=== PATIENT | female | born 1970 | race Two or more races ===

== ENCOUNTER 2020-08-25 09:19 | Outpatient (REF) | payer MEDICAID, SELFPAY ==
--- NOTE | 2020-08-25 | US_ITS ---
EXAMINATION: US RETROPERITONEAL LIMITED (RENAL ONLY) CLINICAL INFORMATION: Complex renal cyst. COMPARISON: Renal ultrasound dated 08/11/2019 TECHNIQUE: Real-time imaging of the kidneys. FINDINGS: RIGHT KIDNEY: 9.8 x 4.0 x 3.6 cm (SAG x AP x TRV). The kidney is normal in size, contour, and echogenicity. Renal cortical thickness is normal. No renal calculi or hydronephrosis. Simple cyst in the right kidney measure 1.4 x 2 x 2 cm LEFT KIDNEY: 11.5 x 5.2 x 5.4 cm (SAG x AP x TRV). The kidney is normal in size, contour, and echogenicity. Renal cortical thickness is normal. No renal calculi or hydronephrosis. Lobular cyst in the left kidney measures 2.8 x 3.6 x 3.4 cm. IMPRESSION: Redemonstration of bilateral renal cysts, the one on the left is slightly complex unchanged from prior exam. Attention to follow-up imaging surveillance recommended. Consider follow-up ultrasound in 12 months. No ultrasound evidence of kidney stone or hydronephrosis..
== END 2020-08-25 09:20 | disposition home or self-care (01) ==
LOC: HO.US 09:19
PROVIDERS: PCP Internal Medicine; Visit Provider Urology
DX: N28.1 Cyst of kidney, acquired (principal)
CPT/HCPCS: 76775

== ENCOUNTER 2021-01-11 16:09 | Outpatient (REF) | payer MEDICAID, SELFPAY ==
--- NOTE | ~2021-01-11 | US_ITS ---
EXAMINATION: US THYROID CLINICAL INFORMATION: Nontoxic single thyroid nodule. COMPARISON: None TECHNIQUE: Linear transducer grayscale and color Doppler examination with attention to the region of the thyroid. FINDINGS: SIZE: Measurements of the thyroid lobes and nodules are given in sagittal, anteroposterior and transverse dimensions respectively. Right Thyroid Lobe: 5.0 x 2.1 x 1.7 cm, volume 9.3 mL. Parenchyma: The gland echotexture is homogeneous. Thyroid vascularity is normal. Left Thyroid Lobe: 5.5 x 2.1 x 2.1 cm, volume 12.7 mL. Parenchyma: The gland echotexture is homogeneous. Thyroid vascularity is normal. Isthmus: 0.4 cm in maximum AP dimension. Estimated total number of nodules greater than or equal to 1 cm: 1. Medical Laboratory Technologist nodules are described as follows: 1. Location: Right lateral mid/inferior. Size: 0.7 x 0.4 x 0.4 cm, volume 0.06 mL. Nodule characteristics: Composition: Solid (2). Echogenicity: Hypoechoic (2). Shape: Not taller than wide (0). Margins: Smooth (0). Echogenic Foci: None (0). ACR TI-RADS total points: 4 ACR TI-RADS category: 4 2. Location: Right inferior. Size: 0.9 x 0.8 x 0.8 cm, volume 0.3 mL. Nodule characteristics: Composition: Solid (2). Echogenicity: Isoechoic (1). Shape: Not taller than wide (0). Margins: Ill-defined (0). Echogenic Foci: None (0). ACR TI-RADS total points: 3 ACR TI-RADS category: 3 3. Location: Left mid. Size: 1.4 x 0.8 x 1.0 cm, volume 0.6 mL. Nodule characteristics: Composition: Solid/almost completely solid (2). Echogenicity: Isoechoic (1). Shape: Not taller than wide (0). Margins: Smooth (0). Echogenic Foci: None (0). ACR TI-RADS total points: 3 ACR TI-RADS category: 3 4. There is a small simple cyst less than 1 cm left lower lobe. In addition there are multiple tiny colloid cysts as well. NODES: No lymphadenopathy is seen in the tissue surrounding the thyroid gland. US/US thyroid IMPRESSION: Benign bilateral thyroid nodules. ACR TI-RADS RECOMMENDATION REFERENCE: Ultrasound-guided fine-needle aspiration, followup ultrasound, no further follow up. * TR1 (0 point) and TR 2 (2 points): No FNA or follow up * TR3 (3 points): FNA if more than or equal to 2.5 cm in maximum dimension, followup ultrasound in 1, 3 and 5 years if 1.5 to 2.4 cm in maximum dimension. * TR4 (4-6 points): FNA if more than or equal to 1.5 cm in maximum dimension, followup ultrasound in 1, 2, 3 and 5 years if 1 to 1.4 cm in maximum dimension. * TR5 (more than or equal to 7 points): FNA if more than or equal to 1 cm in maximum dimension, followup ultrasound every year for 5 years if 0.5 to 0.9 cm in maximum dimension. * TR3, TR4 or TR5 nodules that are below the size threshold for follow up receive no follow up.
== END 2021-01-11 16:10 | disposition home or self-care (01) ==
LOC: HO.US 16:09
PROVIDERS: Visit Provider Internal Medicine
DX: E04.1 Nontoxic single thyroid nodule (principal)
CPT/HCPCS: 76536

== ENCOUNTER 2021-02-15 14:49 | Outpatient (REF) | payer MEDICAID, SELFPAY ==
--- NOTE | ~2021-02-15 | US_ITS ---
EXAMINATION: PELVIC ULTRASOUND CLINICAL INFORMATION: Leiomyomatous uterus COMPARISON: None TECHNIQUE: Transabdominal and transvaginal pelvic ultrasound was performed. Transvaginal exam was performed for better visualization of the uterus and ovaries. FINDINGS: The uterus is anteverted and measures 12.1 x 7.3 x 10.3 cm. There are multiple hypoechoic uterine lesions suggestive of fibroids. There is a 6 x 6.2 x 6.1 cm lesion in the right upper uterine body and fundus, 2.3 x 1.7 x 1.9 cm lesion in the right upper uterine body, 3.7 x 2.7 x 3.1 cm subserosal lesion in the posterior uterine body and 4.3 x 3.8 x 3.7 cm lesion in the left anterior upper uterine body and fundus. There is a 6.5 x 5.2 x 7 cm solid hypoechoic lesion in the left adnexa questionable for an exophytic fibroid versus adnexal mass. The endometrium is not well visualized. The cervix is normal appearing. The right ovary is normal-appearing and measures 2.8 x 1.1 x 1.7 cm. The left ovary is difficult to visualize and may be superior and midline and measures 2.1 x 1.5 x 1.5 cm. There is no fluid in the pelvis. US/US pelvic and transvaginal IMPRESSION: Enlarged fibroid uterus. There is a 6.5 x 5 x 7 cm hypoechoic solid left adnexal lesion questionable for a pedunculated fibroid versus adnexal mass. The left ovary and endometrium are not well visualized.
== END 2021-02-15 14:50 | disposition home or self-care (01) ==
LOC: HO.US 14:49
PROVIDERS: Visit Provider Advanced Practice Midwife
DX: D25.9 Leiomyoma of uterus, unspecified (principal)
CPT/HCPCS: 76830; 76856

== ENCOUNTER → 2021-03-03 15:36 | Outpatient (BNVA) | payer MEDICAID, SELFPAY | PROVIDERS: PCP Internal Medicine; Visit Provider Urology ==

== ENCOUNTER 2021-03-11 14:39 | Outpatient (REF) | payer MEDICAID, SELFPAY ==
--- NOTE | ~2021-03-11 | MM_ITS ---
EXAMINATION: MM SCREENING DIGITAL BREAST TOMOSYNTHESIS, BILATERAL CLINICAL INFORMATION: Screening. Asymptomatic. Remote benign right posterior medial stereotactic biopsy 12/05/2010. The lifetime risk of breast cancer based on the Tyrer-Cuzick Model is 13%. COMPARISON: Mammography: 12/08/2019, 12/02/2018, 10/08/2017 TECHNIQUE: Digital breast tomosynthesis is performed in both the craniocaudal and mediolateral oblique views along with computer-aided detection (CAD). Synthesized 2D images are generated from the tomosynthesis. FINDINGS: There are scattered areas of fibroglandular density (ACR BI-RADS breast composition Category b). Left breast has dermal lesion overlying the lower outer breast. There is no interval breast parenchymal lesion, architectural abnormality, developing density. Neither breast shows abnormal calcifications. There is a biopsy clip marker again seen overlying the posterior medial right breast. The right breast focal asymmetric density upper outer quadrant 1.5 cm in size representing change from prior studies. Margins are ill-defined. MM/MM tomosynthesis screening BI IMPRESSION: 1. Right: Focal asymmetric density upper outer quadrant approximately 1.5 cm size with ill-defined margins. 2. Left: No mammographic evidence of malignancy. ASSESSMENT: BI-RADS 0: Incomplete - Need Additional Imaging Evaluation RECOMMENDATION: 1. Additional views of the right breast (3-D spot CC, 3-D spot ML). 2. Targeted ultrasound right breast. 3. Radiology department staff will contact the patient for additional imaging. This patient's information was entered into a reminder system with a target due date for their next mammogram.
== END 2021-03-11 14:40 | disposition home or self-care (01) ==
LOC: HO.MAMMO 14:39
PROVIDERS: PCP Internal Medicine; Visit Provider Internal Medicine
DX: Z12.31 Encounter for screening mammogram for malignant neoplasm of breast (principal)
CPT/HCPCS: 77063; 77067

== ENCOUNTER 2021-03-12 08:10 | Emergency (ER) | payer MEDICAID, SELFPAY ==
--- NOTE | ~2021-03-12 | XR_ITS ---
EXAMINATION: XR ANKLE, RIGHT CLINICAL INFORMATION: Pain status post fall COMPARISON: None TECHNIQUE: AP, lateral, and mortise views of the right ankle. FINDINGS: The bones and soft tissues are normal. No fracture. Alignment is anatomic. Joint spaces are maintained. No joint effusion. XR/XR ankle RT min 3V IMPRESSION: Normal right ankle.
--- NOTE | ~2021-03-12 | XR_ITS ---
EXAMINATION: XR KNEE, RIGHT CLINICAL INFORMATION: Pain status post fall COMPARISON: None TECHNIQUE: Four views of the right knee. FINDINGS: Bones and soft tissues are normal. No fracture or joint effusion. Alignment is anatomic. Joint spaces are well maintained. No abnormal soft tissue calcification. XR/XR knee RT 3V IMPRESSION: Normal right knee.
[2021-03-12 08:40] VITALS: BP 118/66; PULSE 69; RESP 16; TEMP 36.6; O2SAT 99; BMI 32.5
--- NOTE | 2021-03-12 10:08 | ED.LOWEXIN ---
HPI - Extremity Injury (Lower) General Chief Complaint: Extremity Injury, Lower Stated Complaint: FALL KNEE PAIN Time Seen by Provider: 03/12/21 10:07 History of Present Illness HPI Narrative: Patient complains of pain in right knee and right ankle after a trip and fall outside a store yesterday, no other injury no headache no neck pain no back pain no numbness weakness or tingling, she had no preceding dizziness, did not feel faint, no syncope Related Data Previous Rx's Medication Instructions Recorded acetaminophen 500 mg PO Q6H PRN #20 tab 03/12/21 Allergies Allergy/AdvReac Type Severity Reaction Status Date / Time aspirin [ASPIRIN] Allergy Unknown RASH, Verified 03/03/21 15:39 ITCHING, rash/ itch ciprofloxacin [From CIPRO] Allergy Unknown UNKNOWN Verified 03/03/21 15:39 shellfish derived Allergy Unknown swelling Verified 03/03/21 15:39 [SHELLFISH DERIVED] of tongue Seafood Allergy Unknown hives Uncoded 09/30/19 00:00 Review of Systems Review of Systems: Positive for right ankle and right knee pain after trip and fall No dizziness no weakness no fainting no feeling faint no numbness weakness or tingling no headache no head injury no neck pain no back pain no chest pain PMFSH Past Medical History Source: nursing notes reviewed Medical History History of medical problems Social History Social History Advance Directives: Yes Advance Directives Information Provided: Yes Advance Directives on File: No Physical Exam Vital Signs: Vital Signs: Last Vital Signs Temp 97.8 F 03/12/21 08:40 Pulse 69 03/12/21 08:40 Resp 16 03/12/21 08:40 BP 118/66 03/12/21 08:40 Pulse Ox 99 03/12/21 08:40 Body Mass Index 32.5 General appearance is no acute distress, common cooperative, a and O x3 Head is normocephalic atraumatic Neck is supple and nontender Respiratory no distress The back full range of motion The extremities there is tenderness over the lateral aspect of the right malleolus in the right ankle, there is no swelling no ecchymosis there is full range of motion The right knee had some tenderness just below the patella, there is no swelling no effusion, there is full range of motion there is no ligamentous laxity, patient can straight leg raise no evidence of quadriceps or patellar disruption, neurovascular intact distal Patient has a limping gait Skin no lacerations, skin is intact no wounds Neuro no focal motor or sensory deficit Course Course Course Narrative: X-rays of right ankle and right knee were normal Patient is given an Vinicius bandage and will follow with orthopedics as needed Discharge Plan Discharge Clinical Impression: Contusion of knee, right Qualifiers: Encounter type: initial encounter Qualified Code(s): S80.01XA - Contusion of right knee, initial encounter Right ankle sprain Qualifiers: Encounter type: initial encounter Involved ligament of ankle: unspecified ligament Qualified Code(s): S93.401A - Sprain of unspecified ligament of right ankle, initial encounter Patient Disposition: Home, Self-Care Prescriptions: New acetaminophen 500 mg tablet 500 mg PO Q6H PRN (Reason: pain) Qty: 20 RF: 0 Referrals: Brain Stein MD [Physician] - 2 days (Right ankle and right knee sprains) Interventions: ED Discharge Assessment Last Done: 03/12/21 10:17 Discharge Date/Time: 03/12/21 10:18
== END 2021-03-12 10:18 | disposition home or self-care (01) ==
PROVIDERS: Emergency Provider Emergency Medicine; PCP Internal Medicine
DX: S93.401A Sprain of unspecified ligament of right ankle, initial encounter (principal); S80.01XA Contusion of right knee, initial encounter; M25.571 Pain in right ankle and joints of right foot; M25.561 Pain in right knee; W01.0XXA Fall on same level from slipping, tripping and stumbling without subsequent striking against object, initial encounter; Y93.9 Activity, unspecified; Y92.9 Unspecified place or not applicable; Y99.9 Unspecified external cause status
CPT/HCPCS: 73562; 73610; 99283

== ENCOUNTER 2021-03-24 14:43 | Outpatient (REF) | payer MEDICAID, SELFPAY ==
--- NOTE | ~2021-03-24 | MM_ITS ---
EXAMINATION: MM DIAGNOSTIC DIGITAL BREAST TOMOSYNTHESIS, RIGHT US DIAGNOSTIC ULTRASOUND BREAST, RIGHT CLINICAL INFORMATION: Recall from screening for asymmetric density upper outer right breast. COMPARISON: Mammography: 03/11/2021, 12/08/2019, 12/02/2018, 10/05/2017, 10/03/2016 TECHNIQUE: Digital breast tomosynthesis is performed. 2D images are generated from the tomosynthesis. The following views are obtained: Spot CC, spot ML Ultrasound right breast is targeted to the upper outer quadrant. Grayscale imaging and color Doppler are performed without and with harmonics. FINDINGS: There are scattered areas of fibroglandular density (ACR BI-RADS breast composition Category b). The additional views confirm subtle equal attenuation asymmetric density upper outer breast. There is mixture of fatty tissue attenuation. No surrounding capsule and no associated calcification. Finding represents change from prior exams. Ultrasound demonstrates no cystic or solid mass or architectural abnormality. There is no ultrasound correlate. No focal duct ectasia. No skin thickening or edema tracking in soft tissue planes. No hyperemia. Results are discussed with the patient at time of visit using an pecan sheller. Recommend tissue sampling with stereotactic guidance for further evaluation. MM/MM tomosynthesis added views R IMPRESSION: New asymmetric density upper outer right breast with admixture of glandular and fatty tissue composition. No surrounding capsule. No spiculation. No ultrasound correlate. ASSESSMENT: BI-RADS 4: Suspicious RECOMMENDATION: Stereotactic biopsy upper outer right breast. This patient's information was entered into a reminder system with a target due date for their next mammogram.
== END 2021-03-24 14:44 | disposition home or self-care (01) ==
LOC: HO.MAMMO 14:43
PROVIDERS: Visit Provider Internal Medicine
DX: R92.2 Inconclusive mammogram (principal)
CPT/HCPCS: 76642; 77061; 77065

== ENCOUNTER 2021-03-31 08:08 | Outpatient (REF) | payer MEDICAID, SELFPAY | END 2021-03-31 08:09 | disposition home or self-care (01) | LOC: HO.HOSX 08:08 | PROVIDERS: PCP Internal Medicine; Referring Provider Internal Medicine; Visit Provider Surgery | DX: R92.8 Other abnormal and inconclusive findings on diagnostic imaging of breast (principal) | CPT/HCPCS: 99202 ==

== ENCOUNTER 2021-04-05 09:47 | Outpatient (REF) | payer MEDICAID, SELFPAY ==
--- NOTE | ~2021-04-05 | MM_ITS ---
EXAMINATION: STEREOTACTIC TOMOSYNTHESIS-GUIDED VACUUM-ASSISTED BREAST BIOPSY, RIGHT SPECIMEN RADIOGRAPH, RIGHT POST PROCEDURE DIGITAL MAMMOGRAM, RIGHT CLINICAL INFORMATION: Developing density deep upper outer aspect of the right breast without ultrasound correlate.. COMPARISON: March 24, 2021 and studies dating back to September 07, 2014. TECHNIQUE/PROCEDURE: Informed consent was obtained from the patient after discussion of the benefits, risks, and alternatives to biopsy today. Patient appeared to understand. Gave opportunity for questions. Patient signed consent form. BIOPSY TABLE: [place] [employer] Prone Biopsy System. LESION: Dense parenchymal lesion upper outer aspect right breast. LOCAL ANESTHESIA: 10 mL 1% lidocaine; 20 mL 1% lidocaine with epinephrine. DERMATOTOMY: Single skin luke dermatotomy performed. NEEDLE: Fitzealiva 9-gauge vacuum assisted core biopsy device. APPROACH: Superior. TARGETING: Digital breast tomosynthesis used for targeting. CORES: 13. CLIP: Cork shaped clip. SPECIMEN RADIOGRAPH: Specimen radiograph is taken in separate room using digital mammography. The sample appears to contain some of the lobular targeted tissue. POST PROCEDURE UNILATERAL DIGITAL MAMMOGRAM: The post biopsy mammogram is performed in separate room using separate digital mammography equipment from the biopsy procedure. 2 views are obtained. There are scattered areas of fibroglandular density (breast composition category: b). The clip marker is in position. No gross hematoma. The patient tolerated the procedure well. No immediate complications. Home instructions reviewed with the patient. Final pathology results are pending. MM/MM stereotactic biopsy RT IMPRESSION: 1. Digital tomosynthesis-guided core biopsy right breast with clip placement. 2. Specimen radiograph taken and post procedure mammogram. There is satisfactory positioning of the biopsy clip. 3. Final pathology results pending. An addendum report will be issued.
== END 2021-04-05 09:48 | disposition home or self-care (01) ==
LOC: HO.MAMMO 09:47
PROVIDERS: Visit Provider Surgery
DX: R92.8 Other abnormal and inconclusive findings on diagnostic imaging of breast (principal)
CPT/HCPCS: 19081; 88305; A4648

== ENCOUNTER → 2021-04-08 08:23 | Outpatient (BNVA) | payer MEDICAID, SELFPAY | PROVIDERS: PCP Internal Medicine; Visit Provider Surgery | DX: R92.8 Other abnormal and inconclusive findings on diagnostic imaging of breast (principal) | CPT/HCPCS: 99212 ==

== ENCOUNTER 2021-09-02 13:09 | Outpatient (REF) | payer MEDICAID, SELFPAY ==
--- NOTE | ~2021-09-02 | XR_ITS ---
EXAMINATION: XR CERVICAL SPINE CLINICAL INFORMATION: Pain COMPARISON: None TECHNIQUE: 5 views of the cervical spine, inclusive of flexion and extension views, were obtained. FINDINGS: The vertebral alignment is normal. No intrinsic bony abnormality. The disc heights and neural foramina are well maintained. The endplates and posterior elements are normal. No fracture or subluxation. The surrounding prevertebral soft tissues are unremarkable. The lung apices are clear. XR/XR cervical spine min 6V IMPRESSION: Unremarkable examination.
--- NOTE | ~2021-09-02 | XR_ITS ---
EXAMINATION: XR THORACIC SPINE CLINICAL INFORMATION: Pain COMPARISON: None TECHNIQUE: 3 views of the thoracic spine were obtained. FINDINGS: No fracture or subluxation. Vertebral body height and alignment maintained. Disc spaces are maintained. The paravertebral soft tissues are unremarkable. The visualized lungs are clear. XR/XR thoracic spine 3V IMPRESSION: Unremarkable examination.
--- NOTE | ~2021-09-02 | XR_ITS ---
EXAMINATION: XR SHOULDER, RIGHT CLINICAL INFORMATION: Right shoulder pain. COMPARISON: None TECHNIQUE: Four views of the right shoulder. FINDINGS: The lateral end of the right clavicle is slightly superiorly displaced and shows malalignment between the inferior edge of the clavicle and the inferior edge of the acromion.. The acromioclavicular joint space appear to be well-maintained. The finding may represent subtle acromioclavicular joint injury. Comparison with contralateral normal side as well as stress radiograph with and without weightbearing may be considered for further clarification. The glenohumeral joint is well aligned. Soft tissues are unremarkable. XR/XR shoulder RT min 2V IMPRESSION: Possible subtle injury involving the right acromioclavicular joint. Comparison with contralateral normal side as well as stress radiograph with and without weightbearing may be considered for further clarification.
== END 2021-09-02 13:10 | disposition home or self-care (01) ==
LOC: HO.XRAY 13:09
PROVIDERS: Absent Provider Internal Medicine; PCP Internal Medicine; Visit Provider Nurse Practitioner Family
DX: M54.6 Pain in thoracic spine (principal)
CPT/HCPCS: 72052; 72072; 73030

== ENCOUNTER 2021-10-08 11:13 | Emergency (ER) | payer MEDICAID, SELFPAY ==
[2021-10-08 11:15] VITALS: BP 135/65; PULSE 74; RESP 16; TEMP 36.6; O2SAT 98; BMI 29.0
--- NOTE | 2021-10-08 11:26 | ED_ITS ---
HPI - Back Pain/Injury General Chief Complaint: Back Pain/Injury Stated Complaint: back pain Time Seen by Provider: 10/08/21 11:26 Source: patient Mode of arrival: ambulatory Limitations: language barrier History of Present Illness HPI Narrative: 51-year-old female presents for bilateral low back pain, that started 2 days ago and worsened yesterday. 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 She had low back pain, but she continued to stand on her feet and do a lot of cooking. Patient has no saddle paresthesias, no history of IV drug use, no history of cancer, no fevers, no leg weakness, no incontinence of bowel or bladder. No back surgeries. Patient states she had a fall this summer, and had an x-ray of her thoracic spine which was negative. X-ray of thoracic spine August 2021 was reviewed and is normal. Patient endorses bilateral low back pain, that is constant and aching with some discomfort running down her right lower extremity. MD elicited complaint: back pain Pertinent past history: prior back pain Onset (ago): day(s) (2) Timing: constant Severity: moderate Similar Symptoms Previously: No Quality: dull Location: right lower back and left lower back Radiation: right upper leg Exacerbating factors: movement Relieving factors: immobilization Context: other ( standing for long period of time and doing a lot of cooking) Associated symptoms: denies other symptoms Treatments prior to arrival: acetaminophen Work related injury: No Related Data Home Medications Medication Instructions Recorded Confirmed albuterol sulfate 90 mcg/actuation 2 puff INHALATION QID 03/31/21 04/08/21 aerosol inhaler (ProAir HFA) clonazepam 0.5 mg tablet 0.5 mg PO DAILY 03/31/21 04/08/21 fluticasone propionate 100 1 inh INHALATION BID 03/31/21 04/08/21 mcg/actuation blister powder for inhalation (Flovent Diskus) propranolol 160 mg capsule,24 160 mg PO DAILY 03/31/21 04/08/21 hr,extended release sertraline 100 mg tablet 100 mg PO DAILY 03/31/21 04/08/21 topiramate 25 mg tablet (Topamax) 25 mg PO DAILY 03/31/21 04/08/21 Previous Rx's Medication Instructions Recorded acetaminophen 500 mg tablet 500 mg PO Q6H PRN #20 tab 03/12/21 cyclobenzaprine 10 mg tablet 10 mg PO BEDTIME #7 tab 10/08/21 ketorolac 10 mg tablet 10 mg PO QID 5 Days #20 tab 10/08/21 Allergies Allergy/AdvReac Type Severity Reaction Status Date / Time aspirin [ASPIRIN] Allergy Unknown RASH, Verified 03/03/21 15:39 ITCHING, rash/ itch ciprofloxacin [From CIPRO] Allergy Unknown UNKNOWN Verified 03/03/21 15:39 shellfish derived Allergy Unknown swelling Verified 03/03/21 15:39 [SHELLFISH DERIVED] of tongue Seafood Allergy Unknown hives Uncoded 09/30/19 00:00 Review of Systems Constitutional: Constitutional: Denies chills, Denies fatigue, Denies fever(s), Denies headache(s), Denies malaise and Denies weakness Eyes: Eyes: Denies diplopia ENT: Denies vertigo, Denies dizziness, Denies headache(s) and Denies neck pain Cardiovascular: Cardiovascular: Denies chest pain, Denies syncope, Denies leg edema, Denies lightheadedness, Denies palpitations and Denies dyspnea Respiratory: Respiratory: Denies chest congestion, Denies cough and Denies dyspnea Gastrointestinal: Gastrointestinal: Denies abdominal pain, Denies hematochezia, Denies constipation, Denies fecal incontinence, Denies diarrhea and Denies vomiting Genitourinary: Genitourinary: Denies dysuria, Denies pelvic pain, Denies urinary incontinence, Denies urinary hesitancy and Denies urinary urgency Musculoskeletal: Musculoskeletal: Reports back pain, Denies muscle weakness, Denies neck pain, Reports radiating pain into limb and Denies tingling Integumentary/Breasts: Skin/Breast: Denies rash Neurologic: Denies confusion, Denies vertigo, Denies dizziness, Denies syncope, Denies headache(s), Denies Sensory deficit (Neuro), Denies tingling and Denies weakness Psychiatric: Psychiatric: Denies confusion Endocrine: Endocrine: Denies fatigue and Denies palpitations PMFSH Past Medical History Medical History History of medical problems Surgical History H/O right breast biopsy History of appendectomy Family History Family History (Reviewed 10/08/21 @ 11: by CRICKET Garcia) Paternal Aunt Breast cancer Mother Pancreatic cancer Social History Social History (Reviewed 10/08/21 @ 11: by CRICKET Garcia) Alcohol intake: never Advance Directives: No Advance Directives Information Provided: Yes Physical Exam Vital Signs: Vital Signs: Last Vital Signs Temp 97.8 F 10/08/21 11:15 Pulse 74 10/08/21 11:15 Resp 18 10/08/21 12:48 BP 135/65 10/08/21 11:15 Pulse Ox 98 10/08/21 11:15 Body Mass Index 29.0 Const: General: well developed, alert, awake and in distress (d/t pain) mild; No confusion Nutritional Appearance: well nourished Orientation/conscio usness: patient oriented x3 and No confusion Limitations: language barrier (Lithuanian speaker) HENMT: Head: Yes normal to inspection, Yes normocephalic and Yes atraumatic Eyes: Conjunctivae: conjunctivae normal Pupils: Equal, round and reactive pupils present EOM: EOMs intact bilaterally Neck: Neck: Yes full ROM, Yes no lymphadenopathy, Yes no meningeal signs, Yes trachea midline and Yes supple Resp: Effort & Inspection: normal respiratory effort and able to speak in complete sentences Auscultation: clear to auscultation bilaterally, no crackles, no rales, no rhonchi and no wheezes Cardio: Rate: regular rate Rhythm: regular rhythm Heart sounds: S1 normal heart sound present and S2 normal heart sound present : General: Yes no CVA tenderness Back/Spine/Pelvis: Back: no CVA tenderness and back tenderness (bilateral low back) Cervical Spine: normal cervical lordosis, cervical ROM normal, No cervical spasm, No Cervical spine tenderness and No step off deformity Thoracic/Lumbar Spine: straight leg raise negative bilaterally, No kyphosis, No mass, thoraco-lumbar ROM limited with forward flexion, No thoracic spinal tenderness and No lumbar spinal tenderness Pelvis: no pain with anterior- posterior compression and no pain with lateral compression Sacroiliac joints: bilaterally nontender Sacrum: no swelling Coccyx: no swelling Skin: General skin exam: no rashes or lesions noted Neuro: General: patient oriented x3, gait normal, tone normal, moves all extremities, no meningeal signs and No confusion Cranial nerves: Yes Equal, round and reactive pupils present Gait exam (Neuro): Normal gait present, not antalgic, not ataxic and not shuffling Motor exam (neuro): 5/5 motor strength present throughout Sensory Exam: No Sensory deficit (Neuro) Deep tendon reflexes (DTR's): Right patellar reflex intensity grade: 1+ and Left patellar reflex intensity grade: 1+ Extrem: General: Yes normal to inspection and Yes full ROM Right lower extremity: normal to inspection, full ROM and normal capillary refill Left lower extremity: normal to inspection, full ROM and normal capillary refill Psych: Appearance: grossly normal Affect: normal affect Attitude: cooperative Thought process: Normal thought process present Course Course Course Narrative: 51-year-old female with 2 days of atrtaumatic bilateral low back pain. Patient has no red flag symptoms. Patient has intact lower extremity sensation, motor strength, pulses, and DTRs. Patient is able to stand and walk and is able to get up on her toes and up on her heels. No vertebral point tenderness. Patient states pain, is worse with movement. I cannot reproduce tenderness by palpation over her lower back. Gave Toradol and Flexeril, will re-evaluate. Reevaluation(s) Reevaluation #1: On re-examine, patient is feeling much better. Prescribed Toradol and cyclobenzaprine for home. Patient has physical therapy appointment on Sunday, counseled her to keep that appointment and call her primary care provider for follow-up. Discharge Plan Discharge Clinical Impression: Back pain Qualifiers: Back pain location: low back pain Chronicity: acute Back pain laterality: bilateral Sciatica presence: without sciatica Qualified Code(s): M54.50 - Low back pain, unspecified Patient Disposition: Home, Self-Care Instructions: Acute Low Back Pain (ED) Additional Instructions: While taking the medicines that I prescribed, do not take any ibuprofen, Motrin, Excedrin, Aleve, or anything containing ibuprofen. You may take Tylenol in addition to what I prescribed. The cyclobenzaprine may make you sleepy, this is the case, take it only at night. Call your primary care provider for a follow-up appointment in the next couple of weeks. Please keep your physical therapy appointment on Sunday. If you have leg weakness, numbness in your groin, if you are incontinent of bowel or bladder, or have sudden severe low back pain, please return to the emergency room Mientras est? tomando los medicamentos que le recet?, no tome ibuprofeno, Motrin, Excedrin, Aleve ni nada que contenga ibuprofeno. Puede tony Tylenol adem?s de lo que le recet?. La ciclobenzaprina puede causarle jessica?o, yaron es el keren, t?[place] solo por la noche. Llame a arrieta proveedor de atenci?n primaria para peg ivan de seguimiento en las pr?ximas semanas. Acuda a arrieta ivan de fisioterapia el lunes. Si tiene debilidad en las piernas, entumecimiento en la ronda, si tiene incontinencia intestinal o de vejiga, o tiene dolor lumbar odilia y repentino, regrese a la richard de emergencias Prescriptions: New ketorolac 10 mg tablet 10 mg PO QID 5 Days Qty: 20 RF: 0 cyclobenzaprine 10 mg tablet 10 mg PO BEDTIME Qty: 7 RF: 0 No Action acetaminophen 500 mg tablet 500 mg PO Q6H PRN (Reason: pain) Qty: 20 RF: 0 Flovent Diskus 100 mcg/actuation blister with device 1 inh inhalation BID RF: 0 albuterol sulfate [ProAir HFA] 90 mcg/actuation HFA aerosol inhaler 2 puff inhalation QID RF: 0 clonazepam 0.5 mg tablet 0.5 mg PO DAILY RF: 0 sertraline 100 mg tablet 100 mg PO DAILY RF: 0 propranolol 160 mg capsule,extended release 24 hr 160 mg PO DAILY RF: 0 topiramate [Topamax] 25 mg tablet 25 mg PO DAILY RF: 0 Print Language: Lithuanian
[2021-10-08] MEDS: Cyclobenzaprine HCl 10 MG TABLET PO (11:47)
[2021-10-08] MEDS: Ketorolac Tromethamine 15 MG/ML VIAL 30 MG IM (11:48)
[2021-10-08 12:48] VITALS: RESP 18
== END 2021-10-08 13:37 | disposition home or self-care (01) ==
PROVIDERS: Emergency Provider Emergency Medicine; PCP Internal Medicine
DX: M54.50 Low back pain, unspecified (principal)
CPT/HCPCS: 96372; 99283; 99284; J1885

== ENCOUNTER 2021-10-10 14:21 | Outpatient (REF) | payer MEDICAID, SELFPAY ==
--- NOTE | ~2021-10-10 | XR_ITS ---
EXAMINATION: XR KNEE, RIGHT CLINICAL INFORMATION: Knee pain. COMPARISON: 03/12/2021 TECHNIQUE: Two views of the right knee. FINDINGS: Bones and soft tissues are normal. No fracture or joint effusion. Alignment is anatomic. Joint spaces are well maintained. No abnormal soft tissue calcification. XR/XR knee RT 2V IMPRESSION: Normal right knee.
== END 2021-10-10 14:22 | disposition home or self-care (01) ==
LOC: HO.XRAY 14:21
PROVIDERS: PCP Internal Medicine; Visit Provider Physician Assistant
DX: M25.561 Pain in right knee (principal)
CPT/HCPCS: 73560

== ENCOUNTER 2021-10-18 12:33 | Outpatient (REF) | payer MEDICARE, MEDICAID, SELFPAY ==
--- NOTE | ~2021-10-18 | XR_ITS ---
EXAMINATION: XR THORACIC SPINE CLINICAL INFORMATION: 1 week of pain COMPARISON: 09/02/2021 TECHNIQUE: 3 views of the thoracic spine were obtained. FINDINGS: There is no fracture or bone destruction seen and the vertebral alignment is normal. There is no disc space narrowing. There is no abnormality of the paraspinal soft tissues. The visualized lungs are clear. XR/XR thoracic spine 3V IMPRESSION: Unremarkable examination.
--- NOTE | ~2021-10-18 | XR_ITS ---
EXAMINATION: XR SHOULDER, RIGHT CLINICAL INFORMATION: 1 week of pain. COMPARISON: 09/02/2021 TECHNIQUE: AP external rotation, Grashey, scapular Y, and axillary views of the right shoulder. FINDINGS: No acute fracture or dislocation. The glenohumeral joint is well aligned. The joint space is maintained. Similar alignment at the acromioclavicular joint when compared to prior. There is elevation of the clavicle in relation to the acromion. The joint space is maintained. The visualized lung is clear. The visualized ribs are intact. XR/XR shoulder RT min 2V IMPRESSION: No change from prior. Persistent elevated positioning of the clavicle in relation to the acromion.
--- NOTE | ~2021-10-18 | XR_ITS ---
EXAMINATION: XR CERVICAL SPINE CLINICAL INFORMATION: 1 week of pain COMPARISON: 09/02/2021 TECHNIQUE: 5 views of the cervical spine were obtained. FINDINGS: There are no prevertebral soft tissue or bony abnormalities demonstrated. No compression fractures or subluxations are identified. Alignment is maintained at the atlanto-axial articulation. The disc spaces are preserved. No endplate changes are seen. The prevertebral soft tissues are normal. The foramina are patent. XR/XR cervical spine 4V IMPRESSION: Unremarkable examination.
== END 2021-10-18 12:34 | disposition home or self-care (01) ==
LOC: HO.XRAY 12:33
PROVIDERS: Absent Provider Internal Medicine; PCP Internal Medicine; Visit Provider Nurse Practitioner Family
DX: M54.6 Pain in thoracic spine (principal); M54.2 Cervicalgia; M25.511 Pain in right shoulder
CPT/HCPCS: 72050; 72072; 73030

== ENCOUNTER 2021-11-07 15:00 | Outpatient (RCR) | payer MEDICAID, SELFPAY ==
--- NOTE | 2021-10-10 13:37 | MHC.PT.EP ---
[facility] [place] Office [place] Office [place] Office [address] Zendejas [address] [phone] F: [phone] F: [phone] F: [phone] F: [phone] Physical Therapy Plan of Care Date of Evaluation: Date of Surgery: N/A Diagnosis: thoracic back sprain Assessment: Pt is a 51yo F who presents to PT with gradual onset of thoracic and lumbar pain. She presents today with current impairments in pain, increased lumbar lordosis, decreased lumbar ROM, decreased strength, soft tissue restrictions and impaired posture. She is TTP throughout thoracic and lumbar paraspinals and vertebrae. She is limited functionally by sitting to standing, prolonged standing, and walking. She is a good candidate for skilled PT services to address current impairments in order to facilitate return to PLOF. Frequency and Duration: The patient will be seen 2x/week for 4 weeks Short Term Goals: Pt will be I with HEP to promote self management of symptoms Pt will improve lumbar flexion by at least 25% Residential Goals: Pt will demonstrate full ROM throughout lumbar spine Pt will tolerate standing > 30 min to assist with functional tasks Pt will demonstrate improvements in functional mobility as evidenced by statistically significant improvement in Modified Oswestry Low Back Pain Disability Questionnaire Treatment Plan: Modalities to reduce pain, spasms and effusion. Manual therapy to restore motion and function. Therapeutic exercise to improve strength and flexibility. Neuromuscular re-education for posture and balance. Therapeutic activities to return to functional activities of daily living. Electronically signed by: Carolin Soni, PT, DPT Please sign and return to therapist. Thank you for your referral.
--- NOTE | 2021-12-07 11:41 | MHC.PT.DC ---
[facility] [place] Office [place] Office [place] Office [address] Clary Zendejas [address] [phone] F: [phone] F: [phone] F: [phone] F: [phone] Physical Therapy Discharge Report Diagnosis: thoracic back sprain Date of Surgery: N/A Date of Evaluation: 10/10/21 Date of Discharge: 12/07/21 Treatments to Date: 7 Cancellations to Date: 2 No Shows to Date: 1 Discharge Status: Improved Function Independent with HEP Discharge Summary: Pt was seen for skilled PT services from 10/10/21-11/07/21. Her last attended appointment was 11/07/21. She was anticipated to be D/C to HEP her next scheduled visit however she was a no-show for that scheduled appointment on 11/09/21. Pt was making good progress throughout PT POC and made good progress toward her goals. Pt is being D/C from skilled PT services at this time. Pt current level of function unknown at this time. Electronically signed by: Carolin Soni, PT, DPT Please sign and return to therapist. Thank you for your referral.
== END 2021-12-07 11:42 | disposition home or self-care (01) ==
LOC: HO.PT 15:00
PROVIDERS: PCP Internal Medicine; Visit Provider Internal Medicine
DX: S23.9XXD Sprain of unspecified parts of thorax, subsequent encounter (principal)
CPT/HCPCS: 97110; 97162; 97530

== ENCOUNTER → 2021-11-17 09:11 | Outpatient (BNVA) | payer MEDICAID, SELFPAY | PROVIDERS: Visit Provider Physician Assistant | DX: M75.101 Unspecified rotator cuff tear or rupture of right shoulder, not specified as traumatic (principal) | CPT/HCPCS: 20610; 99212; J1040 ==

== ENCOUNTER → 2021-12-02 09:01 | Outpatient (BNVA) | payer MEDICAID, SELFPAY | PROVIDERS: PCP Internal Medicine; Visit Provider Internal Medicine | DX: M54.50 Low back pain, unspecified (principal) | CPT/HCPCS: 99202 ==

== ENCOUNTER 2021-12-30 09:28 | Outpatient (REF) | payer MEDICARE, MEDICAID, SELFPAY ==
--- NOTE | ~2021-12-30 | XR_ITS ---
EXAMINATION: KNEE X-RAY CLINICAL INFORMATION: Pain COMPARISON: Previous x-ray MarchSeptember 2021 TECHNIQUE: Standing AP view of both knees and lateral and sunrise view of the left knee FINDINGS: Left: Bone alignment is normal. No fracture or dislocation is seen. The joint spaces are normal. There is no joint effusion. Standing AP view of the right knee is unremarkable. XR/XR knee standing BI IMPRESSION: Unremarkable exam.
--- NOTE | ~2021-12-30 | XR_ITS ---
EXAMINATION: KNEE X-RAY CLINICAL INFORMATION: Pain COMPARISON: Previous x-ray MarchSeptember 2021 TECHNIQUE: Standing AP view of both knees and lateral and sunrise view of the left knee FINDINGS: Left: Bone alignment is normal. No fracture or dislocation is seen. The joint spaces are normal. There is no joint effusion. Standing AP view of the right knee is unremarkable. XR/XR knee LT 2V IMPRESSION: Unremarkable exam.
== END 2021-12-30 09:29 | disposition home or self-care (01) ==
LOC: HO.HOSX 09:28
PROVIDERS: PCP Internal Medicine; Visit Provider Physician Assistant
DX: M22.2X2 Patellofemoral disorders, left knee (principal)
CPT/HCPCS: 20610; 73560; 73565; 99212; J1040

== ENCOUNTER → 2022-01-09 14:49 | Outpatient (BNVA) | payer MEDICARE, MEDICAID, SELFPAY | PROVIDERS: PCP Internal Medicine; Visit Provider Internal Medicine | DX: M54.50 Low back pain, unspecified (principal) | CPT/HCPCS: 99212 ==

== ENCOUNTER 2022-01-12 13:05 | Outpatient (REF) | payer MEDICARE, MEDICAID, SELFPAY ==
[2022-01-12 16:55] LABS: Alanine Aminotransferase 11 U/L (0-31); Albumin Level 4.1 g/dL (3.5-5.0); Alkaline Phosphatase 107 U/L (39-117); Anion Gap 13 (12-20); Aspartate Amino Transferase 15 U/L (5-31); Bilirubin Total 0.4 mg/dL (0.0-1.0); Blood Urea Nitrogen 12 mg/dL (9-16); Calcium 10.1 mg/dL (8.4-10.2); Carbon Dioxide 29 mmol/L (22-29); Chloride 107 mmol/L (96-108); Estimated Glomerular Filt Rate > 60; Glucose Random 99 mg/dL (60-115); Potassium 4.5 mmol/L (3.3-5.1); Sodium 144 mmol/L (135-145); Total Protein 7.5 g/dL (6.5-8.0)
== END 2022-01-12 13:06 | disposition home or self-care (01) ==
LOC: HO.LAB 13:05
PROVIDERS: PCP Internal Medicine; Referring Provider Nurse Practitioner; Visit Provider Nurse Practitioner
DX: D12.6 Benign neoplasm of colon, unspecified (principal)
CPT/HCPCS: 36415; 80053; 99202

== ENCOUNTER 2022-04-06 11:45 | Outpatient (REF) | payer MEDICARE, MEDICAID, SELFPAY ==
--- NOTE | ~2022-04-06 | MM_ITS ---
EXAMINATION: MM SCREENING DIGITAL BREAST TOMOSYNTHESIS, BILATERAL CLINICAL INFORMATION: Screening. Asymptomatic. The lifetime risk of breast cancer based on the Tyrer-Cuzick Model is 9.2%. COMPARISON: Mammography: April 05, 2021 and studies dating back to August 01, 2012 TECHNIQUE: Digital breast tomosynthesis is performed in both the craniocaudal and mediolateral oblique views along with computer-aided detection (CAD). Synthesized 2D images are generated from the tomosynthesis. FINDINGS: The breasts are heterogeneously dense, which may obscure small masses (ACR BI-RADS breast composition Category c). There are no significant masses, abnormal calcifications, or other abnormalities. Right breast anterior intramammary lymph node present. MM/MM tomosynthesis screening BI IMPRESSION: There are no significant changes from prior study. ASSESSMENT: BI-RADS 1: Negative RECOMMENDATION: Routine annual mammography screening. This patient's information was entered into a reminder system with a target due date for their next mammogram.
== END 2022-04-06 11:46 | disposition home or self-care (01) ==
LOC: HO.MAMMO 11:45
PROVIDERS: Visit Provider Internal Medicine
DX: Z12.31 Encounter for screening mammogram for malignant neoplasm of breast (principal)
CPT/HCPCS: 77063; 77067

== ENCOUNTER 2022-08-07 10:13 | Day surgery (SDC) | payer MEDICARE, SELFPAY ==
[2022-08-02 14:01] VITALS: BMI 29.0
[2022-08-07 10:55] VITALS: BP 126/67; PULSE 73; RESP 16; TEMP 36.4; O2SAT 99; BMI 29.2
--- NOTE | 2022-08-07 10:59 | HO.ANESPROP2 ---
[facility] Active Problems Active Problems: All Active Problems (Updated 08/02/22 @ 13:58 by Kiera Bryant RN) Bilateral renal cysts (Acute) Abnormal mammogram of right breast (Acute) Knee pain (Acute) Painful arc syndrome of right shoulder (Acute) Patellofemoral syndrome of left knee (Acute) Migraines (Acute) Depression with anxiety (Acute) Tubular adenoma of colon (Acute) HTN (hypertension), benign (Acute) Right bundle branch block (Acute) Hemorrhoids (Acute) Inappropriate sinus tachycardia (Acute) Urinary incontinence (Acute) Tubular adenoma of colon (Acute) Low back pain (Acute) Past Medical History Medical History (Updated 08/02/22 @ 13:58 by Kiera Bryant RN) Anxiety Depression HTN (hypertension) Low back pain Migraines RBBB (right bundle branch block) Family History Family History Paternal Aunt Breast cancer Mother Pancreatic cancer Family history of problems with anesthesia: No Surgical History Surgical History (Updated 08/02/22 @ 13:59 by Kiera Bryant RN) H/O colonoscopy H/O right breast biopsy History of appendectomy History of Problems with Anesthesia: No Social History Social History Alcohol intake: never Advance Directives: No Advance Directives Information Provided: Yes Current occupational status: disabled Meds Allergies Allergy/AdvReac Type Severity Reaction Status Date / Time shellfish derived Allergy Severe swelling Verified 08/02/22 12:50 [SHELLFISH DERIVED] of tongue aspirin [ASPIRIN] Allergy Intermediate rash/ itch Verified 08/02/22 12:50 ciprofloxacin [From CIPRO] Allergy Unknown UNKNOWN Verified 01/12/22 13:14 Seafood Allergy Intermediate hives Uncoded 08/02/22 12:50 Home Medications Medication Instructions Recorded Confirmed Last Taken Type albuterol sulfate 90 mcg/actuation 2 puff inhalation QID 03/31/21 01/09/22 Unknown History aerosol inhaler (ProAir HFA) clonazepam 0.5 mg tablet 0.5 mg PO DAILY 03/31/21 01/09/22 Unknown History fluticasone propionate 100 1 inh inhalation BID 03/31/21 01/09/22 Unknown History mcg/actuation blister powder for inhalation (Flovent Diskus) propranolol 160 mg capsule,24 160 mg PO DAILY 03/31/21 01/09/22 Unknown History hr,extended release sertraline 100 mg tablet 100 mg PO DAILY 03/31/21 01/09/22 Unknown History topiramate 25 mg tablet (Topamax) 25 mg PO DAILY 03/31/21 01/09/22 Unknown History lidocaine 5 % topical patch 1 patch topical DAILY 01/12/22 Unknown History Exam Exam Date and Time: August 07, 2022 1059 Height,Weight and Vital Signs: Height 5 ft 8 in Weight 86.636 kg Airway Mallampati Class: III (Limited mouth opening) TM Dist: >3cm Neck ROM: Full Denture: Upper and Lower Heart: rrr Lungs: cta Assessment and Plan Assessment Anesthesia Assessment: Anesthesia Plan Discussed Final Anesthetic Review Family History of Problems with Anesthesia: No History of Problems with Anesthesia: No NPO: Yes ASA Class: II Final Preanesthetic Review: No Changes in Pt Med Stat, Meds/Allgs Chart Reviewed and Consent Obtained/Reviewed Patient Risk: Intermediate Procedure Risk: Intermediate Anesthetic Plan Anesthetic Plan: MAC: Disposition: Standard PACU
[2022-08-07 11:14] VITALS: BP 126/67; PULSE 73; RESP 16; TEMP 36.4; O2SAT 99
--- NOTE | 2022-08-07 12:11 | MHC.SHP ---
Pre-Procedural Eval Section A Date of Service: 08/07/22 The patient is an INPATIENT: No The History & Physical has been completed within 30 days and I have reviewed it.: No Section B Chief Complaint: Screening, history of colon polyps Relevant Family History (Specify if Yes): No Relevant Social History: None Present Medications: see Short Stay Collaborative assessment Medical History: Significant History (RBBB with sinus tachycardia Renal cysts Microscopic hematuria Migraines Depression/anxiety Urinary stress incontinence Tubular adenoma Hypertension Thoracic back pain Hemorrhoids) History of Previous Operations: Relevant previous surgery/procedure and date(s) (H/O right breast biopsy History of appendectomy) Allergies: Allergies Allergy/AdvReac Type Severity Reaction Status Date / Time shellfish derived Allergy Severe swelling Verified 08/02/22 12:50 [SHELLFISH DERIVED] of tongue aspirin [ASPIRIN] Allergy Intermediate rash/ itch Verified 08/02/22 12:50 ciprofloxacin [From CIPRO] Allergy Unknown UNKNOWN Verified 01/12/22 13:14 Seafood Allergy Intermediate hives Uncoded 08/02/22 12:50 Review of Systems Sugical H&P ROS: Negative: Constitution, Cardiovascular, Respiratory and Gastrointestinal Exam Surgical H&P Exam: Normal: Heart, Normal: Lungs, Normal: Extremities and Normal: Abdomen Plan Diagnosis/Plan: Unchanged I have reviewed the history and physical and performed a pertinent physical examination on my patient. No changes have occurred unless specified.
--- NOTE | 2022-08-07 12:13 | P.OP_ITS ---
Operative Note Operative Note Date of Service: 08/07/22 Narrative: Pre-op diagnosis: Colon cancer screening, history of colon polyps Post-op diagnosis:?other (Colon polyps, diverticulosis, hemorrhoids) Procedure: COLONOSCOPY TILL CECUM WITH BIOPSIES, SNARE POLYPECTOMY, SUBMUCOSAL INJECTION AND HEMOCLIP PLACEMENT Consent: Indications for the procedure and potential complications of bleeding, perforation, reaction to medications and missed diagnosis were discussed with the patient and informed consent was obtained. Instrument: Olympus PCF H 190 L variable stiffness pediatric colonoscope Monitoring: Vital signs and clinical assessment, intermittent blood pressure monitoring, continuous EKG monitoring, Pulse oximetry and Carbon Dioxide monitoring were done throughout the procedure. Colon withdrawl time was 28 minutes. Procedure: The patient was placed in the left lateral decubitis position and pre-procedure medications were administered. After a digital rectal examination of the ano-rectum, the video colonoscope was inserted into the rectum and advanced through the colon to the cecum. The colonoscope was slowly withdrawn in a retrograde panoramic fashion and the colon mucosa was carefully examined including a retroflexed view of the rectum. Findings and interventions are described below. Procedure Difficulty: Without difficulty Findings: Terminal Ileum: Not evaluated Cecum:? A 12-15 mm sessile polyp raised with 3 cc of Orise solution)(submucosal injection and removed with a hot snare. Ascending Colon:? Two 5-8 mm sessile polyps removed with a cold bx. A 2.5 to 2.8 mm flat polyp at 70 cms in the mid AC.? Polyp was raised with 10 cc of Orise solution (submucosal injection) and removed with a hot snare.? Polypectomy site was treated with caustery using the snare tip, marked with armando ink and closed with a hemoclip. Transverse Colon:? Normal Descending Colon:? Moderate diverticulosis Sigmoid Colon:? A 10 mm sessile polyp removed with a hot snare. Moderate diverticulosis Rectum:? Normal Ano-rectum:? Small internal hemorrhoids Colon preparation:? Good after some irrigation Impression and Post Procedure Diagnosis: Colonoscopy Findings: Five small to medium sized polyps removed Moderate diverticulosis seen in the left colon Small hemorrhoids on retroflexed exam. Plan: Await pathology results Patient has an appointment on 08/22/22 in the GI Clinic with? Ligia Denise NP. Repeat Colonoscopy interval based on path results - in 1 year if polyps are adenomatous to check polypectomy site in the AC at 70 cms. Colon polyps and diverticulosis handouts were given in the discharge area Surgeon: Funmi Bond MD Anesthesia:?MAC Was an Strike Off Machine Operator used for this Procedure?:?Yes Strike Off Machine Operator:?Nicole Bradford Estimated blood loss (mL):?0 Pathology:?other (A- POLYP CECUM? O-RISE USED? B- ASCE NDING COLON POLYPS? C- ASCENDING COLON POLYP AT 70CM? O- RISE USED? D- SIGMOID POLYP) Condition:?stable Disposition:?PACU
[2022-08-07 13:02] VITALS: BP 104/53; PULSE 75; RESP 18; TEMP 36.4; O2SAT 99
[2022-08-07 13:21] VITALS: BP 120/73; PULSE 69; RESP 18; TEMP 36.4; O2SAT 100
== END 2022-08-07 14:35 | disposition home or self-care (01) ==
PROVIDERS: PCP Internal Medicine; Visit Provider Internal Medicine Gastroenterology
PROC: 0DJD8ZZ Inspection of Lower Intestinal Tract, Via Natural or Artificial Opening Endoscopic (ICD-10-PCS; CPT 45378; principal; 2022-08-07 11:20)
DX: Z12.11 Encounter for screening for malignant neoplasm of colon (principal); Z86.010 Personal history of colon polyps; D12.2 Benign neoplasm of ascending colon; K63.5 Polyp of colon; K57.30 Diverticulosis of large intestine without perforation or abscess without bleeding; K64.8 Other hemorrhoids; I10 Essential (primary) hypertension; I45.10 Unspecified right bundle-branch block; R00.0 Tachycardia, unspecified; G43.909 Migraine, unspecified, not intractable, without status migrainosus; F41.8 Other specified anxiety disorders; Z88.1 Allergy status to other antibiotic agents; Z88.8 Allergy status to other drugs, medicaments and biological substances; Z91.040 Latex allergy status
CPT/HCPCS: 45385; 45380; 45381; 88305; J3010

== ENCOUNTER 2022-08-18 15:40 | Outpatient (REF) | payer MEDICARE, SELFPAY ==
--- NOTE | ~2022-08-18 | US_ITS ---
EXAMINATION: US RETROPERITONEAL LIMITED (RENAL ONLY) CLINICAL INFORMATION: Calculus of kidney. COMPARISON: Renal ultrasound 08/25/2020 and 08/11/2019. MRI abdomen 02/10/2019. TECHNIQUE: Real-time imaging of the kidneys. FINDINGS: RIGHT KIDNEY: 10.4 x 5.1 x 5.4 cm (SAG x AP x TRV). The kidney is normal in size, contour, and echogenicity. Renal cortical thickness is normal. No renal calculi or hydronephrosis. There are 2 anechoic cysts seen in upper pole measuring 2.9 x 1.9 x 2.6 cm and 0.5 x 0.5 x 0.5 cm. LEFT KIDNEY: 10.2 x 5.5 x 4.6 cm (SAG x AP x TRV). The kidney is normal in size, contour, and echogenicity. Renal cortical thickness is normal. No renal calculi or hydronephrosis. There is a solitary upper pole anechoic cyst with septation measuring 4.3 x 2.8 x 3.5 cm. No additional cyst seen. US/US renal BI IMPRESSION: Complex cyst upper pole left kidney. 2 simple cyst upper pole right kidney. No echogenic stones or hydronephrosis.
== END 2022-08-18 15:41 | disposition home or self-care (01) ==
LOC: HO.US 15:40
PROVIDERS: Visit Provider Internal Medicine
DX: N20.0 Calculus of kidney (principal); N28.1 Cyst of kidney, acquired; E04.1 Nontoxic single thyroid nodule
CPT/HCPCS: 76775

== ENCOUNTER 2022-08-31 10:52 | Outpatient (REF) | payer MEDICARE, SELFPAY ==
--- NOTE | ~2022-08-31 | US_ITS ---
EXAMINATION: US THYROID CLINICAL INFORMATION: Thyroid nodule. COMPARISON: Ultrasound thyroid 01/11/2021. TECHNIQUE: Linear transducer grayscale and color Doppler examination with attention to the region of the thyroid. FINDINGS: SIZE: Measurements of the thyroid lobes and nodules are given in sagittal, anteroposterior and transverse dimensions respectively. Right Thyroid Lobe: 5.0 x 1.6 x 1.9 cm, volume 7.9 mL. Previously 5.0 x 2.1 x 1.7 cm, volume 9.3 mL. Parenchyma: The gland echotexture is homogeneous. Thyroid vascularity is increased. Left Thyroid Lobe: 5.3 x 2.7 x 2.1 cm, volume 15.7 mL. Previously 5.5 x 2.1 x 2.1 cm, volume 12.7 mL. Parenchyma: The gland echotexture is homogeneous. Thyroid vascularity is normal. Isthmus: 0.4 cm in maximum AP dimension. Previously 0.4 cm. Estimated total number of nodules greater than or equal to 1 cm: 1. Splicing Technician nodules are described as follows: 1. Location: Right lateral mid/inferior. Size: 0.5 x 0.4 x 0.3 cm, volume 0.04 mL. Previously: 0.7 x 0.4 x 0.4 cm, volume 0.06 mL. Nodule characteristics: Composition: Solid/almost completely solid (2). Echogenicity: Hyperechoic (1). Shape: Taller than wide (3). Margins: Smooth (0). Echogenic Foci: None (0). ACR TI-RADS total points: 6 Previous: 4 ACR TI-RADS category: 4 Previous: 4 Significant change in size (>/= 20% in 2 dimensions and minimal increase of 2 mm or 50% or greater increase in volume): No Change in features: No Change in ACR TI-RADS risk category: No 2. Location: Right inferior. Size: 0.7 x 0.5 x 0.7 cm, volume 0.1 mL. Previously: 0.9 x 0.8 x 0.8 cm, volume 0.3 mL. Nodule characteristics: Composition: Solid (2). Echogenicity: Isoechoic (1). Shape: Not taller than wide (0). Margins: Smooth (0). Echogenic Foci: None (0). ACR TI-RADS total points: 3 Previous: 3 ACR TI-RADS category: 3 Previous: 3 Significant change in size (>/= 20% in 2 dimensions and minimal increase of 2 mm or 50% or greater increase in volume): No Change in features: No Change in ACR TI-RADS risk category: No 3. Location: Left mid/superior. Size: 1.6 x 1.0 x 1.2 cm, volume 0.9 mL. Previously: 1.4 x 0.8 x 1.0 cm, volume 0.6 mL. Nodule characteristics: Composition: Solid/almost completely solid (2). Echogenicity: Isoechoic (1). Shape: Not taller than wide (0). Margins: Smooth (0). Echogenic Foci: None (0). ACR TI-RADS total points: 3 Previous: 3 ACR TI-RADS category: 3 Previous: 3 Significant change in size (>/= 20% in 2 dimensions and minimal increase of 2 mm or 50% or greater increase in volume): Yes Change in features: No Change in ACR TI-RADS risk category: No 4. Location: Left inferior. Size: 0.5 x 0.4 x 0.5 cm, volume 0.05 mL. Previously: Not measured on the previous study. Nodule characteristics: Composition: Solid (2). Echogenicity: Hypoechoic (2). Shape: Not taller than wide (0). Margins: Smooth (0). Echogenic Foci: None (0). ACR TI-RADS total points: 4 ACR TI-RADS category: 4 This nodule previously had a cystic appearance, now appearing solid. NODES: No lymphadenopathy is seen in the tissue surrounding the thyroid gland. US/US thyroid IMPRESSION: Multiple bilateral thyroid nodules are seen. Both of the most concerning nodules, in the right lateral mid-lower thyroid and left lower thyroid would be considered TI-RADS Category 4, but they are less than 1 cm in size so no imaging follow-up is recommended. BI-RADS criteria. A 1.6 cm solid nodule in the left mid-upper thyroid would be considered high RADS category 3. It has increased in size 50 percent from the prior study, 0.6 mL volume previously now 0.9 mL volume. Follow-up ultrasound in 1, 3, and 5 years is recommended. ACR TI-RADS RECOMMENDATION REFERENCE: * TR3 (3 points): FNA if more than or equal to 2.5 cm in maximum dimension, followup ultrasound in 1, 3 and 5 years if 1.5 to 2.4 cm in maximum dimension. * TR4 (4-6 points): FNA if more than or equal to 1.5 cm in maximum dimension, followup ultrasound in 1, 2, 3 and 5 years if 1 to 1.4 cm in maximum dimension.
== END 2022-08-31 10:53 | disposition home or self-care (01) ==
LOC: HO.US 10:52
PROVIDERS: Visit Provider Internal Medicine
DX: E04.1 Nontoxic single thyroid nodule (principal)
CPT/HCPCS: 76536

== ENCOUNTER → 2022-09-01 09:32 | Outpatient (BNVA) | payer MEDICARE, SELFPAY | PROVIDERS: PCP Internal Medicine; Referring Provider Internal Medicine; Visit Provider Nurse Practitioner | DX: D12.6 Benign neoplasm of colon, unspecified (principal) | CPT/HCPCS: 99212 ==

== ENCOUNTER 2023-01-24 15:30 | Outpatient (REF) | payer MEDICARE, MEDICAID, SELFPAY ==
--- NOTE | ~2023-01-24 | XR_ITS ---
EXAMINATION: Right wrist and right hand.. CLINICAL INDICATION: chronic pain of wrist and hand. TECHNIQUE: The 4 views right wrist and 3 views right hand. COMPARISON: None. FINDINGS: Right wrist: There is no visible acute fracture, dislocation subluxation seen. There are subchondral cystic changes along the lunate bone at the radial ulnar joint with mild narrowing of the radial lunate joint space. Rest of the right wrist is unremarkable. There is no soft tissue swelling seen. Right hand: There is no visible acute fracture, dislocation or subluxation seen. No bony erosive changes. No bony erosive changes. The soft tissues are normal. XR/XR wrist RT min 3V IMPRESSION: 1. Subchondral cystic changes along the lunate bone at the radial ulnar joint with mild narrowing of the radial lunate joint space. 2. No visible acute fracture or dislocation seen. 3. Unremarkable right hand exam.
--- NOTE | ~2023-01-24 | XR_ITS ---
EXAMINATION: Right wrist and right hand.. CLINICAL INDICATION: chronic pain of wrist and hand. TECHNIQUE: The 4 views right wrist and 3 views right hand. COMPARISON: None. FINDINGS: Right wrist: There is no visible acute fracture, dislocation subluxation seen. There are subchondral cystic changes along the lunate bone at the radial ulnar joint with mild narrowing of the radial lunate joint space. Rest of the right wrist is unremarkable. There is no soft tissue swelling seen. Right hand: There is no visible acute fracture, dislocation or subluxation seen. No bony erosive changes. No bony erosive changes. The soft tissues are normal. XR/XR hand RT min 3V IMPRESSION: 1. Subchondral cystic changes along the lunate bone at the radial ulnar joint with mild narrowing of the radial lunate joint space. 2. No visible acute fracture or dislocation seen. 3. Unremarkable right hand exam.
== END 2023-01-24 15:31 | disposition home or self-care (01) ==
LOC: HO.XRAY 15:30
PROVIDERS: Visit Provider Registered Nurse
DX: M25.531 Pain in right wrist (principal); M79.641 Pain in right hand; G89.29 Other chronic pain
CPT/HCPCS: 73110; 73130

== ENCOUNTER → 2023-03-02 12:45 | Outpatient (BNVA) | payer MEDICARE, MEDICAID, SELFPAY | PROVIDERS: PCP Internal Medicine; Visit Provider Physician Assistant | DX: M65.4 Radial styloid tenosynovitis [de Quervain] (principal); M77.01 Medial epicondylitis, right elbow | CPT/HCPCS: 99212 ==

== ENCOUNTER 2023-04-02 14:46 | Outpatient (REF) | payer MEDICARE, MEDICAID, SELFPAY ==
--- NOTE | ~2023-04-02 | US_ITS ---
EXAMINATION: US PELVIS CLINICAL INFORMATION: Fibroids COMPARISON: 02/15/2021 TECHNIQUE: Ultrasound of the pelvis is performed using both transabdominal and transvaginal transducers along with Doppler. Transvaginal imaging is performed due to inadequate visualization transabdominally. FINDINGS: Uterus: The uterus is anteverted and measures 9.1 x 5.8 x 8.4 cm. The double wall endometrial thickness is 0.4, although evaluation is limited secondary to multiple uterine fibroids. mm. The uterus is smooth in contour and has normal myometrial echogenicity. Right fundal subserosal 5.4 cm fibroid, previously measured 6.2 cm. Left fundal subserosal 4.2 cm fibroid, previously measured 4.3 cm. Pedunculated fundal fibroid measures 6.8 cm, previously measured 7.1 cm. Posterior uterine body subserosal fibroid measures 2.8 cm, producing measures 3.7 cm. Adnexa: Bilateral ovaries are not visualized. No large adnexal mass. US/US pelvic and transvaginal IMPRESSION: Multiple uterine fibroids, as described above. Bilateral ovaries are not visualized.
== END 2023-04-02 14:47 | disposition home or self-care (01) ==
LOC: HO.US 14:46
PROVIDERS: PCP Internal Medicine; Visit Provider Advanced Practice Midwife
DX: D21.9 Benign neoplasm of connective and other soft tissue, unspecified (principal)
CPT/HCPCS: 76830; 76856

== ENCOUNTER 2023-04-28 04:38 | Emergency (ER) | payer MEDICARE, MEDICAID, SELFPAY ==
--- NOTE | ~2023-04-28 | XR_ITS ---
EXAMINATION: XR CHEST CLINICAL INFORMATION: Shoulder pain COMPARISON: 07/10/2020 TECHNIQUE: 2 views of the chest were obtained. FINDINGS: Normal symmetric lung volumes. No parenchymal consolidation. No pleural effusion. No pneumothorax. Cardiomediastinal silhouette and pulmonary vascularity are within normal limits. No acute osseous abnormalities. XR/XR chest 2V IMPRESSION: Clear lungs
[2023-04-28 04:42] VITALS: BP 129/72; PULSE 78; RESP 16; TEMP 36.2; O2SAT 98; BMI 31.4
--- NOTE | 2023-04-28 04:46 | ECG_ITS ---
Test Reason : CHEST PAIN Blood Pressure : / mmHG Vent. Rate : 079 BPM Atrial Rate : 079 BPM P-R Int : 140 ms QRS Dur : 120 ms QT Int : 386 ms P-R-T Axes : 053 004 004 degrees QTc Int : 442 ms Normal sinus rhythm Possible Left atrial enlargement Right bundle branch block Abnormal ECG When compared with ECG of 10-JUL-2020 08:35, No significant change was found Referred By: Generic ED Physician Electronically Signed By:VANESSA DILLON MD
[2023-04-28 04:57] VITALS: BP 140/75; PULSE 77; RESP 16; TEMP 36.9; O2SAT 99
[2023-04-28 05:09] LABS: Basophils Percent Auto 0.6 % (0-2); Eosinophils Absolute Auto 0.2 X10*3/uL (0.0-0.4); Eosinophils Percent Auto 3.3 % (0-4); Hematocrit 41.4 % (37.0-47.0); Hemoglobin 13.3 g/dl (12.0-16.0); Imm Gran Abs Auto 0.01 X10*3/uL (0.00-0.03); Imm Gran Pct Auto 0.1 % (0.0-0.4); Lymphocytes Absolute Auto 2.7 X10*3/uL (1.2-4.9); Lymphocytes Percent Auto 39.9 % (20-40); MANUAL DIFF FLAG NO; Mean Corpuscular HGB Conc 32.1 g/dl (31.0-35.0); Mean Corpuscular Hemoglobin 27.6 pg (27.0-33.0); Mean Corpuscular Volume 85.9 fL (80.0-98.0); Mean Platelet Volume 10.1 fL (9.4-12.3); Monocytes Absolute Auto 0.5 X10*3/uL (0.1-1.2); Neutrophils Absolute Auto 3.3 x10*3/uL (2.0-8.3); Neutrophils Percent Auto 49.1 % (45-73); Platelet Count 302 X10*3/uL (160-400); Red Blood Count 4.82 X10*6/uL (4.20-5.50); Red Cell Distribution Width 13.2 % (11.0-16.0); White Blood Count 6.7 X10*3/uL (4.8-10.8)
--- NOTE | 2023-04-28 05:10 | PC.NURSE ---
patient was brought in complaining of chest pain patient vitals are being monitored patient had all labs to be drawn and sent to the lab patient had ekg to be performed patient is waiting to be seen by the doctor patient will continue to be monitored for safety
[2023-04-28 05:16] VITALS: BP 115/65; PULSE 76; RESP 16; TEMP 36.6; O2SAT 97
[2023-04-28 05:23] LABS: Anion Gap 12 (12-20); Blood Urea Nitrogen 18 mg/dL (9-16); Calcium 9.8 mg/dL (8.4-10.2); Carbon Dioxide 26 mmol/L (22-29); Chloride 109 mmol/L (96-108); Creatinine Clr Calc Pharmacy 79.9; Estimated Glomerular Filt Rate > 60; Glucose Random 116 mg/dL (60-115); Potassium 4.3 mmol/L (3.3-5.1); Sodium 143 mmol/L (135-145)
[2023-04-28 05:30] LABS: Troponin-I High Sensitivity < 2.7 ng/L (<3.5-17.0)
[2023-04-28] MEDS: LORazepam 1 MG TABLET PO (06:18)
--- NOTE | 2023-04-28 06:32 | ED.CHESTPAIN ---
HPI - Chest Pain General Chief Complaint: Chest Pain Stated Complaint: CP, R Arm pain for a couple days, nausea Time Seen by Provider: 04/28/23 06:28 Source: patient Mode of arrival: ambulatory Limitations: no limitations History of Present Illness HPI narrative: 52 yo female with history of depression, anxiety, migraines, HTN, RBBB who presents to the ER for evaluation of right sided shoulder and chest pains that started 5-6 days ago after lifting her 2.5 year old grandson. She states the pain has been constant and is worse with palpation of the upper right chest wall and movement of the right shoulder. It does not radiate. She has no associated SOB, nausea, vomiting, diaphoresis or back pain. She has been trying ice with no improvement. MD complaint: chest pain Onset (ago): day(s) (5) Timing of current episode: constant Prior episodes: No Onset: during exertion Pain location: right chest Pain radiation: right shoulder Severity: moderate Pain scale (0-10): 7 Quality: aching Relieving factors: rest Exacerbating factors: palpation and movement Treatment prior to arrival: none Risk Factors Coronary artery disease risk factors: hypertension Thoracic aortic dissection risk factors: none Related Data Home Medications Medication Instructions Recorded Confirmed albuterol sulfate 90 mcg/actuation 2 puff inhalation QID 03/31/21 01/09/22 aerosol inhaler (ProAir HFA) clonazepam 0.5 mg tablet 0.5 mg PO DAILY 03/31/21 01/09/22 propranolol 160 mg capsule,24 160 mg PO DAILY 03/31/21 01/09/22 hr,extended release topiramate 25 mg tablet (Topamax) 25 mg PO DAILY 03/31/21 01/09/22 lidocaine 5 % topical patch 1 patch topical DAILY 01/12/22 diclofenac sodium 1 % topical gel 2 g topical TID 09/01/22 loratadine 10 mg tablet 10 mg PO DAILY PRN allergies 09/01/22 naratriptan 2.5 mg tablet mg PO 09/01/22 omeprazole 20 mg capsule,delayed 20 mg PO BID 09/01/22 release polyethylene glycol 3350 17 17 g PO DAILY 09/01/22 gram/dose oral powder (Gavilax) sertraline 50 mg tablet 50 mg PO DAILY 09/01/22 Previous Rx's Medication Instructions Recorded acetaminophen 500 mg tablet 500 mg PO Q6H PRN pain #20 tabs 03/12/21 cyclobenzaprine 10 mg tablet 10 mg PO BEDTIME #7 tabs 10/08/21 naproxen 375 mg tablet 375 mg PO BID PRN pain #20 tabs 01/09/22 cyclobenzaprine 10 mg tablet 10 mg PO TID PRN muscle spasm #14 04/28/23 tabs lidocaine 5 % topical patch 1 patch topical DAILY #15 ea 04/28/23 naproxen 500 mg tablet 500 mg PO BID PRN pain #20 tabs 04/28/23 Allergies Allergy/AdvReac Type Severity Reaction Status Date / Time shellfish derived Allergy Severe swelling Verified 03/02/23 12:53 [SHELLFISH DERIVED] of tongue aspirin [ASPIRIN] Allergy Intermediate rash/ itch Verified 03/02/23 12:53 ciprofloxacin [From CIPRO] Allergy Unknown UNKNOWN Verified 03/02/23 12:53 Seafood Allergy Intermediate hives Uncoded 03/02/23 12:53 Review of Systems Review of Systems: Yes all other systems are reviewed and are negative PMFSH Past Medical History Medical History Anxiety Depression HTN (hypertension) Low back pain Migraines RBBB (right bundle branch block) Tubular adenoma of colon Surgical History H/O colonoscopy H/O right breast biopsy History of appendectomy Family History Family History Paternal Aunt Breast cancer Mother Pancreatic cancer Social History Social History Alcohol intake: never Patient Tobacco Use Status: Never used Tobacco Smoked in Last 30 Days: No Use of substances other than those prescribed or required for medical reasons: No Any prior treatment program specific to substance use: No Advance Directives: No Advance Directives Information Provided: Yes Patient : No Current occupational status: disabled Physical Exam Vital Signs: Vital Signs: Last Vital Signs Temp 97.9 F 04/28/23 05:16 Pulse 76 04/28/23 05:16 Resp 16 04/28/23 05:16 BP 115/65 04/28/23 05:16 Pulse Ox 97 04/28/23 05:16 O2 Del Method Room Air 04/28/23 05:16 BMI result Body Mass Index 31.4 Appearance: Alert. Oriented X3. No acute distress. Head: normocephalic, atraumatic. Eyes: Pupils equal, round and reactive to light. ENT: Pharynx normal. No tonsillar swelling or exudate. Neck: Normal inspection. Neck supple. CVS: Normal heart rate and rhythm. Pulses normal. right upper anterior chest wall tenderness. Respiratory: No respiratory distress. Breath sounds normal. Abdomen: Soft and nontender. +BS x4 Skin: Skin warm and dry. Normal skin color. Normal skin turgor. No rashes. Extremities: No lower extremity edema. No joint swelling. normal inspection of bilateral upper extremities. normal active and passive ROM of the right shoulder with pain upon full abduction of the arm. positive empty can test. tenderness of the anterior right shoulder. strength is equal and symmetrical throughout. NV intact distally. Neuro/psych: Oriented X 3. No motor deficit. No sensory deficit. CN II-XII intact. Normal speech and cognition. Medications Administered Discontinued Medications Generic Name Dose Route Start Last Admin Trade Name Freq PRN Reason Stop Dose Admin Lorazepam 1 mg 04/28/23 05:50 04/28/23 06:18 Lorazepam 1 Mg Tablet PO 04/28/23 05:51 1 mg ONCE ONE Administration Medical Decision Making Medical Decision Making [facility] Narrative: 52 yo female with history of HTN, RBBB, depression, anxiety who presents to the ER for evaluation of right upper chest pain and right shoulder pain after lifting her grandson 6 days ago. Exam and clinical presentation are c/w muscular pain w/ tenderness on exam and pain with movement of the right shoulder. Her EKG is unchanged from prior. Her troponin is negative. Comfortable w/ discharge home with pain control, muscle relaxer, RICE and outpatient follow up. Patient agrees w/ plan. Stable for d/c. Differential Diagnosis Differential Diagnoses: The differential diagnosis associated with the presentation includes ACS, shoulder strain, rotator cuff injury Lab Data [facility] Lab Attestation statement: I reviewed the patient's lab results. 04/28/23 05:04 04/28/23 05:04 Labs: Lab Results 04/28/23 04/28/23 04/28/23 Range/Units 05:04 05:04 05:04 WBC 6.7 (4.8-10.8) X10*3/uL RBC 4.82 (4.20-5.50) X10*6/uL Hgb 13.3 (12.0-16.0) g/dl Hct 41.4 (37.0-47.0) % MCV 85.9 (80.0-98.0) fL MCH 27.6 (27.0-33.0) pg MCHC 32.1 (31.0-35.0) g/dl RDW 13.2 (11.0-16.0) % Plt Count 302 (160-400) X10*3/uL MPV 10.1 (9.4-12.3) fL Immature Gran % (Auto) 0.1 (0.0-0.4) % Neut % (Auto) 49.1 (45-73) % Lymph % (Auto) 39.9 (20-40) % Yancey % (Auto) 7.0 (2-11) % Eos % (Auto) 3.3 (0-4) % Baso % (Auto) 0.6 (0-2) % Lymph # (Auto) 2.7 (1.2-4.9) X10*3/uL Yancey # (Auto) 0.5 (0.1-1.2) X10*3/uL Eos # (Auto) 0.2 (0.0-0.4) X10*3/uL Baso # (Auto) 0.0 (0.0-0.2) X10*3/uL Abs Immat Gran (auto) 0.01 (0.00-0.03) X10*3/uL Absolute Neuts (auto) 3.3 (2.0-8.3) x10*3/uL Absolute Nucleated RBC 0.000 (0.0-0.012) X10*3/uL Nucleated RBC % (auto) 0.0 (0.0-0.2) /100WBC Sodium 143 (135-145) mmol/L Potassium 4.3 (3.3-5.1) mmol/L Chloride 109 H (96-108) mmol/L Carbon Dioxide 26 (22-29) mmol/L Anion Gap 12 (12-20) BUN 18 H (9-16) mg/dL Creatinine 0.88 (0.5-1.4) mg/dL Estim Creat Clear Calc 79.9 Estimated GFR > 60 Random Glucose 116 H (60-115) mg/dL Calcium 9.8 (8.4-10.2) mg/dL Troponin I High Sens < 2.7 (<3.5-17.0) ng/L Independent Interpretation I performed an independent interpretation of an: EKG and Plain X-Ray Interpretation: CXR clear lungs, agree w/ radiology read EKG w/ HR 79, normal sinus rhythm, RBBB (old), old t-wave inversions in V1, V3 Radiology Impression Discussion of test interpretation with radiology: I have reviewed the radiologist's reading. Radiologist Impression: XR/XR chest 2V IMPRESSION: Clear lungs Independent Historian Clinical information obtained from an independent historian. History obtained from or confirmed by: Spouse External Record Review External record reviewed: Office record, Outpatient record, Prior outpatient labs and Prior outpatient radiology Prescription Management I considered prescription management with: Pain Medication Chronic Conditions Patient?s care impacted by: Hypertension Critical Care Time Critical Care Time Critical Care Time: No Discharge Plan Discharge Clinical Impression: Right shoulder strain Patient Disposition: Home, Self-Care Instructions: Shoulder Sprain (ED) Additional Instructions: Your lab work, x-ray and EKG are all unremarkable. Your pain is most likely due to muscle strain and spasm. Limiting lifting and use of the right arm until pain is better. Use ice several times per day for 20 minutes at a time for the next 48 hours and then change to heat. Take medications as prescribed to help with pain and discomfort. Follow up with your Primary Care Doctor next week. If you develop new or worsening symptoms call 911 or come back to the ER for further evaluation. Prescriptions: New cyclobenzaprine 10 mg tablet 10 mg PO TID PRN (Reason: muscle spasm) Qty: 14 0RF naproxen 500 mg tablet 500 mg PO BID PRN (Reason: pain) Qty: 20 0RF lidocaine 5 % adhesive patch,medicated 1 patch topical DAILY Qty: 15 0RF Rx Instructions: leave on most painful area for up to 12 hrs No Action acetaminophen 500 mg tablet 500 mg PO Q6H PRN (Reason: pain) Qty: 20 0RF cyclobenzaprine 10 mg tablet 10 mg PO BEDTIME Qty: 7 0RF albuterol sulfate [ProAir HFA] 90 mcg/actuation HFA aerosol inhaler 2 puff inhalation QID clonazepam 0.5 mg tablet 0.5 mg PO DAILY propranolol 160 mg capsule,extended release 24 hr 160 mg PO DAILY topiramate [Topamax] 25 mg tablet 25 mg PO DAILY sertraline 50 mg tablet 50 mg PO DAILY naratriptan 2.5 mg tablet PO omeprazole 20 mg capsule,delayed release(DR/EC) 20 mg PO BID loratadine 10 mg tablet 10 mg PO DAILY PRN (Reason: allergies) polyethylene glycol 3350 [Gavilax] 17 gram/dose powder 17 g PO DAILY diclofenac sodium 1 % gel 2 g topical TID lidocaine 5 % adhesive patch,medicated 1 patch topical DAILY naproxen 375 mg tablet 375 mg PO BID PRN (Reason: pain) Qty: 20 0RF Referrals: Charli Rojas MD [Primary Care Provider] -
== END 2023-04-28 07:07 | disposition home or self-care (01) ==
PROVIDERS: Emergency Provider Emergency Medicine Emergency Medical Services; PCP Internal Medicine
DX: S46.911A Strain of unspecified muscle, fascia and tendon at shoulder and upper arm level, right arm, initial encounter (principal); X50.0XXA Overexertion from strenuous movement or load, initial encounter; Z79.899 Other long term (current) drug therapy; I10 Essential (primary) hypertension; Y93.89 Activity, other specified; Y92.019 Unspecified place in single-family (private) house as the place of occurrence of the external cause; Y99.9 Unspecified external cause status
CPT/HCPCS: 36415; 71046; 80048; 84484; 85025; 93005; 99283; 99285

== ENCOUNTER 2023-06-13 10:14 | Outpatient (REF) | payer MEDICARE, MEDICAID, SELFPAY ==
--- NOTE | 2023-06-13 10:19 | EMG_ITS ---
Please see scanned EMG / Nerve Conduction Report. MTDD
== END 2023-06-13 10:15 | disposition home or self-care (01) ==
LOC: HO.NEURO 10:14
PROVIDERS: PCP Internal Medicine; Visit Provider Physician Assistant
DX: G56.01 Carpal tunnel syndrome, right upper limb (principal); M77.01 Medial epicondylitis, right elbow; M65.4 Radial styloid tenosynovitis [de Quervain]
CPT/HCPCS: 95860; 95885; 95907; 95910

== ENCOUNTER 2023-07-02 14:12 | Outpatient (AMB) | payer MEDICARE, MEDICAID, SELFPAY ==
--- NOTE | 2023-07-02 14:19 | A.OFFVIS_ITS ---
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 Bee Breeder Required: Yes Bee Breeder Language: Pharmacy Benefit Manager Name: Raegan [id number] [employer] [facility] Accompanied by: Self / Same As Patient Allergies shellfish derived [SHELLFISH DERIVED] Allergy (Severe, Verified 07/02/23 14:24) swelling of tongue aspirin [ASPIRIN] Allergy (Intermediate, Verified 07/02/23 14:24) rash/ itch ciprofloxacin [From CIPRO] Allergy (Unknown, Verified 07/02/23 14:24) UNKNOWN Seafood Allergy (Intermediate, Uncoded 07/02/23 14:24) hives Medication List - Last Reconciled 07/02/23 by Jovani Gray MD acetaminophen 500 mg PO Q6H PRN albuterol sulfate 90 mcg/actuation (ProAir HFA) 2 puffs inhalation QID clonazepam 0.5 mg PO DAILY cyclobenzaprine 10 mg PO TID PRN diclofenac sodium 1% 2 grams topical TID fluticasone propionate 110 mcg/actuation (Flovent HFA) 0 mcg inhalation polyethylene glycol 3350 (Gavilax) 17 grams PO DAILY propranolol ER 160 mg PO DAILY sertraline 50 mg PO DAILY topiramate (Topamax) 25 mg PO DAILY HPI HPI Comments History of Present Illness Details 53-year-old female who is here for 1st office visit. She has been experiencing chest discomfort for 1 month. She has been to the emergency department twice. She is saying that she gets intermittent right-sided pressure-like feeling and right arm discomfort. On some days the chest hurts and other days the right arm hurts at times both happen at the same time. She also gets shortness of breath. She has been to emergency department where she was told that she probably has anxiety but she feels that this is not related to anxiety. Blood pressure control is good. She has history of hypertension, right bundle-branch block and reportedly elevated cholesterol. [facility] Medical History Anxiety Depression HTN (hypertension) Low back pain Migraines RBBB (right bundle branch block) Tubular adenoma of colon Surgical History H/O colonoscopy H/O right breast biopsy History of appendectomy Family History Paternal Aunt Breast cancer Mother Pancreatic cancer Social History Alcohol intake: never Patient Tobacco Use Status: Never used Tobacco Current occupational status: disabled Female Reproductive History Menstrual Age of Menarche: 14 Review of Systems Const Denies chills, Denies daytime sleepiness, Denies fatigue, Denies fever(s), Denies frequent falls, Denies night sweats, Denies snoring, Denies weakness, Denies weight gain and Denies weight loss Eyes Denies loss of vision ENT Denies dizziness and Denies hearing loss Card Denies chest pain, Denies chest pain with activity, Denies syncope, Denies rapid heart rate, Denies edema, Denies claudication, Denies leg edema, Denies lightheadedness, Denies palpitations, Denies dyspnea, Denies dyspnea on exertion and Denies orthopnea Resp Denies cough, Denies excessive phlegm production, Denies dyspnea, Denies dyspnea on exertion, Denies snoring and Denies wheezing GI Denies abdominal pain, Denies hematochezia, Denies change in bowel habits, Denies change in stool character, Denies heartburn, Denies nausea and Denies vomiting Denies hematuria, Denies urinary frequency and Denies dysuria Musc Denies arthralgias, Denies muscle weakness, Denies numbness and Denies tingling Skin/Breast Denies nail changes and Denies rash Neuro Denies Abnormal speech present, Denies dizziness, Denies syncope, Denies frequent falls, Denies loss of vision, Denies memory loss, Denies numbness, Denies tingling and Denies weakness Psych Denies depression and Denies memory loss Endo Denies fatigue and Denies palpitations Aller/Immun Denies wheezing Physical Exam Vital Signs: Last Vital Signs Pulse 83 07/02/23 14:24 BP 104/70 07/02/23 14:24 BMI result Body Mass Index 31.7 GENERAL APPEARANCE: in no acute distress, pleasant. NECK: no carotid bruit, no jugular venous distention. SKIN: no suspicious lesions, warm and dry. HEART: no murmurs, regular rate and rhythm. LUNGS: clear to auscultation bilaterally. ABDOMEN: soft, nontender. EXTREMITIES: no edema. PERIPHERAL PULSES: equal. NEUROLOGIC: No gross deficits, AAO X 3 Neuro Speech: No Abnormal speech present Assessment & Plan Assessment & Plan (1) Right bundle branch block: Code(s): I45.10 - Unspecified right bundle-branch block (2) Chest pain: Code(s): R07.9 - Chest pain, unspecified Plan 53-year-old female with right bundle-branch block and history of hypertension presenting for chest discomfort ongoing off and on for 1 month. After discussion we have decided to arrange an exercise stress test. Continue same medications for now. Blood pressure control is good. Last lipid panel was in 2019 when triglycerides were 114, total cholesterol 174, LDL 108 and HDL 44. Please repeat fasting lipid panel. Thank you for allowing me to participate in the care of your patient. Please feel free to contact me if you have any questions. Orders: Orders CA stress test Today R07.9 - Chest pain, unspecified Coding Level of Care Code New Pt Level 4 (85326) Diagnoses Right bundle branch block I45.10 Chest pain R07.9
[2023-07-02 14:24] VITALS: BP 104/70; PULSE 83; BMI 31.7
== END 2023-07-02 15:00 | disposition home or self-care (01) ==
PROVIDERS: PCP Internal Medicine; Referring Provider Internal Medicine; Visit Provider Internal Medicine Cardiovascular Disease
DX: I45.10 Unspecified right bundle-branch block (principal); R07.9 Chest pain, unspecified
CPT/HCPCS: 99204

== ENCOUNTER → 2023-07-02 14:12 | Outpatient (BNVA) | payer MEDICARE, MEDICAID, SELFPAY | PROVIDERS: PCP Internal Medicine; Referring Provider Internal Medicine; Visit Provider Internal Medicine Cardiovascular Disease | DX: R07.9 Chest pain, unspecified (principal); R06.02 Shortness of breath; I10 Essential (primary) hypertension; I45.10 Unspecified right bundle-branch block | CPT/HCPCS: 99202 ==

== ENCOUNTER 2023-07-04 08:02 | Outpatient (REF) | payer MEDICARE, MEDICAID, SELFPAY ==
--- NOTE | ~2023-07-04 | MM_ITS ---
EXAMINATION: MM SCREENING DIGITAL BREAST TOMOSYNTHESIS, BILATERAL CLINICAL INFORMATION: Screening. Asymptomatic. History of 2 benign biopsies right breast. COMPARISON: Mammography: 04/06/2022, 04/05/2021, 03/24/2021, and dating back to 2013. TECHNIQUE: Digital breast tomosynthesis is performed in both the craniocaudal and mediolateral oblique views along with computer-aided detection (CAD). Synthesized 2D images are generated from the tomosynthesis. FINDINGS: There are scattered areas of fibroglandular density (ACR BI-RADS breast composition Category b). 2 biopsy clips are noted in the right breast superolaterally, and inferomedially. There are 2 oval circumscribed nodules in the slightly medial retroareolar right breast, unchanged from 2019, and benign. Vague opacity with mild skin thickening in the inferomedial right breast is related to known keloid scarring. There are no suspicious masses, suspicious grouped calcifications, or areas of architectural distortion. The parenchymal pattern is stable from prior exams. MM/MM tomosynthesis screening BI IMPRESSION: No mammographic evidence of malignancy. Stable benign findings. ASSESSMENT: BI-RADS BI-RADS 2 - Benign Findings RECOMMENDATION: Routine annual mammography screening. 1 year F/U This examination should not preclude the clinical evaluation of a suspicious palpable abnormality. This patient's information was entered into a reminder system with a target due date for their next mammogram.
[2023-07-04 09:43] LABS: Cholesterol 213 mg/dL (<200); HDL Cholesterol 58 mg/dL (>40); LDL Cholesterol Calculated 129 mg/dL (<100); Triglycerides 134 mg/dL (<150)
== END 2023-07-04 08:03 | disposition home or self-care (01) ==
LOC: HO.MAMMO 08:02
PROVIDERS: Internal Medicine Cardiovascular Disease; PCP Internal Medicine; Visit Provider Internal Medicine
DX: Z12.31 Encounter for screening mammogram for malignant neoplasm of breast (principal); R07.9 Chest pain, unspecified
CPT/HCPCS: 36415; 77063; 77067; 80061

== ENCOUNTER → 2023-07-04 13:30 | Outpatient (BNV) | payer MEDICARE, MEDICAID, SELFPAY | PROVIDERS: PCP Internal Medicine; Visit Provider Radiology Diagnostic Radiology | DX: Z12.31 Encounter for screening mammogram for malignant neoplasm of breast (principal) | CPT/HCPCS: 77063; 77067 ==

== ENCOUNTER → 2023-07-12 10:21 | Outpatient (REF) | payer MEDICARE, MEDICAID, SELFPAY ==
--- NOTE | 2023-07-12 10:23 | CA_ITS ---
Acquisition Time: 2023-07-12 10:28:43 Total Exercise Time: 00:04:42 Test Indications: CHEST ALBA N Medications: PROPRANOLOL ALBUTEROL Protocol: EVENS Max HR: 157 BPM 94% of Pred: 166 BPM Max BP: 132/082 mmHG Max Work Load: 6.6 METS Exercise stress test 4 min 42 sec of Evens protocol achieving 92% MPHR, with pretest 2/10 right chest sharpness, 0/10 with exercise & recovery, moderate SOB, without arrhythmias, with normotensive resposne to exercise, without EKG chnages,Breathing returned to normal in recovery, Test reviewed with Dr. Gray. Referred By: Jovani Gray Overread By: KYREE FRANKS
== END ==
LOC: HO.CARD 10:21
PROVIDERS: PCP Internal Medicine; Visit Provider Internal Medicine Cardiovascular Disease
DX: R07.9 Chest pain, unspecified (principal)
CPT/HCPCS: 93017

== ENCOUNTER → 2023-07-12 10:23 | Outpatient (BNV) | payer MEDICARE, MEDICAID, SELFPAY | PROVIDERS: PCP Internal Medicine; Visit Provider Internal Medicine | DX: R07.9 Chest pain, unspecified (principal) | CPT/HCPCS: 93016; 93018 ==

== ENCOUNTER 2023-07-20 09:28 | Outpatient (REF) | payer MEDICARE, MEDICAID, SELFPAY ==
[2023-07-20 11:26] LABS: Anion Gap 12 (12-20); Blood Urea Nitrogen 13 mg/dL (9-16); Calcium 9.6 mg/dL (8.4-10.2); Carbon Dioxide 25 mmol/L (22-29); Chloride 110 mmol/L (96-108); Estimated Glomerular Filt Rate > 60; Glucose Random 105 mg/dL (60-115); Potassium 4.1 mmol/L (3.3-5.1); Sodium 143 mmol/L (135-145)
== END 2023-07-20 09:29 | disposition home or self-care (01) ==
LOC: HO.LAB 09:28
PROVIDERS: PCP Internal Medicine; Visit Provider Internal Medicine
DX: I10 Essential (primary) hypertension (principal)
CPT/HCPCS: 36415; 80048

== ENCOUNTER 2023-07-27 09:52 | Outpatient (REF) | payer MEDICARE, MEDICAID, SELFPAY ==
[2023-07-27 12:57] LABS: Alanine Aminotransferase 11 U/L (0-31); Albumin Level 4.4 g/dL (3.5-5.0); Alkaline Phosphatase 115 U/L (39-117); Anion Gap 11 (12-20); Aspartate Amino Transferase 15 U/L (5-31); Bilirubin Total 0.4 mg/dL (0.0-1.0); Blood Urea Nitrogen 13 mg/dL (9-16); Calcium 9.8 mg/dL (8.4-10.2); Carbon Dioxide 27 mmol/L (22-29); Chloride 109 mmol/L (96-108); Estimated Glomerular Filt Rate > 60; Glucose Random 96 mg/dL (60-115); Sodium 143 mmol/L (135-145); Total Protein 7.8 g/dL (6.5-8.0)
[2023-07-27 13:26] LABS: Folate 10.1 ng/mL (> or = 4.0); Vitamin B12 624 pg/mL (200-900)
[2023-08-01 14:14] LABS: Vitamin D 25-OH, D2 20 ng/mL; Vitamin D 25-OH, D3 13 ng/mL; Vitamin D 25-OH, Total 33 ng/mL (30-100)
== END 2023-07-27 09:53 | disposition home or self-care (01) ==
LOC: HO.LAB 09:52
PROVIDERS: PCP Internal Medicine; Visit Provider Nurse Practitioner
DX: Z01.818 Encounter for other preprocedural examination (principal); D12.6 Benign neoplasm of colon, unspecified; R53.83 Other fatigue; K59.00 Constipation, unspecified
CPT/HCPCS: 36415; 80053; 82306; 82607; 82746

== ENCOUNTER 2023-07-31 | Outpatient (REF) | payer MEDICARE, MEDICAID, SELFPAY | END 2023-07-31 00:01 | LOC: CF | PROVIDERS: PCP Internal Medicine; Visit Provider Orthopaedic Surgery | DX: M25.511 Pain in right shoulder (principal); M65.4 Radial styloid tenosynovitis [de Quervain]; E04.2 Nontoxic multinodular goiter | CPT/HCPCS: 99212 ==

== ENCOUNTER 2023-07-31 08:43 | Outpatient (AMB) | payer MEDICARE, MEDICAID, SELFPAY ==
[2023-07-31 08:59] VITALS: BMI 31.6
--- NOTE | 2023-07-31 08:59 | MHC.OFFVIS ---
Intake Vital Signs 07/31/23 08:59 Height 5 ft 5 in Weight 190 lb BMI 31.6 Intake Visit Reasons: ov- EMG review Intake Note: Lauren 53 yr old female presents today for her EMG review. States she doesn't have numbness or tingling but is having chest pains that radiates to her right arm. States she went to ED for this and was told it could be anxiety or an inflamed muscle. Allergies shellfish derived [SHELLFISH DERIVED] Allergy (Severe, Verified 07/31/23 09:04) swelling of tongue aspirin [ASPIRIN] Allergy (Intermediate, Verified 07/31/23 09:04) rash/ itch ciprofloxacin [From CIPRO] Allergy (Unknown, Verified 07/31/23 09:04) UNKNOWN latex Allergy (Unknown, Verified 07/31/23 09:04) Itching Seafood Allergy (Intermediate, Uncoded 07/31/23 09:04) hives HPI ov- EMG review HPI Details The patient is a 53-year-old Slovak-speaking woman whose chief complaint is of right shoulder pain with motion with pain radiating into the anterior aspect of her chest. It sounds like she has been worked up by Cardiology. With regards to her hands, she denies having problems with numbness and tingling, though she does have results of a nerve conduction study today. Her chief complaint with regard to her right hand is of right radial sided wrist pain. She says that this bothers her when she is picking up heavy objects. However, she says her shoulder bothers her more than her wrist, and some of her pain that she has not picking up objects has more to do with the muscles proximally in the dorsal radial forearm. [facility] Medical History Migraines Depression RBBB (right bundle branch block) Anxiety HTN (hypertension) Tubular adenoma of colon Low back pain Surgical History H/O colonoscopy H/O right breast biopsy History of appendectomy Family History Paternal Aunt Breast cancer Mother Pancreatic cancer Social History Alcohol intake: never Patient Tobacco Use Status: Never used Tobacco Current occupational status: disabled Female Reproductive History Menstrual Age of Menarche: 14 Physical Exam Vital Signs: BMI result Body Mass Index 31.6 Extrem Other: Patient was alert oriented and in no acute distress. Median ulnar radial nerve motor and sensory were grossly intact to all digits. No thenar or intrinsic wasting. She can make a tight fist with good strength and no pain. Good active extension with no locking and catching. She demonstrates most of her pain to be along the radial aspect and dorsal radial aspect of her right wrist. Mild tenderness over the 1st dorsal compartment No tenderness over the basal joint of the thumb or MCP joint of the thumb. Negative Yamilet test bilaterally No tenderness along the radiocarpal joint including the radial lunate joint and DRUJ. Smooth and painless wrist flexion extension and prono-supination. No wrist swelling or warmth. Radiographs three views of the right wrist were reviewed by me today in clinic. There were no fractures or dislocations. She does however have significant narrowing of the radiolunate joint. There are also cystic changes in the proximal aspect of the lunate as well as subchondral cystic changes in the distal radius opposing the lunate. No collapse of the lunate. EMG nerve conduction study: Impression: Normal motor and sensory nerve conduction study of right upper extremity with no evidence of carpal tunnel syndrome or ulnar nerve entrapment. Normal EMG of right C5-T1 innervated muscles. Performed by Dr. Thomas 06/13/2023 Assessment & Plan Assessment & Plan (1) Right shoulder pain: Code(s): M25.511 - Pain in right shoulder (2) De Quervain's tenosynovitis, right: Code(s): M65.4 - Radial styloid tenosynovitis [de Quervain] Plan Assessment and plan: 1. Right shoulder pain This is her most symptomatic complaint She has pain with motion and elevation I am referring her to PT Follow-up with Leeanne in 2 months to see how she is doing. 2. Right de Quervain tenosynovitis With regards to her hand and wrist, her chief complaint is of radial sided wrist pain Mildly tender over 1st dorsal compartment, but negative Yamilet test today. Were going to manage this conservatively. I talked about activity modification and we fitted her with a neoprene thumb spica splint to wear with daytime activities. If this gets worse, she knows to be seen again, and then we can consider an injection. 3. Right radiolunate joint space narrowing With corresponding subchondral cystic changes No complaint of pain in this area, smooth and painless wrist range of motion at this time. This will be managed conservatively Follow-up p.r.n. Coding Level of Care Code Est Pt Level 3 (91867) Diagnoses Right shoulder pain M25.511 De Quervain's tenosynovitis, right M65.4
== END 2023-07-31 09:48 | disposition home or self-care (01) ==
PROVIDERS: PCP Internal Medicine; Visit Provider Orthopaedic Surgery
DX: M25.511 Pain in right shoulder (principal); M65.4 Radial styloid tenosynovitis [de Quervain]
CPT/HCPCS: 99213

== ENCOUNTER 2023-08-14 12:42 | Outpatient (REF) | payer MEDICARE, MEDICAID, SELFPAY ==
--- NOTE | ~2023-08-14 | US_ITS ---
EXAMINATION: US THYROID CLINICAL INFORMATION: Thyroid nodules. COMPARISON: Ultrasound thyroid 08/31/2022 and 01/11/2021. TECHNIQUE: Linear transducer jones-scale and color Doppler examination with attention to the region of the thyroid. FINDINGS: SIZE: Measurements of the thyroid lobes and nodules are given in sagittal, anteroposterior and transverse dimensions respectively. Right Thyroid Lobe: 5.9 x 2.0 x 2.1 cm, volume 12.6 mL. Previously 5.0 x 1.6 x 1.9 cm, volume 7.9 mL. Parenchyma: The gland echotexture is heterogeneous. Thyroid vascularity is normal. Left Thyroid Lobe: 5.8 x 2.0 x 2.2 cm, volume 13.3 mL. Previously 5.3 x 2.7 x 2.1 cm, volume 15.7 mL. Parenchyma: The gland echotexture is heterogeneous. Thyroid vascularity is normal. Isthmus: 0.4 cm in maximum AP dimension. Previously 0.4 cm. Estimated total number of nodules greater than or equal to 1 cm: 2. Piecer nodules are described as follows: 1. Location: Right mid/inferior. Size: 0.4 x 0.4 x 0.4 cm, volume 0.03 mL. Previously: 0.5 x 0.4 x 0.3 cm, volume 0.04 mL. Nodule characteristics: Composition: Cystic(0). ACR TI-RADS total points: 0 Previous: 6 ACR TI-RADS category: 1 Previous: 4 Significant change in size (>/= 20% in 2 dimensions and minimal increase of 2 mm or 50% or greater increase in volume): Yes Change in features: Yes Change in ACR TI-RADS risk category: Yes 2. Location: Right inferior. Size: 0.9 x 0.8 x 0.9 cm, volume 0.3 mL. Previously: 0.7 x 0.5 x 0.7 cm, volume 0.1 mL. Nodule characteristics: Composition: Solid (2). Echogenicity: Hypoechoic (2). Shape: Not taller than wide (0). Margins: Smooth (0). Echogenic Foci: None (0). ACR TI-RADS total points: 4 Previous: 3 ACR TI-RADS category: 4 Previous: 3 Significant change in size (>/= 20% in 2 dimensions and minimal increase of 2 mm or 50% or greater increase in volume): Yes Change in features: Yes Change in ACR TI-RADS risk category: Yes 3. Location: Left mid/superior. Size: 1.8 x 0.8 x 1.4 cm, volume 1.1 mL. Previously: 1.6 x 1.0 x 1.2 cm, volume 0.9 mL. Nodule characteristics: Composition: Solid/almost completely solid (2). Echogenicity: Hypoechoic (2). Shape: Not taller than wide (0). Margins: Smooth (0). Echogenic Foci: None (0). ACR TI-RADS total points: 4 Previous: 3 ACR TI-RADS category: 4 Previous: 3 Significant change in size (>/= 20% in 2 dimensions and minimal increase of 2 mm or 50% or greater increase in volume): No Change in features: No Change in ACR TI-RADS risk category: No 4. Location: Left inferior. Size: 1.0 x 0.6 x 1.0 cm, volume 0.3 mL. Previously: 0.5 x 0.4 x 0.5 cm, volume 0.05 mL. Nodule characteristics: Composition: Spongiform (0). Echogenicity: Anechoic (0). Shape: Not taller than wide (0). Margins: Smooth (0). Echogenic Foci: None (0). ACR TI-RADS total points: 0 Previous: 4 ACR TI-RADS category: 1 Previous: 4 Significant change in size (>/= 20% in 2 dimensions and minimal increase of 2 mm or 50% or greater increase in volume): Yes Change in features: Yes Change in ACR TI-RADS risk category: Yes NODES: No lymphadenopathy is seen in the tissue surrounding the thyroid gland. US/US thyroid IMPRESSION: 1. Bilateral thyroid nodules are redemonstrated, as detailed. Recommend continued thyroid ultrasound surveillance. 2. There is a mild goiter. 3. There is heterogeneous thyroid echotexture, which can be associated with thyroiditis. ACR TI-RADS RECOMMENDATION REFERENCE: Ultrasound-guided fine-needle aspiration, follow up ultrasound, no further followup. * TR1 (0 point) and TR2 (2 points): No FNA or followup * TR3 (3 points): FNA if more than or equal to 2.5 cm in maximum dimension, follow up ultrasound in 1, 3 and 5 years if 1.5 to 2.4 cm in maximum dimension. * TR4 (4-6 points): FNA if more than or equal to 1.5 cm in maximum dimension, follow up ultrasound in 1, 2, 3 and 5 years if 1 to 1.4 cm in maximum dimension. * TR5 (more than or equal to 7 points): FNA if more than or equal to 1 cm in maximum dimension, follow up ultrasound every year for 5 years if 0.5 to 0.9 cm in maximum dimension. * TR3, TR4 or TR5 nodules that are below the size threshold for follow up receive no followup.
== END 2023-08-14 12:43 | disposition home or self-care (01) ==
LOC: HO.US 12:42
PROVIDERS: PCP Internal Medicine; Visit Provider Internal Medicine
DX: E04.2 Nontoxic multinodular goiter (principal)
CPT/HCPCS: 76536

== ENCOUNTER 2023-09-06 12:09 | Emergency (ER) | payer MEDICARE, MEDICAID, SELFPAY ==
--- NOTE | ~2023-09-06 | CT_ITS ---
EXAMINATION: CT ANGIOGRAM OF THE CHEST WITH AND WITHOUT CONTRAST (CT PULMONARY ANGIOGRAM FOR PE) CLINICAL INFORMATION: Reason for Exam pleuritic chest pain positive ddimer COMPARISON: 02/02/2020 TECHNIQUE: Prior to contrast administration, noncontrast localization images were obtained. Subsequently, multidetector volumetric imaging was performed from the thoracic inlet to below the diaphragms following the administration of 65 mL Omnipaque 350 intravenous contrast. No contrast reaction reported Sagittal, coronal, and MIP oblique sagittal reformatted images were obtained on the CT workstation, uploaded to PACS, and reviewed. This CT examination was performed using dose optimization techniques as appropriate, variously including the following: *Automated exposure control *Adjustment of mA and/or kV according to patient size (this includes techniques or standardized protocols for targeted exams where dose is matched to indication/reason for exam; i.e. extremities or head) *Use of iterative reconstruction technique Total exam dose-length product 270 mGy-cm FINDINGS: QUALITY OF STUDY/CONTRAST BOLUS: Satisfactory. PULMONARY ARTERIES: No pulmonary emboli. THORACIC AORTA: No aneurysm. LUNG: No focal consolidation. No suspicious nodule. PLEURA: No pleural effusion or pneumothorax. MEDIASTINUM: Heart size is stable. No pericardial effusion. No hilar or mediastinal lymphadenopathy. No evidence of septal bowing or right heart strain. Enlarged heterogeneous thyroid gland. CORONARY ARTERY CALCIFICATION: None visualized on this study. CHEST WALL/AXILLA: No axillary or internal mammary lymphadenopathy. OSSEOUS STRUCTURES: No destructive bone lesions. UPPER ABDOMEN: Bilateral renal hypodensities incompletely characterized. No adrenal mass. Reflux of contrast into the hepatic veins suggests elevated right heart pressures. CT/CT angio chest PE protocol IMPRESSION: No pulmonary embolus. No acute intrathoracic abnormality. Possible elevated right heart pressure. VTE: negative
--- NOTE | ~2023-09-06 | XR_ITS ---
EXAMINATION: XR CHEST CLINICAL INFORMATION: Right-sided chest pain COMPARISON: Chest 04/28/2023 TECHNIQUE: 2 views of the chest were obtained. FINDINGS: The lungs are well expanded. Trace linear density at the left lung base is unchanged and likely represents scar and/or atelectasis. No focal consolidation, interstitial pulmonary edema or pneumothorax. No pleural effusion. Mild biapical pleural thickening is again noted. No significant abnormality is noted involving the heart, mediastinum, bony thorax or soft tissues. XR/XR chest 2V IMPRESSION: No acute cardiopulmonary disease.
--- NOTE | 2023-09-06 12:12 | ECG_ITS ---
Test Reason : CP Blood Pressure : / mmHG Vent. Rate : 069 BPM Atrial Rate : 069 BPM P-R Int : 140 ms QRS Dur : 124 ms QT Int : 408 ms P-R-T Axes : 049 011 011 degrees QTc Int : 437 ms Normal sinus rhythm Right bundle branch block Abnormal ECG When compared with ECG of 28-APR-2023 04:48, No significant change was found Referred By: Generic ED Physician Electronically Signed By:MERRITT DURBIN MD
[2023-09-06 12:27] VITALS: BP 138/72; PULSE 78; O2SAT 99
[2023-09-06 12:34] VITALS: BP 118/67; PULSE 66; RESP 16; TEMP 36.9; O2SAT 99; BMI 32.5
[2023-09-06 12:41] VITALS: PULSE 63
--- NOTE | 2023-09-06 12:51 | ED_ITS ---
HPI - Chest Pain General Chief Complaint: Chest Pain Stated Complaint: CP INTO R ARM PER EMS Time Seen by Provider: 09/06/23 12:38 Source: patient and EMS Mode of arrival: EMS Limitations: language barrier History of Present Illness HPI narrative: history obtained through interpreter deaf. Right chest and right arm burning with shortness of breath. The pain is worse over the past week but has been there for more than a month. Stress test one month ago. Patient also feels that she is short of breath currently. Patient has a known RBBB. Patient with known depression MD complaint: chest pain Onset (ago): week(s) Related Data Home Medications Medication Instructions Recorded Confirmed albuterol sulfate 90 mcg/actuation 2 puff inhalation QID 03/31/21 07/02/23 aerosol inhaler (ProAir HFA) clonazepam 0.5 mg tablet 0.5 mg PO DAILY 03/31/21 07/02/23 propranolol 160 mg capsule,24 160 mg PO DAILY 03/31/21 07/02/23 hr,extended release topiramate 25 mg tablet (Topamax) 25 mg PO DAILY 03/31/21 07/02/23 polyethylene glycol 3350 17 17 g PO DAILY 09/01/22 07/02/23 gram/dose oral powder (Gavilax) fluticasone propionate 110 110 mcg inhalation 07/27/23 mcg/actuation HFA aerosol inhaler (Flovent HFA) omeprazole 40 mg capsule,delayed 40 mg PO DAILY 07/27/23 release sertraline 100 mg tablet 100 mg PO DAILY 07/27/23 Previous Rx's Medication Instructions Recorded acetaminophen 500 mg tablet 500 mg PO Q6H PRN pain #20 tabs 03/12/21 cyclobenzaprine 10 mg tablet 10 mg PO TID PRN muscle spasm #14 04/28/23 tabs atorvastatin 40 mg tablet 40 mg PO BEDTIME #60 tabs 07/04/23 peg 3350-electrolytes 236 240 ml PO Q10M 1 day #4,000 mL 07/27/23 gram-22.74 gram-6.74 gram-5.86 gram solution (Golytely) Allergies Allergy/AdvReac Type Severity Reaction Status Date / Time shellfish derived Allergy Severe swelling Verified 07/31/23 09:04 [SHELLFISH DERIVED] of tongue aspirin [ASPIRIN] Allergy Intermediate rash/ itch Verified 07/31/23 09:04 ciprofloxacin [From CIPRO] Allergy Unknown UNKNOWN Verified 07/31/23 09:04 latex Allergy Unknown Itching Verified 07/31/23 09:04 Seafood Allergy Intermediate hives Uncoded 07/31/23 09:04 Review of Systems 2 Review of Systems: Yes all other systems are reviewed and are negative Neurologic: Denies Sensory deficit (Neuro) [facility] Past Medical History Medical History Migraines Depression RBBB (right bundle branch block) Anxiety HTN (hypertension) Tubular adenoma of colon Low back pain Surgical History H/O colonoscopy H/O right breast biopsy History of appendectomy Family History Family History Paternal Aunt Breast cancer Mother Pancreatic cancer Social History Social History Alcohol intake: never Patient Tobacco Use Status: Never used Tobacco Smoked in Last 30 Days: No Use of substances other than those prescribed or required for medical reasons: No Advance Directives: No Advance Directives Information Provided: No Patient : No Current occupational status: disabled Physical Exam 2 Vital Signs: Vital Signs: Last Vital Signs Temp 98.5 F 09/06/23 12:34 Pulse 61 09/06/23 13:55 Resp 14 09/06/23 13:55 BP 109/60 09/06/23 13:55 Pulse Ox 100 09/06/23 13:55 O2 Del Method Room Air 09/06/23 13:55 BMI result Body Mass Index 32.5 Const: Other: flat affect, anxious Nutritional Appearance: average body habitus Orientation/consciousness: oriented to person and patient oriented x3 Limitations: no limitations HEENT: Head: Yes normal to inspection Ears: external ears normal General nose exam: Normal external nose present Mouth: Normal oral and palatal mucosa present and oropharynx normal Throat: Yes posterior oropharynx normal Eyes: General: appearance normal, both eyes and all related structures Neck: Other: supple Neck: Yes normal visual inspection Chest: Chest palpation & inspection: normal inspection of the chest Resp: Auscultation: clear to auscultation bilaterally Cardio: Jugular venous distension: no JVD Rate: regular rate Rhythm: r egular rhythm Heart sounds: S1 normal heart sound present and S2 normal heart sound present GI: Inspection: Yes normal to inspection Palpation (GI): Soft to palpation, nontender and No hepatosplenomegaly present Auscultation: normal bowel sounds : General: Yes no CVA tenderness Back/Spine/Pelvis: Back: no CVA tenderness Skin: General skin exam: no rashes or lesions noted Neuro: General: oriented to person and patient oriented x3 Cranial nerves: Yes CN's II-XII intact bilaterally Motor exam (neuro): 5/5 motor strength present throughout Sensory Exam: No Sensory deficit (Neuro) Extrem: General: Yes normal to inspection Psych: Appearance: grossly normal Course Reevaluation(s) Reevaluation #1: patient with months of right sided pleuritic chest pain, positive ddimer will obtain ct chest angio to rule out PE Time: 14:01 Reevaluation #2: Patient very tearful about her daughter and grandchild moving away, became very tearful Time: 14:02 Medications Administered Discontinued Medications Generic Name Dose Route Start Last Admin Trade Name Freq PRN Reason Stop Dose Admin Iohexol 65 ml 09/06/23 14:28 09/06/23 14:29 Iohexol 350 Mg/Ml 100 Ml Infus..Btl IV 09/06/23 14:29 65 ml ONCE ONE Administration Medical Decision Making Differential Diagnosis Differential Diagnoses: The differential diagnosis associated with the presentation includes (cardiac ischemia, STEMI, PE, anxiety, depression) Admission/Observation Consideration of admission/observation: Escalation of care including admission/observation considered (Upon arrival patient considered for admission) Lab Data MDM Lab Attestation statement: I reviewed the patient's lab results. (negative troponin and positive ddimer) 09/06/23 13:24 09/06/23 13:24 Labs: Lab Results 09/06/23 Range/Units 13:24 WBC 7.0 (4.8-10.8) X10*3/uL RBC 4.72 (4.20-5.50) X10*6/uL Hgb 13.3 (12.0-16.0) g/dl Hct 40.9 (37.0-47.0) % MCV 86.7 (80.0-98.0) fL MCH 28.2 (27.0-33.0) pg MCHC 32.5 (31.0-35.0) g/dl RDW 13.4 (11.0-16.0) % Plt Count 262 (160-400) X10*3/uL MPV 10.1 (9.4-12.3) fL Immature Gran % (Auto) 0.1 (0.0-0.4) % Neut % (Auto) 52.6 (45-73) % Lymph % (Auto) 39.5 (20-40) % [place] % (Auto) 5.3 (2-11) % Eos % (Auto) 1.9 (0-4) % Baso % (Auto) 0.6 (0-2) % Lymph # (Auto) 2.8 (1.2-4.9) X10*3/uL [place] # (Auto) 0.4 (0.1-1.2) X10*3/uL Eos # (Auto) 0.1 (0.0-0.4) X10*3/uL Baso # (Auto) 0.0 (0.0-0.2) X10*3/uL Abs Immat Gran (auto) 0.01 (0.00-0.03) X10*3/uL Absolute Neuts (auto) 3.7 (2.0-8.3) x10*3/uL Absolute Nucleated RBC 0.000 (0.0-0.012) X10*3/uL Nucleated RBC % (auto) 0.0 (0.0-0.2) /100WBC D-Dimer High Sensitivty 395 NG/ML Sodium 142 (135-145) mmol/L Potassium 4.1 (3.3-5.1) mmol/L Chloride 111 H (96-108) mmol/L Carbon Dioxide 21 L (22-29) mmol/L Anion Gap 14 (12-20) BUN 15 (9-16) mg/dL Creatinine 0.80 (0.5-1.4) mg/dL Estim Creat Clear Calc 88.4 Estimated GFR > 60 Random Glucose 97 (60-115) mg/dL Calcium 9.7 (8.4-10.2) mg/dL Troponin I High Sens < 2.7 (<3.5-17.0) ng/L Independent Interpretation I performed an independent interpretation of an: EKG (sinus 70, RBBB, no acute st or twave changes) and Plain X-Ray (CXR: atelectasis left base) Independent Historian Clinical information obtained from an independent historian. History obtained from or confirmed by: Other (sister) External Record Review External record reviewed: Outpatient record and Prior outpatient labs Chronic Conditions Patient?s care impacted by: Hypertension and Other (RBBB, depression) Discharge Plan Discharge Clinical Impression: Chest pain, Anxiety Patient Disposition: Still a Patient Prescriptions: No Action atorvastatin 40 mg tablet 40 mg PO BEDTIME Qty: 60 3RF acetaminophen 500 mg tablet 500 mg PO Q6H PRN (Reason: pain) Qty: 20 0RF cyclobenzaprine 10 mg tablet 10 mg PO TID PRN (Reason: muscle spasm) Qty: 14 0RF albuterol sulfate [ProAir HFA] 90 mcg/actuation HFA aerosol inhaler 2 puff inhalation QID clonazepam 0.5 mg tablet 0.5 mg PO DAILY propranolol 160 mg capsule,extended release 24 hr 160 mg PO DAILY topiramate [Topamax] 25 mg tablet 25 mg PO DAILY polyethylene glycol 3350 [Gavilax] 17 gram/dose powder 17 g PO DAILY sertraline 100 mg tablet 100 mg PO DAILY omeprazole 40 mg capsule,delayed release(DR/EC) 40 mg PO DAILY peg 3350-electrolytes [Golytely] 236-22.74-6.74 -5.86 gram recon soln 240 ml PO Q10M 1 Days Qty: 4000 0RF Rx Instructions: until fecal effluent is clear; do not exceed a total volume of 2,000 mL fluticasone propionate [Flovent HFA] 110 mcg/actuation HFA aerosol inhaler 110 mcg inhalation
[2023-09-06 13:28] LABS: MANUAL DIFF FLAG NO
[2023-09-06 13:29] LABS: Basophils Percent Auto 0.6 % (0-2); Eosinophils Absolute Auto 0.1 X10*3/uL (0.0-0.4); Eosinophils Percent Auto 1.9 % (0-4); Hematocrit 40.9 % (37.0-47.0); Hemoglobin 13.3 g/dl (12.0-16.0); Imm Gran Abs Auto 0.01 X10*3/uL (0.00-0.03); Imm Gran Pct Auto 0.1 % (0.0-0.4); Lymphocytes Absolute Auto 2.8 X10*3/uL (1.2-4.9); Lymphocytes Percent Auto 39.5 % (20-40); Mean Corpuscular HGB Conc 32.5 g/dl (31.0-35.0); Mean Corpuscular Hemoglobin 28.2 pg (27.0-33.0); Mean Corpuscular Volume 86.7 fL (80.0-98.0); Mean Platelet Volume 10.1 fL (9.4-12.3); Monocytes Absolute Auto 0.4 X10*3/uL (0.1-1.2); Monocytes Percent Auto 5.3 % (2-11); Neutrophils Absolute Auto 3.7 x10*3/uL (2.0-8.3); Neutrophils Percent Auto 52.6 % (45-73); Platelet Count 262 X10*3/uL (160-400); Red Blood Count 4.72 X10*6/uL (4.20-5.50); Red Cell Distribution Width 13.4 % (11.0-16.0)
[2023-09-06 13:42] LABS: Anion Gap 14 (12-20); Blood Urea Nitrogen 15 mg/dL (9-16); Calcium 9.7 mg/dL (8.4-10.2); Carbon Dioxide 21 mmol/L (22-29); Chloride 111 mmol/L (96-108); Creatinine Clr Calc Pharmacy 88.4; D Dimer High Sensitivity 395 NG/ML; Estimated Glomerular Filt Rate > 60; Glucose Random 97 mg/dL (60-115); Potassium 4.1 mmol/L (3.3-5.1); Sodium 142 mmol/L (135-145)
[2023-09-06 13:51] LABS: Troponin-I High Sensitivity < 2.7 ng/L (<3.5-17.0)
--- NOTE | 2023-09-06 13:52 | PC.NURSE ---
pt a&ox4, vss, reporting intermittent cp radiating to R arm x 1 week, hx of similar episodes, vehicle monitor technician applied - NSR/RBBB, labs obtained, pt pending XR results.
[2023-09-06 13:55] VITALS: BP 109/60; PULSE 61; RESP 14; O2SAT 100
[2023-09-06] MEDS: iohexoL 350 MG/ML 100 ML INFUS..BTL 65 ML IV (14:29)
[2023-09-06 16:06] VITALS: BP 115/61; PULSE 65; RESP 16; TEMP 36.8; O2SAT 98
== END 2023-09-06 16:43 | disposition home or self-care (01) ==
PROVIDERS: Emergency Provider Emergency Medicine; PCP Internal Medicine
DX: R07.89 Other chest pain (principal); R06.02 Shortness of breath; F33.1 Major depressive disorder, recurrent, moderate; F41.1 Generalized anxiety disorder; F43.0 Acute stress reaction; Z79.899 Other long term (current) drug therapy
CPT/HCPCS: 36415; 71046; 71275; 80048; 84484; 85025; 85379; 93005; 99284; 99285; Q9967

== ENCOUNTER 2023-09-18 14:37 | Outpatient (AMB) | payer MEDICARE, MEDICAID, SELFPAY ==
[2023-09-18 14:58] VITALS: BP 126/70; PULSE 68; O2SAT 98; BMI 31.4
--- NOTE | 2023-09-18 14:58 | A.OFFVIS_ITS ---
Intake Vital Signs 09/18/23 14:58 Height 5 ft 5 in Weight 189 lb BMI 31.4 BP 126/70 Blood Pressure Location Rt brachial Position Sitting Pulse 68 Pulse Source Pulse Oximeter Pulse Oximetry (%) 98 Oxygen Delivery Method Room Air Intake Visit Reasons: Pulmonary Nodule Band Attacher Required: No Chairman & Chief Executive Officer: Chairman & Chief Executive Officer offered & declined Accompanied by: daughter Marialuisa Allergies shellfish derived [SHELLFISH DERIVED] Allergy (Severe, Verified 09/18/23 15:03) swelling of tongue aspirin [ASPIRIN] Allergy (Intermediate, Verified 09/18/23 15:03) rash/ itch ciprofloxacin [From CIPRO] Allergy (Unknown, Verified 09/18/23 15:03) UNKNOWN latex Allergy (Unknown, Verified 09/18/23 15:03) Itching Seafood Allergy (Intermediate, Uncoded 09/18/23 15:03) hives Medication List - Last Reconciled 09/18/23 by Arin Keane LPN acetaminophen 500 mg PO Q6H PRN albuterol sulfate 90 mcg/actuation (ProAir HFA) 2 puffs inhalation QID albuterol sulfate 90 mcg/actuation (Ventolin HFA) 2 puffs inhalation Q6H PRN atorvastatin 40 mg PO BEDTIME clonazepam 0.5 mg PO DAILY cyclobenzaprine 10 mg PO TID PRN fluticasone propionate 110 mcg/actuation (Flovent HFA) 110 mcg inhalation lorazepam 1 mg PO DAILY PRN omeprazole 40 mg PO DAILY peg 3350-electrolytes 236-22.74-6.74 -5.86 gram (Golytely) 240 mL PO Q10M 1 day polyethylene glycol 3350 (Gavilax) 17 grams PO DAILY propranolol ER 160 mg PO DAILY sertraline 100 mg PO DAILY topiramate (Topamax) 25 mg PO DAILY tramadol 50 mg PO Q6H PRN HPI Pulmonary Nodule HPI Details Lauren is a pleasant 53 year old female, never smoker, with underlying history of childhood asthma. She was referred by cardiology for pulmonary evaluation after abnormal CT. She was evaluated for chest pain on 09/06 with CTA with no notable nodules, then had a heart CT revealing a 1 cm nodular density of right apex on 09/15. She denies prior abnormal scan. She is suboptimally controlled on Flovent. She reports worsening control of asthma with more frequent chest tightness, dyspnea, wheezing and intermittent dry cough. She reports symptoms can come on with rest or activity and is typically triggered with irritants. She denies any recent PFT. She has multiple family members with asthma and denies any family history of lung cancer. She also reports symptoms of daytime fatigue, loud snoring, paroxysmal nocturnal dyspnea and morning headaches. She denies any prior sleep study. [facility] Medical History (Updated 09/18/23 @ 21:55 by Manjula Luna NP) Thyroid nodule RBBB (right bundle branch block) HTN (hypertension), benign Hyperlipidemia Migraines Depression with anxiety Tubular adenoma of colon (~2019) Low back pain Surgical History (Updated 09/18/23 @ 10:19 by Karlene Benson PA-C) History of appendectomy History of colonoscopy History of right breast biopsy Family History Paternal Aunt Breast cancer Mother Pancreatic cancer Social History (Updated 09/18/23 @ 15:08 by Arin Keane LPN) Alcohol intake: never Patient Tobacco Use Status: Never used Tobacco Current occupational status: disabled Female Reproductive History Menstrual Age of Menarche: 14 Review of Systems Const Denies chills, Denies excessive sweating, Denies fever(s), Denies headache(s) and Denies night sweats Eyes Denies dry eyes, Denies irritation and Denies itchy eyes ENT Reports Normal hearing present and Denies headache(s) Card Denies chest pain, Denies chest pain at rest, Denies chest pain with activity, Denies claudication, Denies leg edema and Denies orthopnea Resp Denies chest congestion, Denies pain on inspiration, Denies pain with cough and Denies stridor Musc Denies myalgias Neuro Reports Normal hearing present and Denies headache(s) Endo Denies excessive sweating Vicente/Lymph Denies lymphadenopathy Aller/Immun Denies itchy eyes and Denies seasonal rhinorrhea Physical Exam Vital Signs: Last Vital Signs Pulse 68 09/18/23 14:58 BP 126/70 09/18/23 14:58 Pulse Ox 98 09/18/23 14:58 Oxygen Delivery Method Room Air 09/18/23 14:58 BMI result Body Mass Index 31.4 Const General: cooperative, healthy appearing, comfortable, no acute distress, well developed and alert Nutritional Appearance: obese Orientation/consciousness: patient oriented x3 Limitations: no limitations HEENT Head: Yes normal to inspection, Yes normocephalic and Yes atraumatic Ears: hearing grossly normal bilaterally and external ears normal Eyes General: appearance normal, both eyes and all related structures Eyelids: Yes eyelids normal Sclerae: sclerae normal EOM: EOMs intact bilaterally Neck Neck: Yes normal visual inspection and Yes no lymphadenopathy Lymphatic: no lymphadenopathy noted Chest Chest palpation & inspection: normal inspection of the chest Resp Effort & Inspection: normal respiratory effort, able to speak in complete sentences, no audible wheezes, no cough, no stridor, not tachypneic, no tripod positioning and no use of accessory muscles Auscultation: clear to auscultation bilaterally Cardio Jugular venous distension: no JVD Rate: regular rate Rhythm: regular rhythm Skin Other: warm, dry General skin exam: no rashes or lesions noted Neuro General: patient oriented x3 Cranial nerves: Yes Normal hearing present Cognition (Neuro): normal cognition Gait exam (Neuro): Normal gait present Extrem General: Yes normal to inspection, Yes capillary refill normal, Yes no clubbing, cyanosis or edema and Yes no pedal edema Psych Appearance: grossly normal and well kempt Speech and movement: Normal speech and movement present and Clear speech present Affect: normal affect Attitude: cooperative Thought process: Normal thought process present Thought content: Normal thought content present Insight: Good insight present (Psych) Judgement: Good judgement present (Psych) Assessment & Plan Assessment & Plan (1) Asthma: Code(s): J45.909 - Unspecified asthma, uncomplicated (2) Lung nodule: Code(s): R91.1 - Solitary pulmonary nodule (3) Paroxysmal nocturnal dyspnea: Code(s): R06.00 - Dyspnea, unspecified Plan Lauren's symptoms are likely related to underlying asthma. Will send for PFT to evaluate and switch Flovent to Advair. Reviewed importance of oral hygiene. Patient reported adverse reaction to albuterol and history of tachycardia, will trial Xopenex and reviewed when to use. Given question of 1 cm nodule of right apex found on cardiac CT, will repeat chest CT in 3 months. Patient also reported symptoms consistent with obstructive sleep apnea, including PND, daytime fatigue, loud snoring and morning headaches, will send for home sleep study. All questions were answered and patient is in agreement of plan. Will follow up in 6-8 weeks to review response to inhaler and results, or sooner if needed. Orders: Orders RT home sleep study Today R06.00 - Dyspnea, unspecified CT chest wo IV con 11/15/23 R91.1 - Solitary pulmonary nodule PFT pulmonary function test Today J45.909 - Unspecified asthma, uncomplicated Medications: New Advair HFA 115-21 mcg/actuation (fluticasone propion-salmeterol) 2 puffs inhalation Q12H 12 grams 3RF NS levalbuterol tartrate 45 mcg/actuation (Xopenex HFA) 1 puff inhalation Q4-6H PRN 1 ea 3RF shortness of breath Coding Level of Care Code New Pt Level 4 (79968) Diagnoses Asthma J45.909 Lung nodule R91.1 Paroxysmal nocturnal dyspnea R06.00
== END 2023-09-18 15:36 | disposition home or self-care (01) ==
PROVIDERS: PCP Internal Medicine; Visit Provider Nurse Practitioner Family
DX: J45.909 Unspecified asthma, uncomplicated (principal); R91.1 Solitary pulmonary nodule; R06.00 Dyspnea, unspecified
CPT/HCPCS: 99204; 99214

== ENCOUNTER → 2023-09-18 14:37 | Outpatient (BNVA) | payer MEDICARE, MEDICAID, SELFPAY | PROVIDERS: PCP Internal Medicine; Visit Provider Nurse Practitioner Family | DX: J45.909 Unspecified asthma, uncomplicated (principal); R06.00 Dyspnea, unspecified; R91.1 Solitary pulmonary nodule | CPT/HCPCS: 99202 ==

== ENCOUNTER 2023-09-24 15:37 | Outpatient (AMB) | payer MEDICARE, MEDICAID, SELFPAY ==
--- NOTE | 2023-09-24 16:09 | MHC.OFFVIS ---
Intake Intake Visit Reasons: ov-De Quervain's tenosynovitis, right Intake Note: Lauren 53 yr old female presents today for her follow up visit for her right hand dequervain. States she wears her brace and helps a little however states she has pain increase with prolong activites. Allergies shellfish derived [SHELLFISH DERIVED] Allergy (Severe, Verified 09/24/23 16:18) swelling of tongue aspirin [ASPIRIN] Allergy (Intermediate, Verified 09/24/23 16:18) rash/ itch ciprofloxacin [From CIPRO] Allergy (Unknown, Verified 09/24/23 16:18) UNKNOWN latex Allergy (Unknown, Verified 09/24/23 16:18) Itching Seafood Allergy (Intermediate, Uncoded 09/24/23 16:18) hives HPI ov-De Quervain's tenosynovitis, right HPI Details The patient is a 53-year-old woman who complains of pain in the radial and dorsal radial aspect of her right wrist. When she was seen in clinic on 07/31/2023 she had some tenderness over the right 1st dorsal compartment but a negative Yamilet test. Her chief complaint at that time was right shoulder pain and she has been following up with Leeanne for that problem. She denies having trouble with numbness and tingling. [facility] Medical History (Updated 09/18/23 @ 21:55 by Manjula Luna NP) Thyroid nodule RBBB (right bundle branch block) HTN (hypertension), benign Hyperlipidemia Migraines Depression with anxiety Tubular adenoma of colon (~2019) Low back pain Surgical History (Updated 09/18/23 @ 10:19 by Karlene Benson PA-C) History of appendectomy History of colonoscopy History of right breast biopsy Family History Paternal Aunt Breast cancer Mother Pancreatic cancer Social History Alcohol intake: never Patient Tobacco Use Status: Never used Tobacco Current occupational status: disabled Female Reproductive History Menstrual Age of Menarche: 14 Physical Exam Extrem Other: The patient was alert oriented and in no acute distress. She can make a fist and actively extend all of her digits without significant discomfort. With regards to her right hand and wrist she has no swelling or erythema. She has some tenderness to palpation over the right 1st dorsal compartment with a questionable Yamilet test. She is also tender to palpation over the 2nd dorsal compartment, with perhaps some mildly increased symptoms with resisted wrist extension. Between the 2, she notes that it is the 1st dorsal compartment area that is more symptomatic for her. Office Procedures Fracture Care Details: No fracture, injection Fracture Billing Code: Fracture Billing Code Assessment & Plan Assessment & Plan (1) De Quervain's tenosynovitis, right: Code(s): M65.4 - Radial styloid tenosynovitis [de Quervain] Plan Assessment and plan: 1. Right de Quervain tenosynovitis Only a mildly positive Yamilet test, but she is most tender over the 1st dorsal compartment. 2. Right 2nd dorsal compartment tendinitis This is more mild than her symptoms over the 1st dorsal compartment per patient. I educated her about these conditions. We discussed the importance of activity modification. We discussed the risks and benefits of a steroid injection she wished to proceed with a steroid injection today. Injection #1: The risks and benefits of a steroid injection including but not limited to risk of damage to blood vessels, nerves, tendons, infection, skin bleaching, failure to improve symptoms, increased pain, and possible need for further injections or other intervention were discussed with the patient and the patient wishes to proceed with the steroid injection. Once consent was obtained, I sterilely prepped the area over the right 1st dorsal compartment tendon sheath. I then injected the right 1st dorsal compartment tendon sheath with a combination of 1 mL of dexamethasone (4mg/ml), and 1% lidocaine. The patient tolerated the procedure well with no complications. She had good early relief of her symptoms before leaving clinic today. She would like to make another appointment in about 6 weeks to be evaluated to see how she is doing. Again we injected the 1st dorsal compartment. If that is doing better, but she is still having symptoms related to the 2nd dorsal compartment, then she could have an injection about the tendons of the 2nd dorsal compartment, ECRL/ECRB. However, if she is just doing better, or if she is continuing to have pain over the 1st dorsal compartment, then it is more likely that it was the de Quervain tenosynovitis that was causing the majority of the symptoms. Coding Level of Care Code Est Pt Level 3 (64398) Diagnoses De Quervain's tenosynovitis, right M65.4 CPT Codes Fracture Care - Fracture Billing Code: Fracture Billing Code ([id number])
== END 2023-09-24 16:57 | disposition home or self-care (01) ==
PROVIDERS: PCP Internal Medicine; Visit Provider Orthopaedic Surgery
DX: M65.4 Radial styloid tenosynovitis [de Quervain] (principal)
CPT/HCPCS: 20550; 99213

== ENCOUNTER → 2023-09-24 15:37 | Outpatient (BNVA) | payer MEDICARE, MEDICAID, SELFPAY | PROVIDERS: PCP Internal Medicine; Visit Provider Orthopaedic Surgery | DX: M65.4 Radial styloid tenosynovitis [de Quervain] (principal) | CPT/HCPCS: 20550; 99212; J1100 ==

== ENCOUNTER 2023-10-15 18:02 | Outpatient (REF) | payer MEDICARE, MEDICAID, SELFPAY ==
[2023-10-15 19:12] LABS: Influenza A PCR NEGATIVE (Negative); Influenza B PCR NEGATIVE (Negative); Resp Syncy Virus RNA Qual PCR NEGATIVE (Negative); SARS COV2 PCR INHOUSE NEGATIVE (Negative)
== END 2023-10-15 18:03 | disposition home or self-care (01) ==
LOC: HO.HHCLNP 18:02
PROVIDERS: Visit Provider Internal Medicine
DX: R05.9 Cough, unspecified (principal); Z20.822 Contact with and (suspected) exposure to COVID-19
CPT/HCPCS: 0241U

== ENCOUNTER 2023-10-29 12:12 | Outpatient (REF) | payer MEDICARE, MEDICAID, SELFPAY ==
--- NOTE | 2023-10-29 13:14 | PFT_ITS ---
Spirometry [] FVC 78% FEV1 75%, FEV1/FVC RATIO 76 FEF 25-75 84% AND MVV 90% POST BRONCHODILATOR THERAPY NO SIGNIFICANT RESPONSE NOTED. Lung Volumes [] TOTAL LUNG CAPACITY 88% AND RESIDUAL VOLUME 120% Diffusion Capacity [] DLCO 77% DL/VA 114% Methacholine Challenge [] Flow Volume Loops []NORMAL PATTERN MVV [] MIP/MEP(Max inspiratory pressure/Max expiratory pressure) [] 6 Minute Walk Test [] ABG [] Interpretation [] NORMAL PULMONARY FUNCTION TEST . THERE IS NO EVIDENCE OF OBSTRUCTIVE OR RESTRICTIVE PULMONARY DISORDER. ALSO NO SIGNIFICANT RESPONSE TO BRONCHODILATOR THERAPY. SLIGHT DECREASE IN FORCED VITAL CAPACITY IS NONSPECIFIC. MTDD
== END 2023-10-29 12:13 | disposition home or self-care (01) ==
LOC: HO.RESP 12:12
PROVIDERS: PCP Internal Medicine; Visit Provider Nurse Practitioner Family
DX: J45.909 Unspecified asthma, uncomplicated (principal); R06.00 Dyspnea, unspecified; R06.83 Snoring
CPT/HCPCS: 94010; 94727; 94729; 95806

== ENCOUNTER → 2023-10-29 13:38 | Outpatient (BNV) | payer MEDICARE, MEDICAID, SELFPAY | PROVIDERS: PCP Internal Medicine; Visit Provider Internal Medicine | DX: J45.909 Unspecified asthma, uncomplicated (principal) | CPT/HCPCS: 94060; 94727; 94729; 95806 ==

== ENCOUNTER 2023-10-30 09:54 | Outpatient (AMB) | payer MEDICARE, MEDICAID, SELFPAY ==
--- NOTE | 2023-10-30 10:02 | A.OFFVIS_ITS ---
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 Accompanied by: Self / Same As Patient Allergies shellfish derived [SHELLFISH DERIVED] Allergy (Severe, Verified 10/30/23 10:09) swelling of tongue aspirin [ASPIRIN] Allergy (Intermediate, Verified 10/30/23 10:09) rash/ itch ciprofloxacin [From CIPRO] Allergy (Unknown, Verified 10/30/23 10:09) UNKNOWN latex Allergy (Unknown, Verified 10/30/23 10:09) Itching Seafood Allergy (Intermediate, Uncoded 10/30/23 10:09) hives Medication List - Last Reconciled 10/30/23 by Arin Keane, SISI acetaminophen 500 mg PO Q6H PRN Advair HFA 115-21 mcg/actuation (fluticasone propion-salmeterol) 2 puffs inhalation Q12H NS albuterol sulfate 90 mcg/actuation (Ventolin HFA) 2 puffs inhalation Q6H PRN atorvastatin 40 mg PO BEDTIME cyclobenzaprine 10 mg PO TID PRN levalbuterol tartrate 45 mcg/actuation (Xopenex HFA) 1 puff inhalation Q4-6H PRN lorazepam 1 mg PO DAILY PRN omeprazole 40 mg PO DAILY peg 3350-electrolytes 236-22.74-6.74 -5.86 gram (Golytely) 240 mL PO Q10M 1 day polyethylene glycol 3350 (Gavilax) 17 grams PO DAILY propranolol ER 160 mg PO DAILY sertraline 100 mg PO DAILY topiramate (Topamax) 25 mg PO DAILY HPI pulmonary nodule : 6 week f/u 2 HPI0 Details Lauren is a pleasant 53 year old female, never smoker, with underlying history of childhood asthma. She was referred by cardiology for pulmonary evaluation after abnormal CT. She was evaluated for chest pain on 09/06 with CTA with no notable nodules, then had a heart CT revealing a 1 cm nodular density of right apex on 09/15. She denies prior abnormal scan. She has an upcoming chest CT scheduled in two weeks. She was switched from Flovent to Advair and reports significant improvements in symptoms. Rarely uses albuterol MDI. She also reports symptoms of daytime fatigue, loud snoring, paroxysmal nocturnal dyspnea and morning headaches. She had a sleep study last night, results not available. Today she presents to review PFT results. [facility] Medical History (Updated 09/18/23 @ 21:55 by Manjula Luna NP) Thyroid nodule RBBB (right bundle branch block) HTN (hypertension), benign Hyperlipidemia Migraines Depression with anxiety Tubular adenoma of colon (~2019) Low back pain Surgical History (Updated 09/18/23 @ 10:19 by Karlene Benson PA-C) History of appendectomy History of colonoscopy History of right breast biopsy Family History Paternal Aunt Breast cancer Mother Pancreatic cancer Social History (Updated 10/30/23 @ 10:12 by Arin Keane LPN) Alcohol intake: never Patient Tobacco Use Status: Never used Tobacco Current occupational status: disabled Female Reproductive History Menstrual Age of Menarche: 14 Review of Systems Const Denies chills, Denies excessive sweating, Denies fever(s), Denies headache(s) and Denies night sweats Eyes Denies dry eyes, Denies irritation and Denies itchy eyes ENT Reports Normal hearing present and Denies headache(s) Card Denies chest pain, Denies chest pain at rest, Denies chest pain with activity, Denies claudication, Denies leg edema and Denies orthopnea Resp Denies chest congestion, Denies pain on inspiration, Denies pain with cough and Denies stridor Musc Denies myalgias Neuro Reports Normal hearing present and Denies headache(s) Endo Denies excessive sweating Vicente/Lymph Denies lymphadenopathy Aller/Immun Denies itchy eyes and Denies seasonal rhinorrhea Physical Exam Vital Signs: Last Vital Signs Pulse 69 10/30/23 10:03 BP 130/70 10/30/23 10:03 Pulse Ox 100 10/30/23 10:03 Oxygen Delivery Method Room Air 10/30/23 10:03 BMI result Body Mass Index 32.1 Const General: cooperative, healthy appearing, comfortable, no acute distress, well developed and alert Nutritional Appearance: obese Orientation/consciousness: patient oriented x3 Limitations: no limitations HEENT Head: Yes normal to inspection, Yes normocephalic and Yes atraumatic Ears: hearing grossly normal bilaterally and external ears normal Eyes General: appearance normal, both eyes and all related structures Eyelids: Yes eyelids normal Sclerae: sclerae normal EOM: EOMs intact bilaterally Neck Neck: Yes normal visual inspection and Yes no lymphadenopathy Lymphatic: no lymphadenopathy noted Chest Chest palpation & inspection: normal inspection of the chest Resp Effort & Inspection: normal respiratory effort, able to speak in complete sentences, no audible wheezes, no cough, no stridor, not tachypneic, no tripod positioning and no use of accessory muscles Auscultation: clear to auscultation bilaterally Cardio Jugular venous distension: no JVD Rate: regular rate Rhythm: regular rhythm Skin Other: warm, dry General skin exam: no rashes or lesions noted Neuro General: patient oriented x3 Cranial nerves: Yes Normal hearing present Cognition (Neuro): normal cognition Gait exam (Neuro): Normal gait present Extrem General: Yes normal to inspection, Yes capillary refill normal, Yes no clubbing, cyanosis or edema and Yes no pedal edema Psych Appearance: grossly normal and well kempt Speech and movement: Normal speech and movement present and Clear speech present Affect: normal affect Attitude: cooperative Thought process: Normal thought process present Thought content: Normal thought content present Insight: Good insight present (Psych) Judgement: Good judgement present (Psych) Results Reviewed Results Reviewed: Assessment & Plan Assessment & Plan (1) Asthma: Code(s): J45.909 - Unspecified asthma, uncomplicated (2) Lung nodule: Code(s): R91.1 - Solitary pulmonary nodule (3) Paroxysmal nocturnal dyspnea: Code(s): R06.00 - Dyspnea, unspecified Plan Reviewed PFT results which revealed mild obstructive defect and increase RV suggestive of asthma and air trapping. DLCO lower level of normal. Advised Lauren to continue current regimen of Advair and albuterol MDI PRN. Will follow up to review sleep study and chest CT results in 4-6 weeks or sooner if needed. All questions were answered and patient is in agreement of plan. Will follow up in 6-8 weeks to review response to inhaler and results, or sooner if needed. Coding Level of Care Code Est Pt Level 4 (25505) Diagnoses Asthma J45.909 Lung nodule R91.1 Paroxysmal nocturnal dyspnea R06.00
[2023-10-30 10:03] VITALS: BP 130/70; PULSE 69; O2SAT 100; BMI 32.1
== END 2023-10-30 10:29 | disposition home or self-care (01) ==
PROVIDERS: PCP Internal Medicine; Visit Provider Nurse Practitioner Family
DX: J45.909 Unspecified asthma, uncomplicated (principal); R91.1 Solitary pulmonary nodule; R06.00 Dyspnea, unspecified
CPT/HCPCS: 99214

== ENCOUNTER → 2023-10-30 09:54 | Outpatient (BNVA) | payer MEDICARE, MEDICAID, SELFPAY | PROVIDERS: PCP Internal Medicine; Visit Provider Nurse Practitioner Family | DX: J45.909 Unspecified asthma, uncomplicated (principal); R91.1 Solitary pulmonary nodule; R06.00 Dyspnea, unspecified | CPT/HCPCS: 99212 ==

== ENCOUNTER 2023-11-23 14:59 | Outpatient (REF) | payer MEDICARE, MEDICAID, SELFPAY ==
--- NOTE | ~2023-11-23 | CT_ITS ---
EXAMINATION: CT CHEST WITHOUT CONTRAST CLINICAL INFORMATION: Pulmonary nodule. COMPARISON: Chest CT from 02/02/2020 and 09/06/2023. TECHNIQUE: Multidetector volumetric CT imaging of the chest was done. Axial MIP volume rendering provided. Sagittal and coronal reformatted images were obtained. This CT examination was performed using dose optimization techniques as appropriate, variously including the following: *Automated exposure control *Adjustment of mA and/or kV according to patient size (this includes techniques or standardized protocols for targeted exams where dose is matched to indication/reason for exam; i.e. extremities or head) *Use of iterative reconstruction technique DLP: 153 mGy-cm FINDINGS: LUNGS AND PLEURA: Lungs are well expanded. The airways are normal. Chronic mild pleural-based scarring at lung apices. Chronic linear opacities of scarring within the right middle lobe, inferior lingula and lateral left lower lobe. 0.3 cm lymph node or nodule of the superior segment of the right lower lobe along the proximal major fissure is unchanged compared to 02/02/2020. No interval development of a suspicious lung nodule. Based on Fleischner Society guidelines, no chest CT imaging follow-up is recommended. CARDIOVASCULAR: Cardiac chambers, pulmonary arteries and thoracic aorta are normal in size. No pericardial effusion. CORONARY ARTERY CALCIFICATION: None. MEDIASTINUM AND LOWER NECK: No mediastinal mass. The esophagus is unremarkable. A hypodense nodule in the left thyroid lobe measures approximately 1.5 cm AP. Please refer to prior thyroid ultrasound exams from 01/11/2021, 08/31/2022 and 08/14/2023. LYMPHATICS: No pathologic sized lymph nodes. UPPER ABDOMEN: 2.5 cm cyst at the upper pole of the right kidney has a simple appearance. No renal imaging follow-up recommended. SKELETAL AND CHEST WALL: No chest wall mass. No acute or suspicious osseous abnormality within the visualized thorax. CT/CT chest wo IV con IMPRESSION: * No interval development of a suspicious lung nodule, mass or lymphadenopathy. There are no pulmonary findings in need of imaging follow-up. * There is an old hypodense nodule in the left thyroid lobe. Please refer to prior thyroid ultrasound exams from 01/11/2021, 08/31/2022 and 08/14/2023.
== END 2023-11-23 15:00 | disposition home or self-care (01) ==
LOC: HO.CT 14:59
PROVIDERS: PCP Internal Medicine; Visit Provider Nurse Practitioner Family
DX: R91.1 Solitary pulmonary nodule (principal)
CPT/HCPCS: 71250

== ENCOUNTER 2023-11-29 09:47 | Outpatient (AMB) | payer MEDICARE, MEDICAID, SELFPAY ==
--- NOTE | 2023-11-29 09:47 | A.OFFVIS_ITS ---
Intake Vital Signs 11/29/23 09:52 Height 5 ft 5 in Weight 196 lb 3.382 oz BMI 32.6 BP 123/64 Blood Pressure Location Lt brachial Position Sitting Intake Visit Reasons: 5 month follow up Intake Note: Patient returns to in office 5 months follow up of labs and to discuss clearance pre colonoscopy. CC: Patient states she has been doing well and is eating more fiber. Denies having any GI concern today. Bond Underwriter Name: [id number] Allergies shellfish derived [SHELLFISH DERIVED] Allergy (Severe, Verified 11/29/23 10:12) swelling of tongue aspirin [ASPIRIN] Allergy (Intermediate, Verified 11/29/23 10:12) rash/ itch ciprofloxacin [From CIPRO] Allergy (Unknown, Verified 11/29/23 10:12) UNKNOWN latex Allergy (Unknown, Verified 11/29/23 10:12) Itching Seafood Allergy (Intermediate, Uncoded 10/30/23 10:09) hives HPI 5 month follow up HPI Details Assessment & Plan (1) Pre-op examination: Code(s): Z01.818 - Encounter for other preprocedural examination Plan: [place] # [facility] Live She did not like the taste of the liquid on prior scope, but she only used water to mix it. We discuss mixing it with clear liquids. She has a new problem of CP for which she has presented to the ER twice and she is not seeing our cardiology dept. She seems to have had a negative treadmill stress, but has additional testing upcoming and has a new RBBB on EKG. She will also be seeing pulmonology as she has occasional SOB. The pulm is at [facility] Dr. Lutz [address] [place] [address]. She also has an appt with the renal specialist for renal cysts. The renal specialist is at [facility]. There are no prior problems with anesthesia or sedation. She is eating brown rice for more fiber and has not struggles with CIC and no RB. NO ID problems. She had a large TA on last scope. ROV in November to be sure she is cleared. (2) Tubular adenoma of colon: Comment: 2021 large sessile polyp repeat 1 year, 2019 scope greater than 1 cm stalked Code(s): D12.6 - Benign neoplasm of colon, unspecified (3) Fatigue: Code(s): R53.83 - Other fatigue Orders: Orders Colonoscopy - GI U se Only 07/27/23 Z01.818 - Encounte r for other prepro cedural examinatio n, D12.6 - Benign neoplasm of colon, unspecified Comprehensive Met. Panel 07/27/23 Z01.818 - Encounte r for other prepro cedural examinatio n, D12.6 - Benign neoplasm of colon, unspecified Vitamin D 25-OH (D 2 and D3) 07/27/23 R53.83 - Other fat igue Vitamin B12 and Fo late 07/27/23 R53.83 - Other fat igue Medications: New peg 3350-electroly ann 236-22.74-6.74 -5.86 gram (Golyt alma rosa) until feca l effluent is chun r; do not exceed a total volume of 2 ,000 mL 240 mL PO Q10M 4,0 00 mL 0RF 1 day Z12.11 - Encounter for screening for malignant neoplas m of colon LABS: Laboratory Tests 07/27/23 09/06/23 09/06/23 10:53 13:24 13:24 WBC 7.0 Hgb 13.3 Hct 40.9 Plt Count 262 Estimated GFR > 60 Total Bilirubin 0.4 AST 15 ALT [address] Alkaline [address] se 115 CT OF THE CHEST 11/28/23 (ordering provider Dr. Heller and Addie Luna, AMERICAN HISTORY PROFESSOR pulm) MPRESSION: * No interval development of a suspicious lung nodule, mass or lymphadenopathy. There are no pulmonary findings in need of imaging follow-up. * There is an old hypodense nodule in the left thyroid lobe. Please refer to prior thyroid ultrasound exams from 01/11/2021, 08/31/2022 and 08/14/2023. Colonoscopy SCHEDULED FOR 01/18/2024 Biopsy TODAY'S VISIT DUTCH #[id number] She has been cleared and has a follow up scheduled for 01/31. She had a good holiday with her daughter, and has been feeling well. She continues to eat brown rice for fiber and watches her diet. She also uses Miralax prn and requests a refill. Has GERD but it is well controlled omeprazole prescribed by her primary care provider. She had a CT of her lungs to monitor a nodule, and she asks me to check the results, I advise her that there has been no interval changes in this nodule. ROV after colonoscopy. [facility] Medical History Thyroid nodule RBBB (right bundle branch block) HTN (hypertension), benign Hyperlipidemia Migraines Depression with anxiety Tubular adenoma of colon (~2019) Low back pain Surgical History History of appendectomy History of colonoscopy History of right breast biopsy Family History Paternal Aunt Breast cancer Mother Pancreatic cancer Social History Alcohol intake: never Patient Tobacco Use Status: Never used Tobacco Current occupational status: disabled Female Reproductive History Menstrual Age of Menarche: 14 Review of Systems Const Denies fatigue, Denies fever(s), Denies night sweats, Denies poor appetite and Denies weight loss Eyes Details: glasses Reports requires corrective lenses ENT Reports Normal hearing present, Denies dental pain, Denies dysphagia, Denies hearing loss, Denies mouth pain, Denies odynophagia, Denies throat swelling, Denies tongue swelling and Reports other (Dentition adequate) Card Reports no additional complaints Resp Reports no additional complaints GI Denies abdominal pain, Denies melena, Reports bloating, Denies hematochezia, Reports constipation, Denies GI cramping, Denies dysphagia, Denies excessive flatus, Denies early satiety, Reports heartburn, Denies diarrhea, Denies nausea, Denies odynophagia, Denies vomiting and Denies hematemesis Skin/Breast Denies pruritus, Denies lesions, Denies rash and Denies jaundice Neuro Reports Normal hearing present and Denies Abnormal speech present Endo Denies fatigue Aller/Immun Denies throat swelling and Denies tongue swelling Physical Exam Vital Signs: Last Vital Signs BP 123/64 11/29/23 09:52 BMI result Body Mass Index 32.6 Const General: cooperative, no acute distress, well developed and well groomed Nutritional Appearance: well nourished and obese Orientation/consciousness: oriented to person, oriented to place and oriented to time Limitations: language barrier HEENT Head: Yes normocephalic and Yes atraumatic Eyes General: appearance normal, both eyes and all related structures Pupils: Equal, round and reactive pupils present Neck Neck: Yes normal visual inspection and Yes no lymphadenopathy Thyroid: Thyroid normal Resp Effort & Inspection: normal respiratory effort and able to speak in complete sentences Auscultation: clear to auscultation bilaterally Cardio Rate: regular rate Rhythm: regular rhythm Heart sounds: Normal, physiologic split S2 sound present Peripheral pulses: radial pulses present and posterior tibial pulses present GI Inspection: No distended, No Abdominal panniculus present and Yes obesity Palpation (GI): Soft to palpation, nontender, no guarding, not rigid and No hepatosplenomegaly present Percussion: Yes normal to percussion Auscultation: normal bowel sounds Rectal Exam - Female: deferred Skin General skin exam: no rashes or lesions noted, turgor normal, skin not dry, no jaundice, No spider nevi and no striae Rashes: no rashes Nails: normal Neuro General: oriented to person, oriented to place and oriented to time Cranial nerves: Yes Equal, round and reactive pupils present and Yes Normal hearing present Speech: No Abnormal speech present Extrem General: Yes normal to inspection, No clubbing, No cyanosis and No edema Psych Appearance: grossly normal and well kempt Mental Status: mental status grossly normal Speech and movement: Normal speech and movement present Affect: normal affect Attitude: cooperative Thought process: Normal thought process present and not confabulating Thought content: Normal thought content present Insight: Fair insight present (Psych) Judgement: Fair judgement present (Psych) Results Reviewed Results Reviewed: Laboratory Tests 07/27/23 09/06/23 09/06/23 10:53 13:24 13:24 WBC 7.0 Hgb 13.3 Hct 40.9 Plt Count 262 Estimated GFR > 60 Total Bilirubin 0.4 AST 15 ALT [address] OF THE CHEST 11/28/23 (ordering provider Dr. Heller and Addie Luna, AMERICAN HISTORY PROFESSOR pulm) MPRESSION: * No interval development of a suspicious lung nodule, mass or lymphadenopathy. There are no pulmonary findings in need of imaging follow-up. * There is an old hypodense nodule in the left thyroid lobe. Please refer to prior thyroid ultrasound exams from 01/11/2021, 08/31/2022 and 08/14/2023. Assessment & Plan Assessment & Plan (1) Tubular adenoma of colon: Onset Date: ~2018 Comment: (2018 scope greater than 1 cm stalked; 2021 large sessile polyp repeat 1 year) Code(s): D12.6 - Benign neoplasm of colon, unspecified Plan Colonoscopy SCHEDULED FOR 01/18/2024 Biopsy TODAY'S VISIT DUTCH #[id number] She has been cleared and has a follow up scheduled for 01/31. She had a good holiday with her daughter, and has been feeling well. She continues to eat brown rice for fiber and watches her diet. She also uses Miralax prn and requests a refill. Has GERD but it is well controlled omeprazole prescribed by her primary care provider. She had a CT of her lungs to monitor a nodule, and she asks me to check the results, I advise her that there has been no interval changes in this nodule. ROV after colonoscopy. Medications: Refilled peg 3350-electrolytes 236-22.74-6.74 -5.86 gram (Golytely) until fecal effluent is clear; do not exceed a total volume of 2,000 mL 240 mL PO Q10M 1 day 4,000 mL 6RF Z12.11 - Encounter for screening for malignant neoplasm of colon Coding Level of Care Code Est Pt Level 3 (72290) Diagnoses Tubular adenoma of colon D12.6
[2023-11-29 09:52] VITALS: BP 123/64; BMI 32.6
== END 2023-11-29 10:26 | disposition home or self-care (01) ==
PROVIDERS: PCP Internal Medicine; Visit Provider Nurse Practitioner
DX: D12.6 Benign neoplasm of colon, unspecified (principal)
CPT/HCPCS: 99213

== ENCOUNTER → 2023-11-29 09:47 | Outpatient (BNVA) | payer MEDICARE, MEDICAID, SELFPAY | PROVIDERS: PCP Internal Medicine; Visit Provider Nurse Practitioner | DX: D12.6 Benign neoplasm of colon, unspecified (principal) | CPT/HCPCS: 99212 ==

== ENCOUNTER 2023-11-30 15:18 | Outpatient (AMB) | payer MEDICARE, MEDICAID, SELFPAY ==
--- NOTE | 2023-11-30 15:44 | A.OFFVIS_ITS ---
Intake Vital Signs 3 11/30/23 15:45 Height 5 ft 5 in Weight 197 lb BMI 32.8 BP 118/68 Blood Pressure Location Lt brachial Position Sitting Pulse 77 Pulse Source Pulse Oximeter Pulse Oximetry (%) 100 Oxygen Delivery Method Room Air Intake Visit Reasons: CT Chest/Sleep Study Follow Up Gill Net Stringer Required: No Gill Net Stringer Name: marjorie [id number] Information Interpreted: non-clinical & clinical Title I Director: Title I Director offered & declined Accompanied by: Self / Same As Patient Allergies shellfish derived [SHELLFISH DERIVED] Allergy (Severe, Verified 11/30/23 15:50) swelling of tongue aspirin [ASPIRIN] Allergy (Intermediate, Verified 11/30/23 15:50) rash/ itch ciprofloxacin [From CIPRO] Allergy (Unknown, Verified 11/30/23 15:50) UNKNOWN latex Allergy (Unknown, Verified 11/30/23 15:50) Itching Seafood Allergy (Intermediate, Uncoded 11/30/23 15:50) hives Medication List - Last Reconciled 11/30/23 by Arin Keane LPN acetaminophen ER 650 mg PO Q8H PRN Advair HFA 115-21 mcg/actuation (fluticasone propion-salmeterol) 2 puffs inhalation Q12H NS albuterol sulfate 90 mcg/actuation (Ventolin HFA) 2 puffs inhalation Q6H PRN atorvastatin 40 mg PO BEDTIME cyclobenzaprine 10 mg PO TID PRN levalbuterol tartrate 45 mcg/actuation (Xopenex HFA) 1 puff inhalation Q4-6H PRN lorazepam 1 mg PO DAILY PRN omeprazole 40 mg PO DAILY peg 3350-electrolytes 236-22.74-6.74 -5.86 gram (Golytely) 240 mL PO Q10M 1 day polyethylene glycol 3350 (Gavilax) 17 grams PO DAILY propranolol ER 160 mg PO DAILY sertraline 100 mg PO DAILY topiramate (Topamax) 25 mg PO DAILY HPI CT Chest/Sleep Study Follow Up 2 HPI0 Details Lauren is a pleasant 53 year old female, never smoker, with underlying history of childhood asthma and pulmonary nodules. She was initially referred by cardiology for pulmonary evaluation after abnormal CT. She was evaluated for chest pain on 09/06 with CTA with no notable nodules, then had a heart CT revealing a 1 cm nodular density of right apex on 09/15. She was sent for [address] and is here to review results as well as results of sleep study. She also reports suboptimal response to Advair and continues to report dyspnea with exertion. She denies wheezing, cough and chest tightness. Today she presents to review chest CT and sleep study results. [facility] Medical History Thyroid nodule RBBB (right bundle branch block) HTN (hypertension), benign Hyperlipidemia Migraines Depression with anxiety Tubular adenoma of colon (~2019) Low back pain Surgical History History of appendectomy History of colonoscopy History of right breast biopsy Family History Paternal Aunt Breast cancer Mother Pancreatic cancer Social History (Updated 11/30/23 @ 15:53 by Arin Keane LPN) Alcohol intake: never Patient Tobacco Use Status: Never used Tobacco Current occupational status: disabled Female Reproductive History Menstrual Age of Menarche: 14 Review of Systems Const Denies chills, Denies excessive sweating, Denies fever(s), Denies headache(s) and Denies night sweats Eyes Denies dry eyes, Denies irritation and Denies itchy eyes ENT Reports Normal hearing present and Denies headache(s) Card Denies chest pain, Denies chest pain at rest, Denies chest pain with activity, Denies claudication, Denies leg edema and Denies orthopnea Resp Denies chest congestion, Denies pain on inspiration, Denies pain with cough and Denies stridor Musc Denies myalgias Neuro Reports Normal hearing present and Denies headache(s) Endo Denies excessive sweating Vicente/Lymph Denies lymphadenopathy Aller/Immun Denies itchy eyes and Denies seasonal rhinorrhea Physical Exam Vital Signs: Last Vital Signs Pulse 77 11/30/23 15:45 BP 118/68 11/30/23 15:45 Pulse Ox 100 11/30/23 15:45 Oxygen Delivery Method Room Air 11/30/23 15:45 BMI result Body Mass Index 32.8 Const General: cooperative, healthy appearing, comfortable, no acute distress, well developed and alert Nutritional Appearance: obese Orientation/consciousness: patient oriented x3 Limitations: no limitations HEENT Head: Yes normal to inspection, Yes normocephalic and Yes atraumatic Ears: hearing grossly normal bilaterally and external ears normal Eyes General: appearance normal, both eyes and all related structures Eyelids: Yes eyelids normal Sclerae: sclerae normal EOM: EOMs intact bilaterally Neck Neck: Yes normal visual inspection and Yes no lymphadenopathy Lymphatic: no lymphadenopathy noted Chest Chest palpation & inspection: normal inspection of the chest Resp Effort & Inspection: normal respiratory effort, able to speak in complete sentences, no audible wheezes, no cough, no stridor, not tachypneic, no tripod positioning and no use of accessory muscles Auscultation: clear to auscultation bilaterally Cardio Jugular venous distension: no JVD Rate: regular rate Rhythm: regular rhythm Skin Other: warm, dry General skin exam: no rashes or lesions noted Neuro General: patient oriented x3 Cranial nerves: Yes Normal hearing present Cognition (Neuro): normal cognition Gait exam (Neuro): Normal gait present Extrem General: Yes normal to inspection, Yes capillary refill normal, Yes no clubbing, cyanosis or edema and Yes no pedal edema Psych Appearance: grossly normal and well kempt Speech and movement: Normal speech and movement present and Clear speech present Affect: normal affect Attitude: cooperative Thought process: Normal thought process present Thought content: Normal thought content present Insight: Good insight present (Psych) Judgement: Good judgement present (Psych) Results Reviewed Results Reviewed: [address] [address] [address] Scan Report Signed Patient: Lauren Mcneal MR#: [id number] : 1970 Acct:[id number] Age/Sex: 53 / F ADM Date: 11/23/23 Loc: HO.CT Attending Dr: Manjula Luna NP Ordering Physician: Manjula Luna NP Date of Service: 11/23/23 Procedure(s): CT chest wo IV con Accession Number(s): [id number] cc: Charli Rojas MD; Manjula Luna NP~ EXAMINATION: CT CHEST WITHOUT CONTRAST CLINICAL INFORMATION: Pulmonary nodule. COMPARISON: Chest CT from 02/02/2020 and 09/06/2023. TECHNIQUE: Multidetector volumetric CT imaging of the chest was done. Axial MIP volume rendering provided. Sagittal and coronal reformatted images were obtained. This CT examination was performed using dose optimization techniques as appropriate, variously including the following: *Automated exposure control *Adjustment of mA and/or kV according to patient size (this includes techniques or standardized protocols for targeted exams where dose is matched to indication/reason for exam; i.e. extremities or head) *Use of iterative reconstruction technique DLP: 153 mGy-cm FINDINGS: LUNGS AND PLEURA: Lungs are well expanded. The airways are normal. Chronic mild pleural-based scarring at lung apices. Chronic linear opacities of scarring within the right middle lobe, inferior lingula and lateral left lower lobe. 0.3 cm lymph node or nodule of the superior segment of the right lower lobe along the proximal major fissure is unchanged compared to 02/02/2020. No interval development of a suspicious lung nodule. Based on Fleischner Society guidelines, no chest CT imaging follow-up is recommended. CARDIOVASCULAR: Cardiac chambers, pulmonary arteries and thoracic aorta are normal in size. No pericardial effusion. CORONARY ARTERY CALCIFICATION: None. MEDIASTINUM AND LOWER NECK: No mediastinal mass. The esophagus is unremarkable. A hypodense nodule in the left thyroid lobe measures approximately 1.5 cm AP. Please refer to prior thyroid ultrasound exams from 01/11/2021, 08/31/2022 and 08/14/2023. LYMPHATICS: No pathologic sized lymph nodes. UPPER ABDOMEN: 2.5 cm cyst at the upper pole of the right kidney has a simple appearance. No renal imaging follow-up recommended. SKELETAL AND CHEST WALL: No chest wall mass. No acute or suspicious osseous abnormality within the visualized thorax. CT/CT chest wo IV con IMPRESSION: * No interval development of a suspicious lung nodule, mass or lymphadenopathy. There are no pulmonary findings in need of imaging follow-up. * There is an old hypodense nodule in the left thyroid lobe. Please refer to prior thyroid ultrasound exams from 01/11/2021, 08/31/2022 and 08/14/2023. Dictated By: Riccardo Bhatia MD Signed By: <Electronically signed by Riccardo Bhatia MD in OV> 11/28/23 0909 Assessment & Plan Assessment & Plan (1) Asthma: Code(s): J45.909 - Unspecified asthma, uncomplicated (2) Lung nodule: Code(s): R91.1 - Solitary pulmonary nodule Plan Reviewed sleep study results which is negative for MITCHELL. Reviewed chest CT which revealed 3 mm pulmonary nodule of RLL. Will send for chest CT in one year to assess stability. If no change, then no need for further imaging unless symptoms warrant. Will increase dose of ICS/LABA. All questions were answered and patient is in agreement of plan. Will follow up in 3 months to review response to inhaler, or sooner if needed. Orders: Orders 2 CT chest wo IV con 11 Months R91.1 - Solitary pulmonary nodule Coding Level of Care Code Est Pt Level 4 (35721) Diagnoses Asthma J45.909 Lung nodule R91.1
[2023-11-30 15:45] VITALS: BP 118/68; PULSE 77; O2SAT 100; BMI 32.8
== END 2023-11-30 16:23 | disposition home or self-care (01) ==
PROVIDERS: PCP Internal Medicine; Visit Provider Nurse Practitioner Family
DX: J45.909 Unspecified asthma, uncomplicated (principal); R91.1 Solitary pulmonary nodule
CPT/HCPCS: 99214

== ENCOUNTER → 2023-11-30 15:18 | Outpatient (BNVA) | payer MEDICARE, MEDICAID, SELFPAY | PROVIDERS: PCP Internal Medicine; Visit Provider Nurse Practitioner Family | DX: J45.909 Unspecified asthma, uncomplicated (principal); R91.1 Solitary pulmonary nodule | CPT/HCPCS: 99212 ==

== ENCOUNTER 2023-12-27 15:33 | Outpatient (REF) | payer MEDICARE, MEDICAID, SELFPAY ==
[2023-12-27 16:03] LABS: MANUAL DIFF FLAG NO
[2023-12-27 16:07] LABS: Basophils Percent Auto 0.4 % (0-2); Eosinophils Absolute Auto 0.2 X10*3/uL (0.0-0.4); Eosinophils Percent Auto 2.8 % (0-4); Hematocrit 41.7 % (37.0-47.0); Hemoglobin 13.4 g/dl (12.0-16.0); Imm Gran Abs Auto 0.01 X10*3/uL (0.00-0.03); Imm Gran Pct Auto 0.1 % (0.0-0.4); Lymphocytes Absolute Auto 2.8 X10*3/uL (1.2-4.9); Lymphocytes Percent Auto 39.5 % (20-40); Mean Corpuscular HGB Conc 32.1 g/dl (31.0-35.0); Mean Corpuscular Hemoglobin 27.9 pg (27.0-33.0); Mean Corpuscular Volume 86.9 fL (80.0-98.0); Monocytes Absolute Auto 0.6 X10*3/uL (0.1-1.2); Neutrophils Absolute Auto 3.5 x10*3/uL (2.0-8.3); Neutrophils Percent Auto 49.2 % (45-73); Platelet Count 333 X10*3/uL (160-400); Red Cell Distribution Width 13.6 % (11.0-16.0); White Blood Count 7.1 X10*3/uL (4.8-10.8)
[2023-12-31 12:08] LABS: C. trachomatis RNA TMA NOT DETECTED (NOT DETECTED); N. gonorrhoeae RNA TMA NOT DETECTED (NOT DETECTED)
== END 2023-12-27 15:34 | disposition home or self-care (01) ==
LOC: HO.HHCL 15:33
PROVIDERS: Visit Provider Emergency Medicine
DX: N95.0 Postmenopausal bleeding (principal); Z20.2 Contact with and (suspected) exposure to infections with a predominantly sexual mode of transmission
CPT/HCPCS: 36415; 81513; 85025; 87491; 87591

== ENCOUNTER 2024-01-04 07:35 | Outpatient (REF) | payer MEDICARE, MEDICAID, SELFPAY ==
[2024-01-04 09:11] LABS: Alanine Aminotransferase 11 U/L (0-31); Albumin Level 3.8 g/dL (3.5-5.0); Alkaline Phosphatase 109 U/L (39-117); Aspartate Amino Transferase 14 U/L (5-31); Bilirubin Direct 0.2 mg/dL (0.0-0.5); Bilirubin Total 0.4 mg/dL (0.0-1.0); Cholesterol 162 mg/dL (<200); HDL Cholesterol 51 mg/dL (>40); LDL Cholesterol Calculated 92 mg/dL (<100); Triglycerides 97 mg/dL (<150)
[2024-01-04 09:16] LABS: Vitamin D 25-OH Total 20.2 ng/mL (>30)
[2024-01-04 09:37] LABS: Reflex LDLD? No
== END 2024-01-04 07:36 | disposition home or self-care (01) ==
LOC: HO.LAB 07:35
PROVIDERS: PCP Internal Medicine; Visit Provider Internal Medicine
DX: I10 Essential (primary) hypertension (principal)
CPT/HCPCS: 36415; 80061; 80076; 82306

== ENCOUNTER 2024-01-07 12:52 | Outpatient (AMB) | payer MEDICARE, MEDICAID, SELFPAY ==
[2024-01-07 13:21] VITALS: BP 114/82; PULSE 71; BMI 33.2
--- NOTE | 2024-01-07 13:21 | A.OFFVIS_ITS ---
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 Fuse Required: Yes Allergies shellfish derived [SHELLFISH DERIVED] Allergy (Severe, Verified 01/07/24 13:23) swelling of tongue aspirin [ASPIRIN] Allergy (Intermediate, Verified 01/07/24 13:23) rash/ itch ciprofloxacin [From CIPRO] Allergy (Unknown, Verified 01/07/24 13:23) UNKNOWN latex Allergy (Unknown, Verified 01/07/24 13:23) Itching Seafood Allergy (Intermediate, Uncoded 01/07/24 13:23) hives Medication List - Last Reconciled 01/07/24 by CHAITANYA Gore acetaminophen ER 650 mg PO Q8H PRN Advair HFA 115-21 mcg/actuation (fluticasone propion-salmeterol) 2 puffs inhalation Q12H NS albuterol sulfate 90 mcg/actuation (Ventolin HFA) 2 puffs inhalation Q6H PRN atorvastatin 40 mg PO BEDTIME clonazepam mg PO levalbuterol tartrate 45 mcg/actuation (Xopenex HFA) 1 puff inhalation Q4-6H PRN mometasone-formoterol 200-5 mcg/actuation (Dulera) 2 puffs inhalation BID naratriptan 2.5 mg PO DIRECTED omeprazole 40 mg PO DAILY peg 3350-electrolytes 236-22.74-6.74 -5.86 gram (Golytely) 240 mL PO Q10M 1 day polyethylene glycol 3350 (Gavilax) 17 grams PO DAILY propranolol ER 160 mg PO DAILY sertraline 100 mg PO DAILY topiramate (Topamax) 25 mg PO DAILY HPI 3 month f/u ETT HPI Details Lauren is a 53-year-old female with past medical history of hypertension, hyperlipidemia, right bundle branch block and atypical chest discomfort who presents for follow-up. Today she reports that she still gets discomfort in her right chest region and left upper inner arm especially when carrying her laundry. Overall this symptom is less than it was on last visit. She denies any other types of chest discomfort. She does not get her right-sided chest discomfort with walking or just stair climbing. No palpitations, lightheadedness, presyncope, syncope, falls, PND, orthopnea or edema. She does have shortness of breath which she relates to her asthma. She takes all her meds as directed. [facility] Medical History Thyroid nodule RBBB (right bundle branch block) HTN (hypertension), benign Hyperlipidemia Migraines Depression with anxiety Tubular adenoma of colon (~2019) Low back pain Surgical History History of appendectomy History of colonoscopy History of right breast biopsy Family History Paternal Aunt Breast cancer Mother Pancreatic cancer Social History Alcohol intake: never Patient Tobacco Use Status: Never used Tobacco Current occupational status: disabled Female Reproductive History Menstrual Age of Menarche: 14 Review of Systems Const All systems reviewed & are unremarkable except as noted in HPI and below ENT Denies dizziness Card Reports chest pain (right sided and right upper arm when carrying laundry), Denies chest pain at rest, Denies chest pain with activity, Denies rapid heart rate, Denies pedal edema, Denies edema, Denies leg edema, Denies lightheadedness, Denies palpitations, Denies dyspnea, Denies dyspnea on exertion and Denies orthopnea Resp Denies cough, Denies dyspnea and Denies dyspnea on exertion GI Denies hematochezia and Denies change in stool character Musc Denies abnormal gait, Denies limited range of motion, Denies muscle cramps, Denies muscle weakness, Denies numbness, Denies radiating pain into limb, Denies stiffness and Denies tingling Neuro Denies abnormal gait, Denies dizziness, Denies numbness and Denies tingling Endo Denies palpitations Physical Exam Vital Signs: Last Vital Signs Pulse 71 01/07/24 13:21 BP 114/82 01/07/24 13:21 BMI result Body Mass Index 33.2 Const General: cooperative, healthy appearing, comfortable and no acute distress Orientation/consciousness: patient oriented x3 Neck Neck: Yes normal visual inspection and Yes no JVD Carotids: normal carotid upstroke Resp Effort & Inspection: normal respiratory effort Auscultation: clear to auscultation bilaterally, no crackles, no rales, no rhonchi and no wheezes Cardio Jugular venous distension: no JVD Rate: regular rate Rhythm: regular rhythm Heart sounds: S1 normal heart sound present, S2 normal heart sound present, no murmurs and no rubs Neuro General: patient oriented x3 Extrem General: Yes normal to inspection and No no pedal edema Psych Appearance: grossly normal Mental Status: mental status grossly normal Speech and movement: Normal speech and movement present Assessment & Plan Assessment & Plan (1) Atypical chest pain: Code(s): R07.89 - Other chest pain Plan: Right-sided chest discomfort as described above. Atypical for angina. Cardiac risk factors of hypertension and hyperlipidemia. Exercise stress test done 07/12/2023 with exercise close to 5 minutes with moderate shortness of breath and no EKG changes of ischemia. She has a history of asthma which can account for her shortness of breath with activity. Since last summer her symptom is still present but described as less bothersome. An EKG was done on 09/06/2023 showing sinus rhythm with left bundle branch block, no acute ST or T-wave abnormalities, rate 69. Overall this symptom seems very atypical for angina. Signs and symptoms of true angina reviewed with her. Cardiology follow-up as needed. She will continue to follow with her PCP. (2) Right bundle branch block: Code(s): I45.10 - Unspecified right bundle-branch block Plan: EKGs show right bundle branch block. This is not a new finding for her. EKGs in our system reviewed and right bundle branch block is seen on her EKGs as far back as 2009. An echocardiogram was done 12/24/2016 showing EF 60-65%, normal diastolic function and normal valves. No progression of electrical disturbances noted over the last several years. She can continue on her current propranolol. (3) HTN (hypertension), benign: Code(s): I10 - Essential (primary) hypertension Plan: Well controlled at present time. No medication changes made. Plan Time spent on chart review, documentation, interview and assessment Coding Level of Care Code Est Pt Level 3 (95439) Diagnoses Atypical chest pain R07.89 Right bundle branch block I45.10 HTN (hypertension), benign I10 Time Spent (min) 24
== END 2024-01-07 14:20 | disposition home or self-care (01) ==
PROVIDERS: PCP Internal Medicine; Visit Provider Nurse Practitioner Family
DX: R07.89 Other chest pain (principal); I45.10 Unspecified right bundle-branch block; I10 Essential (primary) hypertension
CPT/HCPCS: 99213

== ENCOUNTER → 2024-01-07 12:52 | Outpatient (BNVA) | payer MEDICARE, MEDICAID, SELFPAY | PROVIDERS: PCP Internal Medicine; Visit Provider Nurse Practitioner Family | DX: I45.10 Unspecified right bundle-branch block (principal); I10 Essential (primary) hypertension; R07.89 Other chest pain | CPT/HCPCS: 99212 ==

== ENCOUNTER 2024-01-08 09:27 | Outpatient (AMB) | payer MEDICARE, MEDICAID, SELFPAY ==
[2024-01-08 10:05] VITALS: BP 122/64; PULSE 61; O2SAT 99; BMI 33.1
--- NOTE | 2024-01-08 10:05 | A.OFFVIS_ITS ---
Intake Vital Signs 01/08/24 10:05 Height 5 ft 5 in Weight 199 lb BMI 33.1 BP 122/64 Pulse 61 Pulse Source Pulse Oximeter Pulse Oximetry (%) 99 Oxygen Delivery Method Room Air Intake Visit Reasons: pulmonary clearance Woodwork Teacher Required: No Survey Questionnaire Designer: Survey Questionnaire Designer offered & declined Accompanied by: Sister Allergies shellfish derived [SHELLFISH DERIVED] Allergy (Severe, Verified 01/08/24 10:17) swelling of tongue aspirin [ASPIRIN] Allergy (Intermediate, Verified 01/08/24 10:17) rash/ itch ciprofloxacin [From CIPRO] Allergy (Unknown, Verified 01/08/24 10:17) UNKNOWN latex Allergy (Unknown, Verified 01/08/24 10:17) Itching Seafood Allergy (Intermediate, Uncoded 01/08/24 10:17) hives Medication List - Last Reconciled 01/08/24 by Arin Keane LPN acetaminophen ER 650 mg PO Q8H PRN albuterol sulfate 90 mcg/actuation (Ventolin HFA) 2 puffs inhalation Q6H PRN atorvastatin 40 mg PO BEDTIME clonazepam mg PO levalbuterol tartrate 45 mcg/actuation (Xopenex HFA) 1 puff inhalation Q4-6H PRN mometasone-formoterol 200-5 mcg/actuation (Dulera) 2 puffs inhalation BID naratriptan 2.5 mg PO DIRECTED omeprazole 40 mg PO DAILY peg 3350-electrolytes 236-22.74-6.74 -5.86 gram (Golytely) 240 mL PO Q10M 1 day polyethylene glycol 3350 (Gavilax) 17 grams PO DAILY propranolol ER 160 mg PO DAILY sertraline 100 mg PO DAILY topiramate (Topamax) 25 mg PO DAILY HPI pulmonary clearance HPI Details Lauren is a pleasant 53 year old female, never smoker, with underlying history of childhood asthma and pulmonary nodules. At baseline, she has been well controlled on Dulera. Today she presents for preoperative pulmonary evaluation for upcoming colonoscopy. She reports recent symptoms of nasal congestion and postnasal drip for the past week but denies cough, dyspnea, wheezing, and chest tightness. She was evaluated at urgent care yesterday and was negative for flu COVID and RSV, advised to continue supportive care. [facility] Medical History Thyroid nodule RBBB (right bundle branch block) HTN (hypertension), benign Hyperlipidemia Migraines Depression with anxiety Tubular adenoma of colon (~2019) Low back pain Surgical History History of appendectomy History of colonoscopy History of right breast biopsy Family History Paternal Aunt Breast cancer Mother Pancreatic cancer Social History Alcohol intake: never Patient Tobacco Use Status: Never used Tobacco Current occupational status: disabled Female Reproductive History Menstrual Age of Menarche: 14 Review of Systems Const Denies chills, Denies excessive sweating, Denies fever(s), Denies headache(s) and Denies night sweats Eyes Denies dry eyes, Denies irritation and Denies itchy eyes ENT Reports Normal hearing present and Denies headache(s) Card Denies chest pain, Denies chest pain at rest, Denies chest pain with activity, Denies claudication, Denies leg edema, Denies dyspnea, Denies dyspnea on exertion and Denies orthopnea Resp Denies change in phlegm color, Denies chest congestion, Denies cough, Denies excessive phlegm production, Denies pain on inspiration, Denies pain with cough, Denies dyspnea, Denies dyspnea on exertion, Denies stridor and Denies wheezing Musc Denies myalgias Neuro Reports Normal hearing present and Denies headache(s) Endo Denies excessive sweating Vicente/Lymph Denies lymphadenopathy Aller/Immun Denies itchy eyes, Denies seasonal rhinorrhea and Denies wheezing Physical Exam Vital Signs: Last Vital Signs Pulse 61 01/08/24 10:05 BP 122/64 01/08/24 10:05 Pulse Ox 99 01/08/24 10:05 Oxygen Delivery Method Room Air 01/08/24 10:05 BMI result Body Mass Index 33.1 Const General: cooperative, healthy appearing, comfortable, no acute distress, well developed and alert Nutritional Appearance: obese Orientation/consciousness: patient oriented x3 Limitations: no limitations HEENT Head: Yes normal to inspection, Yes normocephalic and Yes atraumatic Ears: hearing grossly normal bilaterally and external ears normal Eyes General: appearance normal, both eyes and all related structures Eyelids: Yes eyelids normal Sclerae: sclerae normal EOM: EOMs intact bilaterally Neck Neck: Yes normal visual inspection and Yes no lymphadenopathy Lymphatic: no lymphadenopathy noted Chest Chest palpation & inspection: normal inspection of the chest Resp Effort & Inspection: normal respiratory effort, able to speak in complete sentences, no audible wheezes, no cough, no stridor, not tachypneic, no tripod positioning and no use of accessory muscles Auscultation: clear to auscultation bilaterally Cardio Jugular venous distension: no JVD Rate: regular rate Rhythm: regular rhythm Skin Other: warm, dry General skin exam: no rashes or lesions noted Neuro General: patient oriented x3 Cranial nerves: Yes Normal hearing present Cognition (Neuro): normal cognition Gait exam (Neuro): Normal gait present Extrem General: Yes normal to inspection, Yes capillary refill normal, Yes no clubbing, cyanosis or edema and Yes no pedal edema Psych Appearance: grossly normal and well kempt Speech and movement: Normal speech and movement present and Clear speech present Affect: normal affect Attitude: cooperative Thought process: Normal thought process present Thought content: Normal thought content present Insight: Good insight present (Psych) Judgement: Good judgement present (Psych) Assessment & Plan Assessment & Plan (1) Encounter for preoperative pulmonary examination: Code(s): Z01.811 - Encounter for preprocedural respiratory examination (2) Asthma: Code(s): J45.909 - Unspecified asthma, uncomplicated (3) Lung nodule: Code(s): R91.1 - Solitary pulmonary nodule Plan Lauren presents for preoperative pulmonary evaluation for proposed colonoscopy. She denies respiratory symptoms at this time and has been doing quite well on Dulera. She currently reports symptoms of postnasal drip and nasal congestion however lungs sound clear. She has not required steroids or antibiotics in the last three months. At this time, she is considered low risk for perioperative pu lmonary complications. Consider bronchodilators during the perioperative period. All questions were answered and patient is in agreement of plan. Will follow up for regularly scheduled appointment or sooner if needed. Coding Level of Care Code Est Pt Level 4 (09018) Diagnoses Encounter for preoperative pulmonary examination Z01.811 Asthma J45.909 Lung nodule R91.1
== END 2024-01-08 10:36 | disposition home or self-care (01) ==
PROVIDERS: PCP Internal Medicine; Visit Provider Nurse Practitioner Family
DX: Z01.811 Encounter for preprocedural respiratory examination (principal); J45.909 Unspecified asthma, uncomplicated; R91.1 Solitary pulmonary nodule
CPT/HCPCS: 99214

== ENCOUNTER → 2024-01-08 09:27 | Outpatient (BNVA) | payer MEDICARE, MEDICAID, SELFPAY | PROVIDERS: PCP Internal Medicine; Visit Provider Nurse Practitioner Family | DX: Z01.811 Encounter for preprocedural respiratory examination (principal); J45.909 Unspecified asthma, uncomplicated; R91.1 Solitary pulmonary nodule | CPT/HCPCS: 99212 ==

== ENCOUNTER 2024-01-10 14:09 | Outpatient (REF) | payer MEDICARE, MEDICAID, SELFPAY ==
--- NOTE | ~2024-01-10 | US_ITS ---
EXAMINATION: US PELVIS CLINICAL INFORMATION: Postmenopausal bleeding, pelvic cramping COMPARISON: Pelvic ultrasound 04/02/2023 TECHNIQUE: Ultrasound of the pelvis is performed using both transabdominal postmenopausal bleeding, pelvic cramping and transvaginal transducers along with Doppler. Transvaginal imaging is performed due to inadequate visualization transabdominally. FINDINGS: Uterus: The uterus is anteverted and measures 10.3 x 9.7 x 9.2 cm. There are multiple fibroids, the 4 largest include: 5.5 x 6.3 x 5.9 cm left pedunculated fibroid, previously measured 6.8 x 5.4 x 3.8 cm. 4.2 x 4.0 x 3.7 cm left fundal subserosal fibroid previously measured 4.2 x 3.5 x 3.3 cm. 5.7 x 5.2 x 5.7 cm right subserosal fibroid fundal fibroid previously measured 5.3 x 5.4 x 5.3 cm. 3.2 x 2.7 x 2.9 cm posterior subserosal fibroid previously measured 2.8 x 2.6 x 2.7 cm. The endometrium is thickened for postmenopausal woman, measuring 0.7 cm. Adnexa: Right ovary measures 2.3 x 1.2 x 1.0 cm. Volume 2.1 mL. The left ovary is not seen. There is no free fluid within the cul-de-sac. US/US pelvic and transvaginal IMPRESSION: and/or endometrial biopsy could be performed. 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 2. Multiple fibroids. 3. Normal right ovary. 4. The left ovary is not seen.
== END 2024-01-10 14:10 | disposition home or self-care (01) ==
LOC: HO.US 14:09
PROVIDERS: PCP Internal Medicine; Visit Provider Emergency Medicine
DX: N95.0 Postmenopausal bleeding (principal)
CPT/HCPCS: 76830; 76856

== ENCOUNTER 2024-01-18 08:03 | Day surgery (SDC) | payer MEDICARE, MEDICAID, SELFPAY ==
--- NOTE | 2024-01-16 15:13 | P.CONAN_ITS ---
Documented by User: Maria R Kirkpatrick NP 01/17/24 14:33 HPI - Anesthesia Eval Consult details Narrative: 53yo F for Colonoscopy Pulmo cleared Follows [facility] for atypical CP, negative work up. Last office visit 12/2023 and only prn f/u. PMFSH Active Problems Active Problems: All Active Problems (Updated 01/08/24 @ 20:03 by Manjula Luna NP) Encounter for preoperative pulmonary examination (Acute) Atypical chest pain (Acute) Pulmonary nodule 1 cm or greater in diameter (Acute) Paroxysmal nocturnal dyspnea (Acute) Asthma (Acute) Lung nodule (Acute) Thyroid nodule (Acute) HTN (hypertension), benign (Acute) Hyperlipidemia (Acute) Chest pain (Acute) Right bundle branch block (Acute) Inappropriate sinus tachycardia (Acute) Tubular adenoma of colon (Acute ~2018) Hemorrhoids (Acute) Urinary incontinence (Acute) Bilateral renal cysts (Acute) Migraines (Acute) Fatigue (Acute) Abnormal mammogram of right breast (Acute) Right shoulder pain (Acute) Medial epicondylitis of right elbow (Acute) De Quervain's tenosynovitis, right (Acute) Painful arc syndrome of right shoulder (Acute) Patellofemoral syndrome of left knee (Acute) Knee pain (Acute) Low back pain (Acute) Past Medical History Medical History Thyroid nodule RBBB (right bundle branch block) HTN (hypertension), benign Hyperlipidemia Migraines Depression with anxiety Tubular adenoma of colon (~2018) Low back pain Family History Family History Paternal Aunt Breast cancer Mother Pancreatic cancer Family history of problems with anesthesia: No Surgical History Surgical History History of appendectomy History of colonoscopy History of right breast biopsy History of Problems with Anesthesia: No Social History Social History Alcohol intake: never Patient Tobacco Use Status: Never used Tobacco Are you DNR?: No Advance Directives: No Advance Directives Information Provided: Yes Current occupational status: disabled Meds Allergies Allergy/AdvReac Type Severity Reaction Status Date / Time shellfish derived Allergy Severe swelling Verified 01/08/24 10:17 [SHELLFISH DERIVED] of tongue aspirin [ASPIRIN] Allergy Intermediate rash/ itch Verified 01/08/24 10:17 ciprofloxacin [From CIPRO] Allergy Unknown UNKNOWN Verified 01/08/24 10:17 latex Allergy Unknown Itching Verified 01/08/24 10:17 Seafood Allergy Intermediate hives Uncoded 01/08/24 10:17 Home Medications Medication Instructions Recorded Confirmed Last Taken Type propranolol 160 mg capsule,24 160 mg PO DAILY 03/31/21 01/18/24 01/18/24 History hr,extended release topiramate 25 mg tablet (Topamax) 25 mg PO DAILY 03/31/21 01/08/24 Unknown History omeprazole 40 mg capsule,delayed 40 mg PO DAILY 07/27/23 01/08/24 Unknown History release sertraline 100 mg tablet 100 mg PO DAILY 07/27/23 01/18/24 01/18/24 History albuterol sulfate 90 mcg/actuation 2 puff inhalation Q6H PRN 09/18/23 01/08/24 Unknown History aerosol inhaler (Ventolin HFA) acetaminophen 650 mg 650 mg PO Q8H PRN 11/29/23 01/08/24 Unknown History tablet,extended release clonazepam 0.5 mg tablet 0.5 mg PO 01/07/24 01/08/24 Unknown History naratriptan 2.5 mg tablet 2.5 mg PO DIRECTED 01/07/24 01/08/24 Unknown History Exam Pertinent Lab Results Pertinent Lab Results: Laboratory Tests 09/06/23 12/27/23 13:24 15:36 WBC 7.1 Hgb 13.4 Hct 41.7 Plt Count 333 D Sodium 142 Potassium 4.1 Chloride 111 H Carbon Dioxide 21 L BUN 15 Creatinine 0.80 Narrative Narrative: EKG 08/2023 Vent. Rate : 069 BPM Atrial Rate : 069 BPM P-R Int : 140 ms QRS Dur : 124 ms QT Int : 408 ms P-R-T Axes : 049 011 011 degrees QTc Int : 437 ms Normal sinus rhythm Right bundle branch block Abnormal ECG When compared with ECG of 28-APR-2023 04:48, No significant change was found Exercise Stress 06/2023 Protocol: EVENS Max HR: 157 BPM 94% of Pred: 166 BPM Max BP: 132/082 mmHG Max Work Load: 6.6 METS Exercise stress test 4 min 42 sec of Evens protocol achieving 92% MPHR, with pretest 2/10 right chest sharpness, 0/10 with exercise & recovery, moderate SOB, without arrhythmias, with normotensive resposne to exercise, without EKG chnages,Breathing returned to normal in recovery, Test reviewed with Dr. Gray. Assessment and Plan Assessment Anesthesia Assessment: Chart Reviewed Final Anesthetic Review Family History of Problems with Anesthesia: No History of Problems with Anesthesia: No Documented by User: Michelle Jung MD 01/18/24 09:17 [facility] Past Medical History Medical History Thyroid nodule RBBB (right bundle branch block) HTN (hypertension), benign Hyperlipidemia Migraines Depression with anxiety Tubular adenoma of colon (~2018) Low back pain Family History Family History Paternal Aunt Breast cancer Mother Pancreatic cancer Surgical History Surgical History History of appendectomy History of colonoscopy History of right breast biopsy Social History Social History Alcohol intake: never Patient Tobacco Use Status: Never used Tobacco Are you DNR?: No Advance Directives: No Advance Directives Information Provided: Yes Current occupational status: disabled Meds Allergies Allergy/AdvReac Type Severity Reaction Status Date / Time shellfish derived Allergy Severe swelling Verified 01/08/24 10:17 [SHELLFISH DERIVED] of tongue aspirin [ASPIRIN] Allergy Intermediate rash/ itch Verified 01/08/24 10:17 ciprofloxacin [From CIPRO] Allergy Unknown UNKNOWN Verified 01/08/24 10:17 latex Allergy Unknown Itching Verified 01/08/24 10:17 Seafood Allergy Intermediate hives Uncoded 01/08/24 10:17 Home Medications Medication Instructions Recorded Confirmed Last Taken Type propranolol 160 mg capsule,24 160 mg PO DAILY 03/31/21 01/18/24 01/18/24 History hr,extended release topiramate 25 mg tablet (Topamax) 25 mg PO DAILY 03/31/21 01/08/24 Unknown History omeprazole 40 mg capsule,delayed 40 mg PO DAILY 07/27/23 01/08/24 Unknown History release sertraline 100 mg tablet 100 mg PO DAILY 07/27/23 01/18/24 01/18/24 History albuterol sulfate 90 mcg/actuation 2 puff inhalation Q6H PRN 09/18/23 01/08/24 Unknown History aerosol inhaler (Ventolin HFA) acetaminophen 650 mg 650 mg PO Q8H PRN 11/29/23 01/08/24 Unknown History tablet,extended release clonazepam 0.5 mg tablet 0.5 mg PO 01/07/24 01/08/24 Unknown History naratriptan 2.5 mg tablet 2.5 mg PO DIRECTED 01/07/24 01/08/24 Unknown History Exam Airway Mallampati Class: II TM Dist: >3cm Neck ROM: Full Denture: Upper and Lower Heart: rrr Lungs: cta Assessment and Plan Assessment Anesthesia Assessment: Anesthesia Plan Discussed Final Anesthetic Review NPO: Yes ASA Class: II Final Preanesthetic Review: No Changes in Pt Med Stat, Meds/Allgs Chart Reviewed and Consent Obtained/Reviewed Patient Risk: Low Procedure Risk: Low Anesthetic Plan Anesthetic Plan: MAC: Disposition: Standard PACU
[2024-01-18 08:29] VITALS: BP 138/73; PULSE 69; RESP 18; TEMP 36.6; O2SAT 98; BMI 33.3
[2024-01-18] MEDS: Sodium Phosphate,Mono-Dibasic 133 ML ENEMA PR (08:43)
[2024-01-18] MEDS: Lactated Ringers 1,000 ML 100 ML IVCONT (09:03)
--- NOTE | 2024-01-18 09:11 | MHC.SHP ---
Pre-Procedural Eval Section A - 24 Hr Update-Section A only Date of Service: 01/18/24 The patient is an INPATIENT: No The patient has been examined within 24 hours of the surgical procedure. The History & Physical has been completed within 30 days and I have reviewed it.: No Section B - Complete if H&P > 30 days Chief Complaint: Benign neoplasm of colon, unspecified Relevant Family History (Specify if Yes): No Relevant Social History: None Present Medications: see Short Stay Collaborative assessment Medical History: Significant History (RBBB with sinus tachycardia Renal cysts Microscopic hematuria Migraines Depression/anxiety Urinary stress incontinence Tubular adenoma Hypertension Thoracic back pain Hemorrhoids) History of Previous Operations: Relevant previous surgery/procedure and date(s) (H/O right breast biopsy History of appendectomy) Allergies: Allergies Allergy/AdvReac Type Severity Reaction Status Date / Time shellfish derived Allergy Severe swelling Verified 01/08/24 10:17 [SHELLFISH DERIVED] of tongue aspirin [ASPIRIN] Allergy Intermediate rash/ itch Verified 01/08/24 10:17 ciprofloxacin [From CIPRO] Allergy Unknown UNKNOWN Verified 01/08/24 10:17 latex Allergy Unknown Itching Verified 01/08/24 10:17 Seafood Allergy Intermediate hives Uncoded 01/08/24 10:17 Review of Systems Sugical H&P ROS: Negative: Constitution, Cardiovascular, Respiratory and Gastrointestinal Exam Surgical H&P Exam: Normal: Heart, Normal: Lungs, Normal: Extremities and Normal: Abdomen Plan Diagnosis/Plan: Unchanged I have reviewed the history and physical and performed a pertinent physical examination on my patient. No changes have occurred unless specified. Time Spent With Patient Time: Total time managing care of this patient today ____ minutes.
--- NOTE | 2024-01-18 09:18 | W.PM.OPN ---
Operative Note Operative Note Date of Service: 01/18/24 Narrative: COLONOSCOPY TILL CECUM WITH BIOPSIES, SNARE POLYPECTOMY SUBMUCOSAL INJECTION AND HEMOCLIP PLACEMENT Pre-op diagnosis: Surveillance for colon polyp Post-op diagnosis:? Colon polyp, Diverticulosis, hemorrhoids Endoscopist:? Funmi Bond MD Anesthesia:?MAC Consent: Indications for the procedure and potential complications of bleeding, perforation, reaction to medications and missed diagnosis were discussed with the patient and informed consent was obtained. Instrument: Olympus PCF H 190 L variable stiffness pediatric colonoscope Monitoring: Vital signs and clinical assessment, intermittent blood pressure monitoring, continuous EKG monitoring, Pulse oximetry and Carbon Dioxide monitoring were done throughout the procedure. Please see anesthesia flowsheet. Colon withdrawl time was 30 minutes. Procedure: The patient was placed in the left lateral decubitis position and pre-procedure medications were administered. After a digital rectal examination of the ano-rectum, the video colonoscope was inserted into the rectum and advanced through the colon to the cecum. The colonoscope was slowly withdrawn in a retrograde panoramic fashion and the colon mucosa was carefully examined including a retroflexed view of the rectum. Findings and interventions are described below. Procedure Difficulty: without difficulty Findings: Terminal Ileum: Not evaluated Cecum: A 4.5 to 5 cms nodule at site of appendix which was biopsied- likely inverted appendectomy stump. Ascending Colon: A 7-8 mm sessile polyp - and removed with a cold snare. A 10 mm polyp at 70 cms (site of past polypectomy) - removed with a hot snare. Polypectomy site was closed with 1 hemoclip. A 5 cms flat polyp (covering 40% of colon circumference) at 75 cms. Superficial biopsies were obtained and polyp site was marked with Yuki ink Transverse Colon: Normal Descending Colon: Moderate diverticulosis Sigmoid Colon: Moderate diverticulosis Rectum: Normal Ano-rectum: Small internal hemorrhoids Colon preparation: , Good after copious irrigation. There was scattered undigested vegetable matter which could not be suctioned. [place] Bowel Preparation Scale Right colon; 2 Transverse colon: 2 Left colon; 2 (0 = Unprepared colon segment with mucosa not seen due to solid stool that cannot be cleared. 1 = Portion of mucosa of the colon segment seen, but other areas of the colon segment not well seen due to staining, residual stool and/or opaque liquid. 2 = Minor amount of residual staining, small fragments of stool and/or opaque liquid, but mucosa of colon segment seen well. 3 = Entire mucosa of colon segment seen well with no residual staining, small fragments of stool or opaque liquid) Impression and Post Procedure Diagnosis: Colonoscopy Findings: Two polyps were removed A 10 mm polyp at 70 cms (site of past polypectomy) - removed with a hot snare (biopsies showed lymphoid aggregate and minimal hyperplastic changes). A 5 cms flat polyp (covering 40% of colon circumference) at 75 cms. Superficial biopsies were obtained and polyp site was marked with Yuki ink (biopsies showed hyperplastic polyp) A 4.5 to 5 cms nodule at site of appendix which was biopsied- likely inverted appendectomy stump. Moderate diverticulosis seen in the left colon Small hemorrhoids on retroflexed exam. Plan: Pt has a FU appointment on 02/01/24 with Ligia Denise NP. Repeat Colonoscopy with hybrid APC in 3-[address] Randle if polyp biopsies at 75 cms show adenomatous tissue (needs 60 to 90 min) and 5 yrs if polyps are hyperplastic. Above findings were reviewed with the patient and relevant handouts were given and the discharge area. BIOPSIES SHOWED: A. Colon, cecal nodule, biopsy: Colonic mucosa with lymphoid aggregate and no specific change; can neither confirm nor exclude appendectomy stump. B. Colon, ascending, polyp: Minute fragment of colonic mucosa with no specific change, and fecal material; no adenomatous dysplasia seen. C. Colon, ascending at 70 cm, polyp: Colonic mucosa with lymphoid aggregate and minimal hyperplastic changes with thermal artifact; no adenomatous dysplasia seen. D. Colon, at 75 cm, polyp, biopsy: Hyperplastic polyp.
[2024-01-18 10:05] VITALS: BP 84/44; PULSE 76; RESP 16; TEMP 36.1; O2SAT 94
[2024-01-18 10:10] VITALS: BP 95/54; PULSE 69; RESP 16; O2SAT 97
[2024-01-18 10:15] VITALS: BP 97/53; PULSE 61; RESP 16; O2SAT 97
[2024-01-18 10:20] VITALS: BP 105/63; PULSE 66; RESP 16; O2SAT 97
[2024-01-18 10:25] VITALS: BP 108/62; PULSE 62; RESP 18; O2SAT 100
== END 2024-01-18 11:05 | disposition home or self-care (01) ==
PROVIDERS: PCP Internal Medicine; Visit Provider Internal Medicine Gastroenterology
PROC: 0DJD8ZZ Inspection of Lower Intestinal Tract, Via Natural or Artificial Opening Endoscopic (ICD-10-PCS; CPT 45378; principal; 2024-01-18 09:20)
DX: Z12.11 Encounter for screening for malignant neoplasm of colon (principal); Z86.010 Personal history of colon polyps; K63.5 Polyp of colon; K57.30 Diverticulosis of large intestine without perforation or abscess without bleeding; K64.8 Other hemorrhoids; I10 Essential (primary) hypertension; E78.5 Hyperlipidemia, unspecified; I45.10 Unspecified right bundle-branch block; F41.8 Other specified anxiety disorders; Z91.040 Latex allergy status; Z88.1 Allergy status to other antibiotic agents; Z88.8 Allergy status to other drugs, medicaments and biological substances; Z79.899 Other long term (current) drug therapy
CPT/HCPCS: 45385; 45380; 45381; 88305; J2704

== ENCOUNTER → 2024-01-18 08:03 | Outpatient (BNV) | payer MEDICARE, MEDICAID, SELFPAY | PROVIDERS: PCP Internal Medicine; Visit Provider Internal Medicine Gastroenterology | DX: Z12.11 Encounter for screening for malignant neoplasm of colon (principal); D12.0 Benign neoplasm of cecum; D12.2 Benign neoplasm of ascending colon; K57.30 Diverticulosis of large intestine without perforation or abscess without bleeding; K64.8 Other hemorrhoids | CPT/HCPCS: 45380; 45381; 45385 ==

== ENCOUNTER 2024-01-21 12:15 | Outpatient (REF) | payer MEDICARE, MEDICAID, SELFPAY ==
[2024-01-21 12:44] LABS: MANUAL DIFF FLAG NO
[2024-01-21 13:33] LABS: Basophils Percent Auto 0.5 % (0-2); Eosinophils Absolute Auto 0.2 X10*3/uL (0.0-0.4); Eosinophils Percent Auto 2.5 % (0-4); Hematocrit 41.4 % (37.0-47.0); Hemoglobin 13.2 g/dl (12.0-16.0); Imm Gran Abs Auto 0.01 X10*3/uL (0.00-0.03); Imm Gran Pct Auto 0.2 % (0.0-0.4); Lymphocytes Absolute Auto 2.4 X10*3/uL (1.2-4.9); Lymphocytes Percent Auto 37.3 % (20-40); Mean Corpuscular HGB Conc 31.9 g/dl (31.0-35.0); Mean Corpuscular Hemoglobin 27.7 pg (27.0-33.0); Mean Platelet Volume 10.3 fL (9.4-12.3); Monocytes Absolute Auto 0.4 X10*3/uL (0.1-1.2); Monocytes Percent Auto 6.4 % (2-11); Neutrophils Absolute Auto 3.4 x10*3/uL (2.0-8.3); Neutrophils Percent Auto 53.1 % (45-73); Platelet Count 334 X10*3/uL (160-400); Red Blood Count 4.76 X10*6/uL (4.20-5.50); Red Cell Distribution Width 13.4 % (11.0-16.0); White Blood Count 6.4 X10*3/uL (4.8-10.8)
[2024-01-21 13:47] LABS: Appearance Urine Clear; Color Urine Yellow; Glucose Urine UA Negative (Negative); Leukocyte Esterase Urine Negative (Negative); Nitrite Urine Negative (Negative); Specific Gravity - Urine 1.015 (1.005-1.025); Urine Blood Negative (Negative); Urine Ketones Negative (Negative); Urine Protein Trace mg/dL (Neg-Trace)
[2024-01-21 14:18] LABS: Creatinine Urine 72.22 mg/dL; Protein/Creatinine Ratio, Ur 0.35 (<0.2); Total Protein Urine Random 25 mg/dL (<12)
[2024-01-21 14:23] LABS: Parathyroid Hormone Intact 79.2 pg/mL (8.7-77.1)
[2024-01-21 14:30] LABS: Anion Gap 12 (12-20); Blood Urea Nitrogen 13 mg/dL (9-16); Calcium 9.8 mg/dL (8.4-10.2); Carbon Dioxide 27 mmol/L (22-29); Chloride 109 mmol/L (96-108); Estimated Glomerular Filt Rate > 60; Potassium 4.5 mmol/L (3.3-5.1); Sodium 143 mmol/L (135-145)
[2024-01-21 14:46] LABS: Vitamin D 25-OH Total 23.9 ng/mL (>30)
== END 2024-01-21 12:16 | disposition home or self-care (01) ==
LOC: HO.LAB 12:15
PROVIDERS: PCP Internal Medicine; Visit Provider Physician Assistant
DX: R80.9 Proteinuria, unspecified (principal); E55.9 Vitamin D deficiency, unspecified
CPT/HCPCS: 36415; 80051; 81003; 82306; 82310; 82565; 82570; 83970; 84156; 84520; 84550; 85025

== ENCOUNTER 2024-02-01 08:34 | Outpatient (AMB) | payer MEDICARE, MEDICAID, SELFPAY ==
[2024-02-01 08:41] VITALS: BP 135/61; PULSE 77; BMI 32.7
--- NOTE | 2024-02-01 08:41 | A.OFFVIS_ITS ---
Intake Vital Signs 02/01/24 08:41 Height 5 ft 5 in Weight 196 lb 10.437 oz BMI 32.7 BP 135/61 Blood Pressure Location Lt brachial Position Sitting Pulse 77 Intake Visit Reasons: s/p colon Intake Note: Patient in office today in follow up s/p colonoscopy 01/18/24. CC: Patient reports doing well and denies having any GI concerns. 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 Allergies shellfish derived [SHELLFISH DERIVED] Allergy (Severe, Verified 02/07/24 10:38) swelling of tongue aspirin [ASPIRIN] Allergy (Intermediate, Verified 02/07/24 10:38) rash/ itch ciprofloxacin [From CIPRO] Allergy (Unknown, Verified 02/07/24 10:38) UNKNOWN latex Allergy (Unknown, Verified 02/07/24 10:38) Itching Seafood Allergy (Intermediate, Uncoded 02/07/24 10:38) hives HPI s/p colon HPI Details Assessment & Plan (1) Tubular adenoma of colon: Onset Date: ~2018 Comment: (2019 scope greater than 1 cm stalked; 2 022 large sessile polyp repeat 1 year) Code(s): D12.6 - Benign neoplasm of colon, unspecified She has been cleared and has a follow up scheduled for 01/31. She had a good holiday with her daughter, and has been feeling well. She continues to eat brown rice for fiber and watches her diet. She also uses Miralax prn and requests a refill. Has GERD but it is well controlled omeprazole prescribed by her primary care provider. She had a CT of her lungs to monitor a nodule, and she asks me to check the results, I advise her that there has been no interval changes in this nodule. ROV after colonoscopy. Medications: Refilled peg 3350-electroly ann 236-22.74-6.74 -5.86 gram (Golyt alma rosa) until feca l effluent is chun r; do not exceed a total volume of 2 ,000 mL 240 mL PO Q10M 1 day 4,000 mL 6RF Z12.11 - Encounter for screening for malignant neoplas m of colon Colonoscopy 01/18/24 Findings: Terminal Ileum: Not evaluated Cecum: A 4.5 to 5 cms nodule at site of appendix which was biopsied- likely inverted appendectomy. Ascending Colon: A 7-8 mm sessile polyp - and removed with a cold snare. A 10 mm polyp at 70 cms (site of past polypectomy) - removed with a hot snare. Polypectomy site was closed with 1 hemoclip. A 5 cms flat polyp (covering 40% of colon circumference) at 75 cms. Superficial biopsies were obtained and polyp site was marked with Yuki ink Transverse Colon: Normal Descending Colon: Moderate diverticulosis Sigmoid Colon: Moderate diverticulosis Rectum: Normal Ano-rectum: Small internal hemorrhoids Impression and Post Procedure Diagnosis: Colonoscopy Findings: Two polyps were removed A 5 cms flat polyp (covering 40% of colon circumference) at 75 cms. Superficial biopsies were obtained and polyp site was marked with Yuki ink Moderate diverticulosis seen in the left colon small hemorrhoids on retroflexed exam. Plan: Pt has a FU appointment on 02/01/24 with Ligia Denise NP. Repeat Colonoscopy with hybrid APC in 3-[address] Randle if polyp biopsies at 75 cms show adenomatous tissue (needs 60 to 90 min). Biopsy Received: 01/18/24 Diagnosis A. Colon, cecal nodule, biopsy: Colonic mucosa with lymphoid aggregate and no specific change; can neither confirm nor exclude appendectomy stump. B. Colon, ascending, polyp: Minute fragment of colonic mucosa with no specific change, and fecal material; no adenomatous dysplasia seen. C. Colon, ascending at 70 cm, polyp: Colonic mucosa with lymphoid aggregate and minimal hyperplastic changes with thermal artifact; no adenomatous dysplasia seen. D. Colon, at 75 cm, polyp, biopsy: Hyperplastic polyp. TODAY'S VISIT SERBIAN #Yamila Tao The procedure should be repeated in 5 years due to her history of tubular adenomas. The procedure was well tolerated. The results were explained and the patient is agreeable to the follow-up interval as stated. The bowel pattern has returned to normal. Education was provided to tell any 1st degree relatives about their findings to be sure that they are screened by age 45. Educated that they will be put on a recall list when it is time for their repeat scope but should they move out of state or away from the hospital they will need to remember along with their primary to repeat the procedure in a timely fashion to avoid any adverse complications. She also uses Miralax prn and requests a refill. Has GERD but it is well controlled omeprazole prescribed by her primary care provider. Return office visit pmike [facility] Medical History Thyroid nodule RBBB (right bundle branch block) HTN (hypertension), benign Hyperlipidemia Migraines Depression with anxiety Tubular adenoma of colon (~2019) Low back pain Surgical History History of appendectomy History of colonoscopy History of right breast biopsy Family History Paternal Aunt Breast cancer Mother Pancreatic cancer Social History Household Members: Spouse Housing: House Alcohol intake: never Patient Tobacco Use Status: Never used Tobacco Current occupational status: disabled Sexual orientation: Straight/Heterosexual Gender identity: Female Female Reproductive History Menstrual Age of Menarche: 14 Review of Systems Const Denies fatigue, Denies fever(s), Denies night sweats, Denies poor appetite and Denies weight loss Eyes Details: glasses ENT Reports Normal hearing present, Denies dental pain, Denies dysphagia, Denies hearing loss, Denies mouth pain, Denies odynophagia, Denies throat swelling, Denies tongue swelling and Reports other (Dentition adequate) Card Reports no additional complaints Resp Reports no additional complaints GI Details: Denies abdominal pain, Denies melena, Denies bloating, Denies hematochezia, Reports constipation, Denies GI cramping, Denies dysphagia, Denies excessive flatus, Denies early satiety, Reports heartburn, Denies diarrhea, Denies nausea, Denies odynophagia, Denies vomiting and Denies hematemesis Skin/Breast Denies pruritus, Denies lesions, Denies rash and Denies jaundice Neuro Reports Normal hearing present and Denies Abnormal speech present Endo Denies fatigue Aller/Immun Denies throat swelling and Denies tongue swelling Physical Exam Vital Signs: Last Vital Signs Pulse 77 02/01/24 08:41 BP 135/61 02/01/24 08:41 BMI result Body Mass Index 32.7 Const General: cooperative, no acute distress, well developed and well groomed Nutritional Appearance: well nourished and obese Orientation/consciousness: oriented to person, oriented to place and oriented to time Limitations: language barrier HEENT Head: Yes normocephalic and Yes atraumatic Eyes General: appearance normal, both eyes and all related structures Pupils: Equal, round and reactive pupils present Neck Neck: Yes normal visual inspection and Yes no lymphadenopathy Thyroid: Thyroid normal Resp Effort & Inspection: normal respiratory effort and able to speak in complete sentences Auscultation: clear to auscultation bilaterally Cardio Rate: regular rate Rhythm: regular rhythm Heart sounds: Normal, physiologic split S2 sound present Peripheral pulses: radial pulses present and posterior tibial pulses present GI Inspection: No distended, No Abdominal panniculus present and Yes obesity Palpation (GI): Soft to palpation, nontender, no guarding, not rigid and No hepatosplenomegaly present Percussion: Yes normal to percussion Auscultation: normal bowel sounds Rectal Exam - Female: deferred Skin General skin exam: no rashes or lesions noted, turgor normal, skin not dry, no jaundice, No spider nevi and no striae Rashes: no rashes Nails: normal Neuro General: oriented to person, oriented to place and oriented to time Cranial nerves: Yes Equal, round and reactive pupils present and Yes Normal hearing present Speech: No Abnormal speech present Extrem General: Yes normal to inspection, No clubbing, No cyanosis and No edema Psych Appearance: grossly normal and well kempt Mental Status: mental status grossly normal Speech and movement: Normal speech and movement present Affect: normal affect Attitude: cooperative Thought process: Normal thought process present and not confabulating Thought content: Normal thought content present Insight: Limited insight present (Psych) Judgement: Limited judgement present (Psych) Results Reviewed Results Reviewed: Colonoscopy 01/18/24 Findings: Terminal Ileum: Not evaluated Cecum: A 4.5 to 5 cms nodule at site of appendix which was biopsied- likely inverted appendectomy. Ascending Colon: A 7-8 mm sessile polyp - and removed with a cold snare. A 10 mm polyp at 70 cms (site of past polypectomy) - removed with a hot snare. Polypectomy site was closed with 1 hemoclip. A 5 cms flat polyp (covering 40% of colon circumference) at 75 cms. Superficial biopsies were obtained and polyp site was marked with Uyki ink Transverse Colon: Normal Descending Colon: Moderate diverticulosis Sigmoid Colon: Moderate diverticulosis Rectum: Normal Ano-rectum: Small internal hemorrhoids Impression and Post Procedure Diagnosis: Colonoscopy Findings: Two polyps were removed A 5 cms flat polyp (covering 40% of colon circumference) at 75 cms. Superficial biopsies were obtained and polyp site was marked with Yuki ink Moderate diverticulosis seen in the left colon small hemorrhoids on retroflexed exam. Plan: Pt has a FU appointment on 02/01/24 with Ligia Denise NP. Repeat Colonoscopy with hybrid APC in 3-[address] Randle if polyp biopsies at 75 cms show adenomatous tissue (needs 60 to 90 min). Biopsy Received: 01/18/24 Diagnosis A. Colon, cecal nodule, biopsy: Colonic mucosa with lymphoid aggregate and no specific change; can neither confirm nor exclude appendectomy stump. B. Colon, ascending, polyp: Minute fragment of colonic mucosa with no specific change, and fecal material; no adenomatous dysplasia seen. C. Colon, ascending at 70 cm, polyp: Colonic mucosa with lymphoid aggregate and minimal hyperplastic changes with thermal artifact; no adenomatous dysplasia seen. D. Colon, at 75 cm, polyp, biopsy: Hyperplastic polyp. Assessment & Plan Assessment & Plan (1) Tubular adenoma of colon: Onset Date: ~2018 Comment: 2023= TA repeat in 5 years (2018 scope greater than 1 cm stalked; 2021 large sessile polyp repeat 1 year) Code(s): D12.6 - Benign neoplasm of colon, unspecified Plan SERBIAN #Yaimla Live The procedure should be repeated in 5 years due to her history of tubular adenomas. The procedure was well tolerated. The results were explained and the patient is agreeable to the follow-up interval as stated. The bowel pattern has returned to normal. Education was provided to tell any 1st degree relatives ab out their findings to be sure that they are screened by age 45. Educated that they will be put on a recall list when it is time for their repeat scope but should they move out of state or away from the hospital they will need to remember along with their primary to repeat the procedure in a timely fashion to avoid any adverse complications. She also uses Miralax prn and requests a refill. Has GERD but it is well controlled omeprazole prescribed by her primary care provider. Return office visit p.r.n. Coding Level of Care Code Est Pt Level 3 (33934) Diagnoses Tubular adenoma of colon D12.6
== END 2024-02-01 09:02 | disposition home or self-care (01) ==
PROVIDERS: PCP Internal Medicine; Visit Provider Nurse Practitioner
DX: D12.6 Benign neoplasm of colon, unspecified (principal)
CPT/HCPCS: 99213

== ENCOUNTER → 2024-02-01 08:34 | Outpatient (BNVA) | payer MEDICARE, MEDICAID, SELFPAY | PROVIDERS: PCP Internal Medicine; Visit Provider Nurse Practitioner | DX: D12.6 Benign neoplasm of colon, unspecified (principal); K21.9 Gastro-esophageal reflux disease without esophagitis | CPT/HCPCS: 99212 ==

== ENCOUNTER 2024-02-07 10:27 | Outpatient (AMB) | payer MEDICARE, MEDICAID, SELFPAY ==
--- NOTE | 2024-02-07 10:33 | MHC.OFFVIS ---
Intake Vital Signs 02/07/24 10:35 Height 5 ft 5 in Weight 192 lb BMI 31.9 BP 110/70 Intake Visit Reasons: PMB Intake Note: Spotting for a couple days in December 2023. Last period 2 yrs ago Reimbursement Representative Required: Yes Reimbursement Representative Language: Market Garden Worker Name: Jessica NICOLE Information Interpreted: non-clinical & clinical Sales Service Executive: Sales Service Executive Present (Jessica NICOLE) Accompanied by: Self / Same As Patient Allergies shellfish derived [SHELLFISH DERIVED] Allergy (Severe, Verified 02/07/24 10:38) swelling of tongue aspirin [ASPIRIN] Allergy (Intermediate, Verified 02/07/24 10:38) rash/ itch ciprofloxacin [From CIPRO] Allergy (Unknown, Verified 02/07/24 10:38) UNKNOWN latex Allergy (Unknown, Verified 02/07/24 10:38) Itching Seafood Allergy (Intermediate, Uncoded 02/07/24 10:38) hives Post menopausal: Yes HPI HPI Comments History of Present Illness Details Pelvic ultrasound done in 01/05 showed the following: Uterus: The uterus is anteverted and measures 10.3 x 9.7 x 9.2 cm. There are multiple fibroids, the 4 largest include: 5.5 x 6.3 x 5.9 cm left pedunculated fibroid, previously measured 6.8 x 5.4 x 3.8 cm. 4.2 x 4.0 x 3.7 cm left fundal subserosal fibroid previously measured 4.2 x 3.5 x 3.3 cm. 5.7 x 5.2 x 5.7 cm right subserosal fibroid fundal fibroid previously measured 5.3 x 5.4 x 5.3 cm. 3.2 x 2.7 x 2.9 cm posterior subserosal fibroid previously measured 2.8 x 2.6 x 2.7 cm. The endometrium is thickened for postmenopausal woman, measuring 0.7 cm. Adnexa: Right ovary measures 2.3 x 1.2 x 1.0 cm. Volume 2.1 mL. The left ovary is not seen. There is no free fluid within the cul-de-sac. Last co testing was in 05/26 was negative PFSH Medical History Thyroid nodule RBBB (right bundle branch block) HTN (hypertension), benign Hyperlipidemia Migraines Depression with anxiety Tubular adenoma of colon (~2019) Low back pain Surgical History History of appendectomy History of colonoscopy History of right breast biopsy Family History Paternal Aunt Breast cancer Mother Pancreatic cancer Social History Household Members: Spouse Housing: House Alcohol intake: never Patient Tobacco Use Status: Never used Tobacco Current occupational status: disabled Sexually active: Yes Sexual orientation: Straight/Heterosexual Gender identity: Female Female Reproductive History Menstrual Age of Menarche: 14 Menopause type: natural Total pregnancies: 1 Full term: 1 Number of Living Children: 1 Date of Mammogram: 07/04/23 Review of Systems Const All systems reviewed & are unremarkable except as noted in HPI and below Physical Exam Vital Signs: Last Vital Signs BP 110/70 02/07/24 10:35 BMI result Body Mass Index 31.9 General: Yes no CVA tenderness External Female Exam: normal external appearance and normal appearance of the urethra Speculum Exam - Vagina: normal appearance of the vagina, normal palpation, no lesions and no masses Speculum Exam - Cervix: normal appearance of the cervix, normal palpation, no lesions, no masses and nontender Bimanual exam- vagina & uterus: normal bimanual exam, normal palpation, uterine size normal, normal palpation, uterine shape normal, No Cervical tenderness present and non-tender Bimanual Exam- Adnexa, other: normal adnexae Back/Spine/Pelvis Back: no CVA tenderness Office Procedures Endometrial Biopsy Details: The patient was counseled regarding the indication and benefits of endometrial sampling to rule out endometrial pathology including not limited to endometrial hyperplasia or endometrial cancer and others; The alternatives (Either do nothing vs. hysteroscopy D&C) & the risks were discussed with the patient including but not limited: pain, uterine perforation, bleeding, infection, possible injury to bladder, bowel, ureter, possible need for blood transfusion with all its possible risks. The patient verbalized understanding all questions answered and signed consent. The patient was placed into the dorsal lithotomy position; a speculum was inserted in the vagina. Using aseptic technique for the procedure, the cervix was cleansed with Betadine. The anterior lip of the cervix was grasped with a single tooth tenaculum. The uterus was sounded to 7 cm with a 4 mm Pipelle was used. Tissues samples were obtained and placed in formalin, in a patient labeled container and sent to the pathology department. At the end of the procedure, there was minimal bleeding noted The patient tolerated the procedure well and was discharged in good condition with the following instructions: Nothing in the vagina until the bleeding stops. No sex until the bleeding stops, to call if any of the following occurs: fever (>100.4), flu-like symptoms, abdominal pain, heavy bleeding, four smelling vaginal discharge. The patient was instructed to schedule a Follow up appointment in 2 weeks to discuss pathology results of the biopsy and treatment options. This note was generated with a voice recognition program. Some errors may have been overlooked during the review of this note. Sometimes these errors may affect the content or meaning of a given sentence. [id number] Biopsy Assessment & Plan Assessment & Plan (1) Postmenopausal bleeding: Code(s): N95.0 - Postmenopausal bleeding Plan: Discussed with the patient the differential diagnosis of post menopausal bleeding with normal pelvic exam including but not limited to, endometrial hyperplasia, cancer, polyps and other causes; co testing done. Discussed with the patient the pelvic ultrasound findings, the endometrial stripe thickenss measured by ultrasound was more than 4 mm. The negative predictive value, positive predictive value, Sensitivity, specificity of using ultrasound measurement of endometrial stripe to detecting endometrial pathology including hyperplasia , polyp or cancer were discussed with the patient. Recommended to the patient that the next step is an endometrial sampling via hysteroscopy D&C possible polypectomy versus endometrial biopsy to r/o endometrial pathology including hyperplasia or cancer. All the pros and cons risks and benefits of each approach were discussed with the patient, endometrial biopsy being less invasive, office procedure with less sensitivity and inability diagnose a polyp and removal versus hysteroscopy done under anesthesia more invasive more sensitive to endometrial cancer and possibility of diagnosing and endometrial polyp with the possibility of polypectomy. All questions were answered pt verbalized understanding and decided to proceed with endometrial biopsy. EMB done, see procedure note (2) Uterine myoma: Code(s): D25.9 - Leiomyoma of uterus, unspecified Plan: Discussed with the patient the results of the ultrasound and the size of the myomas. Discussed with the patient risk of myosarcoma and symptoms that are caused by myomas including but not limited to pelvic pain, pressure symptoms, abnormal uterine bleeding. In addition discussed with the patient options of treatment for myomas including: Serial ultrasounds periodically to follow-up on the size of the myoma versus surgical treatment including hysterectom. All pros and cons, risks and benefits of all options were discussed with the patient. The patient understands that delay in surgical treatment in case of myosarcoma can affect her prognosis, after further discussion, the patient decided to think about it and get back to us next visit Orders: Orders AMB Endometrial Biopsy Today N95.0 - Postmenopausal bleeding Coding Level of Care Code New Pt Level 3 (42093) Diagnoses Postmenopausal bleeding N95.0 Uterine myoma D25.9 CPT Codes Endometrial Biopsy - CPT: 28063-Rl[facility]od[facility] Biopsy ([id number])
[2024-02-07 10:35] VITALS: BP 110/70; BMI 31.9
== END 2024-02-07 11:05 | disposition home or self-care (01) ==
LOC: HO.HWS 10:27
PROVIDERS: PCP Internal Medicine; Visit Provider Obstetrics & Gynecology
DX: N95.0 Postmenopausal bleeding (principal); D25.9 Leiomyoma of uterus, unspecified
CPT/HCPCS: 58100; 99203

== ENCOUNTER 2024-02-07 10:27 | Outpatient (REF) | payer MEDICARE, MEDICAID, SELFPAY ==
[2024-02-13 03:29] LABS: HPV mRNA E6/E7 rflx Not Detected (Not Detected)
== END 2024-02-07 10:28 | disposition home or self-care (01) ==
LOC: HO.LNP 10:27
PROVIDERS: PCP Internal Medicine; Visit Provider Obstetrics & Gynecology
DX: N95.0 Postmenopausal bleeding (principal); D25.9 Leiomyoma of uterus, unspecified
CPT/HCPCS: 58100; 87624; 88142; 88305; 99202

== ENCOUNTER 2024-03-11 14:37 | Outpatient (AMB) | payer MEDICARE, MEDICAID, SELFPAY ==
[2024-03-11 14:53] VITALS: BP 112/66; BMI 31.9
--- NOTE | 2024-03-11 14:53 | A.OFFVIS_ITS ---
Vital Signs 03/11/24 14:53 Height 5 ft 5 in Weight 192 lb BMI 31.9 BP 112/66 Intake Visit Reasons: EMB results Bevel Gear Generator Operator Required: Yes Bevel Gear Generator Operator Language: Quenching Car Operator Name: Jessica Stallings Allergies shellfish derived [SHELLFISH DERIVED] Allergy (Severe, Verified 03/11/24 14:54) swelling of tongue aspirin [ASPIRIN] Allergy (Intermediate, Verified 03/11/24 14:54) rash/ itch ciprofloxacin [From CIPRO] Allergy (Unknown, Verified 03/11/24 14:54) UNKNOWN latex Allergy (Unknown, Verified 03/11/24 14:54) Itching Seafood Allergy (Intermediate, Uncoded 03/11/24 14:54) hives HPI Comments Details: The patient is presenting after endometrial biopsy. The patient has no complaints, no vaginal bleeding, no feverishness chills or abdominal pain. Endometrial biopsy pathology showed the following: Endometrium, biopsy: Superficial strips of benign endometrium and blood; no atypia or hyperplasia identified Co testing was negative Pelvic ultrasound done in 01/05 showed the following: Uterus: The uterus is anteverted and measures 10.3 x 9.7 x 9.2 cm. There are multiple fibroids, the 4 largest include: 5.5 x 6.3 x 5.9 cm left pedunculated fibroid, previously measured 6.8 x 5.4 x 3.8 cm. 4.2 x 4.0 x 3.7 cm left fundal subserosal fibroid previously measured 4.2 x 3.5 x 3.3 cm. 5.7 x 5.2 x 5.7 cm right subserosal fibroid fundal fibroid previously measured 5.3 x 5.4 x 5.3 cm. 3.2 x 2.7 x 2.9 cm posterior subserosal fibroid previously measured 2.8 x 2.6 x 2.7 cm. The endometrium is thickened for postmenopausal woman, measuring 0.7 cm. Adnexa: Right ovary measures 2.3 x 1.2 x 1.0 cm. Volume 2.1 mL. The left ovary is not seen. There is no free fluid within the cul-de-sac. [facility] Medical History Thyroid nodule RBBB (right bundle branch block) HTN (hypertension), benign Hyperlipidemia Migraines Depression with anxiety Tubular adenoma of colon (~2019) Low back pain Surgical History History of appendectomy History of colonoscopy History of right breast biopsy Family History Paternal Aunt Breast cancer Mother Pancreatic cancer Social History Household Members: Spouse Housing: House Alcohol intake: never Patient Tobacco Use Status: Never used Tobacco Current occupational status: disabled Sexual orientation: Straight/Heterosexual Gender identity: Female Female Reproductive History Menstrual Age of Menarche: 14 control method: none Review of Systems Const All systems reviewed & are unremarkable except as noted in HPI and below Reports as per HPI and Reports no additional complaints GI Reports no additional complaints Reports no additional complaints Physical Exam Vital Signs: Last Vital Signs BP 112/66 03/11/24 14:53 BMI result Body Mass Index 31.9 Assessment & Plan Assessment & Plan (1) Postmenopausal bleeding: Code(s): N95.0 - Postmenopausal bleeding Category: Medical Plan: Discussed with the patient the results of the endometrial biopsy showing inactive endometrium. Discussed with the patient the sensitivity, specificity, positive and negative predictive value, of endometrial biopsy in detecting endometrial pathology including but not limited to endometrial hyperplasia, cancer and other pathology; instructed the patient to call in case vaginal bleeding bleeding recurs, the next step will be to proceed with a diagnostic hysteroscopy/D&C for further endometrial sampling evaluation to rule out endometrial pathology. All questions answered and the patient verbalized understanding and agreed with the plan. (2) Uterine myoma: Code(s): D25.9 - Leiomyoma of uterus, unspecified Category: Medical Plan: Discussed with the patient the findings on pelvic ultrasound & the risk of myosarcoma; discussed with the patient the options of treatment including expectant management versus hysterectomy; the pros and cons, risks benefits of each approach were discussed with the patient including the fact that in cases of myosarcoma, surgical treatment can lead to early diagnosis and positively affects the prognosis; after further discussion, the patient decided to proceed with expectant management. Will repeat pelvic ultrasound periodically. Instructions given to patient to call in case any of the following occurs: pressure symptoms, abnormal uterine bleeding, pelvic pain; and to schedule six- month ultrasound follow-up appointment . All questions answered, the patient verbalized understanding and agreed with the plan . Orders: Orders US pelvic and transvaginal 6 Months D25.9 - Leiomyoma of uterus, unspecified Coding Level of Care Code Est Pt Level 3 (59733) Diagnoses Postmenopausal bleeding N95.0 Uterine myoma D25.9
== END 2024-03-11 15:19 | disposition home or self-care (01) ==
LOC: HO.HWS 14:37
PROVIDERS: PCP Internal Medicine; Visit Provider Obstetrics & Gynecology
DX: N95.0 Postmenopausal bleeding (principal); D25.9 Leiomyoma of uterus, unspecified
CPT/HCPCS: 99213

== ENCOUNTER → 2024-03-11 14:37 | Outpatient (BNVA) | payer MEDICARE, MEDICAID, SELFPAY | PROVIDERS: PCP Internal Medicine; Visit Provider Obstetrics & Gynecology | DX: N95.0 Postmenopausal bleeding (principal); D25.9 Leiomyoma of uterus, unspecified | CPT/HCPCS: 99212 ==

== ENCOUNTER 2024-03-12 15:04 | Outpatient (AMB) | payer MEDICARE, MEDICAID, SELFPAY ==
[2024-03-12 15:09] VITALS: BP 112/70; PULSE 68; O2SAT 100; BMI 32.3
--- NOTE | 2024-03-12 15:09 | A.OFFVIS_ITS ---
Vital Signs 03/12/24 15:09 Height 5 ft 5 in Weight 194 lb BMI 32.3 BP 112/70 Blood Pressure Location Rt brachial Position Sitting Pulse 68 Pulse Source Pulse Oximeter Pulse Oximetry (%) 100 Oxygen Delivery Method Room Air Intake Visit Reasons: pulmonary nodule Captain/Check Airman Required: Yes Allergies shellfish derived [SHELLFISH DERIVED] Allergy (Severe, Verified 03/12/24 15:14) swelling of tongue aspirin [ASPIRIN] Allergy (Intermediate, Verified 03/12/24 15:14) rash/ itch ciprofloxacin [From CIPRO] Allergy (Unknown, Verified 03/12/24 15:14) UNKNOWN latex Allergy (Unknown, Verified 03/12/24 15:14) Itching Seafood Allergy (Intermediate, Uncoded 03/12/24 15:14) hives HPI HPI pulmonary nodule: Details: Lauren is a pleasant 53 year old female, never smoker, with underlying history of childhood asthma and pulmonary nodules. At baseline, she has been well controlled on Dulera. However she discontinued since she was asymptomatic. Today she presents with worsening control of asthma with dyspnea, chest tightness and dry cough. She reports visiting her daughter for the past month in [place] and once she returned 4 days ago symptoms started. She has been using levalbuterol 1 puff q 4 hours with minimal relief and restarted Dulera 3 days ago. [facility] Medical History Thyroid nodule RBBB (right bundle branch block) HTN (hypertension), benign Hyperlipidemia Migraines Depression with anxiety Tubular adenoma of colon (~2019) Low back pain Surgical History History of appendectomy History of colonoscopy History of right breast biopsy Family History Paternal Aunt Breast cancer Mother Pancreatic cancer Social History Household Members: Spouse Housing: House Alcohol intake: never Patient Tobacco Use Status: Never used Tobacco Current occupational status: disabled Sexual orientation: Straight/Heterosexual Gender identity: Female Female Reproductive History Menstrual Age of Menarche: 14 Review of Systems Const Denies chills, Denies excessive sweating, Denies fever(s), Denies headache(s) and Denies night sweats Eyes Denies dry eyes, Denies irritation and Denies itchy eyes ENT Reports Normal hearing present, Denies headache(s), Denies nasal congestion, Den ies nasal discharge, Denies post nasal drip and Denies sore throat Card Denies chest pain, Denies chest pain at rest, Denies chest pain with activity, Denies claudication, Denies leg edema, Denies orthopnea and Denies paroxysmal nocturnal dyspnea Resp Denies chest congestion, Denies excessive phlegm production, Denies pain on inspiration, Denies pain with cough and Denies stridor Musc Denies myalgias Neuro Reports Normal hearing present and Denies headache(s) Endo Denies excessive sweating Vicente/Lymph Denies lymphadenopathy Aller/Immun Denies itchy eyes and Denies seasonal rhinorrhea Physical Exam Vital Signs: Last Vital Signs Pulse 68 03/12/24 15:09 BP 112/70 03/12/24 15:09 Pulse Ox 100 03/12/24 15:09 Oxygen Delivery Method Room Air 03/12/24 15:09 BMI result Body Mass Index 32.3 Const General: cooperative, healthy appearing, comfortable, no acute distress, well developed and alert Nutritional Appearance: obese Orientation/consciousness: patient oriented x3 Limitations: no limitations HEENT Head: Yes normal to inspection, Yes normocephalic and Yes atraumatic Ears: hearing grossly normal bilaterally and external ears normal Eyes General: appearance normal, both eyes and all related structures Eyelids: Yes eyelids normal Sclerae: sclerae normal EOM: EOMs intact bilaterally Neck Neck: Yes normal visual inspection and Yes no lymphadenopathy Lymphatic: no lymphadenopathy noted Chest Chest palpation & inspection: normal inspection of the chest Resp Effort & Inspection: normal respiratory effort, able to speak in complete sentences, no audible wheezes, no cough, no stridor, not tachypneic, no tripod positioning and no use of accessory muscles Auscultation: clear to auscultation bilaterally Cardio Jugular venous distension: no JVD Rate: regular rate Rhythm: regular rhythm Skin Other: warm, dry General skin exam: no rashes or lesions noted Neuro General: patient oriented x3 Cranial nerves: Yes Normal hearing present Cognition (Neuro): normal cognition Gait exam (Neuro): Normal gait present Extrem General: Yes normal to inspection, Yes capillary refill normal, Yes no clubbing, cyanosis or edema and Yes no pedal edema Psych Appearance: grossly normal and well kempt Speech and movement: Normal speech and movement present and Clear speech present Affect: normal affect Attitude: cooperative Thought process: Normal thought process present Thought content: Normal thought content present Insight: Good insight present (Psych) Judgement: Good judgement present (Psych) Assessment & Plan Assessment & Plan (1) Asthma: Code(s): J45.909 - Unspecified asthma, uncomplicated Category: Medical (2) Lung nodule: Code(s): R91.1 - Solitary pulmonary nodule Category: Medical (3) Environmental allergies: Code(s): Z91.09 - Other allergy status, other than to drugs and biological substances Category: Medical Plan Lauren reports worsening control of asthma since discontinuing Dulera. She restarted three days ago and has been using levalbuterol 1 inhalation q 4 hours with minimal relief. Respiratory exam unremarkable. Advised patient to continue using dulera and increase levalbuterol to 2 inhalations. Discussed importance of staying on Dulera even with controlled symptoms. Also advised patient to use an antihistamine PRN and will send for allergy testing. She is aware if symptoms worsen to call the office for evaluation. All questions were answered and patient is in agreement of plan. Will follow up in three months or sooner if needed. Orders: Orders Complete Blood Count Auto Diff Today J45.909 - Unspecified asthma, uncomplicated, Z91.09 - Other allergy status, other than to drugs and biological substances Resp Allergy Profile Region I Today Z91.09 - Other allergy status, other than to drugs and biological substances Immunoglobulin E Today Z91.09 - Other allergy status, other than to drugs and biological substances Medications: New mometasone-formoterol 200-5 mcg/actuation (Dulera) 2 puffs inhalation BID 1 ea 6RF Coding Level of Care Code Est Pt Level 4 (80235) Diagnoses Asthma J45.909 Lung nodule R91.1 Environmental allergies Z91.09
== END 2024-03-12 15:36 | disposition home or self-care (01) ==
PROVIDERS: PCP Internal Medicine; Visit Provider Nurse Practitioner Family
DX: J45.909 Unspecified asthma, uncomplicated (principal); R91.1 Solitary pulmonary nodule; Z91.09 Other allergy status, other than to drugs and biological substances
CPT/HCPCS: 99214

== ENCOUNTER → 2024-03-12 15:04 | Outpatient (BNVA) | payer MEDICARE, MEDICAID, SELFPAY | PROVIDERS: PCP Internal Medicine; Visit Provider Nurse Practitioner Family | DX: J45.909 Unspecified asthma, uncomplicated (principal); R91.1 Solitary pulmonary nodule; Z91.09 Other allergy status, other than to drugs and biological substances | CPT/HCPCS: 99212 ==

== ENCOUNTER 2024-04-08 11:16 | Outpatient (REF) | payer MEDICARE, MEDICAID, SELFPAY ==
--- NOTE | ~2024-04-08 | XR_ITS ---
EXAMINATION: XR BILATERAL KNEES CLINICAL INFORMATION: Bilateral knee pain. COMPARISON: 12/30/2021. TECHNIQUE: 4 views of each knee. FINDINGS: RIGHT KNEE: Mild narrowing of the medial compartment with mild hypertrophic change. Small posterior patellar osteophytes. Moderate asymmetric narrowing along the lateral aspect of the patellofemoral compartment. No significant joint effusion. LEFT KNEE: Mild narrowing of the medial compartment with mild degenerative changes. No significant joint effusion. Mild narrowing and degenerative changes along the lateral aspect of the patellofemoral compartment. XR/XR knee RT 4V IMPRESSION: Mild degenerative changes in the bilateral knees.
--- NOTE | ~2024-04-08 | XR_ITS ---
EXAMINATION: XR BILATERAL KNEES CLINICAL INFORMATION: Bilateral knee pain. COMPARISON: 12/30/2021. TECHNIQUE: 4 views of each knee. FINDINGS: RIGHT KNEE: Mild narrowing of the medial compartment with mild hypertrophic change. Small posterior patellar osteophytes. Moderate asymmetric narrowing along the lateral aspect of the patellofemoral compartment. No significant joint effusion. LEFT KNEE: Mild narrowing of the medial compartment with mild degenerative changes. No significant joint effusion. Mild narrowing and degenerative changes along the lateral aspect of the patellofemoral compartment. XR/XR knee LT 4V IMPRESSION: Mild degenerative changes in the bilateral knees.
== END 2024-04-08 11:17 | disposition home or self-care (01) ==
LOC: HO.XRAY 11:16
PROVIDERS: PCP Internal Medicine; Visit Provider Internal Medicine
DX: M25.561 Pain in right knee (principal); M25.562 Pain in left knee; G89.29 Other chronic pain
CPT/HCPCS: 73564; 99212

== ENCOUNTER → 2024-04-08 13:42 | Outpatient (RCR) | payer MEDICARE, MEDICAID, SELFPAY | END | disposition home or self-care (01) | LOC: HO.OT 11-17 13:45 | PROVIDERS: PCP Family Medicine; Visit Provider Family Medicine | DX: M75.101 Unspecified rotator cuff tear or rupture of right shoulder, not specified as traumatic (principal); M79.601 Pain in right arm | CPT/HCPCS: 29125; 97033; 97110; 97140; 97166; 97760 ==

== ENCOUNTER 2024-04-08 14:48 | Outpatient (AMB) | payer MEDICARE, MEDICAID, SELFPAY ==
--- NOTE | 2024-04-08 15:52 | MHC.OFFVIS ---
Intake Visit Reasons: ov-De Quervain's tenosynovitis, right Intake Note: Lauren 53 yr old female presents today for her follow up visit for her right hand dequervain s/p injection from 09/24/23. Patient reports her last injection didn't give her relief. She states that the injection gave her about 1 week of relief. She expresses that her pain has been getting worse. 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 Allergies shellfish derived [SHELLFISH DERIVED] Allergy (Severe, Verified 04/08/24 15:58) swelling of tongue aspirin [ASPIRIN] Allergy (Intermediate, Verified 04/08/24 15:58) rash/ itch ciprofloxacin [From CIPRO] Allergy (Unknown, Verified 04/08/24 15:58) UNKNOWN latex Allergy (Unknown, Verified 04/08/24 15:58) Itching Seafood Allergy (Intermediate, Uncoded 03/12/24 15:14) hives HPI HPI ov-De Quervain's tenosynovitis, right: Details: Lauren is a 53 year old Setswana speaking woman who returns to discuss her right De Quervains & hand pain, S/P injection on 09/24/23 She continues to complain of radial sided wrist pain, and today demonstrates that she also has pain on the ulnar aspect of the hand, and then also over the dorsal aspect of the hand and wrist. She also complains of pain radiating from the wrist up to the anterior aspect of the antecubital fossa.. She says the injection was only mildly helpful. She denies having trouble with numbness and tingling. [facility] Medical History Thyroid nodule RBBB (right bundle branch block) HTN (hypertension), benign Hyperlipidemia Migraines Depression with anxiety Tubular adenoma of colon (~2019) Low back pain Surgical History History of appendectomy History of colonoscopy History of right breast biopsy Family History Paternal Aunt Breast cancer Mother Pancreatic cancer Social History Household Members: Spouse Housing: House Alcohol intake: never Patient Tobacco Use Status: Never used Tobacco Current occupational status: disabled Sexual orientation: Straight/Heterosexual Gender identity: Female Female Reproductive History Menstrual Age of Menarche: 14 Review of Systems Const All systems reviewed & are unremarkable except as noted in HPI and below Physical Exam Const General: no acute distress and alert Orientation/consciousness: patient oriented x3 Neuro General: patient oriented x3 Extrem Other: Evaluation of Right Upper Extremity: The patient is alert, oriented, and in no acute distress Neuro: Median, Ulnar, Radial nerves motor and sensory intact and sensation is normal to the tips of all digits Vascular: Cap refill brisk ROM: She can make a fist and extend all her digits No locking or catching Most tender over the 1st dorsal compartment Positive Yamilet test on the right She also had some tenderness over the ulnar aspect of the 5th metacarpal and then over the dorsal aspect of the hand and dorsal aspect of the wrist, though she says these are less tender than the 1st dorsal compartment area. She was not particularly tender over where the 1st dorsal compartment crosses over the 2nd dorsal compartment. She appears to have smooth, symmetrical and relatively painless wrist prono-supination, flexion and extension Psych Appearance: grossly normal Affect: normal affect Attitude: cooperative Assessment & Plan Assessment & Plan (1) De Quervain's tenosynovitis, right: Code(s): M65.4 - Radial styloid tenosynovitis [de Quervain] Category: Medical Plan Assessment and plan: 1. Right de Quervain tenosynovitis, S/P injection Date of injection: 09/24/23 Positive Yamilet test again today I educated her about this condition I discussed operative and non-operative treatment options The patient would like to proceed with surgery I explained that this is likely not going to improve her ulnar hand pain, dorsal hand pain, or elbow pain, and she expressed understanding The risks and benefits of operative treatment were discussed with the patient and the patient wishes to proceed with surgery. These risks include, but are not limited to risk of damage to blood vessels, nerves, tendons, infection, recurrence, incomplete relief of preoperative symptoms, persistent pain, possible need for further surgery and the risks associated with regional blocks and anesthesia. The plan is to take the patient to the operating room sometime in the next few weeks for the following procedures: 1. Left 1st dorsal compartment release, under local All of the preoperative paperwork including the consent was reviewed today. All the patient's questions were answered. The patient understands that they will be contacted by our neurosurgery research director soon to schedule this procedure She denies Diabetes, blood thinners, asthma, heart, lung, kidney issues 2. Left ulnar-sided hand pain, dorsal sided hand pain and pain that radiates up to the antecubital fossa. The etiology of these complaints is unclear. Her right radial sided wrist pain was reproducibly the most bothersome, and the Yamilet test replicated the pain that she has at home. I did explain very clearly that the surgery for the de Quervain tenosynovitis would not be likely to help with these other areas of pain. Scribed for Idalia Farooq MD by Ray Duvall, medical case worker, on 04/08/24 at 4:45 PM, EST. Coding Level of Care Code Est Pt Level 4 (47978) Diagnoses De Quervain's tenosynovitis, right M65.4
== END 2024-04-08 16:49 | disposition home or self-care (01) ==
PROVIDERS: PCP Internal Medicine; Visit Provider Orthopaedic Surgery
DX: M65.4 Radial styloid tenosynovitis [de Quervain] (principal)
CPT/HCPCS: 99214

== ENCOUNTER 2024-05-07 10:39 | Outpatient (REF) | payer MEDICARE, MEDICAID, SELFPAY ==
[2024-05-07 14:10] LABS: MANUAL DIFF FLAG NO
[2024-05-07 14:17] LABS: Basophils Percent Auto 0.3 % (0-2); Eosinophils Absolute Auto 0.1 X10*3/uL (0.0-0.4); Eosinophils Percent Auto 1.8 % (0-4); Hematocrit 40.9 % (37.0-47.0); Hemoglobin 13.3 g/dl (12.0-16.0); Imm Gran Abs Auto 0.02 X10*3/uL (0.00-0.03); Imm Gran Pct Auto 0.3 % (0.0-0.4); Lymphocytes Absolute Auto 2.5 X10*3/uL (1.2-4.9); Lymphocytes Percent Auto 37.7 % (20-40); Mean Corpuscular HGB Conc 32.5 g/dl (31.0-35.0); Mean Corpuscular Hemoglobin 27.9 pg (27.0-33.0); Mean Corpuscular Volume 85.7 fL (80.0-98.0); Mean Platelet Volume 10.3 fL (9.4-12.3); Monocytes Absolute Auto 0.4 X10*3/uL (0.1-1.2); Monocytes Percent Auto 6.2 % (2-11); Neutrophils Absolute Auto 3.6 x10*3/uL (2.0-8.3); Neutrophils Percent Auto 53.7 % (45-73); Platelet Count 312 X10*3/uL (160-400); Red Blood Count 4.77 X10*6/uL (4.20-5.50); Red Cell Distribution Width 13.8 % (11.0-16.0); White Blood Count 6.6 X10*3/uL (4.8-10.8)
[2024-05-09 03:48] LABS: Class Alternaria alternata 0; Class Aspergillus fumigatus 0; Class Bermuda Grass 0; Class Birch 0; Class Cat Dander 0; Class Cladosporium herbarum 0; Class Cockroach 0; Class Common Ragweed 0; Class Cottonwood 0; Class Derm. pterony 0; Class Dermatophagoides farinae 0; Class Dog Dander 0; Class Elm 0; Class Maple Box Elder 0; Class Mountain Cedar 0; Class Mouse Urine Protein 0; Class Mugwort 0; Class Oak 0; Class Penicillium crysogenum 0; Class Rough Pigweed 0; Class Sheep Sorrel 0; Class Sycamore 0; Class Timothy Grass 0; Class Walnut Tree 0; Class White Ash 0; Class White Mulberry 0; D001 IgE D pteronyssinus <0.10 kU/L; D002 - IgE D farinae <0.10 kU/L; E001 - IgE Cat Dander <0.10 kU/L; E005 - IgE Dog Dander <0.10 kU/L; E072-IgE Mouse Urine <0.10 kU/L; G002 IgE Bermuda Grass <0.10 kU/L; G006 - IgE Timothy Grass <0.10 kU/L; I006-IgE Cockroach, German <0.10 kU/L; Immunoglobulin E 30 kU/L (<OR=114); M001 IgE Penicillium chrysogen <0.10 kU/L; M002 - IgE Cladosporium herbar <0.10 kU/L; M003 - IgE Aspergillus fumigat <0.10 kU/L; M006 - IgE Alternaria alternat <0.10 kU/L; T001 IgE Maple/Box Elder <0.10 kU/L; T003 IgE Common Silver Birch <0.10 kU/L; T006 - IgE Cedar, Mountain <0.10 kU/L; T007 - IgE Oak, White <0.10 kU/L; T008 IgE Elm, American <0.10 kU/L; T010 - IgE Walnut <0.10 kU/L; T011 - IgE Maple Leaf Sycamore <0.10 kU/L; T014 - IgE Cottonwood <0.10 kU/L; T015 - IgE Ash, White <0.10 kU/L; T070 - IgE White Mulberry <0.10 kU/L; W001 - IgE Ragweed, Short <0.10 kU/L; W006 - IgE Mugwort <0.10 kU/L; W014 IgE Pigweed, Common <0.10 kU/L; W018 IgE Sheep Sorrel <0.10 kU/L
[2024-05-09 21:53] LABS: Immunoglobulin E 29 kU/L (<OR=114)
== END 2024-05-07 10:40 | disposition home or self-care (01) ==
LOC: HO.WFDLDS 10:39
PROVIDERS: PCP Internal Medicine; Visit Provider Nurse Practitioner Family
DX: J45.909 Unspecified asthma, uncomplicated (principal); R06.00 Dyspnea, unspecified; R91.1 Solitary pulmonary nodule; Z91.09 Other allergy status, other than to drugs and biological substances
CPT/HCPCS: 36415; 82785; 85025; 86003; 99212

== ENCOUNTER 2024-05-07 10:39 | Outpatient (AMB) | payer MEDICARE, MEDICAID, SELFPAY ==
[2024-05-07 10:41] VITALS: BP 124/68; PULSE 65; O2SAT 99; BMI 32.5
--- NOTE | 2024-05-07 10:41 | A.OFFVIS_ITS ---
Vital Signs 05/07/24 10:41 Height 5 ft 5 in Weight 195 lb 6 oz BMI 32.5 BP 124/68 Blood Pressure Location Rt brachial Position Sitting Pulse 65 Pulse Source Pulse Oximeter Pulse Oximetry (%) 99 Oxygen Delivery Method Room Air Intake Visit Reasons: pulmonary nodule Allergies shellfish derived [SHELLFISH DERIVED] Allergy (Severe, Verified 05/07/24 10:52) swelling of tongue aspirin [ASPIRIN] Allergy (Intermediate, Verified 05/07/24 10:52) rash/ itch ciprofloxacin [From CIPRO] Allergy (Unknown, Verified 05/07/24 10:52) UNKNOWN latex Allergy (Unknown, Verified 05/07/24 10:52) Itching Seafood Allergy (Intermediate, Uncoded 05/07/24 10:52) hives HPI HPI pulmonary nodule: Details: Lauren is a pleasant 53 year old female, never smoker, with underlying history of childhood asthma and pulmonary nodules. At baseline, she has been well controlled on Dulera however she reports poor control over the last few weeks. She has been using her levalbuterol 1-2 times per day with suboptimal effect. She was previously prescribed albuterol which she felt worked better. She attributes worsening symptoms to the hot humid weather and allergies. At the last visit, she was sent for RAST testing but this was not performed. Of note, patient reports recent significant orthopnea with worsening dyspnea. Denies BLE edema. [facility] Medical History Thyroid nodule RBBB (right bundle branch block) HTN (hypertension), benign Hyperlipidemia Migraines Depression with anxiety Tubular adenoma of colon (~2019) Low back pain Surgical History History of appendectomy History of colonoscopy History of right breast biopsy Family History Paternal Aunt Breast cancer Mother Pancreatic cancer Social History Household Members: Spouse Housing: House Alcohol intake: never Patient Tobacco Use Status: Never used Tobacco Current occupational status: disabled Sexual orientation: Straight/Heterosexual Gender identity: Female Female Reproductive History Menstrual Age of Menarche: 14 Review of Systems Const Denies chills, Denies excessive sweating, Denies fever(s), Denies headache(s) and Denies night sweats Eyes Denies dry eyes, Denies irritation and Denies itchy eyes ENT Reports Normal hearing present, Denies headache(s), Denies nasal congestion, Denies nasal discharge, Denies post nasal drip and Denies sore throat Card Denies chest pain, Denies chest pain at rest, Denies chest pain with activity, Denies claudication, Denies leg edema, Denies orthopnea and Denies paroxysmal nocturnal dyspnea Resp Denies chest congestion, Denies excessive phlegm production, Denies pain on inspiration, Denies pain with cough and Denies stridor Musc Denies myalgias Neuro Reports Normal hearing present and Denies headache(s) Endo Denies excessive sweating Vicente/Lymph Denies lymphadenopathy Aller/Immun Denies itchy eyes and Denies seasonal rhinorrhea Physical Exam Vital Signs: Last Vital Signs Pulse 65 05/07/24 10:41 BP 124/68 05/07/24 10:41 Pulse Ox 99 05/07/24 10:41 Oxygen Delivery Method Room Air 05/07/24 10:41 BMI result Body Mass Index 32.5 Const General: cooperative, healthy appearing, comfortable, no acute distress, well developed and alert Nutritional Appearance: obese Orientation/consciousness: patient oriented x3 Limitations: no limitations HEENT Head: Yes normal to inspection, Yes normocephalic and Yes atraumatic Ears: hearing grossly normal bilaterally and external ears normal Eyes General: appearance normal, both eyes and all related structures Eyelids: Yes eyelids normal Sclerae: sclerae normal EOM: EOMs intact bilaterally Neck Neck: Yes normal visual inspection and Yes no lymphadenopathy Lymphatic: no lymphadenopathy noted Chest Chest palpation & inspection: normal inspection of the chest Resp Effort & Inspection: normal respiratory effort, able to speak in complete sentences, no audible wheezes, no cough, no stridor, not tachypneic, no tripod positioning and no use of accessory muscles Auscultation: diminished lung sounds Cardio Jugular venous distension: no JVD Rate: regular rate Rhythm: regular rhythm Skin Other: warm, dry General skin exam: no rashes or lesions noted Neuro General: patient oriented x3 Cranial nerves: Yes Normal hearing present Cognition (Neuro): normal cognition Gait exam (Neuro): Normal gait present Extrem General: Yes normal to inspection, Yes capillary refill normal, Yes no clubbing, cyanosis or edema and Yes no pedal edema Psych Appearance: grossly normal and well kempt Speech and movement: Normal speech and movement present and Clear speech present Affect: normal affect Attitude: cooperative Thought process: Normal thought process present Thought content: Normal thought content present Insight: Good insight present (Psych) Judgement: Good judgement present (Psych) Assessment & Plan Assessment & Plan (1) Asthma: Code(s): J45.909 - Unspecified asthma, uncomplicated Category: Medical (2) Lung nodule: Code(s): R91.1 - Solitary pulmonary nodule Category: Medical (3) Environmental allergies: Code(s): Z91.09 - Other allergy status, other than to drugs and biological substances Category: Medical (4) Dyspnea: Code(s): R06.00 - Dyspnea, unspecified Category: Medical Plan Lauren reports worsening control of asthma despite Dulera and levalbuterol BID. She is requesting albuterol in place of levalbuterol, which she has tolerated before. Will send this in. Patient also given nebulizer machine for home use and prescription for albuterol sent in. Discussed likelihood of allergic contribution and prior orders placed for RAST testing. She will have labs performed today and recommended a daily antihistamine. Given patient with significant orthopnea and worsening dyspnea despite Dulera and COURT, will send for echo to evaluate for any cardiac contribution. All questions were answered and patient is in agreement of plan. Will follow up to review results of echo, RAST and response to nebulized therapy, or sooner if needed. Orders: Orders CA echo transthoracic complete Today R06.00 - Dyspnea, unspecified Medications: New albuterol sulfate 2.5 mg (3 mL) inhalation Q4-6H PRN 180 mL 0RF shortness of breath or wheezing albuterol sulfate 2.5 mg (3 mL) inhalation Q4-6H PRN 180 mL 0RF shortness of breath or wheezing J45.909 - Unspecified asthma, uncomplicated albuterol sulfate 90 mcg/actuation 2 puffs inhalation Q4-6H PRN 1 ea 3RF shortness of breath or wheezing Coding Level of Care Code Est Pt Level 4 (22760) Diagnoses Asthma J45.909 Lung nodule R91.1 Environmental allergies Z91.09 Dyspnea R06.00
== END 2024-05-07 11:19 | disposition home or self-care (01) ==
PROVIDERS: PCP Internal Medicine; Visit Provider Nurse Practitioner Family
DX: J45.909 Unspecified asthma, uncomplicated (principal); R91.1 Solitary pulmonary nodule; Z91.09 Other allergy status, other than to drugs and biological substances; R06.00 Dyspnea, unspecified
CPT/HCPCS: 99214

== ENCOUNTER 2024-05-08 09:26 | Outpatient (AMB) | payer MEDICARE, MEDICAID, SELFPAY ==
--- NOTE | 2024-05-08 09:34 | A.OFFVIS_ITS ---
Intake Visit Reasons: New problem B/L knee pain Intake Note: Lauren is a 53 year old female who presents today for a evaluation of her bilateral knee pain, left knee was injection on 12/30/21. Patient reports her last injection provided her with a little relief. Currently she has an increase of pain with stair use and her right knee makes sounds with movement. Finds little relief with Tylenol. Hoister Name: ID# Allergies shellfish derived [SHELLFISH DERIVED] Allergy (Severe, Verified 05/08/24 09:50) swelling of tongue aspirin [ASPIRIN] Allergy (Intermediate, Verified 05/08/24 09:50) rash/ itch ciprofloxacin [From CIPRO] Allergy (Unknown, Verified 05/08/24 09:50) UNKNOWN latex Allergy (Unknown, Verified 05/08/24 09:50) Itching Seafood Allergy (Intermediate, Uncoded 05/08/24 09:50) hives HPI HPI New problem B/L knee pain : Details: 53-year-old female, who is Zimbabwean speaking, presents in the office today for an evaluation of bilateral knee pain. I last saw the patient in the office on 12/30/2021 for bilateral knee pain with the left knee being greater than the right knee. At that time, she was given a cortisone injection in the left knee. ? ? The patient was seen by Internal Medicine on 04/03/2024 with a complaint of intermittent bilateral knee pain for years, which had increased over the past month, since 02/2024. She claimed the pain was affecting her daily activities, especially when going up stairs. She reported using anti-inflammatory topical cream with no relief. ? ? While in the office today, the patient reports her last injection gave her mild relief. She claims to have increased pain with the use of stairs. She also reports her right knee makes ?sounds? with ROM. She finds relief with the use of OTC Tylenol. ? [facility] Medical History Thyroid nodule RBBB (right bundle branch block) HTN (hypertension), benign Hyperlipidemia Migraines Depression with anxiety Tubular adenoma of colon (~2019) Low back pain Surgical History History of appendectomy History of colonoscopy History of right breast biopsy Family History Paternal Aunt Breast cancer Mother Pancreatic cancer Social History Household Members: Spouse Housing: House Alcohol intake: never Patient Tobacco Use Status: Never used Tobacco Current occupational status: disabled Sexual orientation: Straight/Heterosexual Gender identity: Female Female Reproductive History Menstrual Age of Menarche: 14 Review of Systems Const All systems reviewed & are unremarkable except as noted in HPI and below Physical Exam Const General: cooperative, healthy appearing and no acute distress Resp Effort & Inspection: normal respiratory effort and able to speak in complete sentences Cardio Rate: regular rate Peripheral pulses: Peripheral pulses 2+ throughout GI Palpation (GI): Soft to palpation Skin Lesions: no lesions Rashes: no rashes Extrem Other: bilateral knee normal to inspection. No ecchymosis, redness or edema. No ten derness to palpation of the medial or lateral joint lines. Negative Ej's. Negative anterior drawer. Crepitus with ROM. NVI Assessment & Plan Assessment & Plan (1) Osteoarthritis of right patellofemoral joint: Code(s): M17.11 - Unilateral primary osteoarthritis, right knee Category: Medical (2) Osteoarthritis of left patellofemoral joint: Code(s): M17.12 - Unilateral primary osteoarthritis, left knee Category: Medical Plan Ms. Mcneal is a 53-year-old female, who is [place]an speaking, presents in the office today for an evaluation of bilateral knee pain. I last saw the patient in the office on 12/30/2021 for bilateral knee pain with the left knee being greater than the right knee. At that time, she was given a cortisone injection in the left knee. ? ? The patient was seen by Internal Medicine on 04/03/2024 with a complaint of intermittent bilateral knee pain for years, which had increased over the past month, since 02/2024. She claimed the pain was affecting her daily activities, especially when going up stairs. She reported using anti-inflammatory topical cream with no relief. ? ? While in the office today, the patient reports her last injection gave her mild relief. She claims to have increased pain with the use of stairs. She also reports her right knee makes ?sounds? with ROM. She finds relief with the use of OTC Tylenol.? ? We discussed the role of cortisone injections while in the office today. The patient declined at this time and would like to further consider this as an option for the future. We discussed a referral to physical therapy to work on strengthening. She would like to defer at this time and will continue to work on her home exercise program. She was given my business card should she wish to proceed with cortisone injections in the bilateral knees or to attend physical therapy. Follow-up will be PRN, or sooner if needed. ? ? X-rays of the bilateral knees which were obtained while in the office today and were reviewed by me, Leeanne Walden PA-C, revealed patellofemoral osteoarthritis bilaterally.? ? X-rays of the bilateral knee, obtained on 04/08/2024, revealed:? RIGHT KNEE: Mild narrowing of the medial compartment with mild? hypertrophic change. Small posterior patellar osteophytes. Moderate? asymmetric narrowing along the lateral aspect of the patellofemoral? compartment. No significant joint effusion.? ? LEFT KNEE: Mild narrowing of the medial compartment with mild? degenerative changes. No significant joint effusion. Mild narrowing and degenerative changes along the lateral aspect of the patellofemoral compartment.? Orders: Orders XR knee standing BI Today M25.569 - Pain in unspecified knee Patient Instructions: Scribed by Nicole Blanchard medical certification specialist, for Leeanne Walden PA-C on 05/08/2024 at 10:03 am, EST.? Coding Level of Care Code Est Pt Level 3 (12958) Diagnoses Osteoarthritis of right patellofemoral joint M17.11 Osteoarthritis of left patellofemoral joint M17.12
== END 2024-05-08 11:36 | disposition home or self-care (01) ==
LOC: HO.HOS 09:26
PROVIDERS: PCP Internal Medicine; Visit Provider Physician Assistant
DX: M17.0 Bilateral primary osteoarthritis of knee (principal)
CPT/HCPCS: 99213

== ENCOUNTER 2024-05-08 09:43 | Outpatient (REF) | payer MEDICARE, MEDICAID, SELFPAY ==
--- NOTE | ~2024-05-08 | XR_ITS ---
EXAMINATION: XR KNEE AP STANDING CLINICAL INFORMATION: Pain in the knee COMPARISON: 04/08/2024 TECHNIQUE: AP bilateral standing view of the knees was obtained. FINDINGS: Mild narrowing of the bilateral medial compartments with tiny medial marginal osteophytes. XR/XR knee standing BI IMPRESSION: Mild degenerative changes in the bilateral knees.
== END 2024-05-08 09:44 | disposition home or self-care (01) ==
LOC: HO.HOSX 09:43
PROVIDERS: Visit Provider Physician Assistant
DX: M17.0 Bilateral primary osteoarthritis of knee (principal)
CPT/HCPCS: 73565; 99212

== ENCOUNTER → 2024-05-26 13:56 | Outpatient (REF) | payer MEDICARE, MEDICAID, SELFPAY ==
--- NOTE | 2024-05-26 14:00 | CA_ITS ---
Transthoracic Echocardiogram Patient (Last, First, Middle): Lauren Mcneal, Gender: Female Date of : 1970 Age: 53 Procedure Date: 05/26/2024 Procedure Type: Transthoracic Echocardiogram Location: OP Height: 165.1 cm Weight: 88.45 kg BSA: 1.96 m2 Heart Rate: bpm BP: 124 / 68 mmHg Yarding Supervisor: AC Referring MD: Manjula Luna [facility] PT Host/Hostess Head: Júnior Araujo MD Symptoms: R06.00 - Dyspnea, unspecified Study Quality: Adequate ECG Rhythm: Sinus Conclusions: - Essentially normal study Findings Left Ventricle Normal left ventricular size, thickness, and systolic function. The visually estimated ejection fraction is between 60-65%. Spectral Doppler is indicative of a normal filling pattern. Right Ventricle Normal right ventricular cavity size and systolic function. Atria Both atria are normal in size. There is no evidence of interatrial shunt. Aortic Valve Normal aortic valve structure and function. There is no aortic valve stenosis. There is no aortic valve regurgitation. Mitral Valve Normal mitral valve structure and function. There is trace mitral valve regurgitation. There is no mitral valve stenosis. Pulmonic Valve The pulmonic valve is likely normal. Tricuspid Valve Normal tricuspid valve structure. There is trace tricuspid valve regurgitation. The right ventricular systolic pressure is normal. The right ventricular systolic pressure is 27 mmHg. Normal right atrial pressure. There is no evidence of pulmonary hypertension. Great Vessels All visible segments of the aorta are normal in size. The pulmonary artery was not well visualized. Venous The inferior vena cava is normal in size and collapses greater than 50% with inspiration. Pericardium/Pleural There is no evidence of pericardial effusion. Prior Study Comparison No significant change compared to prior study dated: 12/26/2016. Measurements 2D Linear Measurements IVSd: 0.75 0.6-0.9/0.6-1.0 cm LVIDd: 4.91 3.9-5.3/4.2-5.9 cm LVIDd Index: 2.51 2.4-3.2/2.2-3.1 cm/m2 LVIDs: 3.26 2.0-3.6 cm LVPWd: 0.74 0.7-1.1 cm LA Diam: 3.00 2.7-3.8/3.0-4.0 cm LAIDs Index: 1.53 1.5-2.3 cm/m2 LV Mass: 148.38 67-162/88-224 g LV Mass Index: 75.70 43-95/49-115 g/m2 LVOT Diam: 1.90 3.0+(-)1.3 cm 2D Systolic Function EF 4C: 66.30 >55% EF 2C: 64.10 >55% EF BiP: 64.90 >55% Mitral Valve MV Pk E: 0.76 MV PK A: 0.52 MV Decel Time: 310.00 E/A: 1.50 E'Lateral: 9.36 E'Medial: 7.18 E/E' Med: 10.60 E/E' Lat: 8.10 PHT: 91.00 MVA PHT: 2.42 Decel [place]: 2.45 Aortic Valve AoV Pk [place]: 1.46 AoV Mn [place]: 0.97 AoV VTI: 0.35 AoV Pk Grad: 9.00 Aov Mn Grad: 4.00 NELSON Cont.VTI: 2.26 LVOT LVOT Pk [place]: 1.25 LVOT Mn [place]: 0.77 LVOT VTI: 0.28 LVOT Pk Grad: 6.00 LVOT Mn Grad: 3.00 LVOT Diam: 1.90 LVOT Area: 2.84 Diastolic Function MV Pk E: 0.76 MV Pk A: 0.52 E/A: 1.50 E'Medial: 7.18 E/E' Med: 10.60 E' Laterial: 9.36 E/E' Lat: 8.10 Right Ventricle TAPSE (mm): 26.40 TVS' [place]: 11.90 Tricuspid Valve TR Pk [place]: 2.46 TR Pk Grad: 24.00 RA Press: 3.00 RVSP: 27.00 Great Vessels Aorta Sinus of Valsalva: 2.80 2.0-3.[address] [place]: 2.25 1.7-3.4 cm Ao Asc: 2.60 2.1-3.4 cm Ao Arch: 2.20 Updated in Other Vendor System with Status of Final Júnior Araujo MD electronically signed on 05/27/2024 12:43:56 PM with status of Final
== END ==
LOC: HO.CARD 13:56
PROVIDERS: PCP Internal Medicine; Visit Provider Nurse Practitioner Family
DX: R06.00 Dyspnea, unspecified (principal)
CPT/HCPCS: 93306

== ENCOUNTER → 2024-05-26 14:00 | Outpatient (BNV) | payer MEDICARE, MEDICAID, SELFPAY | PROVIDERS: PCP Internal Medicine; Visit Provider Internal Medicine Cardiovascular Disease | DX: R06.00 Dyspnea, unspecified (principal) | CPT/HCPCS: 93306 ==

== ENCOUNTER 2024-06-12 10:29 | Day surgery (SDC) | payer MEDICARE, MEDICAID, SELFPAY ==
[2024-06-12 10:57] VITALS: BMI 32.4
[2024-06-12 10:58] VITALS: BP 124/70; PULSE 69; RESP 18; TEMP 36.7; O2SAT 98
--- NOTE | 2024-06-12 11:21 | P.OP_ITS ---
Operative Note Operative Note Date of Service: 06/12/24 Narrative: Operative Note Preop diagnosis: 1. Right DeQuervain's tenosynovitis Postop diagnosis: 1. Right DeQuervain's tenosynovitis Procedure: 1. Right 1st dorsal compartment release Surgeon: Idalia Farooq MD Large Sheetfed Press Operator: CRICKET Chapin Anesthesia: local block using 1% lidocaine with epinephrine Findings: Only slightly Thickened 1st dorsal compartment. EPB in separate compartment EBL: Less than 5 mL Tourniquet time: None Specimens: None Complications: None Disposition: Brought to recovery room in stable condition Plan: Follow-up for 7-10 days for wound check and suture removal Indications: The patient is 53 years old, with right DeQuervain's tenosynovitis that has been unresponsive to nonoperative management. The risks and benefits of operative treatment including but not limited to risk of damage to blood vessels, nerves, tendons, infection, persistent pain, persistent symptoms, recurrence or possible need for additional surgery were discussed with the patient and the patient wishes to proceed with surgery. Procedure: Once consent was obtained a local block was performed in the preop area using a combination of 1% lidocaine with epinephrine. The patient was then brought back to the operating suite and placed on the operative table in supine position. A tourniquet was applied to the proximal aspect of the right upper extremity and the limb was prepped and draped in a standard surgical fashion. Once assured that we had a good block, a 1.5 cm longitudinal incision was made centered over the 1st dorsal compartment as it passed over the radial styloid of the right wrist. The incision was made through the skin to the subcutaneous tissues using a #15 blade. Careful dissection was made down to the level of the 1st dorsal compartment using tenotomy scissors, with care being taken to protect the nearby branches of the superficial radial nerve. Once the 1st dorsal compartment was exposed, A longitudinal incision was made in the 1st dorsal compartment 1st using a #15 blade, then using tenotomy scissors under direct visualization. The 1st dorsal compartment was noted to be only slightly thickened. The EPB tendon was noted to be in a separate compartment, and was released by incising longitudinally using iris scissors. Following our release, we saw smooth gliding abductor pollicis longus and extensor pollicis brevis tendons. Once satisfied with our 1st dorsal compartment release the wound was copiously irrigated with normal saline and hemostasis was obtained with a brief period of local pressure. The subcutaneous layer was closed with some 4-0 Vicryl suture, and the skin edges were reapproximated with some 5.0 nylon suture material. A sterile dressing was applied. The patient appears to have tolerated the procedure well and with no complications. All digits were well vascularized at the conclusion of the case.
--- NOTE | 2024-06-12 11:21 | MHC.SHP ---
Pre-Procedural Eval Section A - 24 Hr Update-Section A only Date of Service: 06/12/24 The patient is an INPATIENT: No Changes since office visit: No Cold of Flu in the past 2 weeks, No New Medical Problems, No Changes in Medication and No Patient answered all questions The patient has been examined within 24 hours of the surgical procedure. The History & Physical has been completed within 30 days and I have reviewed it.: Yes Section B - Complete if H&P > 30 days Chief Complaint: Radial styloid tenosynovitis [de Quervain] Allergies: Allergies Allergy/AdvReac Type Severity Reaction Status Date / Time shellfish derived Allergy Severe swelling Verified 05/08/24 09:50 [SHELLFISH DERIVED] of tongue aspirin [ASPIRIN] Allergy Intermediate rash/ itch Verified 05/08/24 09:50 ciprofloxacin [From CIPRO] Allergy Unknown UNKNOWN Verified 05/08/24 09:50 latex Allergy Unknown Itching Verified 05/08/24 09:50 Seafood Allergy Intermediate hives Uncoded 05/08/24 09:50 Exam Exam Comment: Right de Quervain tenosynovitis Plan Diagnosis/Plan: Unchanged I have reviewed the history and physical and performed a pertinent physical examination on my patient. No changes have occurred unless specified. Time Spent With Patient Time: Total time managing care of this patient today ____ minutes.
[2024-06-12 11:42] VITALS: BP 121/70; PULSE 69
[2024-06-12 13:20] VITALS: BP 119/68; PULSE 70; RESP 18; O2SAT 96
== END 2024-06-12 13:22 | disposition home or self-care (01) ==
PROVIDERS: PCP Internal Medicine; Visit Provider Orthopaedic Surgery
PROC: (CPT 25000; principal; 2024-06-12 12:10)
DX: M65.4 Radial styloid tenosynovitis [de Quervain] (principal); I10 Essential (primary) hypertension; I45.10 Unspecified right bundle-branch block; E78.5 Hyperlipidemia, unspecified; E04.1 Nontoxic single thyroid nodule; G43.909 Migraine, unspecified, not intractable, without status migrainosus; Z88.1 Allergy status to other antibiotic agents; Z88.6 Allergy status to analgesic agent; Z91.040 Latex allergy status
CPT/HCPCS: 25000; J0171

== ENCOUNTER → 2024-06-12 10:29 | Outpatient (BNV) | payer MEDICARE, MEDICAID, SELFPAY | PROVIDERS: PCP Internal Medicine; Visit Provider Orthopaedic Surgery | DX: M65.4 Radial styloid tenosynovitis [de Quervain] (principal) | CPT/HCPCS: 25000 ==

== ENCOUNTER 2024-06-18 15:05 | Outpatient (AMB) | payer MEDICARE, MEDICAID, SELFPAY ==
--- NOTE | 2024-06-18 15:09 | MHC.OFFVIS ---
Vital Signs 06/18/24 15:16 Height 5 ft 5 in Weight 197 lb 8 oz BMI 32.9 BP 108/60 Blood Pressure Location Lt brachial Position Sitting Pulse 64 Pulse Source Pulse Oximeter Pulse Oximetry (%) 99 Oxygen Delivery Method Room Air Intake Visit Reasons: pulmonary nodule Health Therapist Required: Yes Health Therapist Language: Rigging Supervisor Name: [id number] Eduardo Allergies shellfish derived [SHELLFISH DERIVED] Allergy (Severe, Verified 06/18/24 15:20) swelling of tongue aspirin [ASPIRIN] Allergy (Intermediate, Verified 06/18/24 15:20) rash/ itch ciprofloxacin [From CIPRO] Allergy (Unknown, Verified 06/18/24 15:20) UNKNOWN latex Allergy (Unknown, Verified 06/18/24 15:20) Itching Seafood Allergy (Intermediate, Uncoded 06/18/24 15:20) hives HPI HPI pulmonary nodule: Details: Lauren is a pleasant 53 year old female, never smoker, with underlying history of childhood asthma and pulmonary nodules. She was previously well controlled on Dulera however she reported worsening control of asthma with dyspnea, wheezing and cough. At the last visit she was switched to Advair and reports significant improvement in symptoms and has not had to use albuterol. She also reported significant orthopnea with worsening dyspnea, without BLE edema. Today she presents to review echo and RAST. [facility] Medical History Thyroid nodule RBBB (right bundle branch block) HTN (hypertension), benign Hyperlipidemia Migraines Depression with anxiety Tubular adenoma of colon (~2019) Low back pain Surgical History History of appendectomy History of colonoscopy History of right breast biopsy Family History Paternal Aunt Breast cancer Mother Pancreatic cancer Social History Household Members: Spouse Housing: House Alcohol intake: never Patient Tobacco Use Status: Never used Tobacco Current occupational status: disabled Sexual orientation: Straight/Heterosexual Gender identity: Female Female Reproductive History Menstrual Age of Menarche: 14 Review of Systems Const Denies chills, Denies excessive sweating, Denies fever(s), Denies headache(s) and Denies night sweats Eyes Denies dry eyes, Denies irritation and Denies itchy eyes ENT Reports Normal hearing present, Denies headache(s), Denies nasal congestion, Denies nasal discharge, Denies post nasal drip and Denies sore throat Card Denies chest pain, Denies chest pain at rest, Denies chest pain with activity, Denies claudication, Denies leg edema, Denies dyspnea, Denies dyspnea on exertion, Denies orthopnea and Denies paroxysmal nocturnal dyspnea Resp Denies chest congestion, Denies cough, Denies excessive phlegm production, Denies pain on inspiration, Denies pain with cough, Denies dyspnea, Denies dyspnea on exertion, Denies stridor and Denies wheezing Musc Denies myalgias Neuro Reports Normal hearing present and Denies headache(s) Endo Denies excessive sweating Vicente/Lymph Denies lymphadenopathy Aller/Immun Denies itchy eyes, Denies seasonal rhinorrhea and Denies wheezing Physical Exam Vital Signs: Last Vital Signs Pulse 64 06/18/24 15:16 BP 108/60 06/18/24 15:16 Pulse Ox 99 06/18/24 15:16 Oxygen Delivery Method Room Air 06/18/24 15:16 BMI result Body Mass Index 32.9 Const General: cooperative, healthy appearing, comfortable, no acute distress, well developed and alert Nutritional Appearance: obese Orientation/consciousness: patient oriented x3 Limitations: no limitations HEENT Head: Yes normal to inspection, Yes normocephalic and Yes atraumatic Ears: hearing grossly normal bilaterally and external ears normal Eyes General: appearance normal, both eyes and all related structures Eyelids: Yes eyelids normal Sclerae: sclerae normal EOM: EOMs intact bilaterally Neck Neck: Yes normal visual inspection and Yes no lymphadenopathy Lymphatic: no lymphadenopathy noted Chest Chest palpation & inspection: normal inspection of the chest Resp Effort & Inspection: normal respiratory effort, able to speak in complete sentences, no audible wheezes, no cough, no stridor, not tachypneic, no tripod positioning and no use of accessory muscles Auscultation: clear to auscultation bilaterally Cardio Jugular venous distension: no JVD Rate: regular rate Rhythm: regular rhythm Skin Other: warm, dry General skin exam: no rashes or lesions noted Neuro General: patient oriented x3 Cranial nerves: Yes Normal hearing present Cognition (Neuro): normal cognition Gait exam (Neuro): Normal gait present Extrem General: Yes normal to inspection, Yes capillary refill normal, Yes no clubbing, cyanosis or edema and Yes no pedal edema Psych Appearance: grossly normal and well kempt Speech and movement: Normal speech and movement present and Clear speech present Affect: normal affect Attitude: cooperative Thought process: Normal thought process present Thought content: Normal thought content present Insight: Good insight present (Psych) Judgement: Good judgement present (Psych) Assessment & Plan Assessment & Plan (1) Asthma: Code(s): J45.909 - Unspecified asthma, uncomplicated Category: Medical (2) Lung nodule: Code(s): R91.1 - Solitary pulmonary nodule Category: Medical (3) Dyspnea: Code(s): R06.00 - Dyspnea, unspecified Category: Medical Plan Lauren reports excellent control of respiratory symptoms on current regimen, advised to continue. Reviewed RAST which was negative and echo unremarkable. She has upcoming chest CT to assess stability of pulmonary nodule. Will follow up to review results or sooner if needed. All questions were answered and patient is in agreement of plan. Coding Level of Care Code Est Pt Level 4 (37536) Diagnoses Asthma J45.909 Lung nodule R91.1 Dyspnea R06.00
[2024-06-18 15:16] VITALS: BP 108/60; PULSE 64; O2SAT 99; BMI 32.9
== END 2024-06-18 15:45 | disposition home or self-care (01) ==
PROVIDERS: PCP Internal Medicine; Visit Provider Nurse Practitioner Family
DX: J45.909 Unspecified asthma, uncomplicated (principal); R91.1 Solitary pulmonary nodule; R06.00 Dyspnea, unspecified
CPT/HCPCS: 99214

== ENCOUNTER → 2024-06-18 15:05 | Outpatient (BNVA) | payer MEDICARE, MEDICAID, SELFPAY | PROVIDERS: PCP Internal Medicine; Visit Provider Nurse Practitioner Family | DX: J45.909 Unspecified asthma, uncomplicated (principal); R91.1 Solitary pulmonary nodule; R06.00 Dyspnea, unspecified | CPT/HCPCS: 99212 ==

== ENCOUNTER 2024-06-25 13:15 | Outpatient (AMB) | payer MEDICARE, MEDICAID, SELFPAY ==
[2024-06-25 13:43] VITALS: BMI 32.9
--- NOTE | 2024-06-25 13:43 | A.OFFVIS_ITS ---
Vital Signs 06/25/24 13:43 Height 5 ft 5 in Weight 197 lb 8 oz BMI 32.9 Intake Visit Reasons: PO RT 1st DC release 06/12/24 AR Intake Note: Lauren is a 53 yo left hand dominant female who presents today post operatively s/p right 1st DC release done 06/12/[address] Farooq. Patient reports minimal pain. Denies numbness, tingling, or locking on finger. Sutures removed in office today and steri strips applied. Allergies shellfish derived [SHELLFISH DERIVED] Allergy (Severe, Verified 06/25/24 13:43) swelling of tongue aspirin [ASPIRIN] Allergy (Intermediate, Verified 06/25/24 13:43) rash/ itch ciprofloxacin [From CIPRO] Allergy (Unknown, Verified 06/25/24 13:43) UNKNOWN latex Allergy (Unknown, Verified 06/25/24 13:43) Itching Seafood Allergy (Intermediate, Uncoded 06/25/24 13:43) hives HPI HPI PO RT 1st DC release 06/12/24 AR: Details: Lauren is a 53 year old Belarusian speaking woman who returns S/P right 1st dorsal compartment release, DOS: 06/12/24. She says she is doing well and her pain has improved. She is happy with the results of her surgery. She denies any numbness or tingling. [facility] Medical History Thyroid nodule RBBB (right bundle branch block) HTN (hypertension), benign Hyperlipidemia Migraines Depression with anxiety Tubular adenoma of colon (~2019) Low back pain Surgical History History of appendectomy History of colonoscopy History of right breast biopsy Family History Paternal Aunt Breast cancer Mother Pancreatic cancer Social History (Updated 06/25/24 @ 13:56 by COREY Coronel) Household Members: Spouse Housing: House Alcohol intake: never Patient Tobacco Use Status: Never used Tobacco Current occupational status: disabled Current occupation: lt handed Sexual orientation: Straight/Heterosexual Gender identity: Female Female Reproductive History Menstrual Age of Menarche: 14 Review of Systems Const All systems reviewed & are unremarkable except as noted in HPI and below Physical Exam Vital Signs: BMI result Body Mass Index 32.9 Const General: no acute distress and alert Orientation/consciousness: patient oriented x3 Neuro General: patient oriented x3 Extrem Other: The patient was alert oriented and in no acute distress The incision is healing well with no erythema drainage or evidence of infection. Sutures removed and Steri-Strips applied She can make a fist and extend all her digits Negative Yamilet test on the right Sensation is intact Cap refill is brisk Operative Findings: Only slightly Thickened 1st dorsal compartment. EPB in separate compartment Psych Appearance: grossly normal Affect: normal affect Attitude: cooperative Assessment & Plan Assessment & Plan (1) De Quervain's tenosynovitis, right: Code(s): M65.4 - Radial styloid tenosynovitis [de Quervain] Category: Medical Plan Assessment and plan: 1. Right de Quervain tenosynovitis, S/P release DOS: 06/12/24 Operative findings: Only slightly Thickened 1st dorsal compartment. EPB in separate compartment The patient appears to be doing well post-operatively I educated her about the post-operative course I discussed activity modifications, she is to lift nothing heavier than a cellphone for the next two weeks, and should limit or avoid any heavy or repetitive pinching or gripping activities She will perform gentle ROM exercises at home She should avoid any underwater activities for the next 5 days She should gently massage about the incision site to reduce the risk of hypersensitivity She will follow up in 6-8 weeks for a ROM check and to see how she is doing 2. Left ulnar-sided hand pain, dorsal sided hand pain and pain that radiates up to the antecubital fossa. The etiology of these complaints is unclear. No complaints today Scribed for Idalia Farooq MD by Ray Duvall, biomedical engineering supervisor, on 06/25/24 at 2:15 PM, EST. Coding Level of Care Code Global (90388) Diagnoses De Quervain's tenosynovitis, right M65.4
== END 2024-06-25 14:26 | disposition home or self-care (01) ==
PROVIDERS: PCP Internal Medicine; Visit Provider Orthopaedic Surgery
DX: M65.4 Radial styloid tenosynovitis [de Quervain] (principal)
CPT/HCPCS: 99024

== ENCOUNTER → 2024-06-25 13:15 | Outpatient (BNVA) | payer MEDICARE, MEDICAID, SELFPAY | PROVIDERS: PCP Internal Medicine; Visit Provider Orthopaedic Surgery | DX: Z47.89 Encounter for other orthopedic aftercare (principal) | CPT/HCPCS: 99212 ==

== ENCOUNTER 2024-07-23 13:18 | Outpatient (REF) | payer MEDICARE, MEDICAID, SELFPAY ==
--- NOTE | ~2024-07-23 | MM_ITS ---
EXAMINATION: MM SCREENING DIGITAL BREAST TOMOSYNTHESIS, BILATERAL CLINICAL INFORMATION: Screening. Asymptomatic. COMPARISON: Mammography: Comparison is made with available priors TECHNIQUE: Digital breast mammography with tomosynthesis is performed in both the craniocaudal and mediolateral oblique views along with computer-aided detection (CAD). FINDINGS: There are scattered areas of fibroglandular density (ACR BI-RADS breast composition Category b). Marker clip in the right breast. There are no significant masses, abnormal calcifications, or other abnormalities. MM/MM tomosynthesis screening BI IMPRESSION: No mammographic evidence of malignancy. ASSESSMENT: BI-RADS BI-RADS 2 - Benign Findings RECOMMENDATION: Routine annual mammography screening. 1 year F/U This examination should not preclude the clinical evaluation of a suspicious palpable abnormality. This patient's information was entered into a reminder system with a target due date for their next mammogram. Electronically signed by: Annie Walter DO 08/06/2024 10:56 AM EDT
== END 2024-07-23 13:19 | disposition home or self-care (01) ==
LOC: HO.MAMMO 13:18
PROVIDERS: Visit Provider Internal Medicine
DX: Z12.31 Encounter for screening mammogram for malignant neoplasm of breast (principal)
CPT/HCPCS: 77063; 77067

== ENCOUNTER → 2024-07-23 13:45 | Outpatient (BNV) | payer MEDICARE, MEDICAID, SELFPAY | PROVIDERS: Visit Provider Internal Medicine | DX: Z12.31 Encounter for screening mammogram for malignant neoplasm of breast (principal) | CPT/HCPCS: 77063; 77067 ==

== ENCOUNTER 2024-08-05 12:23 | Outpatient (AMB) | payer MEDICARE, MEDICAID, SELFPAY ==
--- NOTE | 2024-08-05 12:29 | MHC.OFFVIS ---
Vital Signs 08/05/24 12:30 Height 5 ft 5 in Weight 197 lb 8 oz BMI 32.9 Intake Visit Reasons: OV-PO RT 1st DC release 06/12/24 AR Intake Note: Lauren is a 53 yo left hand dominant female who presents today post operatively s/p right 1st DC release done 06/12/[address] Farooq. Patient reports she is having pain on the right CMC joint. She states it also feels like there is a lump as well as tendon tightnening. Denies numbness, tingling, or finger locking. She states she is taking Tylenol for pain with minimal relief. Amusement Park Ride Mechanic Required: Yes Amusement Park Ride Mechanic Language: Steam Table Associate Services: Amusement Park Ride Mechanic Present Amusement Park Ride Mechanic Name: COREY Pretty/KAMAR Allergies shellfish derived [SHELLFISH DERIVED] Allergy (Severe, Verified 06/25/24 13:43) swelling of tongue aspirin [ASPIRIN] Allergy (Intermediate, Verified 06/25/24 13:43) rash/ itch ciprofloxacin [From CIPRO] Allergy (Unknown, Verified 06/25/24 13:43) UNKNOWN latex Allergy (Unknown, Verified 06/25/24 13:43) Itching Seafood Allergy (Intermediate, Uncoded 06/25/24 13:43) hives HPI HPI OV-PO RT 1st DC release 06/12/24 AR: Details: Lauren is a 53 year old German speaking woman who returns S/P right 1st dorsal compartment release, DOS: 06/12/24. She is here for a ROM check. She complains of pain near the base of her thumb, and that she feels there may be a lump near her incision. She says her pain & tightness is worse with activities, such as doing dishes. She has been working on ROM exercises at home. She denies any numbness or tingling. She denies any pain or other issues with her left hand. 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 [facility] Medical History Thyroid nodule RBBB (right bundle branch block) HTN (hypertension), benign Hyperlipidemia Migraines Depression with anxiety Tubular adenoma of colon (~2019) Low back pain Surgical History (Reviewed 05/08/24 @ 09:50 by Corrine Boland [facility]) History of appendectomy History of colonoscopy History of right breast biopsy Family History Paternal Aunt Breast cancer Mother Pancreatic cancer Social History (Updated 06/25/24 @ 13:56 by COREY Coronel) Household Members: Spouse Housing: House Alcohol intake: never Patient Tobacco Use Status: Never used Tobacco Current occupational status: disabled Current occupation: lt handed Sexual orientation: Straight/Heterosexual Gender identity: Female Female Reproductive History Menstrual Age of Menarche: 14 Review of Systems Const All systems reviewed & are unremarkable except as noted in HPI and below Physical Exam Vital Signs: BMI result Body Mass Index 32.9 Const General: no acute distress and alert Orientation/consciousness: patient oriented x3 Neuro General: patient oriented x3 Extrem Other: Evaluation of Right Upper Extremity: The patient is alert, oriented, and in no acute distress Neuro: Median, Ulnar, Radial nerves motor and sensory intact and sensation is normal to the tips of all digits Vascular: Cap refill brisk ROM: Her incision is healing well, but she is developing a Keloid scar She complains of pain in multiple areas Mild Pain in the surgical area that radiates into her forearm Pain over the third metacarpal extending up the dorsal forearm Pain when independantly flexing the middle finger causes pain in her hand which radiates up both the dorsal & volar forearm The muscles in the dorsal aspect of her forearm were tender to gentle squeezing Mildly positive Yamilet test Operative Findings: Only slightly Thickened 1st dorsal compartment. EPB in separate compartment Psych Appearance: grossly normal Affect: normal affect Attitude: cooperative Assessment & Plan Assessment & Plan (1) De Quervain's tenosynovitis, right: Code(s): M65.4 - Radial styloid tenosynovitis [de Quervain] Category: Medical (2) Right forearm pain: Code(s): M79.631 - Pain in right forearm Category: Medical Plan Assessment and plan: 1. Right de Quervain tenosynovitis, S/P release DOS: 06/12/24 2. Generalized musculoskeletal tenderness, involving the right hand & forearm The patient appears to be doing well post-operatively I discussed activity modifications, she is to use her hand for more daily lightweight activities, massage about her incision site and over her hand to improve her hypersensitivity, and limit or avoid any heavy or repetitive pinching or gripping activities She will perform ROM exercises at home I ordered OT hand therapy to work on desensitization, strengthening, and normalizing function She will follow up prn Of note she has not worked since 2013 due to Depression & other mental health concerns 3. Left ulnar-sided hand pain, dorsal sided hand pain and pain that radiates up to the antecubital fossa. The etiology of these complaints is unclear. No complaints today Scribed for Idalia Farooq MD by Ray Duvall, emergency medical services coordinator, on 08/05/24 at 12:45 PM, EST. Orders: Orders OT Evaluation and Treatment Today M65.4 - Radial styloid tenosynovitis [de Quervain], M79.631 - Pain in right forearm Scribe Plan - Not visible on output: Scribed for Idalia Farooq MD by Ray Duvall emergency medical services coordinator, on [ ] at [ ], EST. Coding Level of Care Code Global (17932) Diagnoses De Quervain's tenosynovitis, right M65.4 Right forearm pain M79.631
[2024-08-05 12:30] VITALS: BMI 32.9
== END 2024-08-05 12:49 | disposition home or self-care (01) ==
PROVIDERS: PCP Internal Medicine; Visit Provider Orthopaedic Surgery
DX: M65.4 Radial styloid tenosynovitis [de Quervain] (principal); M79.631 Pain in right forearm
CPT/HCPCS: 99024

== ENCOUNTER → 2024-08-05 12:23 | Outpatient (BNVA) | payer MEDICARE, MEDICAID, SELFPAY | PROVIDERS: PCP Internal Medicine; Visit Provider Orthopaedic Surgery | DX: Z47.89 Encounter for other orthopedic aftercare (principal); M65.4 Radial styloid tenosynovitis [de Quervain]; M79.631 Pain in right forearm; Z98.890 Other specified postprocedural states | CPT/HCPCS: 99212 ==

== ENCOUNTER 2024-08-29 16:23 | Emergency (ER) | payer MEDICARE, MEDICAID, SELFPAY ==
--- NOTE | ~2024-08-29 | XR_ITS ---
EXAMINATION: XR CHEST CLINICAL INFORMATION: Productive cough for one week COMPARISON: Chest radiograph 09/06/2023 TECHNIQUE: 2 views of the chest were obtained. FINDINGS: The lungs are adequately expanded. Similar linear streaky opacity in the left lung base likely related to atelectasis/scarring. No focal consolidation. No pleural effusions or pneumothorax. The cardiomediastinal silhouette is unchanged. No acute osseous abnormality. XR/XR chest 2V IMPRESSION: No acute pulmonary disease. Electronically signed by: Howard Lofton MD 08/29/2024 06:11 PM EDT
[2024-08-29 16:28] VITALS: BP 128/73; PULSE 74; RESP 18; TEMP 36.5; O2SAT 99; BMI 33.0
--- NOTE | 2024-08-29 16:28 | ED_ITS ---
HPI - General Adult General Chief complaint: Asthma Stated complaint: sob/asthma Time Seen by Provider: 08/29/24 18:25 Source: patient, RN notes reviewed and old records reviewed Mode of arrival: ambulatory History of Present Illness ED Provider: Zaira Mcdonnell PA-C HPI narrative: 54-year-old female with a past medical history of asthma, RBBB, HTN, HLD, migraines, thyroid nodule, presenting to the ED complaining of productive cough of phlegm, SOB, and chest tightness x 1 week. Admits has been using inhaler and machine at home without relief. Also endorses nausea. Denies fever, chills, abdominal pain, pedal edema, recent travel, sick contacts Related Data Home Medications ?Medication ?Instructions ?Recorded ?Confirmed propranolol 160 mg capsule,24 160 mg PO DAILY 03/31/21 01/18/24 hr,extended release sertraline 100 mg tablet 100 mg PO DAILY 07/27/23 01/18/24 acetaminophen 650 mg 650 mg PO Q8H PRN 11/29/23 01/08/24 tablet,extended release clonazepam 0.5 mg tablet 0.5 mg PO 01/07/24 01/08/24 cholecalciferol (vitamin D3) 25 25 mcg PO QAM 02/01/24 mcg (1,000 unit) tablet omeprazole 40 mg capsule,delayed 40 mg PO DAILY PRN 03/12/24 release Previous Rx's ?Medication ?Instructions ?Recorded atorvastatin 40 mg tablet 40 mg PO BEDTIME #90 tabs 01/01/24 albuterol sulfate 2.5 mg/3 mL 2.5 mg (3 mL) inhalation Q4-6H PRN 05/07/24 (0.083 %) solution for nebulization shortness of breath or wheezing #180 mL albuterol sulfate 90 mcg/actuation 2 puff inhalation Q4-6H PRN 05/07/24 aerosol inhaler shortness of breath or wheezing #1 ea albuterol sulfate 2.5 mg/3 mL 2.5 mg (3 mL) inhalation Q4-6H PRN 05/13/24 (0.083 %) solution for nebulization shortness of breath or wheezing #180 mL fluticasone 250 mcg-salmeterol 50 1 inh inhalation Q12H #60 ea 05/27/24 mcg/dose blistr powdr for inhalation (Advair Diskus) prednisone 20 mg tablet 40 mg (2 x 20 mg) PO DAILY 5 days 08/29/24 #10 tabs Allergies Allergy/AdvReac Type Severity Reaction Status Date / Time shellfish derived Allergy Severe swelling Verified 08/29/24 16:31 [SHELLFISH DERIVED] of tongue aspirin [ASPIRIN] Allergy Intermediate rash/ itch Verified 08/29/24 16:31 ciprofloxacin [From CIPRO] Allergy Unknown UNKNOWN Verified 08/29/24 16:31 latex Allergy Unknown Itching Verified 08/29/24 16:31 Seafood Allergy Intermediate hives Uncoded 06/25/24 13:43 Review of Systems Review of Systems: Yes all other systems are reviewed and are negative Constitutional: Constitutional: Reports as per [facility] [place] Past Medical History Attestation statement: The following information was validated with the patient. Source: old records reviewed Medical History Thyroid nodule RBBB (right bundle branch block) HTN (hypertension), benign Hyperlipidemia Migraines Depression with anxiety Tubular adenoma of colon (~2018) Low back pain Surgical History History of appendectomy History of colonoscopy History of right breast biopsy Family History Family History Paternal Aunt Breast cancer Mother Pancreatic cancer Social History Social History Household Members: Spouse Housing: House Alcohol intake: never Patient Tobacco Use Status: Never used Tobacco Advance Directives: No Advance Directives Information Provided: No Do you have a plan to hurt others: No Plan Current occupational status: disabled Current occupation: lt handed Sexual orientation: Straight/Heterosexual Gender identity: Female Physical Exam ED Vital Signs: Vital Signs - 24 hr 08/29/24 16:28 08/29/24 18:25 08/29/24 18:58 Temperature 97.7 F 96.7 F L Pulse Rate 74 71 72 Respiratory Rate 18 16 18 Blood Pressure 128/73 123/75 Pulse Oximetry 99 97 Oxygen Delivery Method Room Air Room Air 08/29/24 19:48 Temperature 98.3 F Pulse Rate 72 Respiratory Rate 18 Blood Pressure 132/78 Pulse Oximetry 98 Oxygen Delivery Method Room Air BMI result Body Mass Index 33.0 Const General: cooperative, healthy appearing and no acute distress Orientation/consciousness: patient oriented x3 Limitations: no limitations HENMT Head: Yes normal to inspection and Yes atraumatic Ears: hearing grossly normal bilaterally General nose exam: Normal external nose present Face and sinus: Yes normal facial exam Mouth: Normal oral and palatal mucosa present Throat: Yes posterior oropharynx normal, Yes tonsils normal, Yes uvula midline and No peritonsillar mass Eyes General: appearance normal, both eyes and all related structures EOM: EOMs intact bilaterally Neck Neck: Yes normal visual inspection and Yes no meningeal signs Resp Effort & Inspection: normal respiratory effort and no respiratory distress Auscultation: clear to auscultation bilaterally, no crackles, no rhonchi and no wheezes Cardio Rate: regular rate Heart sounds: S1 normal heart sound present and S2 normal heart sound present GI Inspection: Yes normal to inspection Palpation (GI): Soft to palpation, nontender, no guarding and not rigid Skin Rashes: no rashes Wounds: no wounds Neuro General: patient oriented x3, tone normal and no meningeal signs Cranial nerves: Yes CN's II-XII intact bilaterally Gait exam (Neuro): Normal gait present Extrem General: Yes normal to inspection, Yes no pedal edema and Yes no calf tenderness Course Course Course Narrative: This is a rapid medical exam performed by Jamey Dickens NP: Additional HPI, ROS, PE not included below will be deferred to primary provider. Patient is a 54-year-old female with history of asthma, RBBB, HTN, HLD, migraines, thyroid nodule presenting with complaint of shortness of breath, orthopnea, nausea. Has been using inhalers/nebs with little relief. Cough productive of clear sputum. Plan: viral serology, cxr -Viral studies negative. CXR unremarkable Results discussed with patient including worrisome signs and symptoms and strict return precautions, and when to return to the emergency department. They verbalized understanding and feel safe for discharge at this time. Medications Administered Discontinued Medications Generic Name Dose Route Start Last Admin Trade Name Freq PRN Reason Stop Dose Admin Albuterol Sulfate 2.5 mg/ 0 mg 08/29/24 18:53 08/29/24 18:56 Albuterol/Ipratropium 3 ml INHALE 08/29/24 18:54 1 dose ONCE ONE Administration Prednisone 40 mg 08/29/24 18:42 08/29/24 19:24 Prednisone 20 Mg Tablet PO 08/29/24 18:43 40 mg ONCE ONE Administration Medical Decision Making Medical Decision Making [facility] Narrative: 54-year-old female with a past medical history of asthma, RBBB, HTN, HLD, migraines, thyroid nodule, presenting to the ED complaining of productive cough of phlegm, SOB, and chest tightness x 1 week. On exam vital signs stable, NAD, nontoxic appearing, lungs CTA, oropharynx WNL. Concern for viral illness vs asthma exacerbation vs pneumonia. Low suspicion for ACS/PE or DVT Plan: EKG, viral studies, CXR, ED bronch protocol Please refer to course for remaining clinical decision making, interpretation of labs/imaging results, and discussions with consultants and/or family members. Differential Diagnosis Differential Diagnoses: The differential diagnosis associated with the presentation includes As above Admission/Observation Consideration of admission/observation: Escalation of care including admission/observation considered Lab Data [facility] Lab Attestation statement: I reviewed the patient's lab results. Labs: Lab Results 08/29/24 Range/Units 16:47 Influenza Type A (PCR) NEGATIVE (Negative) Influenza Type B (PCR) NEGATIVE (Negative) RSV RNA Qual (PCR) NEGATIVE (Negative) SARS-CoV-2 RNA (RT-PCR) NEGATIVE (Negative) Independent Interpretation I performed an independent interpretation of an: EKG (My interpretation EKG normal sinus rhythm rate of 60. IL interval 126. QTC 392. No significant ch carmina when compared to prior) and Plain X-Ray Radiology Impression Discussion of test interpretation with radiology: I have reviewed the radiologist's reading. External Record Review External record reviewed: Inpatient record, Office record, Outpatient record, Prior outpatient labs, Prior outpatient radiology, Primary care record and Outside ED record Tests considered The following testing was considered but not selected: As above Prescription Management I considered prescription management with: Antibiotic Chronic Conditions Patient?s care impacted by: Other Discharge Plan Discharge Clinical Impression: Asthma Patient Disposition: Home, Self-Care Instructions: Asthma (DC) Additional Instructions: You tested negative for COVID, flu, RSV Your x-rays unremarkable Continue to use your machine and inhalers at home In addition take prednisone as prescribed If her symptoms persist or worsen return to the ED Prescriptions: New prednisone 20 mg tablet 40 mg PO DAILY 5 Days Qty: 10 0RF No Action atorvastatin 40 mg tablet 40 mg PO BEDTIME Qty: 90 3RF albuterol sulfate 2.5 mg /3 mL (0.083 %) solution for nebulization 2.5 mg inhalation Q4-6H PRN (Reason: shortness of breath or wheezing) Qty: 180 0RF fluticasone propion-salmeterol [Advair Diskus] 250-50 mcg/dose blister with device 1 inh inhalation Q12H Qty: 60 3RF propranolol 160 mg capsule,extended release 24 hr 160 mg PO DAILY sertraline 100 mg tablet 100 mg PO DAILY omeprazole 40 mg capsule,delayed release(DR/EC) 40 mg PO DAILY PRN acetaminophen 650 mg tablet extended release 650 mg PO Q8H PRN clonazepam 0.5 mg tablet 0.5 mg PO cholecalciferol (vitamin D3) 25 mcg (1,000 unit) tablet 25 mcg PO QAM albuterol sulfate 90 mcg/actuation HFA aerosol inhaler 2 puff inhalation Q4-6H PRN (Reason: shortness of breath or wheezing) Qty: 1 3RF albuterol sulfate 2.5 mg /3 mL (0.083 %) solution for nebulization 2.5 mg inhalation Q4-6H PRN (Reason: shortness of breath or wheezing) Qty: 180 0RF Referrals: Charli Rojas MD [Primary Care Provider] - 5 days Interventions: ED Discharge Assessment Last Done: 08/29/24 19:48 Discharge Date/Time: 08/29/24 19:49 Print Language: Palauan
[2024-08-29 17:48] LABS: Influenza A PCR NEGATIVE (Negative); Influenza B PCR NEGATIVE (Negative); Resp Syncy Virus RNA Qual PCR NEGATIVE (Negative); SARS COV2 PCR INHOUSE NEGATIVE (Negative)
[2024-08-29 18:25] VITALS: BP 123/75; PULSE 71; RESP 16; TEMP 35.9; O2SAT 97
--- NOTE | 2024-08-29 18:42 | ECG_ITS ---
Test Reason : CP Blood Pressure : / mmHG Vent. Rate : 060 BPM Atrial Rate : 060 BPM P-R Int : 126 ms QRS Dur : 126 ms QT Int : 392 ms P-R-T Axes : 000 -20 -20 degrees QTc Int : 392 ms Normal sinus rhythm Right bundle branch block Inferior infarct , age undetermined Abnormal ECG When compared with ECG of 06-SEP-2023 12:18, No significant change was found Referred By: Zaira Mcdonnell Electronically Signed By:KYREE FRANKS
[2024-08-29] MEDS: Albuterol Sulfate 2.5 MG, Albuterol/Iprat 2.5/0.5MG 3 ML 3 ML INHALE (18:56)
[2024-08-29 18:58] VITALS: PULSE 72; RESP 18; O2SAT 99
[2024-08-29] MEDS: predniSONE 20 MG TABLET 40 MG PO (19:24)
[2024-08-29 19:48] VITALS: BP 132/78; PULSE 72; RESP 18; TEMP 36.8; O2SAT 98
== END 2024-08-29 19:49 | disposition home or self-care (01) ==
PROVIDERS: Registered Nurse Emergency; Emergency Provider Emergency Medicine; PCP Internal Medicine
DX: J45.909 Unspecified asthma, uncomplicated (principal); R05.9 Cough, unspecified; I10 Essential (primary) hypertension; E78.5 Hyperlipidemia, unspecified; R06.02 Shortness of breath; R07.89 Other chest pain; Z79.899 Other long term (current) drug therapy; Z03.818 Encounter for observation for suspected exposure to other biological agents ruled out
CPT/HCPCS: 0241U; 71046; 93005; 94640; 99284

== ENCOUNTER → 2024-08-29 18:42 | Outpatient (BNV) | payer MEDICARE, MEDICAID, SELFPAY | PROVIDERS: Emergency Provider Emergency Medicine; PCP Internal Medicine; Visit Provider Internal Medicine | DX: R07.9 Chest pain, unspecified (principal); I45.10 Unspecified right bundle-branch block; R94.31 Abnormal electrocardiogram [ECG] [EKG] | CPT/HCPCS: 93010 ==

== ENCOUNTER 2024-09-10 15:11 | Outpatient (REF) | payer MEDICARE, MEDICAID, SELFPAY | END 2024-09-10 15:12 | disposition home or self-care (01) | LOC: HO.US 15:11 | PROVIDERS: PCP Internal Medicine; Visit Provider Obstetrics & Gynecology | DX: D25.9 Leiomyoma of uterus, unspecified (principal) | CPT/HCPCS: 76830; 76856 ==

== ENCOUNTER → 2024-09-10 15:14 | Outpatient (BNV) | payer MEDICARE, MEDICAID, SELFPAY | PROVIDERS: PCP Internal Medicine; Visit Provider Radiology Diagnostic Radiology | DX: D25.9 Leiomyoma of uterus, unspecified (principal) | CPT/HCPCS: 76856 ==

== ENCOUNTER 2024-09-24 10:50 | Outpatient (REF) | payer MEDICARE, MEDICAID, SELFPAY ==
[2024-09-24 11:40] LABS: MANUAL DIFF FLAG NO
[2024-09-24 11:57] LABS: Basophils Percent Auto 0.4 % (0-2); Eosinophils Absolute Auto 0.2 X10*3/uL (0.0-0.4); Eosinophils Percent Auto 2.2 % (0-4); Hemoglobin 13.2 g/dl (12.0-16.0); Imm Gran Abs Auto 0.02 X10*3/uL (0.00-0.03); Imm Gran Pct Auto 0.3 % (0.0-0.4); Lymphocytes Absolute Auto 1.9 X10*3/uL (1.2-4.9); Lymphocytes Percent Auto 25.6 % (20-40); Mean Corpuscular HGB Conc 32.2 g/dl (31.0-35.0); Mean Corpuscular Hemoglobin 28.1 pg (27.0-33.0); Mean Corpuscular Volume 87.4 fL (80.0-98.0); Mean Platelet Volume 9.7 fL (9.4-12.3); Monocytes Absolute Auto 0.4 X10*3/uL (0.1-1.2); Monocytes Percent Auto 5.2 % (2-11); Neutrophils Absolute Auto 4.8 x10*3/uL (2.0-8.3); Neutrophils Percent Auto 66.3 % (45-73); Platelet Count 286 X10*3/uL (160-400); Red Blood Count 4.69 X10*6/uL (4.20-5.50); Red Cell Distribution Width 13.7 % (11.0-16.0); White Blood Count 7.3 X10*3/uL (4.8-10.8)
[2024-09-24 11:58] LABS: Appearance Urine Clear; Color Urine Yellow; Glucose Urine UA Negative (Negative); Leukocyte Esterase Urine Negative (Negative); Nitrite Urine Negative (Negative); PH 5.5 (5.0-9.0); UMIC TRIGGER UA YES; Urine Blood Trace (Negative); Urine Ketones Negative (Negative); Urine Protein 30 (1+) mg/dL (Neg-Trace)
[2024-09-24 12:03] LABS: Bacteria Urine None Seen (None Seen); Hyaline Casts Urine 0-2 /LPF (0-2); RBC Urine 0-2 /HPF (0-2); WBC Urine 0-5 /HPF (0-5)
[2024-09-24 12:26] LABS: Anion Gap 13 (12-20); Blood Urea Nitrogen 13 mg/dL (9-16); Carbon Dioxide 27 mmol/L (22-29); Chloride 109 mmol/L (96-108); Cholesterol 147 mg/dL (<200); Estimated Glomerular Filt Rate > 60; HDL Cholesterol 54 mg/dL (>40); Iron 79 mcg/dL (30-160); LDL Cholesterol Calculated 76 mg/dL (<100); Percent Iron Saturation 28 % (15-50); Potassium 4.6 mmol/L (3.3-5.1); Sodium 144 mmol/L (135-145); Total Iron Binding Capacity 287 mcg/dL (228-428); Triglycerides 86 mg/dL (<150); Unsaturated Iron Binding 208 ug/dL
[2024-09-24 12:45] LABS: Vitamin D 25-OH Total 34.6 ng/mL (>30)
[2024-09-24 13:02] LABS: Creatinine Urine 168.75 mg/dL; Protein/Creatinine Ratio, Ur 0.18 (<0.2); Total Protein Urine Random 31 mg/dL (<12)
== END 2024-09-24 10:51 | disposition home or self-care (01) ==
LOC: HO.LAB 10:50
PROVIDERS: Absent Provider Physician Assistant; PCP Internal Medicine; Visit Provider Internal Medicine
DX: Q61.9 Cystic kidney disease, unspecified (principal); N18.2 Chronic kidney disease, stage 2 (mild); I10 Essential (primary) hypertension; R80.9 Proteinuria, unspecified
CPT/HCPCS: 36415; 80051; 80061; 81001; 82306; 82310; 82565; 82570; 83540; 84156; 84520; 85025

== ENCOUNTER 2024-09-26 09:34 | Outpatient (RCR) | payer MEDICARE, MEDICAID, SELFPAY ==
--- NOTE | 2024-09-04 12:45 | MHC.OT.EP ---
[address] [phone] Occupational Therapy Plan of Care Patient Name: Lauren Mcneal Date of Evaluation: 09/04/24 Diagnosis: R Radial wrist pain debriedment 06/12/24 Pain Location: Radial side of R wrist Pain Score: 4 Pain Scale Used: Numeric (0 - 10) Aggravating Factors: Movement / use / repetitive gripping Alleviating Factors: tylenol Assessment: Pt is a L hand dominant female 54 yrs of age, who reports having R wrist pain for 2+ yrs. She had surgery to debride the 1st DC in June of 2024, here at [facility] , by Dr. Farooq. She reports relief w/ constant pain; but with any activity she reports pain (4/10). Pt reports modifying behaviors as needed but is able to complete simple ADLs, and drive. She has FULL ROM w/ minimal pain w/ UD. She has been referred to skilled OT therapy for pain free ROM, strength, scar care, and increased functional use of her L hand/wrist Frequency and Duration: The patient will be seen 2xs a week 4 weeks Short Term Goals: Pt will be complaint w/ scar care (2xs a day) Pt will report 3/10 pain w/ activity Pt will have pain free ROM Usp Goals: Pt will be able to use her R hand to carry groceries w/out difficulty Pt will deny trouble sleeping due to pain in her wrist Pt will report 1/10 pain w/ activity using her R hand Treatment Plan: Therapeutic Exercise Therapeutic Activity Home Exercise Program Splinting Neuro Re-ed Patient Education Desensitization/Sensory Re-ed Edema Control ADL Training Ultrasound NMES Iontophoresis Paraffin Fluidotherapy MHP Cold Packs Joint Mobilization Soft Tissue Mobilization Kinesiotaping Other (see comments) Electronically Signed By: Frances Santana OTR/L Please Sign and return to therapist. Thank you once again for your referral.
--- NOTE | 2024-10-30 09:22 | MHC.OT.DC ---
[address] [phone] F: [phone] Occupational Therapy Discharge Note Patient Name: Lauren Mcneal Provider: Idalia Farooq Diagnosis: R Radial wrist pain debriedment 06/12/24 Date of Surgery: 06/12/24 Date of Evaluation: 09/04/24 Date of Discharge: Treatments to Date: 6 Cancellations to Date: No Shows to Date: Discharge Status: Visit Non-compliance Discharge Summary: Pt has not followed up since 09/29 Electronically Signed By: Frances Santana OTR/L Reviewed/agree with student documentation: N/A Therapist: Please Sign and return to therapist, thank you for your referral.
== END 2024-10-30 09:22 | disposition home or self-care (01) ==
LOC: HO.OT 09:34
PROVIDERS: PCP Internal Medicine; Visit Provider Orthopaedic Surgery
DX: M79.631 Pain in right forearm (principal); M65.4 Radial styloid tenosynovitis [de Quervain]
CPT/HCPCS: 97110; 97140; 97165; 97535

== ENCOUNTER 2024-10-28 12:51 | Outpatient (AMB) | payer MEDICARE, MEDICAID, SELFPAY ==
--- NOTE | 2024-10-28 12:52 | MHC.OFFVIS ---
Intake Visit Reasons: US follow up Traffic Operations Manager Required: Yes Traffic Operations Manager Language: Furniture Stainer Services: Traffic Operations Manager Present (in person) Traffic Operations Manager Name: Jessica NICOLE Information Interpreted: non-clinical & clinical Allergies shellfish derived [SHELLFISH DERIVED] Allergy (Severe, Verified 10/28/24 12:52) swelling of tongue aspirin [ASPIRIN] Allergy (Intermediate, Verified 10/28/24 12:52) rash/ itch ciprofloxacin [From CIPRO] Allergy (Unknown, Verified 10/28/24 12:52) UNKNOWN latex Allergy (Unknown, Verified 10/28/24 12:52) Itching Seafood Allergy (Intermediate, Uncoded 10/28/24 12:52) hives HPI Comments Details: The patient is scheduled tele health visit to discuss the results the ultrasound , last ultrasound showed the following: Uterus: The uterus is anteverted , anteflexed and measures 11.3 x 4.7 x 9.0 cm. The cervix appears normal. The double wall endometrial thickness is approximately 6 mm. There is a small amount of fluid within the endometrial canal, nonspecific. The uterus is smooth in contour. There are 4 fundal fibroids, one mid uterine segment dorsal fibroid. Largest in the fundus is right lateral, measuring 6.3 x 5.5 x 6.1 cm (previously approximately 5.7 x 5.2 x 5.7 cm). Second largest is left fundal subserosal measuring 5.4 x 3.9 x 5.0 cm (previously 5.5 x 6.3 x 5.1 cm). Adnexa: Only the right ovary could be visualized. There is normal color flow to the adnexa. There is no ovarian torsion. There is no pelvic ascites or fluid collection. There are no adnexal masses. Right ovary measures 1.4 x 0.7 x 0.8 cm. There is normal in sonographic appearance. Left ovary could not be definitively identified. Complaining of pelvic pressure but no vaginal bleeding Last cotest in was negative [facility] Medical History Thyroid nodule RBBB (right bundle branch block) HTN (hypertension), benign Hyperlipidemia Migraines Depression with anxiety Tubular adenoma of colon (~2019) Low back pain Surgical History History of appendectomy History of colonoscopy History of right breast biopsy Family History Paternal Aunt Breast cancer Mother Pancreatic cancer Social History Household Members: Spouse Housing: House Alcohol intake: never Patient Tobacco Use Status: Never used Tobacco Current occupational status: disabled Current occupation: lt handed Sexual orientation: Straight/Heterosexual Gender identity: Female Female Reproductive History Menstrual Age of Menarche: 14 Review of Systems Const All systems reviewed & are unremarkable except as noted in HPI and below Reports as per HPI and Reports no additional complaints GI Reports no additional complaints Reports no additional complaints Telehealth Telehealth Telehealth Platform: Telephone Location of provider rendering services: practice address Location of patient: address on file Patient Identification confirmed using: Name, : Yes Telehealth method: video Patient verbally consented to treatment: Yes Patient verbally consented to billing insurance company: Yes Patient informed of any privacy concerns related to visit: Yes Assessment & Plan Assessment & Plan (1) Uterine myoma: Code(s): D25.9 - Leiomyoma of uterus, unspecified Category: Medical Plan: Discussed with the patient the findings on pelvic ultrasound & the risk of myosarcoma; discussed with the patient the options of treatment including expectant management versus hysterectomy; the pros and cons, risks benefits of each approach were discussed with the patient including the fact that in cases of myosarcoma, surgical treatment can lead to early diagnosis and positively affects the prognosis; after further discussion, the patient decided to proceed with surgical maangement. Discussed with the patient the different types of hysterectomies including, vaginal, laparoscopic assisted vaginal, robotic assisted laparoscopic,& abdominal with BSO. All pros, cons, r/b of each approach were discussed the patient including evidence that morbidity is less and recovery is shorter with minimally invasive approaches to hysterectomy. Discussed with the patient the lack of availability of the robot MiniVaxi robot and/or minimally invasive suit attendant specialist at [facility]. O will refer to [facility] minimally invasive community youth secretary surgery (2) Fluid in endometrial cavity: Comment: 6 mm endometrial stripe Code(s): N85.9 - Noninflammatory disorder of uterus, unspecified Category: Medical Plan: Discussed with the patient the finding of fluid in the endometrial cavity, in spite of no vaginal bleeding the concern is the endometrial fluid visualized on ultrasound in case of cervical stenosis might be bleeding into the endometrial cavity and the blood and/or tissue was are unable to pass through the cervical os. Endometrial sampling in postmenopausal bleeding with endometrial fluid is indicated in case endometrial thickness is above 4 mm. Recommended to the patient that the next step is an endometrial sampling via hysteroscopy D&C possible polypectomy versus endometrial biopsy to r/o endometrial pathology including hyperplasia or cancer. All the pros and cons risks and benefits of each approach were discussed with the patient, endometrial biopsy being less invasive, office procedure with less sensitivity and inability diagnose a polyp and removal versus hysteroscopy done under anesthesia more invasive more sensitive to endometrial cancer and possibility of diagnosing and endometrial polyp with the possibility of polypectomy. All questions were answered pt verbalized understanding and decided to proceed with endometrial biopsy. Instructions given the patient to schedule endometrial biopsy as soon as possible. All questions answered, the patient verbalized understanding. I spent a total of 20 minutes reviewing the chart, talking to the patient via video and documenting in the medical record. Coding Level of Care Code Tele Est Pt Level 3 (32750) Diagnoses Uterine myoma D25.9 Fluid in endometrial cavity N85.9
== END 2024-10-28 14:05 | disposition home or self-care (01) ==
LOC: HO.HWS 12:51
PROVIDERS: PCP Internal Medicine; Visit Provider Obstetrics & Gynecology
DX: D25.9 Leiomyoma of uterus, unspecified (principal); N85.9 Noninflammatory disorder of uterus, unspecified
CPT/HCPCS: 99213

== ENCOUNTER 2025-01-05 18:10 | Emergency (ER) | payer MEDICARE, MEDICAID, SELFPAY ==
--- NOTE | ~2025-01-05 | XR_ITS ---
CLINICAL HISTORY: difficulty breathing 2 view chest x-ray Comparison: CR/SR - XR CHEST 2V - 08/29/24 16:41 EDT Findings: No consolidation or effusion. Normal size heart. No acute fracture. IMPRESSION: 1. No acute findings. This document has been electronically signed by: Norma Rouse MD on 01/05/2025 19:49:48
[2025-01-05 18:57] VITALS: BP 123/64; PULSE 81; RESP 16; TEMP 36.8; O2SAT 99; BMI 32.9
--- NOTE | 2025-01-05 19:02 | ED_ITS ---
HPI - SOB/Dyspnea General Chief Complaint: Dyspnea Stated Complaint: asthma,sob Time Seen by Provider: 01/06/25 00:20 Source: patient Limitations: language barrier History of Present Illness ED Provider: Kiera Rivera PA-C HPI Narrative: 54-year-old female with a history of asthma presents with ongoing cough cold symptoms x1 week. Associated dry repetitive cough, sob, with generalized malaise and wheezing. Denies fever or CP. No sick contacts with similar symptoms. Patient states she feels as if she is going to feel better, then she relapses. Related Data Home Medications ?Medication ?Instructions ?Recorded ?Confirmed propranolol 160 mg capsule,24 160 mg PO DAILY 03/31/21 01/18/24 hr,extended release sertraline 100 mg tablet 100 mg PO DAILY 07/27/23 01/18/24 acetaminophen 650 mg 650 mg PO Q8H PRN 11/29/23 01/08/24 tablet,extended release clonazepam 0.5 mg tablet 0.5 mg PO 01/07/24 01/08/24 cholecalciferol (vitamin D3) 25 25 mcg PO QAM 02/01/24 mcg (1,000 unit) tablet omeprazole 40 mg capsule,delayed 40 mg PO DAILY PRN 03/12/24 release Previous Rx's ?Medication ?Instructions ?Recorded atorvastatin 40 mg tablet 40 mg PO BEDTIME #90 tabs 01/01/24 albuterol sulfate 2.5 mg/3 mL 2.5 mg (3 mL) inhalation Q4-6H PRN 05/07/24 (0.083 %) solution for nebulization shortness of breath or wheezing #180 mL albuterol sulfate 90 mcg/actuation 2 puff inhalation Q4-6H PRN 05/07/24 aerosol inhaler shortness of breath or wheezing #1 ea albuterol sulfate 2.5 mg/3 mL 2.5 mg (3 mL) inhalation Q4-6H PRN 05/13/24 (0.083 %) solution for nebulization shortness of breath or wheezing #180 mL prednisone 20 mg tablet 40 mg (2 x 20 mg) PO DAILY 5 days 08/29/24 #10 tabs fluticasone 250 mcg-salmeterol 50 1 inh inhalation Q12H #60 ea 09/09/24 mcg/dose blistr powdr for inhalation (Advair Diskus) prednisone 20 mg tablet 40 mg (2 x 20 mg) PO DAILY #8 tabs 01/06/25 Allergies Allergy/AdvReac Type Severity Reaction Status Date / Time shellfish derived Allergy Severe swelling Verified 01/05/25 19:00 [SHELLFISH DERIVED] of tongue aspirin [ASPIRIN] Allergy Intermediate rash/ itch Verified 01/05/25 19:00 ciprofloxacin [From CIPRO] Allergy Unknown UNKNOWN Verified 01/05/25 19:00 latex Allergy Unknown Itching Verified 01/05/25 19:00 Seafood Allergy Intermediate hives Uncoded 01/05/25 19:00 Review of Systems 2 Review of Systems: Yes all other systems are reviewed and are negative Constitutional: Constitutional: Denies fatigue, Denies fever(s) and Reports malaise Cardiovascular: Cardiovascular: Denies chest pain and Reports dyspnea Respiratory: Respiratory: Denies chest congestion, Reports cough, Reports dyspnea and Reports wheezing Gastrointestinal: Gastrointestinal: Denies diarrhea, Denies nausea and Denies vomiting Endocrine: Endocrine: Denies fatigue Allergic/Immunologic: Allergic/Immunologic: Reports wheezing PMFSH Past Medical History Attestation statement: The following information was validated with the patient. Medical History Thyroid nodule RBBB (right bundle branch block) HTN (hypertension), benign Hyperlipidemia Migraines Depression with anxiety Tubular adenoma of colon (~2018) Low back pain Surgical History History of appendectomy History of colonoscopy History of right breast biopsy Family History Family History Paternal Aunt Breast cancer Mother Pancreatic cancer Social History Social History Household Members: Spouse Housing: House Alcohol intake: never Patient Tobacco Use Status: Never used Tobacco Advance Directives: No Advance Directives Information Provided: No Do you have a plan to hurt others: No Plan Current occupational status: disabled Current occupation: lt handed Sexual orientation: Straight/Heterosexual Gender identity: Female Physical Exam 2 Vital Signs: Vital Signs: Last Vital Signs Temp 98.2 F 01/05/25 18:57 Pulse 81 01/05/25 18:57 Resp 16 01/05/25 18:57 BP 123/64 01/05/25 18:57 Pulse Ox 99 01/05/25 18:57 O2 Del Method Room Air 01/05/25 18:57 BMI result Body Mass Index 32.9 Const: Other: Alert Orientation/consciousness: patient oriented x3 Resp: Other: Nonlabored respirations, active dry cough, lungs are clear no wheezing Cardio: Other: Normal peripheral perfusion Skin: Other: Warm dry no rash Neuro: General: patient oriented x3, gait normal, no focal motor deficits and CN's II-XI intact bilaterally Psych: Other: Cooperative Course Course Course Narrative: This is a Rapid Medical Examination (RME) performed by Veronica Burns PA-C in triage. Full HPI, ROS, assessment and treatment plan per primary provider in the Main ED. 54 yo female hx of asthma here for eval of difficulty breathing and cough w/ clear sputum x1 week. sob worse w/ lying flat. no leg swelling or chest pain. hx asthma. albuterol not helping. + no adventitious breath sounds. no pitting edema. Plan: labs, ekg, cxr, viral swabs Medical Decision Making Medical Decision Making MDM Narrative: 54-year-old female with a history of asthma presents with ongoing cough cold symptoms x1 week. Associated dry repetitive cough, sob, with generalized malaise and wheezing. Denies fever or CP. No sick contacts with similar symptoms. Patient states she feels as if she is going to feel better, then she relapses. Problem: Asthma History: Per patient I have considered the following differential diagnoses: Asthma exacerbation, bronchitis, pneumonia, viral syndrome, PE Plan: Screening labs including a viral panel and a chest x-ray were obtained from triage, everything is negative. Patient has yet another respiratory virus causing her mild asthma exacerbation. She needs steroid to get over her reactive airway. She has inhaler and nebulizer at home. Thought about PE, however the patient is not complaining of chest pain, she is not hypoxic, she is not tachycardic, and she has no unilateral calf pain or swelling on exam. Deferring a dimer as it is not clinically warranted. I have independently reviewed the following tests: Labs: No leukocytosis, not anemic, no electrolyte abnormality, viral panel negative Chest x-ray:IMPRESSION: 1. No acute findings. This document has been electronically signed by: Norma Rouse MD on 01/05/2025 19:49:48 Lab Data 01/05/25 20:06 01/05/25 20:06 Labs: Lab Results 01/05/25 Range/Units 20:06 WBC 7.5 (4.8-10.8) X10*3/uL RBC 4.90 (4.20-5.50) X10*6/uL Hgb 13.7 (12.0-16.0) g/dl Hct 41.6 (37.0-47.0) % MCV 84.9 (80.0-98.0) fL MCH 28.0 (27.0-33.0) pg MCHC 32.9 (31.0-35.0) g/dl RDW 13.2 (11.0-16.0) % Plt Count 309 (160-400) X10*3/uL MPV 9.5 (9.4-12.3) fL Immature Gran % (Auto) 0.3 (0.0-0.4) % Neut % (Auto) 57.3 (45-73) % Lymph % (Auto) 33.3 (20-40) % [place] % (Auto) 6.4 (2-11) % Eos % (Auto) 2.4 (0-4) % Baso % (Auto) 0.3 (0-2) % Lymph # (Auto) 2.5 (1.2-4.9) X10*3/uL [place] # (Auto) 0.5 (0.1-1.2) X10*3/uL Eos # (Auto) 0.2 (0.0-0.4) X10*3/uL Baso # (Auto) 0.0 (0.0-0.2) X10*3/uL Abs Immat Gran (auto) 0.02 (0.00-0.03) X10*3/uL Absolute Neuts (auto) 4.3 (2.0-8.3) x10*3/uL Absolute Nucleated RBC 0.000 (0.0-0.012) X10*3/uL Nucleated RBC % (auto) 0.0 (0.0-0.2) /100WBC Sodium 142 (135-145) mmol/L Potassium 4.1 (3.3-5.1) mmol/L Chloride 111 H (96-108) mmol/L Carbon Dioxide 21 L (22-29) mmol/L Anion Gap 14 (12-20) BUN 16 (9-16) mg/dL Creatinine 0.78 (0.5-1.4) mg/dL Estim Creat Clear Calc 90.2 Estimated GFR > 60 Random Glucose 139 H (60-115) mg/dL Calcium 9.5 (8.4-10.2) mg/dL Magnesium 2.0 (1.6-2.6) mg/dL Total Bilirubin 0.2 (0.0-1.0) mg/dL AST 20 (5-31) U/L ALT 15 (0-31) U/L Alkaline Phosphatase 120 H (39-117) U/L Troponin I High Sens < 2.7 (<3.5-17.0) ng/L B-Natriuretic Peptide 49 (<100) pg/mL Total Protein 8.0 (6.5-8.0) g/dL Albumin 4.0 (3.5-5.0) g/dL Influenza Type A (PCR) NEGATIVE (Negative) Influenza Type B (PCR) NEGATIVE (Negative) RSV RNA Qual (PCR) NEGATIVE (Negative) SARS-CoV-2 RNA (RT-PCR) NEGATIVE (Negative) Discharge Plan Discharge Clinical Impression: Asthma exacerbation Patient Disposition: Home, Self-Care Instructions: Asthma (ED) Additional Instructions: All of your screening labs in the viral panel were negative. You were screened for influenza, RSV and COVID. The chest x-ray is clear. Use the prednisone as directed, you do not require any additional medication until tomorrow. Use your home nebulized treatment as directed per your entry level project engineer. Keep your follow up appointment this week with pulmonology. Prescriptions: New prednisone 20 mg tablet 40 mg PO DAILY Qty: 8 0RF No Action atorvastatin 40 mg tablet 40 mg PO BEDTIME Qty: 90 3RF albuterol sulfate 2.5 mg /3 mL (0.083 %) solution for nebulization 2.5 mg inhalation Q4-6H PRN (Reason: shortness of breath or wheezing) Qty: 180 0RF fluticasone propion-salmeterol [Advair Diskus] 250-50 mcg/dose blister with device 1 inh inhalation Q12H Qty: 60 3RF prednisone 20 mg tablet 40 mg PO DAILY 5 Days Qty: 10 0RF propranolol 160 mg capsule,extended release 24 hr 160 mg PO DAILY sertraline 100 mg tablet 100 mg PO DAILY omeprazole 40 mg capsule,delayed release(DR/EC) 40 mg PO DAILY PRN acetaminophen 650 mg tablet extended release 650 mg PO Q8H PRN clonazepam 0.5 mg tablet 0.5 mg PO cholecalciferol (vitamin D3) 25 mcg (1,000 unit) tablet 25 mcg PO QAM albuterol sulfate 90 mcg/actuation HFA aerosol inhaler 2 puff inhalation Q4-6H PRN (Reason: shortness of breath or wheezing) Qty: 1 3RF albuterol sulfate 2.5 mg /3 mL (0.083 %) solution for nebulization 2.5 mg inhalation Q4-6H PRN (Reason: shortness of breath or wheezing) Qty: 180 0RF Print Language: Cymraes
--- NOTE | 2025-01-05 19:02 | ECG_ITS ---
Test Reason : dyspena Blood Pressure : */* mmHG Vent. Rate : 65 BPM Atrial Rate : 65 BPM P-R Int : 132 ms QRS Dur : 116 ms QT Int : 398 ms P-R-T Axes : 50 10 -4 degrees QTcB Int : 413 ms Artifact in tracing Normal sinus rhythm Right bundle branch block Abnormal ECG When compared with ECG of 29-Aug-2024 18:41, No significant changes seen Referred By: Yudelka Burns Electronically Signed By: KYREE FRANKS
[2025-01-05 20:12] LABS: MANUAL DIFF FLAG NO
[2025-01-05 20:13] LABS: Basophils Percent Auto 0.3 % (0-2); Eosinophils Absolute Auto 0.2 X10*3/uL (0.0-0.4); Eosinophils Percent Auto 2.4 % (0-4); Hematocrit 41.6 % (37.0-47.0); Hemoglobin 13.7 g/dl (12.0-16.0); Imm Gran Abs Auto 0.02 X10*3/uL (0.00-0.03); Imm Gran Pct Auto 0.3 % (0.0-0.4); Lymphocytes Absolute Auto 2.5 X10*3/uL (1.2-4.9); Lymphocytes Percent Auto 33.3 % (20-40); Mean Corpuscular HGB Conc 32.9 g/dl (31.0-35.0); Mean Corpuscular Volume 84.9 fL (80.0-98.0); Mean Platelet Volume 9.5 fL (9.4-12.3); Monocytes Absolute Auto 0.5 X10*3/uL (0.1-1.2); Monocytes Percent Auto 6.4 % (2-11); Neutrophils Absolute Auto 4.3 x10*3/uL (2.0-8.3); Neutrophils Percent Auto 57.3 % (45-73); Platelet Count 309 X10*3/uL (160-400); Red Cell Distribution Width 13.2 % (11.0-16.0); White Blood Count 7.5 X10*3/uL (4.8-10.8)
[2025-01-05 20:27] LABS: Alanine Aminotransferase 15 U/L (0-31); Alkaline Phosphatase 120 U/L (39-117); Anion Gap 14 (12-20); Aspartate Amino Transferase 20 U/L (5-31); Bilirubin Total 0.2 mg/dL (0.0-1.0); Blood Urea Nitrogen 16 mg/dL (9-16); Calcium 9.5 mg/dL (8.4-10.2); Carbon Dioxide 21 mmol/L (22-29); Chloride 111 mmol/L (96-108); Creatinine Clr Calc Pharmacy 90.2; Estimated Glomerular Filt Rate > 60; Glucose Random 139 mg/dL (60-115); Potassium 4.1 mmol/L (3.3-5.1); Sodium 142 mmol/L (135-145)
[2025-01-05 20:33] LABS: B Type Natriuretic Peptide 49 pg/mL (<100)
[2025-01-05 20:35] LABS: Troponin-I High Sensitivity < 2.7 ng/L (<3.5-17.0)
[2025-01-05 20:57] LABS: Influenza A PCR NEGATIVE (Negative); Influenza B PCR NEGATIVE (Negative); Resp Syncy Virus RNA Qual PCR NEGATIVE (Negative); SARS COV2 PCR INHOUSE NEGATIVE (Negative)
[2025-01-06] MEDS: predniSONE 20 MG TABLET 40 MG PO (01:13)
[2025-01-06 01:14] VITALS: BP 119/60; PULSE 80; RESP 18; TEMP 36.7; O2SAT 98
[2025-01-06 01:15] VITALS: BP 119/60; PULSE 80; RESP 18; TEMP 36.7; O2SAT 98
== END 2025-01-06 01:24 | disposition home or self-care (01) ==
PROVIDERS: Physician Assistant Medical; Emergency Provider Emergency Medicine; PCP Internal Medicine
DX: J45.901 Unspecified asthma with (acute) exacerbation (principal); R06.02 Shortness of breath; R05.9 Cough, unspecified; R53.81 Other malaise; I45.10 Unspecified right bundle-branch block; R94.31 Abnormal electrocardiogram [ECG] [EKG]; Z03.818 Encounter for observation for suspected exposure to other biological agents ruled out; Z79.899 Other long term (current) drug therapy
CPT/HCPCS: 0241U; 36415; 71046; 80053; 83735; 83880; 84484; 85025; 93005; 99283; 99284

== ENCOUNTER → 2025-01-05 19:01 | Outpatient (BNV) | payer MEDICARE, MEDICAID, SELFPAY | PROVIDERS: PCP Internal Medicine; Visit Provider Nuclear Medicine | DX: R06.09 Other forms of dyspnea (principal) | CPT/HCPCS: 71046 ==

== ENCOUNTER → 2025-01-05 19:02 | Outpatient (BNV) | payer MEDICARE, MEDICAID, SELFPAY | PROVIDERS: Emergency Provider Emergency Medicine; PCP Internal Medicine; Visit Provider Internal Medicine | DX: I45.10 Unspecified right bundle-branch block (principal); R06.09 Other forms of dyspnea; R94.31 Abnormal electrocardiogram [ECG] [EKG] | CPT/HCPCS: 93010 ==

== ENCOUNTER 2025-01-09 15:32 | Outpatient (AMB) | payer MEDICARE, MEDICAID, SELFPAY ==
[2025-01-09 15:42] VITALS: BMI 33.6
--- NOTE | 2025-01-09 15:42 | A.OFFVIS_ITS ---
Vital Signs 01/09/25 15:42 Height 5 ft 5 in Weight 202 lb BMI 33.6 Intake Visit Reasons: pulmonary nodule Director Of Home Economics Required: Yes Director Of Home Economics Services: Director Of Home Economics Present Director Of Home Economics Name: Anya Cantu Supervising Librarian: Supervising Librarian offered & declined Accompanied by: Self / Same As Patient Allergies shellfish derived [SHELLFISH DERIVED] Allergy (Severe, Verified 01/09/25 15:47) swelling of tongue aspirin [ASPIRIN] Allergy (Intermediate, Verified 01/09/25 15:47) rash/ itch ciprofloxacin [From CIPRO] Allergy (Unknown, Verified 01/09/25 15:47) UNKNOWN latex Allergy (Unknown, Verified 01/09/25 15:47) Itching Seafood Allergy (Intermediate, Uncoded 01/09/25 15:47) hives Medication List - Last Reconciled 01/09/25 by Arin Keane LPN acetaminophen ER 650 mg PO Q8H PRN albuterol sulfate 2.5 mg (3 mL) inhalation Q4-6H PRN albuterol sulfate 90 mcg/actuation 2 puffs inhalation Q4-6H PRN albuterol sulfate 2.5 mg (3 mL) inhalation Q4-6H PRN atorvastatin 40 mg PO BEDTIME cholecalciferol (vitamin D3) 25 mcg PO QAM clonazepam 0.5 mg PO fluticasone propion-salmeterol 250-50 mcg/dose (Advair Diskus) 1 inh inhalation Q12H omeprazole 40 mg PO DAILY PRN prednisone 40 mg (2 x 20 mg) PO DAILY 5 days propranolol ER 160 mg PO DAILY sertraline 100 mg PO DAILY HPI HPI pulmonary nodule: Details: Lauren is a pleasant 54 year old female, never smoker, with underlying history of childhood asthma and pulmonary nodules. At the last visit she was switched to Advair and reports significant improvement in symptoms and has not had to use albuterol. Today she presents for an acute visit. She recently traveled to [place] and returned with worsening asthma symptoms. She was seen at [facility] Sunday: CXR, EKG, respiratory panel unremarkable. She was discharged with 40 mg of prednisone x 5 days with moderate improvement. She continues with chest tightness and dyspnea. She denies fevers or chills. She denies chest congestion and wheezing. [facility] Medical History Thyroid nodule RBBB (right bundle branch block) HTN (hypertension), benign Hyperlipidemia Migraines Depression with anxiety Tubular adenoma of colon (~2019) Low back pain Surgical History History of appendectomy History of colonoscopy History of right breast biopsy Family History Paternal Aunt Breast cancer Mother Pancreatic cancer Social History Household Members: Spouse Housing: House Alcohol intake: never Patient Tobacco Use Status: Never used Tobacco Current occupational status: disabled Current occupation: lt handed Sexual orientation: Straight/Heterosexual Gender identity: Female Female Reproductive History Menstrual Age of Menarche: 14 Review of Systems Const Denies chills, Denies excessive sweating, Denies fever(s), Denies headache(s) and Denies night sweats Eyes Denies dry eyes, Denies irritation and Denies itchy eyes ENT Reports Normal hearing present, Denies headache(s), Denies nasal congestion, Denies nasal discharge, Denies post nasal drip and Denies sore throat Card Denies chest pain, Denies chest pain at rest, Denies chest pain with activity, Denies claudication, Denies leg edema, Denies orthopnea and Denies paroxysmal nocturnal dyspnea Resp Denies chest congestion, Denies excessive phlegm production, Denies pain on inspiration, Denies pain with cough, Denies stridor and Denies wheezing Musc Denies myalgias Neuro Reports Normal hearing present and Denies headache(s) Endo Denies excessive sweating Vicente/Lymph Denies lymphadenopathy Aller/Immun Denies itchy eyes, Denies seasonal rhinorrhea and Denies wheezing Physical Exam Vital Signs: BMI result Body Mass Index 33.6 Const General: cooperative, healthy appearing, comfortable, no acute distress, well developed and alert Nutritional Appearance: obese Orientation/consciousness: patient oriented x3 Limitations: no limitations HEENT Head: Yes normal to inspection, Yes normocephalic and Yes atraumatic Ears: hearing grossly normal bilaterally and external ears normal Eyes General: appearance normal, both eyes and all related structures Eyelids: Yes eyelids normal Sclerae: sclerae normal EOM: EOMs intact bilaterally Neck Neck: Yes normal visual inspection and Yes no lymphadenopathy Lymphatic: no lymphadenopathy noted Chest Chest palpation & inspection: normal inspection of the chest Resp Effort & Inspection: normal respiratory effort, able to speak in complete sentences, no audible wheezes, no cough, no stridor, not tachypneic, no tripod positioning and no use of accessory muscles Auscultation: clear to auscultation bilaterally Cardio Jugular venous distension: no JVD Rate: regular rate Rhythm: regular rhythm Skin Other: warm, dry General skin exam: no rashes or lesions noted Neuro General: patient oriented x3 Cranial nerves: Yes Normal hearing present Cognition (Neuro): normal cognition Gait exam (Neuro): Normal gait present Extrem General: Yes normal to inspection, Yes capillary refill normal, Yes no clubbing, cyanosis or edema and Yes no pedal edema Psych Appearance: grossly normal and well kempt Speech and movement: Normal speech and movement present and Clear speech present Affect: normal affect Attitude: cooperative Thought process: Normal thought process present Thought content: Normal thought content present Insight: Good insight present (Psych) Judgement: Good judgement present (Psych) Assessment & Plan Assessment & Plan (1) Asthma: Code(s): J45.909 - Unspecified asthma, uncomplicated Category: Medical (2) Lung nodule: Code(s): R91.1 - Solitary pulmonary nodule Category: Medical (3) Dyspnea: Code(s): R06.00 - Dyspnea, unspecified Category: Medical Plan Lauren reports suboptimal control of respiratory symptoms on Advair will switch to Trelegy. Advised to reach out to cardiology for further evaluation of dyspnea if no improvement with Trelegy. She is aware she needs to rescheduled chest CT to assess stability of pulmonary nodule. Will follow up to review results or sooner if needed. All questions were answered and patient is in agreement of plan. Medications: New jaumxupfcmy-nnvysipkh-arhbuxel 200-62.5-25 mcg (Trelegy Ellipta) 1 inh inhalation DAILY 60 ea 6RF Coding Level of Care Code Est Pt Level 4 (53552) Diagnoses Asthma J45.909 Lung nodule R91.1 Dyspnea R06.00
--- OUTSIDE RECORDS SUMMARY | 2025-01-09 17:36 | XMS_ITS | Encounter Summary ---
Author Organization [facility] [place], Address [address] [facility] [address] [place] [address] Phone Care Team Providers Care Children'S Entertainer Name Role Phone Charli Heller MD Primary Care Provider Unav ailable Encounter Details Date Type Department Care Team (Late st Contact Info) Description 12/15/2021 Documentation Only [facility] [address] [place] [address] Steven Bernal MD [address] [facility] [place] [address] Social History Tobacco Use Types Packs/Day Years Used Date Smoking Tobacco: Never Alcohol Use Standard Drinks/Week Comments No 0 (1 standard drink = 0.6 oz pur e alcohol) Comments Unknown Sex and Gender Information Value Date Recorded Sex Assigned at Not on file Legal Sex Female 4:37 PM EST Gender Identity Not on file Sexual Orientation Not on file documented as of this encounter Plan of Treatment Upcoming Encounters Date Type Department Care Team (Late st Contact Info) Description 03/31/2025 3:45 PM EDT Office Visit [facility] [address] [facility] [address] Steven Bernal MD [address] [facility] [place] [address] documented as of this encounter Visit Diagnoses Not on filedocumented in this encounter Care Teams Children'S Entertainer Relationship Specialty Start Date End Date Charli Heller MD PCP - General 09/16/19 documented as of this encounter
--- OUTSIDE RECORDS SUMMARY | 2025-01-09 17:36 | XMS_ITS | Encounter Summary ---
Author Organization [facility] [place], Address [address] [facility] [address] [place] [address] Phone Care Team Providers Care Watershed Tender Name Role Phone Charli Heller MD Primary Care Provider Unav ailable Reason for Visit * Reason Comments Med Refill Encounter Details Date Type Department Care Team (Late Contact Info) Description 11/24/2021 Refill [facility] [address] [place] [address] Steven Bernal MD [address] [facility] [place] [address] Social History Tobacco Use Types [...] Encounters Date Type Department Care Team (Late Contact Info) Description 03/31/2025 3:45 PM EDT Office Visit [facility] [place], [address] [place] [address] Steven Bernal MD [address] [facility] [place] [address] documented as of this encounter Visit Diagnoses Not on filedocumented in this encounter Care Teams Watershed Tender Relationship Specialty Start Date End Date Charli Heller MD PCP - General 09/16/19 documented as of this encounter
--- OUTSIDE RECORDS SUMMARY | 2025-01-09 17:36 | XMS_ITS | Encounter Summary ---
Author Organization [facility] [place], Address [address] [facility] [address] [place] [address] Phone Care Team Providers Care Collar Setter Overlock Name Role Phone Charli Heller MD Primary Care Provider Unav ailable Encounter Details Date Type Department Care Team (Late st Contact Info) Description 06/07/2022 Documentation Only [facility] [address] [place] [address] Steven Bernal MD [address] [facility] [place] [address] Social History Tobacco Use Types [...] Visit [facility] [address] [facility] [place] [address] Steven Bernal MD [address] [facility] [place] [address] documented as of this encounter Visit Diagnoses Not on filedocumented in this encounter Care Teams Collar Setter Overlock Relationship Specialty Start Date End Date Charli Heller MD PCP - General 09/16/19 documented as of this encounter
--- OUTSIDE RECORDS SUMMARY | 2025-01-09 17:36 | XMS_ITS | Encounter Summary ---
Author Organization [employer] Address [address] [facility] [address] [place] [address] Care Team Providers Care Amusement Centre Manager Name Role Phone Charli Nye MD Primary Care Provide r Reason for Visit * Reason Comments Care Coordination CHW outreach for SDO H PT-1 and food needs-referral completed Encounter Details Date Type Department Care Team (Latest Contact Info) Description 01/06/2025 Patient Outreach [facility] MEDICINE [address] [place] [address] Charli Nye MD [address] [place] [address] Care Coordination (CHW outreach for SDOH PT-1 and food needs-referral completed /) Social History Tobacco Use Types Packs/Day Years Used Date Smoking Tobacco: Never Passive Smoke Exposure: Never Smokeless Tobacco: Never Alcohol Use Standard Drinks/Week Comments Never 0 (1 standard drink = 0.6 oz pur e alcohol) Depression Answer Date Recorded Patient Health Questionnaire-9 Score 1 07/22/2024 Patient Health Questionnaire-9 Score 1 07/22/2024 Last PHQ-9: Questionnaire Data Not on file 0 07/22/2024 Housing Stability Answer Date Recorded What is your housing situation today? I have vidya chong 01/06/[address] you li ve. Do you have problems with any of the following? None of the above 01/06/2025 Food Insecurity Answer Date Recorded Within the past 12 months, y ou worried that your food would run out before you got money to buy more: Never True 01/06/2025 Within the past 12 months,th e food you bought just didn't last and you didn't have enough money to get more: Never True Transportation Answer Date Recorded In the past 12 months, has l ack of transportation kept you from medical appts, meetings, work or from getting things needed for daily living? Yes, it has kept me from medical appointments or getting medications. 01/06/2025 Utilities Answer Date Recorded In the past 12 months, has t he electric, gas, oil or water company threatened to shut off services in your home? No 01/06/2025 Depression Answer Date Recorded Patient Health Questionnaire-2 Score 0 07/22/2024 Internet Access Answer Date Recorded Internet Access Q1 Yes 01/06/2025 Internet Access Q2 Not on file 01/06/2025 Comments Unknown Sex and Gender Information Value Date Recorded Sex Assigned at Female 09/11/2022 10:18 AM EDT Legal Sex Female 10:18 AM EDT Gender Identity Female 09/11/2022 10:18 AM EDT Sexual Orientation Straight 09/11/2022 10 :18 AM EDT documented as of this encounter Progress Notes * Wojciech Ortiz - 01/06/2025 3:05 PM EST CHW Wojciech Ortiz, placed outbound call to patient for assistance with SDOH as a referral was received by the provider. Patient's name and were confirmed. Patient screened positive for the following SDOH food insecurities. Patient states family in on SNAP program at this time. CHW referral patient to the local list of pantries in the area for help. PT-1 requested was send out in behalf of patient for futures appt. Patient verbalizes understanding, and able to agree with plan to follow up.Patient educated on extended clinic hours on Mondays through Wednesdays, and Walk-In Urgent Care Located in [facility] of [facility]. Patient provided with after-hours line for [facility], , which offer night time triage service and option to transfer to argon tester provider if needed. documented in this encounter Plan of Treatment Upcoming Encounters Date Type Department Care Team (Late st Contact Info) Description 01/15/2025 1:00 PM EST Office Visit [facility] MEDICINE [address] [place] [address] Charli Nye MD [address] [place] [address] documented as of this encounter Visit Diagnoses Not on filedocumented in this encounter Additional Health Concerns Assessment Noted Time PHQ-9 Depression Total Score: 1 07/22/20 24 10:33 AM EDT documented as of this encounter Care Teams Amusement Centre Manager Relationship Specialty Start Date End Date Charli Nye MD [address] [place] [address] PCP - General Internal Medicine 06/16/14 documented as of this encounter
--- OUTSIDE RECORDS SUMMARY | 2025-01-09 17:36 | XMS_ITS | Encounter Summary ---
Author Organization [employer] Address [address] [facility] 7[address] [place] [address] Care Team Providers Care Nurse Examiner Name Role Phone Charli Nye MD Primary Care Provide r Reason for Visit * Reason Onset Date Comments Chart Prep 01/01/2025 Encounter Details Date Type Department Care Team ([facility] st Contact Info) Description 01/01/2025 Telephone [facility] MEDICINE [address] [place], [place] [phone] Charli Nye MD [address] [place], [place] [phone] Chart Prep Social History Tobacco Use Types Packs/Day Years [...] housing situation today? I have vidya chong 09/06/[address] you li ve. Do you have problems with any of the following? None of the above 09/06/2023 Food Insecurity Answer Date Recorded Within the past 12 months, y ou worried that your food would run out before you got money to buy more: Sometimes True 2023 Within the past 12 months,th e food you bought just didn't last and you didn't have enough money to get more: Sometimes True 12/24/2023 Transportation Answer Date Recorded In the past 12 months, has l ack of transportation kept you from medical appts, meetings, work or from getting things needed for daily living? Yes, it has kept me from medical appointments or getting medications. 12/24/2023 Utilities Answer Date Recorded In the past 12 months, has t he electric, gas, oil or water company threatened to shut off services in your home? No 09/06/2023 Depression Answer Date Recorded Patient Health Questionnaire-2 Score 0 07/22/2024 Comments Unknown Sex and Gender Information Value Date Recorded Sex Assigned at Female 09/11/2022 10:18 AM EDT Legal Sex Female 10:18 AM EDT Gender Identity Female 09/11/2022 10:18 AM EDT Sexual Orientation Straight 09/11/2022 10 :18 AM EDT documented as of this encounter Miscellaneous Notes * Telephone Encounter - Keena Eisenberg MA - 01/01/2025 11:24 AM EST Chart Prep Labs: not done Images: done Vaccines due: Covid Due, Tdap Due, Hep B Due, and PCV20 Due Referrals: Not Applicable Screenings: HIV screening Overdue care gaps: Sbirt and SDOH Chart prep for upcoming appt with Dr.Esparza govea. LB documented in this encounter Plan of Treatment Upcoming Encounters Date Type Department Care Team (Late st Contact Info) Description 01/15/2025 1:00 PM EST Office Visit [facility] MEDICINE [address] [place] [address] Charli Nye MD [address] [place] [address] documented as of this encounter Visit Diagnoses Not on filedocumented in this encounter Additional Health Concerns Assessment Noted Time PHQ-9 Depression Total Score: 1 07/22/20 24 10:33 AM EDT documented as of this encounter Care Teams Nurse Examiner Relationship Specialty Start Date End Date Charli Nye MD [address] [place] [address] PCP - General Internal Medicine 06/16/14 documented as of this encounter
--- OUTSIDE RECORDS SUMMARY | 2025-01-09 17:36 | XMS_ITS | Encounter Summary ---
Author Organization [facility], Address [address] [facility] [address] [place] [address] Phone Care Team Providers Care Operations Inspector Name Role Phone Charli Heller MD Primary Care Provider Unav ailable Encounter Details Date Type Department Care Team (Late st Contact Info) Description 06/07/2022 Documentation Only [facility] [address] [place] [address] Steven Bernal MD [address] [facility] [place] [address] Social History Tobacco Use Types [...] Visit [facility] [address] [place] [address] Steven Bernal MD [address] [facility] [address] [place] [address] documented as of this encounter Visit Diagnoses Not on filedocumented in this encounter Care Teams Operations Inspector Relationship Specialty Start Date End Date Charli Heller MD PCP - General 09/16/19 documented as of this encounter
--- OUTSIDE RECORDS SUMMARY | 2025-01-09 17:36 | XMS_ITS | Encounter Summary ---
Author Organization [employer] Address [address] [facility] [address] [place] [address] Care Team Providers Care Malt Roaster Name Role Phone Charli Nye MD Primary Care Provide r Reason for Visit * Reason Comments Pre-visit Planning SDOH Screening posit cem and Tobacco screening negative Encounter Details Date Type Department Care Team ([facility] st Contact Info) Description 01/06/2025 Patient Outreach [facility] MEDICINE [address] [place], [place] [phone] Charli Nye MD [address] [place] [address] Pre-visit Planning (SDOH Screening positive and Tobacco screening negative) Social History Tobacco Use Types Packs/Day Years [...] as of this encounter Progress Notes * Karlene Hunter - 01/06/2025 2:01 PM EST CC Karlene Rooney placed successful outbound call to patient for pre-visit planning. Patient name and confirmed. Patient confirms appt date and time, and has transportation arrangements. Biggest concern for appointment at this time is would like to talk about her asthma. Patient advised to bring to appointment a photo id and insurance card. Appropriate screenings completed in anticipation of appointment. SDOH positive. Patient looking for assistance with transportation. Referral will be placed. documented in this encounter Plan of Treatment Upcoming Encounters Date Type Department Care Team (Late st Contact Info) Description 01/15/2025 1:00 PM EST Office Visit [facility] MED[facility]INE [address] [place] [address] Charli Nye MD [address] [place], [place] [phone] documented as of this encounter Visit Diagnoses Not on filedocumented in this encounter Additional Health Concerns Assessment Noted Time PHQ-9 Depression Total Score: 1 07/22/20 24 10:33 AM EDT documented as of this encounter Care Teams Malt Roaster Relationship Specialty Start Date End Date Charli Nye MD [address] [place] [address] PCP - General Internal Medicine 06/16/14 documented as of this encounter
--- OUTSIDE RECORDS SUMMARY | 2025-01-09 17:36 | XMS_ITS | Encounter Summary ---
Author Organization [facility], Address [address] [facility] [address] [place] [address] Phone Care Team Providers Care Information Technology Teacher Name Role Phone Charli Heller MD Primary Care Provider Unav ailable Encounter Details Date Type Department Care Team (Late st Contact Info) Description 06/07/2022 Documentation Only [facility] [address] [place] [address] Steven Bernal MD [address] [facility] [place] [address] Social History Tobacco Use Types [...] Visit [facility] [address] [facility] [address] [address] Steven Bernal MD [address] [facility] [place] [address] documented as of this encounter Visit Diagnoses Not on filedocumented in this encounter Care Teams Information Technology Teacher Relationship Specialty Start Date End Date Charli Heller MD PCP - General 09/16/19 documented as of this encounter
--- OUTSIDE RECORDS SUMMARY | 2025-01-09 17:36 | XMS_ITS | Encounter Summary ---
Author Organization [facility] Address [address] [facility] [address] [place] [address] Phone Care Team Providers Care Cold Type Artist Name Role Phone Charli Heller MD Primary Care Provider Unav ailable Encounter Details Date Type Department Care Team (Late st Contact Info) Description 07/20/2022 Documentation Only [facility] [address] [place] [address] Reginald Correia PA Social History Tobacco Use Types Packs/Day Years [...] Visit [facility] [address] [place] [address] Steven Bernal MD [address] [place] [address] [place] [id number] documented as of this encounter Visit Diagnoses Not on filedocumented in this encounter Care Teams Cold Type Artist Relationship Specialty Start Date End Date Charli Heller MD PCP - General 09/16/19 documented as of this encounter
--- OUTSIDE RECORDS SUMMARY | 2025-01-09 17:36 | XMS_ITS | Clinical Summary ---
Author Organization [facility], Address [address] [place] [address] [place] [address] Phone Care Team Providers Care Paint Line Supervisor Name Role Phone Charli Heller MD Primary Care Provider Unav ailable Allergies Active Allergy Reactions Criticality Noted Date Comments Amoxicillin Other (see comments) 10/28/2020 Yeast infections Aspirin Rash Low 10/28/2020 Clavulanic Acid 10/28/2020 Yeast infection Shellfish Allergy 02/26/2023 Medications acetaminophen (TYLENOL) 500 MG tablet Take by mouth every 6 (six) hours if needed for mild pain Active clonazePAM (KlonoPIN) 0.5 MG tablet Take 0.5 mg by mouth 2 (two) times a day Active omeprazole (PriLOSEC) [address] capsule Take 20 mg by mouth 1 (one) time each day Do not crush or chew. Active loratadine (CLARITIN) 10 MG tablet Take 10 mg by mouth 1 (one) time each day Active sertraline (ZOLOFT) 50 MG tablet Take 1 tablet (50 mg total) by mouth 1 (one) time each day 08/01/2022 Active atorvastatin (LIPITOR) 40 MG tablet TAKE 1 TABLET ORALLY AT BEDTIME 01/01/2024 Active propranolol LA (INDERAL LA) 160 MG 24 hr capsule Take 1 capsule (160 mg total) by mouth 1 (one) time each day Do not crush, chew, or split. 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 Given adequate blood pressure control will continue with current medical regimen. Most recent electrolytes, Bun and Creatinine done on: 04/28/2023 were within normal limits. patient advised to adhere to a low sodium diet, encouraged about medication compliance, counseled about weight loss. 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 02/25/2020 Deep venous thrombosis 12/26/201902/24 Hyperlipidemia 12/26/2019 07/08/2021 Migraine 12/26/2019 02/25/2020 Tachycardia 12/26/2019 02/25/2020 Family History Medical History Relation Comments Diabetes Father Heart disease Father [place] Cancer Mother Heart disease Sibling brother CAD Relation Status Comments Father Mother Sibling Social History Tobacco Use Types Packs/Day Years Used Date Smoking Tobacco: Never Tobacco Cessation:Counseling Given: Not Answered Alcohol Use Standard Drinks/Week Comments No 0 (1 standard drink = 0.6 oz pur e alcohol) Comments Unknown Sex and Gender Information Value Date Recorded Sex Assigned at Not on file Legal Sex Female 4:37 PM EST Gender Identity Not on file Sexual Orientation Not on file Last Filed Vital Signs Vital Sign Reading Time Taken Comments Blood Pressure 110/72 01/30/2024 4:35 PM EDT Pulse 68 11/26/2018 12:00 PM EST Temperature - - Respiratory Rate 16 11/26/2018 12:00 PM EST Oxygen Saturation - - Inhaled Oxygen Concentration - - Weight 88.5 kg (195 lb 3.2 oz) 01/30/2024 4:35 P M EDT Height 165.1 cm (5' 5 ) 01/30/2024 4:35 PM EDT Body Mass Index 32.48 01/30/2024 4:35 PM EDT Plan of Treatment Upcoming Encounters Date Type Department Care Team (Late st Contact Info) Description 03/31/2025 3:45 PM EDT Office Visit [facility], [address] [place] [address] Steven Bernal MD [address] [facility] [place] [address] Health Maintenance Due Date Last Done Comments Breast Cancer Screening 1970 Hepatitis B Vaccine (1 of 3 - 19+ 3-dose series) 1988 Pneumococcal Vaccine: Pediat rics (0 to 5 Years) and At-Risk Patients (6 to 64 Years) (2 of 2 - PCV) 10/02/2011 10/02/2010 Colorectal Cancer Screening: Annual FOBT 2018 Colorectal Cancer Screening: Colonoscopy 2018 Colorectal Cancer Screening: Sigmoidoscopy 2018 Influenza Vaccine (#1) 2024 , 08/25/2022, 09/07/2021, Additional history exists Insurance MEDICARE MEDICAID [place] Care Teams Paint Line Supervisor Relationship Specialty Start Date End Date Charli Heller MD PCP - General 09/16/19
--- OUTSIDE RECORDS SUMMARY | 2025-01-09 17:36 | XMS_ITS | Encounter Summary ---
Author Organization [employer] Address [address] [facility] [address] [place] [address] Care Team Providers Care Pharmacist Helper Name Role Phone Charli Nye MD Primary Care Provide r Encounter Details Date Type Department Care Team ([facility] st Contact Info) Description 01/01/2024 Telephone [facility] MEDICINE [address] [place], [place] [phone] Charli Nye MD [address] [place], [place] [phone] Social History Tobacco Use Types Packs/Day Years Used Date Smoking Tobacco: Never Passive Smoke Exposure: Never Smokeless Tobacco: Never Alcohol Use Standard Drinks/Week Comments Never 0 (1 standard drink = 0.6 oz pur e alcohol) Depression Answer Date Recorded Patient Health Questionnaire-9 Score 6 05/01/2023 Housing Stability Answer Date Recorded What is [...] Answer Date Recorded Patient Health Questionnaire-2 Score 2 05/01/2023 Comments Unknown Sex and Gender Information Value Date Recorded Sex Assigned at Female 09/11/2022 10:18 AM EDT Legal Sex Female 10:18 AM EDT Gender Identity Female 09/11/2022 10:18 AM EDT Sexual Orientation Straight 09/11/2022 10 :18 AM EDT documented as of this encounter Miscellaneous Notes * Telephone Encounter - Jacqui Parks RN - 01/01/2024 9:15 AM EST TC placed to pt, utilizing [employer] Starter ID: [id number], regarding message below. Pt informed BVsure swab came back incomplete and pt offered re-testing. Pt verbalized understanding and reports she already confirmed appt and reports bleeding stopped. Pt reports I will wait until . No further questions or concerns expressed. Pt to F/U as needed. RN will forward to Dr. Mcdaniel as FYI. Critical result line call received at this time. BV Sure swab as ordered by was not completed. As swab not sufficient. Please update PCP and follow with patient. * Telephone Encounter - Joy Banuelos LPN - 01/01/2024 9:00 AM EST Critical result line call received at this time. BV Sure swab as ordered by was not completed. As swab not sufficient. Please update PCP and follow with patient. documented in this encounter Plan of Treatment Upcoming Encounters Date Type Department Care Team (Late st Contact Info) Description 01/15/2025 1:00 PM EST Office Visit [facility] MEDICINE [address] [place], [place] [phone] Charli Nye MD [address] [place], [place] [phone] documented as of this encounter Visit Diagnoses Not on filedocumented in this encounter Additional Health Concerns Assessment Noted Time PHQ-9 Depression Total Score: 6 05/01/20 23 1:05 PM EDT documented as of this encounter Care Teams Pharmacist Helper Relationship Specialty Start Date End Date Charli Nye MD [address] [place] [address] PCP - General Internal Medicine 06/16/14 documented as of this encounter
--- OUTSIDE RECORDS SUMMARY | 2025-01-09 17:36 | XMS_ITS | Clinical Summary ---
Author Organization [employer] Address [address] [place] [address] [address] [place] [address] Care Team Providers Care Mobile Mechanic Name Role Phone Charli Nye MD Primary Care Provide r Allergies Active Allergy Reactions Criticality Noted Date Comments Amoxicillin 06/04/2020 Other reaction(s): Other (see comments), yeast infection Yeast infections Aspirin Rash Low Other reaction(s): Rash Ciprofloxacin Other 03/02/2023 Clavulanic Acid 06/04/2020 Other reaction(s): yeast infection Yeast infection Latex Itching 01/08/2024 Shellfish Allergy 01/24/2023 Medications fluticasone (Flonase) 50 MCG/ACT nasal spray USE 1 SPRAY IN EACH NOSTRIL TWICE A DAY 3 Active naratriptan (Amerge) 2.5 MG tablet TOME PRIYA TABLETA POR V A ORAL TODOS LOS D CUANDO SEA NECESARIO PARA EL DOLOR DE NENO 3 Active topiramate (Topamax) 25 MG tablet TOME PRIYA TABLETA TODOS LOS D FOR 90 DAYS 3 Active Diclofenac Sodium 1 % gelIndications: Chronic pain of right wrist APLIQUE AL AREA AFECTADA DOS VECES AL DIDIER 100 g 1 3 Active atorvastatin (Lipitor) 40 MG tablet TOME PRIYA TABLETA TODOS LOS D AL ACOSTARSE 3 Active Advair HFA 115-21 MCG/ACT inhaler INHALE DANDO DOS SOPLIDOS CADA DOCE HORAS 3 Active diphenhydrAMINE (BENADryl) 12.5 MG/5ML liquidIndicatio ns:Viral URI Take 10 mL (25 mg) by mouth if needed at bedtime for sleep for up to 10 days. 118 mL 3 Active albuterol 108 (90 Base) MCG/ACT inhaler Q6H as needed 3 Active clonazePAM (KlonoPIN) 0.5 MG tablet Take 0.5 mg by mouth 2 times daily. 9 Active omeprazole (PriLOSEC) [address] capsule Take 20 mg by mouth Once per day. 2 Active propranolol LA (Inderal LA) 160 MG 24 hr capsule Take 160 mg by mouth Once per day. 3 Active sertraline (Zoloft) 50 MG tablet Take 50 mg by mouth Once per day. 9 Active Dulera 200-5 MCG/ACT inhaler TOME DOS INHALACIONES POR V A ORAL DOS VECES AL D A 4 Active acetaminophen (Tylenol 8 Hour) 650 MG ER tabletIndicatio ns:Pain SWALLOW 1 TAB WHOLE BY MOUTH EVERY 8 HOURS NEEDED WITH WATER. DO NOT BREAK,CRUSH,DISS OLVE OR CHEW 60 tablet 3 4 Active levalbuterol (Xopenex) 45 MCG/ACT inhaler TAKE 1 PUFF INHALED EVERY 4 TO 6 HOURS NEEDED FOR SHORTNESS OF BREATH 4 Active albuterol (2.5 MG/3ML) 0.083% nebulizer solution USE 1 VIAL VIA NEBULIZER EVERY 4-6 HOURS NEEDED FOR WHEEZE/SHORTNESS OF BREATH PA DENIED 4 Active terbinafine (LamISIL) 250 MG tabletIndicatio ns:Onychomycosi s of great toe Take 1 tablet (250 mg) by mouth Once per day. 30 tablet 2 4 Active cholecalciferol (Vitamin D3) 25 MCG (1000 UT) tabletIndicatio ns:Low serum vitamin D TOME PRIYA TABLETA (25 MCG) POR VIA ORAL EN LA MANANA 90 tablet 1 4 Active triamcinolone (Kenalog) 0.1 % ointmentIndicat ions:Vulvar dermatitis Apply topically 2 times daily. 80 g 4 Active loratadine (Claritin) 10 MG tabletIndicatio ns:Seasonal allergies TAKE 1 TABLET (10 MG) BY MOUTH ONCE PER DAY. 90 tablet 4 Active Active Problems Problem Noted Date Diagnosed Date Vulvar dermatitis 09/26/2024 Assessment & Plan (09/26/2024 4:30 PM EST): Vulvar dermatitis vs. Tinea Cruris Will prescribe topical steroid BID x 2 weeks If symptoms worsen or do not improve will prescribe following tx for tinea cruris: Clotrimazole 1% cream BID Posterior vitreous detachment of left eye 2023 Assessment & Plan (07/22/2024 9:36 AM EDT): Seen by Senior Office Assistant Dr callejas here at [facility]. Patient is still symptomatic for floaters in the left eye. She will follow up at her annual eye exam in 03/2025 Onychomycosis of great toe 07/22/2024 Assessment & Plan (07/22/2024 10:42 AM EDT): Both great toes Plan: terbinafine daily x 3 months LFTs 12/2023 Normal Visual disturbances 04/10/2024 Assessment & Plan (04/10/2024 11:52 AM EDT): Patient here for a sick visit with c/o left eye visual disturbances, described as white spots on her left eye that come and go. She denies any loss of vision, visual wilkerson appear Fundoscopic exam was very limited. Etiology ? Floater VS retinal Drusens ? Plan: Patient [facility] an [facility] of [facility] I will refer her to be seen by Dr Callejas so she can do a proper fundoscopic exam. Pt has an appointment scheduled for 2:30 PM Chronic pain of both knees 04/03/2024 Assessment & Plan (04/03/2024 4:22 PM EDT): Intermittent for years , more acute over the last month, using topical antiinflamatories with no good results impacting her day to day particlarly when climbing stairs Plan: Plain films both knees Ortho evaluation for consideration of steroid injections Postmenopausal bleeding 01/03/2024 Assessment & Plan (04/03/2024 4:29 PM EDT): Seen by Dr Mcdaniel US Pelvis Transvaginal pending for 01/10/2024 She was referred to [facility] seen February s/p biopsy that showed: results of the endometrial biopsy showing inactive endometrium. Assessment & Plan (01/03/2024 10:26 AM EST): Seen by Dr Mcdaniel US Pelvis Transvaginal pending for 01/10/2024 She was referred to [facility] as well appointment scheduled for February Mild intermittent asthma without complication Assessment & Plan (07/22/2024 9:34 AM EDT): Under the care of Pulmonology, on Advair and Albuterol Last seen 06/18/2024 by Manjula Luna NP Assessment & Plan (04/03/2024 4:16 PM EDT): Under the care of Pulmonology, on Advair and Albuterol Assessment & Plan (01/03/2024 10:16 AM EST): Under the care of Pulmonology, on Advair and Albuterol Multiple thyroid nodules 07/17/2023 Assessment & Plan (07/17/2023 2:41 PM EDT): On 01/2020 Incidental finding on Chest CT showed partial visualization of a 0.9 mm thyroid Nodule Thyroid U/S showed: Benign bilateral thyroid nodules. Previously pt was referred to Endocrinology Repeat Thyroid US 08/31/2022 showed: IMPRESSION: Multiple bilateral thyroid nodules are seen. Both of the most concerning nodules, in the right lateral mid-lower thyroid and left lower thyroid would be considered TI-RADS Category 4, but they are less than 1 cm in size so no imaging follow-up is recommended. BI-RADS criteria. A 1.6 cm solid nodule in the left mid-upper thyroid would be considered high RADS category 3. It has increased in size 50 percent from the prior study, 0.6 mL volume previously now 0.9 mL volume. Follow-up ultrasound in 1, 3, and 5 years is recommended. Will order today Fibroids 07/17/2023 Assessment & Plan (07/17/2023 2:57 PM EDT): Repeat US showed fibroids, 04/02/2023 Preventative health care 07/17/2023 Assessment & Plan (07/22/2024 9:38 AM EDT): Mammogram: 07/04/2024 negtive Pap Smear: NL: 02/09/2021 Colonoscopy: 01/18/[address] flannery recommended to repeat in 5 years Assessment & Plan (04/03/2024 4:30 PM EDT): Mammogram: 07/04/2024 negtive Pap Smear: NL: 02/09/2021 Colonoscopy: 01/18/[address] flannery recommended to repeat in 5 years Assessment & Plan (07/17/2023 2:56 PM EDT): Mammogram: 04/06/2022 negtive Pap Smear: NL: 02/09/2021 Colonoscopy: 08/07/[address] flannery recommended to repeat in 1 year Tubular adenoma of colon 07/17/2023 Elevated blood sugar 07/17/2023 Assessment & Plan (07/17/2023 3:02 PM EDT): Will repeat Chest discomfort 07/05/2023 Assessment & Plan (09/29/2023 6:32 PM EST): Symptoms possible musculoskeletal in nature ,felt when lifting objects Denies alarming features,denies GERD symptoms Normal cardiac workup in hospital and f w 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 Pt has had 2 work ups in ER and is followed by cardiology. Follow up with cardiology for stress test. Pt feels it may be due to stressors and she will follow up with therapist Her reflux is fairly controlled with omeprazole. Er precautions discussed. De Quervain's tenosynovitis, right 05/01/2023 Assessment & Plan (07/22/2024 9:33 AM EDT): S/P release DOS: 06/12/24 by Elle Farooq MD, last seen 06/25/2024 (ortho) Operative findings: Only slightly Thickened 1st dorsal compartment. Doing well post-operatively She will follow up in 6-8 weeks with Ortho Assessment & Plan (07/17/2023 2:42 PM EDT): Pt with c/o moderate right wrist pain, not improving, exam was previously suggestive of CTS Previously treated with Wrist splinting, NSAIDS Depression with anxiety 05/01/2023 Assessment & Plan (07/17/2023 2:58 PM EDT): Pt with anxiety and depression She continues under the care of psychiatrist Dr. Friedman Currently on Klonopin 0.5 PRN, Sertraline 100 mg po daily .Pt no longer on Duloxetine due to c/o stomach upset . She will continue to f/u with her psychotherapist at [facility] ( [facility] ). she denies any active suicidal ideation and already has a f/u with her psychiatrist. Painful arc syndrome of right shoulder 3 Right bundle branch block 05/01/2023 Class 1 obesity 01/24/2023 Calculus of kidney 01/24/2023 Seasonal allergies 01/24/2023 Proteinuria 12/26/2019 Stress incontinence of urine 03/25/2019 Assessment & Plan (01/03/2024 10:15 AM EST): Seen in the past by [facility]rology Tubular adenoma 03/25/2019 Renal cysts, acquired, bilateral 02/11/2019 Assessment & Plan (07/17/2023 2:46 PM EDT): Pt had a recent MRI 02/11/2019 showed: Bilateral renal cysts are present, Bosniak 1 and 2 in nature. No suspicious lesions. Pt referred to Urology, last seen 08/18/2022 Dr Dewey Epidermoid cyst of skin 04/05/2018 Recurrent major depressive episodes, mild 2017 Assessment & Plan (01/03/2024 10:17 AM EST): Pt reports compliance with her therapy sessions and also with her psychiatrist. States the psychiatrist changed her clonazepam to lorazepam. States medication has been effective. Also she was able to visit her daughter and grandson in [place] about 2 weeks ago and that has improved her depression. Inappropriate sinus tachycardia 02/01/2017 Assessment & Plan (07/17/2023 2:47 PM EDT): Last seen by Cardiology 07/02/2023 On Inderal dose reduced to 160 mg po at Humidifier Attendant's impression was that this may be related to anxiety in the setting of a structurally normal heart. Stress test was negative back then Essential hypertension 12/02/2015 Assessment & Plan (07/22/2024 9:37 AM EDT): Patient is here for f/u BP today controlled She is on a regimen of: Inderal LA 60 mg po q pm. Given adequate blood pressure control will continue with current medical regimen. Most recent electrolytes, Bun and Creatinine done on: 01/21/2024 were within normal limits. patient advised to adhere to a low sodium diet, encouraged about medication compliance, counseled about weight loss. Assessment & Plan (04/03/2024 4:17 PM EDT): Patient is here for f/u BP today controlled She is on a regimen of: Inderal LA 60 mg po q pm. Given adequate blood pressure control will continue with current medical regimen. Most recent electrolytes, Bun and Creatinine done on: 01/21/2024 were within normal limits. patient advised to adhere to a low sodium diet, encouraged about medication compliance, counseled about weight loss. Assessment & Plan (01/03/2024 10:29 AM EST): Patient is here for f/u BP today controlled She is on a regimen of: Inderal LA 60 mg po q pm. Given adequate blood pressure control will continue with current medical regimen. Most recent electrolytes, Bun and Creatinine done on: 07/20/2023 were within normal limits. patient advised to adhere to a low sodium diet, encouraged about medication compliance, counseled about weight loss. Assessment & Plan (07/17/2023 2:37 PM EDT): Patient is here for f/u BP today controlled She is on a regimen of: Inderal LA 60 mg po q pm. Given adequate blood pressure control will continue with current medical regimen. Most recent electrolytes, Bun and Creatinine done on: 04/28/2023 were within normal limits. patient advised to adhere to a low sodium diet, encouraged about medication compliance, counseled about weight loss. Migraine 07/22/2015 Assessment & Plan (07/17/2023 2:48 PM EDT): Pt with a Hx of migraines, Under the care of Manuelito Guthrie last seen 06/21/2015 he recommended Sumatriptan 50 mg prn Fioricet PRN and Metoclopramide 5 mg prn nausea MRI of brain done 08/08/2016 was negative Anxiety 05/06/2014 Microscopic hematuria 07/18/2013 Assessment & Plan (07/17/2023 2:52 PM EDT): Pt with Hx of microscopic hematuria, seen in the past at [facility] urology. They recommended to f/u with them on as needed basis. Pt's previous UA had shown trace protein and pt was referred to Dr Bernal (nephrology) Pt was seen 10/14/2014 He thought her minimal proteinuria was the result of some degree of weight gain and prior Hx of borderline HTN. Resolved Problems Problem Noted Date Diagnosed Date Resolved Date Renal cyst 12/26/2019 07/17/2023 Encounters Date Type Department Care Team Description 01/06/2025 Patient Outreach [facility] [address] [place] [phone] Charli Nye MD Care Coordination (CHW outreach for SDOH PT-1 and food needs-referral completed /) 01/06/2025 Patient Outreach [address] [phone] Charli Nye MD Pre-visit Planning (SDOH Screening positive and Tobacco screening negative) 01/05/2025 Orders Only [facility] External Provider, [facility] 01/01/2025 Telephone [facility] [address] [place] [address] Charli Nye MD Chart Prep 11/17/[address] [phone] Charli Nye MD Appointment Request 11/14/2024 Patient Outreach [address] [phone] Charli Nye MD Pre-visit Planning (PVP screening unable to complete. ) 11/10/[address] [phone] Charli Nye MD Chart Prep 10/17/[address] [phone] Charli Nye MD Seasonal allergies from Last 3 Months Immunizations Name Administration Dates Next Due Influenza injectable quadriv alent IIV4 with preservative 07/30/2018,09/21/2016,12/02/2015 Influenza injectable quadriv alent preservative free 09/27/2023,08/25/2022,09/07/2021,11/24,08/11/2019,08/21/2017 Influenza, IIV3, injectable 07/30/2014, 0 Influenza, Split (incl. cheikh fied surface antigen) 07/18/2013 Influenza, seasonal, injecta ble, preservative free 07/22/2024 Moderna Covid-19 Vaccine 12+ 10/18/2021,04/01/20 21,03/04/2021 Pfizer Covid-19 Vaccine 12+ Bivalent 08/25/2022 Pneumococcal Polysaccharide PPSV23 10/02/2010 Td (adult), 5 Lf tetanus tox oid, preservative free, adsorbed 09/21/2016 Zoster, Recombinant 11/20/2022,08/30/2022 Social History Tobacco Use Types Packs/Day Years Used Date Smoking Tobacco: Never Passive Smoke Exposure: Never Smokeless Tobacco: Never Tobacco Cessation:Counseling Given: Not Answered Alcohol Use Standard Drinks/Week Comments Never 0 [...] Orientation Straight 09/11/2022 10 :18 AM EDT Last Filed Vital Signs Vital Sign Reading Time Taken Comments Blood Pressure 125/74 09/26/2024 3:24 PM EST Pulse 71 09/26/2024 3:24 PM EST Temperature 36.8 ??C (98.2 ??F) 09/26/2024 3:24 PM ES T Respiratory Rate 16 09/26/2024 3:24 PM EST Oxygen Saturation 99% 09/26/2024 3:24 PM EST Inhaled Oxygen Concentration - - Weight 92.7 kg (204 lb 6.4 oz) 09/26/2024 3:24 P M EST Height 165.1 cm (5' 5 ) 07/22/2024 10:32 AM EDT Body Mass Index 34.01 07/22/2024 10:32 AM EDT Plan of Treatment Upcoming Encounters Date Type Department Care Team (Late st Contact Info) Description 01/15/2025 1:00 PM EST Office Visit [facility] [address] [place] [address] Charli Nye MD [address] [place] [address] Health Maintenance Due Date Last Done Comments CT Colonography 1969 FIT DNA/Cologuard 1969 FIT 1969 FOBT 1969 HIV Screening 1969 Sigmoidoscopy 1969 Alcohol/Substance Use Screening 1981 Hepatitis C Screening 1987 Hepatitis B Vaccines (1 of 3 - 19+ 3-dose series) 1988 Pneumococcal Vaccine: 50+ Years (2 of 2 - PCV) 10/02/2011 10/02/2010 DTaP/Tdap/Td Vaccines (1 - Tdap) 09/22/2016 09/21/2016 COVID-19 Vaccine ( season) 2024 08/25/2022, 10/18/2021, 04/01/2021, Additional history exists Depression Screening 07/22/2025 07/22/2024, 07/22/20 24 Tobacco Screening 07/22/2025 07/22/2024 Mammogram 07/23/2025 07/23/2024, 06/13, 04/06/2022, Additional history exists SDOH Screening 01/06/2026 01/06/2025 HPV/Cotest 02/09/2026 02/09/2021 Cervical Cancer Screening 02/06/2027 Pap Smear 02/06/2027 02/07/2024, 02/09/2021 Colonoscopy 01/17/2029 01/18/2024 Colorectal Cancer Screening 01/17/2029 Lipid Panel 09/24/2029 09/24/2024, 12/14, 07/04/2023, Additional history exists RSV Patients and Patients Aged 60 years or older (1 - 1-dose 75+ series) 2044 Zoster Vaccines Completed 11/20/2022, 08/30/2022 Influenza Vaccine Completed 07/22/2024, , 08/25/2022, Additional history exists HIB Vaccines Aged Out No longer eligi ble based on patient's age to complete this topic HPV Vaccines Aged Out No longer eligi ble based on patient's age to complete this topic Hepatitis A Vaccines Aged Out No long er eligible based on patient's age to complete this topic IPV Vaccines Aged Out No longer eligi ble based on patient's age to complete this topic Meningococcal Vaccine Aged Out No tod bradley eligible based on patient's age to complete this topic RSV under 20 months Aged Out No longe r eligible based on patient's age to complete this topic Rotavirus Vaccines Aged Out No longer eligible based on patient's age to complete this topic Procedures Procedure Name Priority Date/Time Associated Diagnosis Comments HIGH SENSITIVITY TROPONIN I Routine 01/05/2025 8:06 PM EST B TYPE NATRIURETIC PEPTIDE (BNP) Routine 01/05/2025 8:06 PM EST MAGNESIUM Routine 01/05/2025 8:06 PM EST COMPREHENSIVE METABOLIC PANEL Routine 01/05/2025 8:06 PM EST CBC WITH AUTO DIFFERENTIAL Routine 01/05/2025 8:06 PM EST SARS COV2/INFLUENZA A/B AND RSV RNA QL NAAT Routine 01/05/2025 8:06 PM EST XR CHEST 2 VIEWS Routine 01/05/2025 7:49 PM EST LIPID PANEL, STANDARD Routine 09/24/2024 11:39 AM EST BI MAMMOGRAM SCREENING TOMOSYNTHESIS BILATERAL Routine 07/23/2024 1:30 PM EDT PAP SMEAR Routine 02/07/2024 11:05 AM EDT HM COLONOSCOPY Routine 01/18/2024 HPV MRNA E6/E7 Routine 02/09/2021 9:38 AM EDT from Last 3 Months or Most Recently Relevant to Health Maintenance Results * High Sensitivity Troponin I (01/05/2025 8:06 PM EST) TROPONIN I HIGH SENSITIVITY <2.7 <3.5 - 17.0 ng/L [facility] Comment:The Barreto high sens itivity Troponin-I results should beused in conjunction with other diagnostic information suchas ECG, clinical observations and information, and patientsymptoms to aid in the diagnosis of [place]. 01/05/2025 8:06 PM EST 01/05/2025 8:10 PM EST us Generic External Data Provider LAB BLOOD ORDERAB LES Final Result Performing Organization Address City/State/[facility] Co de Phone Number [facility] [address] [place] [phone] * SARS-CoV-2 RNA, Influenza A/B, and RSV RNA, Ql NAAT (01/05/2025 8:06 PM EST) Pathologist [facility] Influenza A PCR NEGATIVE Negative [facility] Influenza B PCR NEGATIVE Negative [facility] Resp Syncy Virus RNA Qual PCR NEGATIVE Negative [facility] SARS COV2 PCR NEGATIVE Negative [facility] Comment:All test results mus t be correlated with clinical findings.Negative results do not preclude SARS-CoV2, influenza Avirus, influenza B virus and/or RSV infectionand should not be used as the sole basis for treatment orother patient management decisions. Negative results must becombined with clinical observations, patient history, andepidemiological information.This test has not been evaluated for monitoring treatment ofinfection.This test has been authorized by the FDA under an EmergencyUse Authorization (EUA) for use by authorized laboratories.Testing performed on the Net[employer]er GeneXpert utilizingreal-time RT-PCR.All SARS CoV2 and positive influenza A/B results arereported to [facility]. 01/05/2025 8:06 PM EST 01/05/2025 8:10 PM EST us Generic External Data Provider LAB MICROBIOLOGY - GENERAL ORDERABLES Final Result [facility] [address] [place] [address] [phone] * CBC auto differential (01/05/2025 8:06 PM EST) White Blood Count 7.5 4.8 - 10.8 X10*3/uL [facility] Red Blood Count 4.90 4.20 - 5.50 X10*6/uL [facility] Hemoglobin 13.7 12.0 - 16.0 g/dl [facility] Hematocrit 41.6 37.0 - 47.0 % [facility] Mean Corpuscular Volume 84.9 80.0 - 98.0 fL [facility] Mean Corpuscular Hemoglobin 28.0 27.0 - 33.0 pg [facility] Mean Corpuscular HGB Conc 32.9 31.0 - 35.0 g/dl [facility] Red Cell Distribution Width 13.2 11.0 - 16.0 % [facility] Platelet Count 309 160 - 400 X10*3/uL [facility] Mean Platelet Volume 9.5 9.4 - 12.3 fL [facility] Neutrophils Percent Auto 57.3 45 - 73 % [facility] Imm Gran Pct Auto 0.3 0.0 - 0.4 % [facility] Lymphocytes Percent Auto 33.3 20 - 40 % [facility] Monocytes Percent Auto 6.4 2 - 11 % [facility] Eosinophils Percent Auto 2.4 0 - 4 % [facility] Basophils Percent Auto 0.3 0 - 2 % [facility] NRBC Pct Auto 0.0 0.0 - 0.2 /100WBC [facility] Neutrophils Absolute Auto 4.3 2.0 - 8.3 x10*3/uL [facility] Imm Gran Abs Auto 0.02 0.00 - 0.03 X10*3/uL [facility] Lymphocytes Absolute Auto 2.5 1.2 - 4.9 X10*3/uL [facility] Monocytes Absolute Auto 0.5 0.1 - 1.2 X10*3/uL [facility] Eosinophils Absolute Auto 0.2 0.0 - 0.4 X10*3/uL [facility] Basophils Absolute Auto 0.0 0.0 - 0.2 X10*3/uL [facility] NRBC Abs Auto 0.000 0.0 - 0.012 X10*3/uL [facility] 01/05/2025 8:06 PM EST 01/05/2025 8:10 PM EST us Generic External Data Provider LAB BLOOD ORDERAB LES Final Result Performing Organization Address [facility]/ZIP Co de Phone Number [facility] [address] [place] [phone] * B Type Natriuretic Peptide (BNP) (01/05/2025 8:06 PM EST) B Type Natriuretic Peptide 49 <100 pg/mL [facility] Comment:For those patients w ho are being treated with Natrecor(nesiritide, recombinant BNP), BNP testing should beperformed at least two hours post treatment in order toensure that only endogenous levels of BNP are detected. 01/05/2025 8:06 PM EST 01/05/2025 8:10 PM EST us Generic External Data Provider LAB BLOOD ORDERAB LES Final Result Performing Organization Address [facility]/ZIP Co de Phone Number [facility] [address] [place] [phone] * Magnesium (01/05/2025 8:06 PM EST) Magnesium 2.0 1.6 - 2.6 mg/dL [facility] 01/05/2025 8:06 PM EST 01/05/2025 8:10 PM EST us Generic External Data Provider LAB BLOOD ORDERAB LES Final Result [facility] [address] [place] [address] [phone] * (ABNORMAL) Comprehensive Metabolic Panel (01/05/2025 8:06 PM EST) Sodium 142 135 - 145 mmol/L [facility] Potassium 4.1 3.3 - 5.1 mmol/L [facility] Chloride 111(H) 96 - 108 mmol/L [facility] Carbon Dioxide 21(L) 22 - 29 mmol/L [facility] Anion Gap 14 12 - 20 [facility] Urea Nitrogen (BUN) 16 9 - 16 mg/dL [facility] Creatinine, Serum 0.78 0.5 - 1.4 mg/dL [facility] Creatinine Clr Calc Pharmacy 90.2 [facility] Comment:Provided height and weight: 165.1 cm,89.8 kg.eGFR (calculated from the MDRD study equation) and eCrCl(calculated from the Cockcroft-Gault equation) are based ondifferent parameters and may not yield comparable results.If eCrCl result is absurd, please check patient'sheight/weight. Estimated Glomerular Filt Rate >60 [facility] Comment:Chronic Kidney Disea se: Estimated GFR < 60 mL/min/[id number] Kidney Disease: Estimated GFR < 15 mL/min/1.73m2 Glucose 139(H) 60 - 115 mg/dL [facility] Calcium 9.5 8.4 - 10.2 mg/dL [facility] Bilirubin, Total 0.2 0.0 - 1.0 mg/dL [facility] Aspartate Amino Transferase 20 5 - 31 U/L [facility] LABS Alanine Aminotransferase 15 0 - 31 U/L [facility] Total Protein 8.0 6.5 - 8.0 g/dL [facility] Albumin Level 4.0 3.5 - 5.0 g/dL [facility] Alkaline Phosphatase 120(H) 39 - 117 U/L [facility] 01/05/2025 8:06 PM EST 01/05/2025 8:10 PM EST us Generic External Data Provider LAB BLOOD ORDERAB LES Final Result [facility] [address] [place] [address] [phone] * XR Chest 2 Views (01/05/2025 7:49 PM EST) Anatomical Region Laterality Modality Chest Radiographic Shayy ging 01/05/2025 7:49 PM EST Narrative 01/05/2025 7:51 PM EST ? [facility] ?[address] ?[place] [address] ?XRay Report ? Signed ? Patient: Lauren Mcneal ?MR#: [id number] ?? 1423 ? : 1970 ?Acct:[id number] ? Age/Sex: 54 / F ?ADM Date: 01/05/25 ? Loc: HO.ED ? Attending Dr: ? Ordering Physician: Yudelka Burns ?? Date of Service: 01/05/25 ?? Procedure(s): XR chest 2V ?? Accession Number(s): [id number] ? cc: Charli Rojas MD; Yudelka Burns ? CLINICAL HISTORY: difficulty breathing ? 2 view chest x-ray ? Comparison: CR/SR - XR CHEST 2V - 08/29/24 16:41 EDT ? Findings: ?? No consolidation or effusion. ?? Normal size heart. ?? No acute fracture. ? IMPRESSION: ?? 1. No acute findings. ? This document has been electronically signed by: Norma Rouse MD on ?? 01/05/2025 19:49:48 ? Dictated By: ?Norma Rouse MD ? Signed By: ?<Electronically signed by Norma Rouse MD in OV> ? 01/05/25 1950 ? DD/ 1949 ? TD/TT: 01/05/251948 ? Behavioral Health Assistant: ? Procedure Note Dongénesis, Image - 01/05/[address] [address] XRay Report Signed Patient: Lauren McnealMR#: [id number] 1423 : 1970Acct:[id number] Age/Sex: 54 / FADM Date: 01/05/25 Loc: HO.ED Attending Dr: Ordering Physician: Yudelka Burns Date of Service: 01/05/25 Procedure(s): XR chest 2V Accession Number(s): [id number] cc: Charli Rojas MD; Yudelka Burns CLINICAL HISTORY: difficulty breathing 2 view chest x-ray Comparison: CR/SR - XR CHEST 2V - 08/29/24 16:41 EDT Findings: No consolidation or effusion. Normal size heart. No acute fracture. IMPRESSION: 1. No acute findings. This document has been electronically signed by: Norma Rouse MD on 01/05/2025 19:49:48 Dictated By: Norma Rouse MD Signed By: <Electronically signed by Norma Rouse MD in OV> 01/05/251949 DD/ 48 TD/TT: 01/05/251948 Behavioral Health Assistant: [facility] External Provider IMG XR PROCEDURES Final Result * Lipid Panel, Standard (09/24/2024 11:39 AM EST) Triglycerides 86 <150 mg/dL [facility] Comment:Desirable Triglyceri de: less than 150 mg/dLBorderline High Triglyceride 150-199 mg/dLHigh Triglyceride: 200-499 mg/dLVery High Triglyceride: greater than or equal to 5OO mg/dL Cholesterol 147 <200 mg/dL [facility] Comment:Desirable Cholestero l: less than 200 mg/dLBorderline High Cholesterol: 200-239 mg/dLHigh Cholesterol: greater than 239 mg/dL LDL Cholesterol Calculated 76 <100 mg/dL [facility] Comment:Desirable LDL: less than 100 mg/dLNear Optimal/Above Optimal LDL: 110- 129 mg/dLBorderline High LDL: 130-159 mg/dLHigh LDL: 160-189 mg/dLVery High LDL: greater than or equal to 190 mg/dL HDL Cholesterol 54 >40 mg/dL [facility] Comment:Desirable HDL: great er than 40 mg/dL Note: This HDL assay may give artificially low results in patients with liver disease. 09/24/2024 11:3 9 AM EST 09/24/2024 11:39 AM EST us Generic External Data Provider LAB BLOOD ORDERAB LES Final Result [facility] [address] [place] [address] [phone] * BI Mammogram Screening Tomosynthesis Bilateral (07/23/2024 1:30 PM EDT) Anatomical Region Laterality Modality Breast Bilateral Mammography 07/23/2024 1:30 PM EDT Narrative 08/06/2024 10:59 AM EDT ? [facility] [place] ? [address] ?[place] [address] ? Mammography Report ? Signed ? Patient: Mcneal,Lauren ?MR#: [id number] ?? 1423 ? : 1970 ?Acct:[id number] ? Age/Sex: 54 / F ?ADM Date: 07/23/24 ? Loc: HO.MAMMO ? Attending Dr: Charli Rojas MD ? Ordering Physician: Charli Rojas MD ?Resu ?? lts: 2Benign Findings ? Date of Service: 07/23/24 ?Follow Up: 1 Year From Orig ?? inal Mammogram ? Procedure(s): MM tomosynthesis screening BI ?? Accession Number(s): [id number] ? cc: Charli Rojas MD ? EXAMINATION: ?? MM SCREENING DIGITAL BREAST TOMOSYNTHESIS, BILATERAL ? CLINICAL INFORMATION: ? Screening. Asymptomatic. ? COMPARISON: ?? Mammography: Comparison is made with available priors ? TECHNIQUE: ?? Digital breast mammography with tomosynthesis is performed in both the ?? craniocaudal and mediolateral oblique views along with computer-aided ?? detection (CAD). ? FINDINGS: ?? There are scattered areas of fibroglandular density (ACR BI-RADS breast ?? composition Category b). ?? Marker clip in the right breast. ?? There are no significant masses, abnormal calcifications, or other ?? abnormalities. ? MM/MM tomosynthesis screening BI ?? IMPRESSION: ?? No mammographic evidence of malignancy. ? ASSESSMENT: ? BI-RADS BI-RADS 2 - Benign Findings ? RECOMMENDATION: ?? Routine annual mammography screening. ? 1 year F/U ? This examination should not preclude the clinical evaluation of a ?? suspicious palpable abnormality. ? This patient's information was entered into a reminder system with a ?? target due date for their next mammogram. ? Electronically signed by: ??Annie Walter DO ??08/06/2024 10:56 AM EDT ?? RP ? Dictated By: ?Annie Walter DO ? Signed By: ?<Electronically signed by Annie Walter, DO in OV> ? 08/06/24 1056 ? DD/ 1330 ? TD/TT: 07/23/24 1348 ? Behavioral Health Assistant: ? Procedure Note Donotuseinterpreter, Image - 08/06/2024 [facility] [address] [place] [address] [place] [address] Mammography Report Signed Patient: Lauren McnealMR#: [id number] 1423 : 1970Acct:[id number] Age/Sex: 54 / FADM Date: 07/23/24 Loc: HO.MAMMO Attending Dr: Charli Rojas MD Ordering Physician: Charli Rojas MDResu lts: 2Benign Findings Date of Service: 07/23/24Follow Up: 1 Year From Orig inal Mammogram Procedure(s): MM tomosynthesis screening BI Accession Number(s): [id number] cc: Charli Rojas MD EXAMINATION: MM SCREENING DIGITAL BREAST TOMOSYNTHESIS, BILATERAL CLINICAL INFORMATION: Screening. Asymptomatic. COMPARISON: Mammography: Comparison is made with available priors TECHNIQUE: Digital breast mammography with tomosynthesis is performed in both the craniocaudal and mediolateral oblique views along with computer-aided detection (CAD). FINDINGS: There are scattered areas of fibroglandular density (ACR BI-RADS breast composition Category b). Marker clip in the right breast. There are no significant masses, abnormal calcifications, or other abnormalities. MM/MM tomosynthesis screening BI IMPRESSION: No mammographic evidence of malignancy. ASSESSMENT: BI-RADS BI-RADS 2 - Benign Findings RECOMMENDATION: Routine annual mammography screening. 1 year F/U This examination should not preclude the clinical evaluation of a suspicious palpable abnormality. This patient's information was entered into a reminder system with a target due date for their next mammogram. Electronically signed by: Annie Walter DO 08/06/2024 10:56 AM EDT Dictated By: Annie Walter DO Signed By: <Electronically signed by Annie Walter DO in OV> 08/06/24 1056 DD/ 1330 TD/TT: 07/23/24 1348 Behavioral Health Assistant: us Charli Lazo MD IMG BI PROCEDURES Scooby florian Result - Final * Pap Smear (02/07/2024 11:05 AM EDT) 02/07/2024 11:0 5 AM EDT 02/08/2024 9:30 AM EDT [facility] - 02/19/2024 9:04 AM EDT ----- ------- Name: Lauren Mcneal ? Age/Sex: 53/F ? : 1970 Unit#: [id number] ?? Attend Dr: Bruno Mar MD ?Re02/07/24 ?Status: DEP REF ? Location: HO.LNP ?Disch: ? ----- ------- SPEC : [id number] ? RECD: 02/08/24-929 ? STATUS: ??SOUT ? REQ NUM: [id number] ? INGRID: 02/07/24-1105 ? SUBM DR: Bruno Mar MD ? ENTERED: ??02/08/24-1019 ?SP TYPE: Pap Smr ?OTHR DR: Charli Rojas MD ?? ORDERED: ??Pap Smear ? Interpretation ?? Satisfactory for evaluation. ?? Negative for intraepithelial lesion or malignancy. ?? Abundant inflammation. ? HPV mRNA E6/E7: ?NOT DETECTED ? This assay detects E6/E7 viral messenger RNA (mRNA) from 14 high-risk HPV types (16, 18, ?? 31, 33, 35, 39, 45, 51, 52, 56, 58, 59, 66, 68) ? HPV testing performed by [facility], [place], [place]. ??See reference laboratory ?? portion of the EMR for entire report. ?Clinical Information LMP: Postmenopausal Previous PAP test: 3 yrs ago, Unknown findings Other history:Postmenopausal bleeding ? Material Received ?? ThinPrep-Cervical Copies To: ?? Charli Rojas MD ?? [address] ?? [place] [address] ?? [phone] ?? Bruno Mar MD ?? [address] [place] [address] Dr. [facility] ?? [place] [address] ?? [phone] ----- ------- Signed (signature on file) CELENA Kaur (ASC) 02/19/24903 ? ----- ------- ? END OF REPORT ? Generic External Data Provider LAB CYTOLOGY ORDE RABLES Final Result [facility] [address] [place] [address] [phone] * Hm Colonoscopy (01/18/2024) Colonoscopy Normal Normal Historical Provider MD HEALTH MAINTENANCE Final Result * HPV mRNA E6/E7 (02/09/2021 9:38 AM EDT) HPV nRNA E6/E7 Not Detected Not Detected [facility] Comment: Methodology: Rock Singer-Mediated Amplification This assay detects E6/E7 viral messenger RNA (mRNA) from 14 high-risk HPV types (16,18,31,33,35,39,45,51,52,56,58,59,66,68). ? The analytical performance characteristics of this assay have been determined by [facility]. The modifications have not been cleared or approved by the FDA. This assay has been validated pursuant to the CLIA regulations and is used for clinical purposes. ?? For additional information, please refer to http://education.[employer]/faq/NRG665b7 (This link if provided for information/ educational purposes only.) 02/09/2021 9:38 AM EDT us Phuong Junior CNM LAB BLOOD ORDERABLES Bertha l Result [facility] [address] from Last 3 Months or Most Recently Relevant to Health Maintenance Insurance [place]IC[place] [id number] [facility] Care Teams Mobile Mechanic Relationship Specialty Start Date End Date Charli Nye MD [address] [place] [address] PCP - General Internal Medicine 06/16/14
--- OUTSIDE RECORDS SUMMARY | 2025-01-09 17:36 | XMS_ITS | Encounter Summary ---
Author Organization [facility], Address [address] [facility] [address] [place] [address] Phone Care Team Providers Care Turbine Engineer Name Role Phone Charli Heller MD Primary Care Provider Unav ailable Reason for Visit * Reason Comments Med Refill Encounter Details Date Type Department Care Team (Late Contact Info) Description 03/21/2022 Refill [facility] [address] [place] [address] Steven Bernal MD [address] [place] [address] Social History Tobacco Use Types [...] Visit [facility], [address] [place] [address] Steven Bernal MD [address] [place] [address] documented as of this encounter Visit Diagnoses Not on filedocumented in this encounter Care Teams Turbine Engineer Relationship Specialty Start Date End Date Charli Heller MD PCP - General 09/16/19 documented as of this encounter
--- OUTSIDE RECORDS SUMMARY | 2025-01-09 17:36 | XMS_ITS | Encounter Summary ---
Author Organization [facility], Address [address] [facility] [address] [place] [address] Phone Care Team Providers Care Managed Care Coordinator Name Role Phone Charli Heller MD Primary Care Provider Unav ailable Encounter Details Date Type Department Care Team (Late st Contact Info) Description 01/23/2024 Documentation Only [facility] [address] [place] [address] Kellie Fisher [address] [place] [address] Social History Tobacco Use Types Packs/Day Years [...] Visit [facility] [address] [place] [address] Steven Bernal MD [address] [place] [address] documented as of this encounter Visit Diagnoses Not on filedocumented in this encounter Care Teams Managed Care Coordinator Relationship Specialty Start Date End Date Charli Heller MD PCP - General 09/16/19 documented as of this encounter
--- OUTSIDE RECORDS SUMMARY | 2025-01-09 17:36 | XMS_ITS | Encounter Summary ---
Author Organization [employer] Address [address] [facility] [address] [place] [address] Care Team Providers Care Driftman Name Role Phone Charli Nye MD Primary Care Provide r Reason for Visit * Reason Onset Date Comments Referral 11/01/2022 Encounter Details Date Type Department Care Team ([facility] st Contact Info) Description 11/01/2022 Telephone [facility] [address] [place], [place] [phone] Charli Nye MD [address] [place] [address] Referral Social History Tobacco Use Types Packs/Day Years Used Date Smoking Tobacco: Never Assessed Comments Unknown Sex and Gender Information Value Date Recorded Sex Assigned at Female 09/11/2022 10:18 AM EDT Legal Sex Female 10:18 AM EDT Gender Identity Female 09/11/2022 10:18 AM EDT Sexual Orientation Straight 09/11/2022 10 :18 AM EDT COVID-19 Exposure Response Date Recorded In the last 10 days, have yo u been in contact with someone who was confirmed or suspected to have Coronavirus/COVID-19? No / Unsure 10/30/2022 10:34 AM EST documented as of this encounter Miscellaneous Notes * Telephone Encounter - Alexandria Larkin - 11/01/2022 10:04 AM EST Aman Velasquez from [facility] calling to inform referral has to be modify to occupational therapy for right arm . Please call to clarify [phone]. documented in this encounter Plan of Treatment Upcoming Encounters Date Type Department Care Team (Late st Contact Info) Description 01/15/2025 1:00 PM EST Office Visit [facility] [address] [place] [address] Charli Nye MD [address] [place] [address] documented as of this encounter Visit Diagnoses Not on filedocumented in this encounter Care Teams Driftman Relationship Specialty Start Date End Date Charli Nye MD [address] [place], [place] [phone] PCP - General Internal Medicine 06/16/14 documented as of this encounter
--- OUTSIDE RECORDS SUMMARY | 2025-01-09 17:36 | XMS_ITS | Encounter Summary ---
Author Organization [employer] Address [address] [facility] [address] [place] [address] Care Team Providers Care Diesel Mechanic Farm Name Role Phone Charli Nye MD Primary Care Provide r Reason for Visit * Reason Comments Med Refill Encounter Details Date Type Department Care Team (Late Contact Info) Description 05/15/2023 Refill [facility] [address] [place], [place] [phone] Charli Nye MD [address] [place] [address] Social History Tobacco Use Types Packs/Day Years Used Date Smoking Tobacco: Never Smokeless Tobacco: Never Alcohol Use Standard Drinks/Week Comments Never 0 (1 standard drink = 0.6 oz pur e alcohol) Depression Answer Date Recorded Patient Health Questionnaire-9 Score 6 05/01/2023 Depression Answer Date Recorded Patient Health Questionnaire-2 [...] suspected to have Coronavirus/COVID-19? No / Unsure 05/01/2023 10:15 AM EDT documented as of this encounter Plan of Treatment Upcoming Encounters Date Type Department Care Team ([facility] Contact Info) Description 01/15/2025 1:00 PM EST Office Visit [facility] [address] [place] [address] Charli Nye MD [address] [place] [address] documented as of this encounter Visit Diagnoses Not on filedocumented in this encounter Additional Health Concerns Assessment Noted Time PHQ-9 Depression Total Score: 6 05/01/20 23 1:05 PM EDT documented as of this encounter Care Teams Diesel Mechanic Farm Relationship Specialty Start Date End Date Charli Nye MD [address] [place] [address] PCP - General Internal Medicine 06/16/14 documented as of this encounter
--- OUTSIDE RECORDS SUMMARY | 2025-01-09 17:36 | XMS_ITS | Encounter Summary ---
Author Organization [employer] Address [address] [facility] 7t [place] [address] Care Team Providers Care Rug Cleaning Supervisor Name Role Phone Charli Nye MD Primary Care Provide r Encounter Details Date Type Department Care Team (Late st Contact Info) Description 01/05/2025 Orders Only [facility] External Provider, [facility] Social History Tobacco Use Types Packs/Day Years [...] t he electric, gas, oil or water [employer] threatened to shut off services in your [...] Description 01/15/2025 1:00 PM EST Office Visit [facility] [address] [place] [address] Charli Nye MD [address] [place] [address] documented as of this encounter Procedures Procedure Name Priority Date/Time Associated Diagnosis Comments HIGH SENSITIVITY TROPONIN I Routine 01/05/2025 8:06 PM EST SARS COV2/INFLUENZA A/B AND RSV RNA QL NAAT Routine 01/05/2025 8:06 PM EST CBC WITH AUTO DIFFERENTIAL Routine 01/05/2025 8:06 PM EST B TYPE NATRIURETIC PEPTIDE (BNP) Routine 01/05/2025 8:06 PM EST MAGNESIUM Routine 01/05/2025 8:06 PM EST COMPREHENSIVE METABOLIC PANEL Routine 01/05/2025 8:06 PM EST XR CHEST 2 VIEWS Routine 01/05/2025 7:49 PM EST documented in this encounter Results * SARS-CoV-2 RNA, Influenza A/B, and RSV RNA, Ql NAAT (01/05/2025 8:06 PM EST) Influenza A PCR NEGATIVE Negative [facility] Influenza B PCR NEGATIVE Negative [facility] Resp Syncy Virus RNA Qual PCR NEGATIVE Negative [facility] SARS COV2 PCR NEGATIVE Negative [facility] Comment:All test results mus t be [...] use by authorized laboratories.Testing performed on the Scint-X GeneXpert utilizingreal-time RT-PCR.All SARS CoV2 and positive influenza A/B results arereported to [facility]. 01/05/2025 8:06 PM EST 01/05/2025 8:10 PM EST Generic External Data Provider LAB MICROBIOLOGY - GENERAL ORDERABLES Final Result Performing Organization Address [facility]/ZIP Co de Phone Number [facility] [address] [place] [phone] * High Sensitivity Troponin I (01/05/2025 8:06 PM EST) [facility] TROPONIN I HIGH SENSITIVITY <2.7 <3.5 - 17.0 ng/L [facility] Comment:The Barreto high sens itivity Troponin-I results should beused in conjunction with other diagnostic information suchas ECG, clinical observations and information, and patientsymptoms to aid in the diagnosis of PR. 01/05/2025 8:06 PM EST 01/05/2025 8:10 PM EST Generic External Data Provider LAB BLOOD ORDERAB LES Final Result Performing Organization Address [facility]/ZIP Co de Phone Number [facility] [address] [place] [phone] * B Type Natriuretic Peptide (BNP) (01/05/2025 8:06 PM EST) [facility] B Type Natriuretic Peptide 49 <100 pg/mL [facility] Comment:For those patients w ho are being treated with Natrecor(nesiritide, recombinant BNP), BNP testing should beperformed at least two hours post treatment in order toensure that only endogenous levels of BNP are detected. 01/05/2025 8:06 PM EST 01/05/2025 8:10 PM EST Generic External Data Provider LAB BLOOD ORDERAB LES Final Result Performing Organization Address [facility]/ZIP Co de Phone Number [facility] [address] [place] [address] [phone] * Magnesium (01/05/2025 8:06 PM EST) [facility] Magnesium 2.0 1.6 - 2.6 mg/dL [facility] 01/05/2025 8:06 PM EST 01/05/2025 8:10 PM EST Explore[employer]To [employer] External Data Provider LAB BLOOD ORDERAB LES Final Result Performing Organization Address [facility] Co de Phone Number [facility] [address] [place] [address] [phone] * (ABNORMAL) Comprehensive Metabolic Panel (01/05/2025 8:06 PM EST) [facility] Sodium 142 135 - 145 mmol/L [facility] Potassium 4.1 3.3 - 5.1 mmol/L [facility] Chloride 111(H) 96 - 108 mmol/L [facility] Carbon Dioxide 21(L) 22 - 29 mmol/L [facility] Anion Gap 14 12 - 20 [facility] Urea Nitrogen (BUN) 16 9 - 16 mg/dL [facility] Creatinine, Serum 0.78 0.5 - 1.4 mg/dL [facility] Creatinine Clr Calc Pharmacy 90.2 [facility] Comment:Provided height and weight: 165.1 cm,89.8 kg.eGFR (calculated from the MDRD study equation) and eCrCl(calculated from the Cockcroft-Gault equation) are based ondifferent parameters and may not yield comparable results.If eCrCl result is absurd, please check patient'sheight/weight. Estimated Glomerular Filt Rate >60 [facility] Comment:Chronic Kidney Disea se: Estimated GFR < 60 mL/min/1.02j0Mdyrwe Kidney Disease: Estimated GFR < 15 mL/min/1.73m2 Glucose 139(H) 60 - 115 mg/dL [facility] Calcium 9.5 8.4 - 10.2 mg/dL [facility] Bilirubin, Total 0.2 0.0 - 1.0 mg/dL [facility] Aspartate Amino Transferase 20 5 - 31 U/L [facility] Alanine Aminotransferase 15 0 - 31 U/L [facility] Total Protein 8.0 6.5 - 8.0 g/dL [facility] Albumin Level 4.0 3.5 - 5.0 g/dL [facility] Alkaline Phosphatase 120(H) 39 - 117 U/L [facility] 01/05/2025 8:06 PM EST 01/05/2025 8:10 PM EST us Generic External Data Provider LAB BLOOD ORDERAB LES Final Result [facility] [address] [place] [phone] * CBC auto differential (01/05/2025 8:06 PM EST) White Blood Count 7.5 4.8 - 10.8 X10*3/uL [facility] Red Blood Count 4.90 4.20 - 5.50 X10*6/uL [facility] Hemoglobin 13.7 12.0 - 16.0 g/dl [facility] Hematocrit 41.6 37.0 - 47.0 % [facility] Mean Corpuscular Volume 84.9 80.0 - 98.0 fL [facility] Mean Corpuscular Hemoglobin 28.0 27.0 - 33.0 pg [facility] Mean Corpuscular HGB Conc 32.9 31.0 - 35.0 g/dl [facility] Red Cell Distribution Width 13.2 11.0 - 16.0 % [facility] Platelet Count 309 160 - 400 X10*3/uL [facility] Mean Platelet Volume 9.5 9.4 - 12.3 fL [facility] Neutrophils Percent Auto 57.3 45 - 73 % [facility] Imm Gran Pct Auto 0.3 0.0 - 0.4 % [facility] Lymphocytes Percent Auto 33.3 20 - 40 % [facility] Monocytes Percent Auto 6.4 2 - 11 % [facility] Eosinophils Percent Auto 2.4 0 - 4 % [facility] Basophils Percent Auto 0.3 0 - 2 % [facility] NRBC Pct Auto 0.0 0.0 - 0.2 /100WBC [facility] Neutrophils Absolute Auto 4.3 2.0 - 8.3 x10*3/uL [facility] Imm Gran Abs Auto 0.02 0.00 - 0.03 X10*3/uL [facility] Lymphocytes Absolute Auto 2.5 1.2 - 4.9 X10*3/uL [facility] Monocytes Absolute Auto 0.5 0.1 - 1.2 X10*3/uL [facility] Eosinophils Absolute Auto 0.2 0.0 - 0.4 X10*3/uL [facility] Basophils Absolute Auto 0.0 0.0 - 0.2 X10*3/uL [facility] NRBC Abs Auto 0.000 0.0 - 0.012 X10*3/uL [facility] 01/05/2025 8:06 PM EST 01/05/2025 8:10 PM EST us Generic External Data Provider LAB BLOOD ORDERAB LES Final Result [facility] [address] [place] [address] [place] [phone] * XR Chest 2 Views (01/05/2025 7:49 PM EST) Anatomical Region Laterality Modality Chest Radiographic Shayy ging 01/05/2025 7:49 PM EST Narrative 01/05/2025 7:51 PM EST ? [facility] ?[address] ?[place] [address] ?XRay Report ? Signed ? Patient: Mcneal,Lauren ?MR#: [id number] ?? 1423 ? : 1970 ?Acct:[id number] ? Age/Sex: 54 / F ?ADM Date: 01/05/25 ? Loc: HO.ED ? Attending Dr: ? Ordering Physician: Yudelka Burns ?? Date of Service: 01/05/25 ?? Procedure(s): XR chest 2V ?? Accession Number(s): [id number] ? cc: Chalri Rojas MD; Yudelka Burns ? CLINICAL HISTORY: [...] in OV> ? 01/05/25 1950 ? DD/ 48 ? TD/TT: 01/05/251948 ? Director Cardiac: ? Procedure Note Maurisio Kim - 01/05/[address] [address] XRay Report Signed Patient: Lauren McnealMR#: [id number] 1423 : 1970Acct:[id number] Age/Sex: 54 / FADM Date: 01/05/25 Loc: HO.ED Attending Dr: Ordering Physician: Yudelka Burns Date of Service: 01/05/25 Procedure(s): XR chest 2V Accession Number(s): [id number] cc: Charli Rojas MD; Yudelka Burns CLINICAL [...] in OV> 01/05/251949 DD/ 48 TD/TT: 01/05/251948 Director Cardiac: [facility] External Provider IMG XR PROCEDURES Final Result documented in this encounter Visit Diagnoses Not on filedocumented in this encounter Additional Health Concerns Assessment Noted Time PHQ-9 Depression Total Score: 1 07/22/20 24 10:33 AM EDT documented as of this encounter Care Teams Rug Cleaning Supervisor Relationship Specialty Start Date End Date Charli Nye MD [address] [place] [phone] PCP - General Internal Medicine 06/16/14 documented as of this encounter
--- OUTSIDE RECORDS SUMMARY | 2025-01-09 17:36 | XMS_ITS | Encounter Summary ---
Author Organization [employer] Address [address] [facility] 7t [place] [address] Care Team Providers Care Loft Worker Apprentice Name Role Phone Charli Nye MD Primary Care Provide r Encounter Details Date Type Department Care Team (Late st Contact Info) Description 11/02/2022 Orders Only [facility] MED[facility] [address] [place] [address] [phone] Anya Hendrickson MD [address] [place] [address] [phone] Right arm pain (Primary Dx) Social History Tobacco Use Types Packs/Day Years [...] AM EST documented as of this encounter Plan of Treatment Upcoming Encounters Date Type Department Care Team (Late st Contact Info) Description 01/15/2025 1:00 PM EST Office Visit [facility] [address] [place] [address] [phone] Charli Nye MD [address] [place] [address] [phone] documented as of this encounter Visit Diagnoses Diagnosis Right arm pain- Primary Pain in soft tissues of limb documented in this encounter Care Teams Loft Worker Apprentice Relationship Specialty Start Date End Date Charli Nye MD [address] [place] [phone] PCP - General Internal Medicine 06/16/14 documented as of this encounter
--- OUTSIDE RECORDS SUMMARY | 2025-01-09 17:36 | XMS_ITS | Encounter Summary ---
Author Organization [facility] Address PO [facility] [address] [place] [address] Phone Care Team Providers Care Car Ferrier Name Role Phone Charli Heller MD Primary Care Provider Unav ailable Encounter Details Date Type Department Care Team (Late st Contact Info) Description 07/31/2023 Documentation Only [facility] [address] [place] [address] Reginald Correia PA Social History [...] Visit [facility] [address] [place] [address] Steven Bernal MD [address] [place] [address] [place] [phone] documented as of this encounter Visit Diagnoses Not on filedocumented in this encounter Care Teams Car Ferrier Relationship Specialty Start Date End Date Charli Heller MD PCP - General 09/16/19 documented as of this encounter
--- OUTSIDE RECORDS SUMMARY | 2025-01-09 17:36 | XMS_ITS | Encounter Summary ---
Author Organization [facility] [place], Address [address] [place] [address] Phone Care Team Providers Care Wood Polisher Name Role Phone Charli Heller MD Primary Care Provider Unav ailable Encounter Details Date Type Department Care Team (Late st Contact Info) Description 09/30/2024 Documentation Only [facility] [place], [facility] Cynthia [address] [place] [address] Kellie Fisher [address] [place] [address] Social History Tobacco Use Types [...] Visit [facility] [place], [address] [facility] [place] [address] Steven Bernal MD [address] [facility] [place] [address] documented as of this encounter Visit Diagnoses Not on filedocumented in this encounter Care Teams Wood Polisher Relationship Specialty Start Date End Date Charli Heller MD PCP - General 09/16/19 documented as of this encounter
--- OUTSIDE RECORDS SUMMARY | 2025-01-09 17:36 | XMS_ITS | Encounter Summary ---
Author Organization [facility] [place], Address PO [facility] [address] [place] [address] Phone Care Team Providers Care Railcar Mechanic Name Role Phone Charli Heller MD Primary Care Provider Unav ailable Reason for Visit * Reason Comments Med Refill Encounter Details Date Type Department Care Team (Late Contact Info) Description 02/27/2022 Refill [facility] [address] [place] [address] Steven Bernal MD [address] [facility] [place] [address] Social History Tobacco Use Types [...] Visit [facility] [place], [address] [facility] [place] [address] Steven Bernal MD [address] [facility] [address] [place] [address] documented as of this encounter Visit Diagnoses Not on filedocumented in this encounter Care Teams Railcar Mechanic Relationship Specialty Start Date End Date Charli Heller MD PCP - General 09/16/19 documented as of this encounter
--- OUTSIDE RECORDS SUMMARY | 2025-01-09 17:37 | XMS_ITS | Encounter Summary ---
Author Organization [facility] Address PO [facility] [address] [place] [address] Phone Care Team Providers Care Administrative Hearing Officer Name Role Phone Charli Heller MD Primary Care Provider Unav ailable Encounter Details Date Type Department Care Team (Late st Contact Info) Description 03/15/2023 Documentation Only [facility] [address] [place] [address] Reginald Correia PA Social History [...] Visit [facility] [address] [address] Steven Bernal MD [address] [place] [address] [place] [phone] documented as of this encounter Visit Diagnoses Not on filedocumented in this encounter Care Teams Administrative Hearing Officer Relationship Specialty Start Date End Date Charli Heller MD PCP - General 09/16/19 documented as of this encounter
== END 2025-01-09 16:22 | disposition home or self-care (01) ==
PROVIDERS: PCP Internal Medicine; Visit Provider Nurse Practitioner Family
DX: J45.909 Unspecified asthma, uncomplicated (principal); R91.1 Solitary pulmonary nodule; R06.00 Dyspnea, unspecified
CPT/HCPCS: 99214

== ENCOUNTER → 2025-01-09 15:32 | Outpatient (BNVA) | payer MEDICARE, MEDICAID, SELFPAY | PROVIDERS: PCP Internal Medicine; Visit Provider Nurse Practitioner Family | DX: J45.909 Unspecified asthma, uncomplicated (principal); R91.1 Solitary pulmonary nodule; R06.00 Dyspnea, unspecified | CPT/HCPCS: 99212 ==

== ENCOUNTER 2025-02-20 15:01 | Outpatient (REF) | payer MEDICARE, MEDICAID, SELFPAY ==
--- NOTE | ~2025-02-20 | CT_ITS ---
EXAMINATION: CT CHEST WITHOUT CONTRAST CLINICAL INFORMATION: Solitary pulmonary nodule. COMPARISON: 11/23/2023. 09/06/2023. TECHNIQUE: Multidetector volumetric CT imaging of the chest was done. Axial MIP volume rendering provided. Sagittal and coronal reformatted images were obtained. This CT examination was performed using dose optimization techniques as appropriate, variously including the following: *Automated exposure control *Adjustment of mA and/or kV according to patient size (this includes techniques or standardized protocols for targeted exams where dose is matched to indication/reason for exam; i.e. extremities or head) *Use of iterative reconstruction technique FINDINGS: NODULES: 3 mm nodule in the superior segment right lower lobe abutting the major fissure, most likely intrapulmonary lymph node, unchanged (series 5, image 44). No new or enlarging pulmonary nodule. LUNGS: There is minimal linear atelectasis or scarring in the inferior right middle lobe and lingula. Stable small subpleural density in the lateral posterior right upper lobe (series 5, image 29), likely a focus of scarring. No consolidations, abnormal groundglass opacities, effusions, or pneumothorax. Small airways appear normal. Central airways are patent. MEDIASTINUM: There is a stable 11 mm left inferior thyroid nodule. The thyroid is otherwise normal in imaging appearance. There is no lymphadenopathy or mass. The aorta is normal in caliber and course. Main pulmonary artery is normal in size. The heart size is normal. There is no pericardial effusion. There is no discrete esophageal abnormality. GE junction appears normal. CORONARY ARTERY CALCIFICATION: None visualized on this study. AXILLA/CHEST WALL: No abnormal lymph nodes or masses. UPPER ABDOMEN: There are partially imaged cysts in both kidneys. Remainder the imaged upper abdominal contents appear normal. OSSEOUS STRUCTURES: -There is no suspicious lytic or blastic bone lesion. CT/CT chest wo IV con IMPRESSION: 1. Stable 3 mm nodule abutting the major fissure in the superior segment right lower lobe. This is consistent with a stable benign intrapulmonary lymph node. 2. No new or enlarging pulmonary nodules. 3. Minor foci of scarring in the right middle lobe and lingula, and posterior lateral right upper lobe. Lungs are otherwise clear without evidence of active disease. 4. There is a stable left 1.1 cm thyroid nodule. Refer to the prior thyroid imaging. No further follow-up suggested. Electronically signed by: Charlie Neville MD 02/20/2025 03:42 PM EDT
--- OUTSIDE RECORDS SUMMARY | 2025-02-20 15:05 | XMS_ITS | Encounter Summary ---
Author Organization [employer] Address [address] [facility] 7t [place] [address] Care Team Providers Care Parallel Computing Software Engineer Name Role Phone Charli Nye MD Primary Care Provide r Encounter Details Date Type Department Care Team (Late st Contact Info) Description 11/02/2022 Orders Only [facility] [address] [place] [address] [phone] Anya Hendrickson MD [address] [place] [address] [phone] Right arm pain (Primary Dx) Social History [...] Care Team (Late st Contact Info) Description 05/19/2025 3:00 PM EDT Office Visit [facility] [address] [place] [address] [phone] Charli Nye MD [address] [place] [address] [phone] documented as of this encounter Visit Diagnoses Diagnosis Right arm pain- Primary Pain in soft tissues of limb documented in this encounter Care Teams Parallel Computing Software Engineer Relationship Specialty Start Date End Date Charli Nye MD [address] [place] [address] PCP - General Internal Medicine 06/16/14 documented as of this encounter
--- OUTSIDE RECORDS SUMMARY | 2025-02-20 15:05 | XMS_ITS | Encounter Summary ---
Author Organization [facility] [place], Address PO [facility] [address] [place] [address] Phone Care Team Providers Care Service Tech Name Role Phone Charli Heller MD Primary Care Provider Unav ailable Encounter Details Date Type Department Care Team (Late st Contact Info) Description 12/15/2021 Documentation Only [facility] [address] [place] [address] Steven Bernal MD [address] [facility] [place] [address] Social History Tobacco Use Types [...] Visit [facility] [address] [facility] [place] [address] Steven Bernal MD [address] [facility] [place] [address] documented as of this encounter Visit Diagnoses Not on filedocumented in this encounter Care Teams Service Tech Relationship Specialty Start Date End Date Charli Heller MD PCP - General 09/16/19 documented as of this encounter
--- OUTSIDE RECORDS SUMMARY | 2025-02-20 15:05 | XMS_ITS | Encounter Summary ---
Author Organization [facility] [place], Address PO [facility] [address] [place] [address] Phone Care Team Providers Care Christmas Tree Contractor Name Role Phone Charli Heller MD Primary Care Provider Unav ailable Encounter Details Date Type Department Care Team (Late st Contact Info) Description 06/07/2022 Documentation Only [facility] [address] [place] [address] Steven Bernal MD [address] [facility] [place] [address] Social History Tobacco Use Types [...] Visit [facility] [address] [facility] [place] [address] Steven Bernal MD [address] [facility] [place] [address] documented as of this encounter Visit Diagnoses Not on filedocumented in this encounter Care Teams Christmas Tree Contractor Relationship Specialty Start Date End Date Charli Heller MD PCP - General 09/16/19 documented as of this encounter
--- OUTSIDE RECORDS SUMMARY | 2025-02-20 15:05 | XMS_ITS | Encounter Summary ---
Author Organization [facility] Address PO [facility] [address] [place] [address] Phone Care Team Providers Care Aircraft Dispatcher Name Role Phone Charli Heller MD Primary Care Provider Unav ailable Encounter Details Date Type Department Care Team (Late st Contact Info) Description 07/20/2022 Documentation Only [facility] [address] [place] [address] Reginald Correia PA Social History [...] Visit [facility] [address] [place] [address] Steven Bernal MD [address] [place] [address] [place] [phone] documented as of this encounter Visit Diagnoses Not on filedocumented in this encounter Care Teams Aircraft Dispatcher Relationship Specialty Start Date End Date Charli Heller MD PCP - General 09/16/19 documented as of this encounter
--- OUTSIDE RECORDS SUMMARY | 2025-02-20 15:05 | XMS_ITS | Encounter Summary ---
Author Organization [facility] [place], Address PO [facility] [address] [place] [address] Phone Care Team Providers Care Research Psychologist Name Role Phone Charli Heller MD Primary Care Provider Unav ailable Reason for Visit * Reason Comments Med Refill Encounter Details Date Type Department Care Team (Late Contact Info) Description 02/27/2022 Refill [facility] [address] [place] [address] Steven Bernal MD [address] [facility] [place] [address] Social History Tobacco Use Types [...] Visit [facility] [place], [address] [facility] [place] [address] Steven Bernal MD [address] [facility] [place] [address] documented as of this encounter Visit Diagnoses Not on filedocumented in this encounter Care Teams Research Psychologist Relationship Specialty Start Date End Date Charli Heller MD PCP - General 09/16/19 documented as of this encounter
--- OUTSIDE RECORDS SUMMARY | 2025-02-20 15:05 | XMS_ITS | Encounter Summary ---
Author Organization [employer] Address [address] [facility] 7t [place] [address] Care Team Providers Care Wig Comber Name Role Phone Charli Nye MD Primary Care Provide r Reason for Visit * Reason Onset Date Comments Referral 11/01/2022 Encounter Details Date Type Department Care Team ([facility] st Contact Info) Description 11/01/2022 Telephone [facility] [address] [place], [place] [phone] Charli Nye MD [address] [place] [address] Referral Social History Tobacco Use Types Packs/Day [...] 11/01/2022 10:04 AM EST Aman Velasquez from [facility] physical therapy calling to inform referral has to be modify to occupational therapy for right arm . Please call to clarify [phone]. documented in this encounter Plan of Treatment Upcoming Encounters Date Type Department Care Team (Late st Contact Info) Description 05/19/2025 3:00 PM EDT Office Visit [facility] [address] [place] [address] Charli Nye MD [address] [place] [address] documented as of this encounter Visit Diagnoses Not on filedocumented in this encounter Care Teams Wig Comber Relationship Specialty Start Date End Date Charli Nye MD [address] [place] [address] [phone] PCP - General Internal Medicine 06/16/14 documented as of this encounter
--- OUTSIDE RECORDS SUMMARY | 2025-02-20 15:05 | XMS_ITS | Encounter Summary ---
Author Organization [facility] [place], Address [address] [place] [address] Phone Care Team Providers Care Speech Assistant Name Role Phone Charli Heller MD Primary Care Provider Unav ailable Encounter Details Date Type Department Care Team (Late st Contact Info) Description 09/30/2024 Documentation Only [facility] [place], [facility] [place] [address] [place] [address] Kellie Fisher [address] [place] [address] Social History Tobacco Use Types [...] Visit [facility] [place], [address] [facility] [place] [address] Steven Bernal MD [address] [facility] [place] [address] documented as of this encounter Visit Diagnoses Not on filedocumented in this encounter Care Teams Speech Assistant Relationship Specialty Start Date End Date Charli Heller MD PCP - General 09/16/19 documented as of this encounter
--- OUTSIDE RECORDS SUMMARY | 2025-02-20 15:05 | XMS_ITS | Encounter Summary ---
Author Organization [facility], Address PO [facility] [address] [place] [address] Phone Care Team Providers Care Chemical Treatment Operator Name Role Phone Charli Heller MD Primary Care Provider Unav ailable Reason for Visit * Reason Comments Med Refill Encounter Details Date Type Department Care Team (Late Contact Info) Description 03/21/2022 Refill [facility] [address] [place] [address] Steven Bernal MD [address] [facility] [place] [address] Social History Tobacco Use Types [...] Visit [facility], [address] [facility] [address] Steven Bernal MD [address] [facility] [place] [address] documented as of this encounter Visit Diagnoses Not on filedocumented in this encounter Care Teams Chemical Treatment Operator Relationship Specialty Start Date End Date Charli Heller MD PCP - General 09/16/19 documented as of this encounter
--- OUTSIDE RECORDS SUMMARY | 2025-02-20 15:05 | XMS_ITS | Encounter Summary ---
Author Organization [employer] Address [address] [facility] 7t [place] [address] Care Team Providers Care Carton Filling Machine Operator Name Role Phone Charli Nye MD Primary Care Provide r Reason for Visit * Reason Comments Med Refill Encounter Details Date Type Department Care Team ([facility] Contact Info) Description 05/15/2023 Refill [facility] [address] [place], [place] [phone] Charli Nye MD [address] [place] [address] Social History Tobacco Use Types Packs/Day Years [...] Upcoming Encounters Date Type Department Care Team ([facility] Contact Info) Description 05/19/2025 3:00 PM EDT Office Visit [facility] MED[facility]INE [address] [place] [address] Charli Nye MD [address] [place] [address] documented as of this encounter Visit Diagnoses Not on filedocumented in this encounter Additional Health Concerns Assessment Noted Time PHQ-9 Depression Total Score: 6 05/01/20 23 1:05 PM EDT documented as of this encounter Care Teams Carton Filling Machine Operator Relationship Specialty Start Date End Date Charli Nye MD [address] [place] [address] PCP - General Internal Medicine 06/16/14 documented as of this encounter
--- OUTSIDE RECORDS SUMMARY | 2025-02-20 15:05 | XMS_ITS | Encounter Summary ---
Author Organization [employer] Address [address] [facility] 7t [place] [address] Care Team Providers Care Check Out Cashier Name Role Phone Charli Nye MD Primary Care Provide r Encounter Details Date Type Department Care Team ([facility] st Contact Info) Description 01/01/2024 Telephone [facility] MEDICINE [address] [place], [place] [phone] Charli Nye MD [address] [place], [place] [phone] Social History Tobacco Use Types Packs/Day Years [...] AM EST TC placed to pt, utilizing [employer] Dancer ID: [id number], regarding message below. Pt informed BVsure swab [...] Description 05/19/2025 3:00 PM EDT Office Visit [facility] MED[facility]INE [address] [place], [place] [phone] Charli Nye MD [address] [place], [place] [phone] documented as of this encounter Visit Diagnoses Not on filedocumented in this encounter Additional Health Concerns Assessment Noted Time PHQ-9 Depression Total Score: 6 05/01/20 23 1:05 PM EDT documented as of this encounter Care Teams Check Out Cashier Relationship Specialty Start Date End Date Charli Nye MD [address] [place] [address] PCP - General Internal Medicine 06/16/14 documented as of this encounter
--- OUTSIDE RECORDS SUMMARY | 2025-02-20 15:05 | XMS_ITS | Encounter Summary ---
Author Organization [facility] [place], Address PO [facility] [address] [place] [address] Phone Care Team Providers Care Doubler Operator Name Role Phone Charli Heller MD Primary Care Provider Unav ailable Encounter Details Date Type Department Care Team (Late st Contact Info) Description 06/07/2022 Documentation Only [facility] Of [address] [place] [address] Steven Bernal MD [address] [facility] [place] [address] Social History Tobacco Use Types [...] Visit [facility] [address] [address] [place] [address] Steven Bernal MD [address] [facility] [place] [address] documented as of this encounter Visit Diagnoses Not on filedocumented in this encounter Care Teams Doubler Operator Relationship Specialty Start Date End Date Charli Heller MD PCP - General 09/16/19 documented as of this encounter
--- OUTSIDE RECORDS SUMMARY | 2025-02-20 15:05 | XMS_ITS | Encounter Summary ---
Author Organization [facility] [place], Address PO [facility] [address] [place] [address] Phone Care Team Providers Care Ballet Teacher Name Role Phone Charli Heller MD Primary Care Provider Unav ailable Encounter Details Date Type Department Care Team (Late st Contact Info) Description 01/23/2024 Documentation Only [facility] Of [address] [place] [address] Kellie Fisher [address] [place] [address] Social History Tobacco Use Types [...] [facility] [address] [address] Steven Bernal MD [address] [facility] [place] [address] documented as of this encounter Visit Diagnoses Not on filedocumented in this encounter Care Teams Ballet Teacher Relationship Specialty Start Date End Date Charli Heller MD PCP - General 09/16/19 documented as of this encounter
--- OUTSIDE RECORDS SUMMARY | 2025-02-20 15:05 | XMS_ITS | Clinical Summary ---
Author Organization [facility], Address [address] [place] [address] [place] [address] Phone Care Team Providers Care Training And Development Assistant Name Role Phone Charli Heller MD [...] Relation Comments Diabetes Father Heart disease Father [place] Cancer Mother Heart disease Sibling brother CAD [...] Visit [facility], [address] [place] [address] Steven Bernal MD [address] [facility] [address] Health Maintenance Due Date Last Done Comments Breast Cancer Screening 1970 Hepatitis B Vaccine (1 of 3 - 19+ 3-dose series) 1988 Pneumococcal Vaccine: Peds ( 0 to 5 Years) and At-Risk Patients (6 to 49 Years) (2 of 2 - PCV) 10/02/2011 10/02/2010 Colorectal Cancer Screening: Annual FOBT 2018 Colorectal Cancer Screening: Colonoscopy 2018 Colorectal Cancer Screening: Sigmoidoscopy 2018 Influenza Vaccine (Season Ended) 2025 09/27/2023, 08/25/2022, 09/07/2021, Additional history exists Insurance Medicare Medicaid [place] Care Teams Training And Development Assistant Relationship Specialty Start Date End Date Charli Heller MD PCP - General 09/16/19
--- OUTSIDE RECORDS SUMMARY | 2025-02-20 15:05 | XMS_ITS | Encounter Summary ---
Author Organization [facility] [place], Address PO [facility] [address] [place] [address] Phone Care Team Providers Care High Density Press Laborer Name Role Phone Charli Heller MD Primary Care Provider Unav ailable Reason for Visit * Reason Comments Med Refill Encounter Details Date Type Department Care Team (Late Contact Info) Description 11/24/2021 Refill [facility] [address] [place] [address] Steven Bernal MD [address] [facility] [place] [address] Social History Tobacco Use Types [...] Visit [facility] [place], [address] [facility] [place] [address] Steven Bernal MD [address] [facility] [place] [address] documented as of this encounter Visit Diagnoses Not on filedocumented in this encounter Care Teams High Density Press Laborer Relationship Specialty Start Date End Date Charli Heller MD PCP - General 09/16/19 documented as of this encounter
--- OUTSIDE RECORDS SUMMARY | 2025-02-20 15:05 | XMS_ITS | Encounter Summary ---
Author Organization [facility] [place], Address [address] [facility] [address] [place] [address] Phone Care Team Providers Care Operations Technician Name Role Phone Charli Heller MD Primary Care Provider Unav ailable Encounter Details Date Type Department Care Team (Late st Contact Info) Description 06/07/2022 Documentation Only [facility] Of [address] [place] [address] Steven Bernal MD [address] [facility] [place] [address] Social History Tobacco Use Types [...] And [facility] [address] [facility] [address] Steven Bernal MD [address] [facility] [place] [address] documented as of this encounter Visit Diagnoses Not on filedocumented in this encounter Care Teams Operations Technician Relationship Specialty Start Date End Date Charli Heller MD PCP - General 09/16/19 documented as of this encounter
--- OUTSIDE RECORDS SUMMARY | 2025-02-20 15:05 | XMS_ITS | Encounter Summary ---
Author Organization [facility] [employer] Address PO [facility] [address] [place] [address] Phone Care Team Providers Care Clinical Administrative Coordinator Name Role Phone Charli Heller MD Primary Care Provider Unav ailable Encounter Details Date Type Department Care Team (Late st Contact Info) Description 07/31/2023 Documentation Only [facility] Of [address] [place] [address] Reginald Correia PA Social History [...] Visit [facility] Of [address] [place] [address] Steven Bernal MD [address] [place] [address] [place] [phone] documented as of this encounter Visit Diagnoses Not on filedocumented in this encounter Care Teams Clinical Administrative Coordinator Relationship Specialty Start Date End Date Charli Heller MD PCP - General 09/16/19 documented as of this encounter
--- OUTSIDE RECORDS SUMMARY | 2025-02-20 15:06 | XMS_ITS | Encounter Summary ---
Author Organization [facility] Address PO [facility] [address] [place] [address] Phone Care Team Providers Care Freight Associate Name Role Phone Charli Heller MD Primary Care Provider Unav ailable Encounter Details Date Type Department Care Team (Late st Contact Info) Description 03/15/2023 Documentation Only [facility] Of [address] [place] [address] Reginald Correia PA Social History [...] Visit [facility] Of [address] [place] [address] Steven Bernal MD [address] [place] [address] [place] [address] documented as of this encounter Visit Diagnoses Not on filedocumented in this encounter Care Teams Freight Associate Relationship Specialty Start Date End Date Charli Heller MD PCP - General 09/16/19 documented as of this encounter
--- OUTSIDE RECORDS SUMMARY | 2025-02-20 15:06 | XMS_ITS | Clinical Summary ---
Author Organization [employer] Address [address] [place] [address] 7[address] [place] [address] Care Team Providers Care Watch Train Assembler Name Role Phone Charli Nye MD Primary [...] SPRAY IN EACH NOSTRIL TWICE A DAY 12/14/19 23 Active naratriptan (Amerge) 2.5 MG tablet TOME PRIYA TABLETA POR V A ORAL TODOS LOS D CUANDO SEA NECESARIO PARA EL DOLOR DE NENO 01/22/20 23 Active topiramate (Topamax) 25 MG tablet TOME PRIYA TABLETA TODOS LOS D FOR 90 DAYS 12/20/19 23 Active Diclofenac Sodium 1 % gelIndications:Chr onic pain of right wrist APLIQUE AL AREA AFECTADA DOS VECES AL DIDIER 100 g 1 05/16/20 23 Active Advair HFA 115-21 MCG/ACT inhaler INHALE DANDO DOS SOPLIDOS CADA DOCE HORAS 09/18/20 23 Active diphenhydrAMINE (BENADryl) 12.5 MG/5ML liquidIndications: Viral URI Take 10 mL (25 mg) by mouth if needed at bedtime for sleep for up to 10 days. 118 mL 10/15/20 23 Active albuterol 108 (90 Base) MCG/ACT inhaler Q6H as needed 09/18/20 23 Active clonazePAM (KlonoPIN) 0.5 MG tablet Take 0.5 mg by mouth 2 times daily. 11/07/20 19 Active omeprazole (PriLOSEC) [address] capsule Take 20 mg by mouth Once per day. 12/26/19 22 Active propranolol LA (Inderal LA) 160 MG 24 hr capsule Take 160 mg by mouth Once per day. 09/27/20 23 Active sertraline (Zoloft) 50 MG tablet Take 50 mg by mouth Once per day. 11/07/20 Active Dulera 200-5 MCG/ACT inhaler TOME DOS INHALACIONES POR V A ORAL DOS VECES AL D A 02/07/20 24 Active acetaminophen (Tylenol 8 Hour) 650 MG ER tabletIndications: Pain SWALLOW 1 TAB WHOLE BY MOUTH EVERY 8 HOURS NEEDED WITH WATER. DO NOT BREAK,CRUSH,DISS OLVE OR CHEW 60 tablet 3 04/03/20 24 Active levalbuterol (Xopenex) 45 MCG/ACT inhaler TAKE 1 PUFF INHALED EVERY 4 TO 6 HOURS NEEDED FOR SHORTNESS OF BREATH 03/18/20 24 Active albuterol (2.5 MG/3ML) 0.083% nebulizer solution USE 1 VIAL VIA NEBULIZER EVERY 4-6 HOURS NEEDED FOR WHEEZE/SHORTNESS OF BREATH PA DENIED 05/19/20 24 Active terbinafine (LamISIL) 250 MG tabletIndications: Onychomycosis of great toe Take 1 tablet (250 mg) by mouth Once per day. 30 tablet 2 07/22/20 24 Active cholecalciferol (Vitamin D3) 25 MCG (1000 UT) tabletIndications: Low serum vitamin D TOME PRIYA TABLETA (25 MCG) POR VIA ORAL EN LA MANANA 90 tablet 1 09/09/20 24 Active triamcinolone (Kenalog) 0.1 % ointmentIndication s:Vulvar dermatitis Apply topically 2 times daily. 80 g 09/26/20 24 Active loratadine (Claritin) 10 MG tabletIndications: Seasonal allergies TAKE 1 TABLET BY MOUTH EVERY DAY 90 tablet 3 03/06/20 25 Active atorvastatin (Lipitor) 40 MG tabletIndications: Mixed hyperlipidemia Take 1 tablet (40 mg) by mouth Once per day. 30 tablet 6 01/16/20 25 Active Active Problems Problem Noted Date Diagnosed Date Hyperlipidemia 01/15/2025 Assessment & Plan (01/15/2025 1:10 PM EST): Most recent Lab Results Component Value Date TRIG 86 09/24/2024 TRIG 97 01/04/2024 CHOL 147 09/24/2024 CHOL 162 01/04/2024 LDLCHOLCAL 76 09/24/2024 LDLCHOLCAL 92 01/04/2024 HDL 54 09/24/2024 HDL 51 01/04/2024 On atorvastatin 40 mg po at bedtime (started by Cardiology) Hyperpigmented skin lesion 01/15/2025 Assessment & Plan (01/15/2025 1:11 PM EST): Pt with a large hyperpigmented skin lesion left breast since she can remember She would like a second opinion by dermatology Exam suggestive of seborrheic hyperkeratosis Plan: Derm referral Vulvar dermatitis 09/26/2024 Assessment & Plan (09/26/2024 4:30 PM EST): Vulvar dermatitis vs. Tinea Cruris Will prescribe topical steroid BID x 2 weeks If symptoms worsen or do not improve will prescribe following tx for tinea cruris: Clotrimazole 1% cream BID Posterior vitreous detachment of left eye 2023 Assessment & Plan (07/22/2024 9:36 AM EDT): Seen by Tip Banding Machine Operator Dr callejas here at [facility] Stable. Patient is still symptomatic for floaters in [...] pending for 01/10/2024 She was referred to [facility] seen February s/p biopsy that showed: results of the endometrial biopsy showing inactive endometrium. Assessment & Plan (01/03/2024 10:26 AM EST): Seen by Dr Jonas SAGASTUME Pelvis Transvaginal pending for 01/10/2024 She was referred to [facility] as well appointment scheduled for February Mild persistent asthma without complication 12/14 Assessment & Plan (01/15/2025 1:01 PM EST): Under the care of Pulmonology, recently switched to Trelegy. She is also on Albuterol Last seen 01/09/2025 by Manjula Luna NP Assessment & Plan (07/22/2024 9:34 AM EDT): [...] 5 years is recommended. Will order today Leiomyoma of uterus, unspecified 07/17/2023 Assessment & Plan (01/15/2025 12:59 PM EST): Pt here for a follow up 09/10/2024 US pelvic and transvaginal IMPRESSION: 1. There are 5 uterine fibroid tumors as discussed above. Largest measures 6.3 x 5.5 x 6.1 cm, and has minimally enlarged from the prior. The others are stable. 2. Normal endometrium with a small amount of endometrial fluid present. This is nonspecific. 3. The right ovary cannot be definitively seen. The left ovary is normal sonographically. No adnexal masses. Pt seen by [facility] Dr Mar. Pt was referred to [facility] for Hysterectomy Assessment & Plan (07/17/2023 2:57 PM EDT): [...] cardiac workup in hospital and f w outpatient surgery rn w recent normal eval per pt -warm [...] continue to f/u with her psychotherapist at [facility] ( Fide Lanza ). she denies any active suicidal ideation and already has a f/u with her psychiatrist. Painful arc syndrome of right shoulder 3 Right bundle branch block 05/01/2023 Class 1 obesity 01/24/2023 Assessment & Plan (01/15/2025 1:04 PM EST): Patient has been counseled and educated about diet and exercise. Personal goal of weight loss discussed Patient has comorbidity of: Asthma Calculus of kidney 01/24/2023 Seasonal allergies 01/24/2023 Proteinuria 12/26/2019 Stress incontinence of urine 03/25/2019 Assessment & Plan (01/03/2024 10:15 AM EST): Seen in the past by [facility] Tubular adenoma 03/25/2019 Renal cysts, acquired, bilateral 02/11/2019 Assessment & Plan (07/17/2023 2:46 PM EDT): Pt had a recent MRI 02/11/2019 showed: Bilateral renal cysts are present, Bosniak 1 and 2 in nature. No suspicious lesions. Pt referred to Urology, last seen 08/18/2022 Dr Dewey Epidermoid cyst of skin 04/05/2018 Recurrent major depressive episodes, mild 2017 Assessment & Plan (01/15/2025 1:03 PM EST): Pt here for a f/u reports compliance with her therapy sessions and also with her psychiatrist. Assessment & Plan (01/03/2024 10:17 AM EST): Pt reports compliance with her therapy sessions and also with her psychiatrist. States the psychiatrist changed her clonazepam to lorazepam. States medication has been effective. Also she was able to visit her daughter and grandson in [place] about 2 weeks ago and that has improved her depression. Inappropriate sinus tachycardia 02/01/2017 Assessment & Plan (01/15/2025 1:05 PM EST): Last seen by Cardiology 01/07/2024 On Inderal dose reduced to 160 mg po at hs [employer]'s impression was that this may be related to anxiety in the setting of a structurally normal heart. Stress test was negative back then Assessment & Plan (07/17/2023 2:47 PM EDT): Last seen by Cardiology 07/02/2023 On Inderal dose reduced to 160 mg po at hs [employer]'s impression was that this may be related to anxiety in the setting of a structurally normal heart. Stress test was negative back then Essential hypertension 12/02/2015 Assessment & Plan (01/15/2025 1:02 PM EST): Patient is here for f/u BP today controlled She is on a regimen of: Inderal LA 60 mg po q pm. Given adequate blood pressure control will continue with current medical regimen. Most recent electrolytes, Bun and Creatinine done on: Lab Results Component Value Date NA 142 01/05/2025 NA 144 09/24/2024 K 4.1 01/05/2025 K 4.6 09/24/2024 CL 111 (H) 01/05/2025 CL 109 (H) 09/24/2024 BUN 16 01/05/2025 BUN 13 09/24/2024 CREATININE 0.78 01/05/2025 CREATININE 0.85 09/24/2024 were within normal limits. patient advised to adhere to a low sodium diet, encouraged about medication compliance, counseled about weight loss. Assessment & Plan (07/22/2024 9:37 AM EDT): [...] microscopic hematuria, seen in the past at [facility] urology. They recommended to f/u with them [...] Encounters Date Type Department Care Team Description 01/15/2025 1:00 PM EST Office Visit [facility] MEDICINE [address] [place] [address] [phone] Charli Nye MD Uterine leiomyoma, unspecified location (Primary Dx); Mild persistent asthma without complication; Essential hypertension; Recurrent major depressive episodes, mild (CMS/HCC); Inappropriate sinus tachycardia (CMS/HCC); Class 1 obesity; Dietary counseling; Exercise counseling; Mixed hyperlipidemia; Hyperpigmented skin lesion 01/15/2025 Travel 01/13/[address] [phone] Chantell Pardo DO Seasonal allergies 01/12/[address] [phone] Charli Nye MD [employer] Freedom (Underpad, bladder control.) 01/06/2025 Patient Outreach [facility] [address] [place] [address] [phone] Charli Nye MD Care Coordination (CHW outreach for SDOH PT-1 and food needs-referral completed /) 01/06/2025 Patient Outreach [facility] MEDICINE [address] [place] [address] [phone] Charli Nye MD Pre-visit Planning (SDOH Screening positive and Tobacco screening negative) 01/05/2025 Orders Only [facility] External Provider, [facility] 01/01/2025 Telephone [facility] MEDICINE [address] [facility], [place] [phone] Charli Nye MD Chart Prep from Last 3 Months Immunizations Name Administration Dates Next Due Influenza injectable quadriv alent IIV4 with preservative 07/30/2018,09/21/2016,12/02/2015 Influenza injectable quadriv alent preservative free 09/27/2023,08/25/2022,09/07/2021,11/24,08/11/2019,08/21/2017 Influenza, IIV3, injectable 07/30/2014, 0 Influenza, Split (incl. cheikh fied surface antigen) 07/18/2013 Influenza, seasonal, injecta ble, preservative free 07/22/2024 Moderna Covid-19 Vaccine 12+ 10/18/2021,04/01/20,03/04/2021 Pfizer Covid-19 Vaccine 12+ Bivalent 08/25/2022 Pneumococcal [...] from getting things needed for daily living? No 01/15/2025 Utilities Answer Date Recorded In the past [...] Sign Reading Time Taken Comments Blood Pressure 116/69 01/15/2025 12:49 PM EST Pulse 75 01/15/2025 12:49 PM EST Temperature 36.1 ??C (96.9 ??F) 01/15/2025 12:[address] Respiratory Rate 20 01/15/2025 12:49 PM EST Oxygen Saturation 97% 01/15/2025 12:49 PM EST Inhaled Oxygen Concentration - - Weight 90 kg (198 lb 6.4 oz) 01/15/2025 12:49 PM EST Height 165.1 cm (5' 5 ) 01/15/2025 12:49 PM EST Body Mass Index 33.02 01/15/2025 12:49 PM EST Plan of Treatment Upcoming Encounters Date Type Department Care Team (Late st Contact Info) Description 05/19/2025 3:00 PM EDT Office Visit [facility] MEDICINE [address] [place], [place] [phone] Charli Nye MD [address] [place], [place] [phone] Health Maintenance Due Date Last Done Comments CT Colonography 1969 FIT DNA/Cologuard 1970 FIT 1970 FOBT 1970 HIV Screening 1970 Sigmoidoscopy 1970 Hepatitis C Screening 1987 Hepatitis B Vaccines (1 of 3 - 19+ 3-dose series) 1988 Pneumococcal Vaccine: 50+ Years (2 of 2 - PCV) 10/02/2011 10/02/2010 DTaP/Tdap/Td Vaccines (1 - Tdap) 09/22/2016 09/21/2016 COVID-19 Vaccine (5 - season) 2024 08/25/2022, 10/18/2021, 04/01/2021, Additional history exists Depression Screening 07/22/2025 07/22/2024, 07/22/20 24 Mammogram 07/23/2025 07/23/2024, 06/13, 04/06/2022, Additional history exists Alcohol/Substance Use Screening 01/15/2026 01/15/2025 SDOH Screening 01/15/2026 01/15/2025 Tobacco Screening 01/15/2026 01/15/2025 HPV/Cotest 02/09/2026 02/09/2021 Cervical Cancer Screening 02/06/2027 [...] HIGH SENSITIVITY <2.7 <3.5 - 17.0 ng/L [facility] Comment:The Barreto high sens itivity Troponin-I results should beused in conjunction with other diagnostic information suchas ECG, clinical observations and information, and patientsymptoms to aid in the diagnosis of [place]. 01/05/2025 8:06 PM EST 01/05/2025 8:10 PM EST Generic External Data Provider LAB BLOOD ORDERAB LES Final Result Performing Organization Address [facility] Co de Phone Number [facility] [address] [place] [phone] * SARS-CoV-2 RNA, Influenza A/B, and RSV RNA, Ql NAAT (01/05/2025 8:06 PM EST) [facility] Influenza A PCR NEGATIVE Negative [facility] Influenza B PCR NEGATIVE Negative [facility] Resp Syncy Virus RNA Qual PCR NEGATIVE Negative [facility] SARS COV2 PCR NEGATIVE Negative [facility] Comment:All test results mus t be [...] use by authorized laboratories.Testing performed on the [employer] GeneXpert utilizingreal-time RT-PCR.All SARS CoV2 and positive influenza A/B results arereported to [facility]. 01/05/2025 8:06 PM EST 01/05/2025 8:10 PM EST Generic External Data Provider LAB MICROBIOLOGY - GENERAL ORDERABLES Final Result Performing Organization Address [facility] Co de Phone Number [facility] [address] [place] [phone] * CBC auto differential (01/05/2025 8:06 PM EST) Pathologist [facility] White Blood Count 7.5 4.8 - 10.8 X10*3/uL [facility] Red Blood Count 4.90 4.20 - 5.50 X10*6/uL [facility] Hemoglobin 13.7 12.0 - 16.0 g/dl [facility] Hematocrit 41.6 37.0 - 47.0 % [facility] Mean Corpuscular Volume 84.9 80.0 - 98.0 fL [facility] Mean Corpuscular Hemoglobin 28.0 27.0 - 33.0 pg [facility] Mean Corpuscular HGB Conc 32.9 31.0 - 35.0 g/dl [facility] Red Cell Distribution Width 13.2 11.0 - 16.0 % [facility] Platelet Count 309 160 - 400 X10*3/uL [facility] Mean Platelet Volume 9.5 9.4 - 12.3 fL [facility] Neutrophils Percent Auto 57.3 45 - 73 % [facility] Imm Gran Pct Auto 0.3 0.0 - 0.4 % [facility] Lymphocytes Percent Auto 33.3 20 - 40 % [facility] Monocytes Percent Auto 6.4 2 - 11 % [facility] Eosinophils Percent Auto 2.4 0 - 4 % [facility] Basophils Percent Auto 0.3 0 - 2 % [facility] NRBC Pct Auto 0.0 0.0 - 0.2 /100WBC [facility] Neutrophils Absolute Auto 4.3 2.0 - 8.3 x10*3/uL [facility] Imm Gran Abs Auto 0.02 0.00 - 0.03 X10*3/uL [facility] Lymphocytes Absolute Auto 2.5 1.2 - 4.9 X10*3/uL [facility] Monocytes Absolute Auto 0.5 0.1 - 1.2 X10*3/uL [facility] Eosinophils Absolute Auto 0.2 0.0 - 0.4 X10*3/uL [facility] Basophils Absolute Auto 0.0 0.0 - 0.2 X10*3/uL [facility] NRBC Abs Auto 0.000 0.0 - 0.012 X10*3/uL [facility] 01/05/2025 8:06 PM EST 01/05/2025 8:10 PM EST us Generic External Data Provider LAB BLOOD ORDERAB LES Final Result Performing Organization Address [facility] Co de Phone Number [facility] [address] [place] [phone] * B Type Natriuretic Peptide (BNP) (01/05/2025 8:06 PM EST) B Type Natriuretic Peptide 49 <100 pg/mL [facility] Comment:For those patients w ho are being treated with Natrecor(nesiritide, recombinant BNP), BNP testing should beperformed at least two hours post treatment in order toensure that only endogenous levels of BNP are detected. 01/05/2025 8:06 PM EST 01/05/2025 8:10 PM EST us Generic External Data Provider LAB BLOOD ORDERAB LES Final Result Performing Organization Address [facility] Phone Number [facility] [address] [place] [phone] * Magnesium (01/05/2025 8:06 PM EST) Magnesium 2.0 1.6 - 2.6 mg/dL [facility] 01/05/2025 8:06 PM EST 01/05/2025 8:10 PM EST us Generic External Data Provider LAB BLOOD ORDERAB LES Final Result Performing Organization Address [facility] Co de Phone Number [facility] [address] [place] [phone] * (ABNORMAL) Comprehensive Metabolic Panel (01/05/2025 8:06 PM EST) Sodium 142 135 - 145 mmol/L [facility] Potassium 4.1 3.3 - 5.1 mmol/L [facility] Chloride 111(H) 96 - 108 mmol/L [facility] Carbon Dioxide 21(L) 22 - 29 mmol/L [facility] Anion Gap 14 12 - 20 [facility] Urea Nitrogen (BUN) 16 9 - 16 mg/dL [facility] Creatinine, Serum 0.78 0.5 - 1.4 mg/dL [facility] Creatinine Clr Calc Pharmacy 90.2 [facility] Comment:Provided height and weight: 165.1 cm,89.8 kg.eGFR (calculated from the MDRD study equation) and eCrCl(calculated from the Cockcroft-Gault equation) are based ondifferent parameters and may not yield comparable results.If eCrCl result is absurd, please check patient'sheight/weight. Estimated Glomerular Filt Rate >60 [facility] Comment:Chronic Kidney Disea se: Estimated GFR < 60 mL/min/1.89f9Dvrcup Kidney Disease: Estimated GFR < 15 mL/min/1.73m2 Glucose 139(H) 60 - 115 mg/dL [facility] Calcium 9.5 8.4 - 10.2 mg/dL [facility] Bilirubin, Total 0.2 0.0 - 1.0 mg/dL [facility] Aspartate Amino Transferase 20 5 - 31 U/L [facility] Alanine Aminotransferase 15 0 - 31 U/L [facility] Total Protein 8.0 6.5 - 8.0 g/dL [facility] Albumin Level 4.0 3.5 - 5.0 g/dL [facility] Alkaline Phosphatase 120(H) 39 - 117 U/L [facility] 01/05/2025 8:06 PM EST 01/05/2025 8:10 PM EST us Generic External Data Provider LAB BLOOD ORDERAB LES Final Result [facility] [address] [place] [phone] * XR Chest 2 Views (01/05/2025 7:49 PM EST) Anatomical Region Laterality Modality Chest Radiographic Sahyy ging 01/05/2025 7:49 PM EST Narrative 01/05/2025 7:51 PM EST ? [facility] ?[address] ?[place] [address] ?XRay Report ? Signed ? Patient: Fredis,Lauren ?MR#: [id number] ?? 1423 ? : 1970 ?Acct:[id number] ? Age/Sex: 54 / F ?ADM Date: 01/05/25 ? Loc: HO.ED ? Attending Dr: ? Ordering Physician: Yudelka Burns ?? Date of Service: 01/05/25 ?? Procedure(s): XR chest 2V ?? Accession Number(s): [id number] ? cc: Charli Rojas MD; Yudelka Burns [...] ? DD/ 48 ? TD/TT: 01/05/251948 ? Staffing Administrator: ? Procedure Note Judy, Maurisio - 01/05/[address] [address] XRay Report Signed Patient: Lauren Mcneal#: [id number] 1423 : 1970Acct:[id number] Age/Sex: 54 / FADM Date: 01/05/25 Loc: HO.ED Attending Dr: Ordering Physician: Yudelka Burns Date of Service: 01/05/25 Procedure(s): XR chest 2V Accession Number(s): [id number] cc: Charli Rojas MD; Yudelka Burns CLINICAL [...] in OV> 01/05/251949 DD/ 48 TD/TT: 01/05/251948 Staffing Administrator: [facility] External Provider IMG XR PROCEDURES Final Result * Lipid Panel, Standard (09/24/2024 11:39 AM EST) Triglycerides 86 <150 mg/dL [facility] Comment:Desirable Triglyceri de: less than 150 mg/dLBorderline High Triglyceride 150-199 mg/dLHigh Triglyceride: 200-499 mg/dLVery High Triglyceride: greater than or equal to 5OO mg/dL Cholesterol 147 <200 mg/dL [facility] Comment:Desirable Cholestero l: less than 200 mg/dLBorderline High Cholesterol: 200-239 mg/dLHigh Cholesterol: greater than 239 mg/dL LDL Cholesterol Calculated 76 <100 mg/dL [facility] Comment:Desirable LDL: less than 100 mg/dLNear Optimal/Above Optimal LDL: 110- 129 mg/dLBorderline High LDL: 130-159 mg/dLHigh LDL: 160-189 mg/dLVery High LDL: greater than or equal to 190 mg/dL HDL Cholesterol 54 >40 mg/dL [facility] Comment:Desirable HDL: great er than 40 mg/dL Note: This HDL assay may give artificially low results in patients with liver disease. 09/24/2024 11:3 9 AM EST 09/24/2024 11:39 AM EST Generic External Data Provider LAB BLOOD ORDERAB LES Final Result [facility] [address] [place] [phone] * BI Mammogram Screening Tomosynthesis Bilateral (07/23/2024 1:30 PM EDT) Anatomical Region Laterality Modality Breast Bilateral Mammography 07/23/2024 1:30 PM EDT Narrative 08/06/2024 10:59 AM EDT ? [facility] ? [address] ?[place] [address] ? Mammography Report ? Signed ? Patient: Lauren Mcneal ?MR#: [id number] ?? 1423 ? : 1970 ?Acct:[id number] ? Age/Sex: 54 / F ?ADM Date: 07/23/24 ? Loc: HO.MAMMO ? Attending Dr: Charli Rojas MD ? Ordering Physician: Charli Rojas MD ?Resu ?? lts: 2Benign Findings ? Date of Service: 07/23/24 ?Follow Up: 1 Year From Orig ?? inal Mammogram ? Procedure(s): MM tomosynthesis screening BI ?? Accession Number(s): [id number] ? cc: Charli Rojas MD ? EXAMINATION: [...] ??Annie Walter DO ??08/06/2024 10:56 AM EDT ? Dictated By: ?Annie Walter DO ? Signed By: ?<Electronically signed by Annie Walter, DO in OV> ? 08/06/24 1056 ? DD/ 1330 ? TD/TT: 07/23/24 1348 ? Staffing Administrator: ? Procedure Note Judy, Maurisio - 08/06/2024 [facility] [address] [place] [address] Dr. [place], [place] [address] Mammography Report Signed Patient: Lauren McnealMR#: [id number] 1423 : 1970Acct:[id number] Age/Sex: 54 / FADM Date: 07/23/24 Loc: [facility] Attending Dr: Charli Rojas MD Ordering Physician: Charli Rojas MDResu lts: 2Benign Findings Date of Service: 07/23/24Follow Up: 1 Year From Orig inal Mammogram Procedure(s): MM tomosynthesis screening BI Accession Number(s): [id number] cc: Charli Rojas MD EXAMINATION: MM SCREENING [...] 08/06/24 1056 DD/ 1330 TD/TT: 07/23/24 1348 Staffing Administrator: us Charli Lazo MD IMG BI PROCEDURES Scooby florian Result - Final * Pap Smear (02/07/2024 11:05 AM EDT) 02/07/2024 11:0 5 AM EDT 02/08/2024 9:30 AM EDT [facility] - 02/19/2024 9:04 AM EDT ----- ------- Name: Lauren Mcneal ? Age/Sex: 53/F ? : 1970 Unit#: [id number] ?? Attend Dr: Bruno Mar MD ?Re02/07/24 ?Status: DEP REF ? Location: HO.LNP ?Disch: ? ----- ------- SPEC : [id number] ? RECD: 02/08/24 ? STATUS: ??SOUT ? REQ NUM: [id number] ? INGRID: 02/07/24-5 ? SUBM DR: Bruno Mar MD ? [...] 66, 68) ? HPV testing performed by [employer], [place], [place]. ??See reference laboratory ?? portion of the EMR for entire report. ?Clinical Information LMP: Postmenopausal Previous PAP test: 3 yrs ago, Unknown findings Other history:Postmenopausal bleeding ? Material Received ?? ThinPrep-Cervical Copies To: ?? Charli Rojas MD ?? [address] ?? [place] [address] ?? [phone] ?? Bruno Mar MD ?? [address] [place] [address] Dr. Woods [facility] ?? [place] [address] ?? [phone] ----- ------- Signed (signature on file) CELENA Kaur (ASCP) 02/19/24 09 ? ----- ------- ? END OF REPORT ? us Generic External Data Provider LAB CYTOLOGY ORDE RABCARLOS ALBERTO Final Result [facility] [address] [place] [address] [phone] * Hm Colonoscopy (01/18/2024) Colonoscopy Normal Normal Historical Provider MD HEALTH MAINTENANCE Final Result * HPV mRNA E6/E7 (02/09/2021 9:38 AM EDT) HPV nRNA E6/E7 Not Detected Not Detected [facility] Comment: Methodology: Technical Services Analyst-Mediated Amplification This assay detects E6/E7 viral messenger RNA (mRNA) from 14 high-risk HPV types (16,18,31,33,35,39,45,51,52,56,58,59,66,68). ? The analytical performance characteristics of this assay have been determined by [employer]. The modifications have not been cleared or approved by the FDA. This assay has been validated pursuant to the CLIA regulations and is used for clinical purposes. ?? For additional information, please refer to http://education.Koibanx.[employer] Systems/faq/CTR485f5 (This link if provided for information/ educational purposes only.) 02/09/2021 9:38 AM EDT [facility] BLOOD ORDERABLES Bertha l Result [facility] [address] from Last 3 Months or Most Recently Relevant to Health Maintenance Insurance [place] [phone] [facility] STANDARD * Guarantor: Lauren Mcneal Account Type Relation to Patient Date of Phone Billing Address Personal/[place] [address] * Guarantor: Lauren Mcneal Account Type Relation to Patient Date of Phone Billing Address Personal/[place] [address] Care Teams Watch Train Assembler Relationship Specialty Start Date End Date Charli Nye MD [address] [place] [phone] PCP - General Internal Medicine 06/16/14
== END 2025-02-20 15:02 | disposition home or self-care (01) ==
LOC: HO.CT 15:01
PROVIDERS: PCP Internal Medicine; Visit Provider Nurse Practitioner Family
DX: R91.1 Solitary pulmonary nodule (principal)
CPT/HCPCS: 71250

== ENCOUNTER → 2025-02-20 15:04 | Outpatient (BNV) | payer MEDICARE, MEDICAID, SELFPAY | PROVIDERS: PCP Internal Medicine; Visit Provider Radiology Diagnostic Radiology | DX: R91.1 Solitary pulmonary nodule (principal); E04.1 Nontoxic single thyroid nodule | CPT/HCPCS: 71250 ==

== ENCOUNTER 2025-03-04 15:34 | Outpatient (AMB) | payer MEDICARE, MEDICAID, SELFPAY ==
--- NOTE | 2025-03-04 15:38 | MHC.OFFVIS ---
Vital Signs 03/04/25 15:48 Height 5 ft 5 in Weight 203 lb BMI 33.8 Pulse 82 Pulse Source Pulse Oximeter Pulse Oximetry (%) 99 Oxygen Delivery Method Room Air Intake Visit Reasons: pulmonary nodule Realtime Court Reporter Required: Yes Realtime Court Reporter Name: Anya Paz Accompanied by: Self / Same As Patient Allergies shellfish derived [SHELLFISH DERIVED] Allergy (Severe, Verified 03/04/25 15:45) swelling of tongue aspirin [ASPIRIN] Allergy (Intermediate, Verified 03/04/25 15:45) rash/ itch ciprofloxacin [From CIPRO] Allergy (Unknown, Verified 03/04/25 15:45) UNKNOWN latex Allergy (Unknown, Verified 03/04/25 15:45) Itching Seafood Allergy (Intermediate, Uncoded 03/04/25 15:45) hives Medication List - Last Reconciled 03/04/25 by Arin Keane LPN acetaminophen ER 650 mg PO Q8H PRN albuterol sulfate 2.5 mg (3 mL) inhalation Q4-6H PRN albuterol sulfate 90 mcg/actuation 2 puffs inhalation Q4-6H PRN albuterol sulfate 2.5 mg (3 mL) inhalation Q4-6H PRN atorvastatin 40 mg PO BEDTIME cholecalciferol (vitamin D3) 25 mcg PO QAM clonazepam 0.5 mg PO oihahtfgaeg-qtpskvtto-ayytnwxf 200-62.5-25 mcg (Trelegy Ellipta) 1 inh inhalation DAILY omeprazole 40 mg PO DAILY PRN propranolol ER 160 mg PO DAILY sertraline 100 mg PO DAILY HPI HPI pulmonary nodule: Details: Lauren is a pleasant 54 year old female, never smoker, with underlying history of childhood asthma and pulmonary nodules. Since last visit she reports excellent control respiratory symptoms using Trelegy, rarely requires albuterol MDI. She denies any visits to Urgent Care or hospitalizations related to respiratory distress since last visit. Today she presents to review chest CT results. [facility] Medical History Thyroid nodule RBBB (right bundle branch block) HTN (hypertension), benign Hyperlipidemia Migraines Depression with anxiety Tubular adenoma of colon (~2019) Low back pain Surgical History History of appendectomy History of colonoscopy History of right breast biopsy Family History Paternal Aunt Breast cancer Mother Pancreatic cancer Social History Household Members: Spouse Housing: House Alcohol intake: never Patient Tobacco Use Status: Never used Tobacco Current occupational status: disabled Current occupation: lt handed Sexual orientation: Straight/Heterosexual Gender identity: Female Female Reproductive History Menstrual Age of Menarche: 14 Review of Systems Const Denies chills, Denies excessive sweating, Denies fever(s), Denies headache(s) and Denies night sweats Eyes Denies dry eyes, Denies irritation and Denies itchy eyes ENT Reports Normal hearing present, Denies headache(s), Denies nasal congestion, Denies nasal discharge, Denies post nasal drip and Denies sore throat Card Denies chest pain, Denies chest pain at rest, Denies chest pain with activity, Denies claudication, Denies leg edema, Denies dyspnea, Denies dyspnea on exertion, Denies orthopnea and Denies paroxysmal nocturnal dyspnea Resp Denies chest congestion, Denies cough, Denies excessive phlegm production, Denies pain on inspiration, Denies pain with cough, Denies dyspnea, Denies dyspnea on exertion, Denies stridor and Denies wheezing Musc Denies myalgias Neuro Reports Normal hearing present and Denies headache(s) Endo Denies excessive sweating Vicente/Lymph Denies lymphadenopathy Aller/Immun Denies itchy eyes, Denies seasonal rhinorrhea and Denies wheezing Physical Exam Vital Signs: Last Vital Signs Pulse 82 03/04/25 15:48 Pulse Ox 99 03/04/25 15:48 Oxygen Delivery Method Room Air 03/04/25 15:48 BMI result Body Mass Index 33.8 Const General: cooperative, healthy appearing, comfortable, no acute distress, well developed and alert Orientation/consciousness: patient oriented x3 Limitations: no limitations HEENT Head: Yes normal to inspection, Yes normocephalic and Yes atraumatic Ears: hearing grossly normal bilaterally and external ears normal Eyes General: appearance normal, both eyes and all related structures Eyelids: Yes eyelids normal Sclerae: sclerae normal EOM: EOMs intact bilaterally Neck Neck: Yes normal visual inspection and Yes no lymphadenopathy Lymphatic: no lymphadenopathy noted Chest Chest palpation & inspection: normal inspection of the chest Resp Effort & Inspection: normal respiratory effort, able to speak in complete sentences, no audible wheezes, no cough, no stridor, not tachypneic, no tripod positioning and no use of accessory muscles Auscultation: clear to auscultation bilaterally Cardio Jugular venous distension: no JVD Rate: regular rate Rhythm: regular rhythm Skin Other: warm, dry General skin exam: no rashes or lesions noted Neuro General: patient oriented x3 Cranial nerves: Yes Normal hearing present Cognition (Neuro): normal cognition Gait exam (Neuro): Normal gait present Extrem General: Yes normal to inspection, Yes capillary refill normal, Yes no clubbing, cyanosis or edema and Yes no pedal edema Psych Appearance: grossly normal and well kempt Speech and movement: Normal speech and movement present and Clear speech present Affect: normal affect Attitude: cooperative Thought process: Normal thought process present Thought content: Normal thought content present Insight: Good insight present (Psych) Judgement: Good judgement present (Psych) Results Reviewed Results Reviewed: [address] [address] [address] Scan Report Signed Patient: Lauren Mcneal MR#: [id number] : 1970 Acct:[id number] Age/Sex: 54 / F ADM Date: 02/20/25 Loc: HO.CT Attending Dr: Manjula Luna NP Ordering Physician: Manjula Luna NP Date of Service: 02/20/25 Procedure(s): CT chest wo IV con Accession Number(s): [id number] cc: Charli Rojas MD; Manjula Luna NP~ Report Number: [id number]: Total DLP = 141.00 mGy-cm EXAMINATION: CT CHEST WITHOUT CONTRAST CLINICAL INFORMATION: Solitary pulmonary nodule. COMPARISON: 11/23/2023. 09/06/2023. TECHNIQUE: Multidetector volumetric CT imaging of the chest was done. Axial MIP volume rendering provided. Sagittal and coronal reformatted images were obtained. This CT examination was performed using dose optimization techniques as appropriate, variously including the following: *Automated exposure control *Adjustment of mA and/or kV according to patient size (this includes techniques or standardized protocols for targeted exams where dose is matched to indication/reason for exam; i.e. extremities or head) *Use of iterative reconstruction technique FINDINGS: NODULES: 3 mm nodule in the superior segment right lower lobe abutting the major fissure, most likely intrapulmonary lymph node, unchanged (series 5, image 44). No new or enlarging pulmonary nodule. LUNGS: There is minimal linear atelectasis or scarring in the inferior right middle lobe and lingula. Stable small subpleural density in the lateral posterior right upper lobe (series 5, image 29), likely a focus of scarring. No consolidations, abnormal groundglass opacities, effusions, or pneumothorax. Small airways appear normal. Central airways are patent. MEDIASTINUM: There is a stable 11 mm left inferior thyroid nodule. The thyroid is otherwise normal in imaging appearance. There is no lymphadenopathy or mass. The aorta is normal in caliber and course. Main pulmonary artery is normal in size. The heart size is normal. There is no pericardial effusion. There is no discrete esophageal abnormality. GE junction appears normal. CORONARY ARTERY CALCIFICATION: None visualized on this study. AXILLA/CHEST WALL: No abnormal lymph nodes or masses. UPPER ABDOMEN: There are partially imaged cysts in both kidneys. Remainder the imaged upper abdominal contents appear normal. OSSEOUS STRUCTURES: -There is no suspicious lytic or blastic bone lesion. CT/CT chest wo IV con IMPRESSION: 1. Stable 3 mm nodule abutting the major fissure in the superior segment right lower lobe. This is consistent with a stable benign intrapulmonary lymph node. 2. No new or enlarging pulmonary nodules. 3. Minor foci of scarring in the right middle lobe and lingula, and posterior lateral right upper lobe. Lungs are otherwise clear without evidence of active disease. 4. There is a stable left 1.1 cm thyroid nodule. Refer to the prior thyroid imaging. No further follow-up suggested. 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 Review chest CT which revealed stable 3 mm pulmonary nodule of the right lower lobe. There was no of thyroid nodule which she has undergone multiple ultrasounds and is being managed by primary care. Will repeat in 1 year to assess stability and it continues to be stable no need for further imaging. All questions were answered and patient is in agreement of plan. Will follow-up in 3-6 months or sooner if needed. Orders: Orders CT chest wo IV con 11 Months R91.1 - Solitary pulmonary nodule Coding Level of Care Code Est Pt Level 4 (41316) Diagnoses Asthma J45.909 Lung nodule R91.1 Dyspnea R06.00
[2025-03-04 15:48] VITALS: PULSE 82; O2SAT 99; BMI 33.8
--- OUTSIDE RECORDS SUMMARY | 2025-03-04 18:12 | XMS_ITS | Encounter Summary ---
Author Organization [employer] Address [address] [facility] 7[address] [place] [address] Care Team Providers Care Busher Helper Name Role Phone Charli Nye MD Primary Care Provide r Reason for Visit * Reason Comments Med Refill Encounter Details Date Type Department Care Team ([facility] Contact Info) Description 05/15/2023 Refill [facility] [address] [place], [place] [phone] Charli Nye MD [address] [place] [address] Social History Tobacco Use Types Packs/Day Years [...] Upcoming Encounters Date Type Department Care Team ([facility] Contact Info) Description 05/19/2025 3:00 PM EDT Office Visit [facility] [address] [place] [address] Charli Nye MD [address] [place] [address] documented as of this encounter Visit Diagnoses Not on filedocumented in this encounter Additional Health Concerns Assessment Noted Time PHQ-9 Depression Total Score: 6 05/01/20 23 1:05 PM EDT documented as of this encounter Care Teams Busher Helper Relationship Specialty Start Date End Date Charli Nye MD [address] [place] [address] PCP - General Internal Medicine 06/16/14 documented as of this encounter
--- OUTSIDE RECORDS SUMMARY | 2025-03-04 18:12 | XMS_ITS | Encounter Summary ---
Author Organization [facility] Address [address] [facility] [address] [place] [address] Phone Care Team Providers Care Grounds Person Name Role Phone Charli Heller MD Primary Care Provider Unav ailable Encounter Details Date Type Department Care Team (Late st Contact Info) Description 07/20/2022 Documentation Only [facility] [address] [place] [address] Reginald Correia PA Social History [...] Visit [facility] [address] [place] [address] Steven Bernal MD [address] [place] [address] [place] [phone] documented as of this encounter Visit Diagnoses Not on filedocumented in this encounter Care Teams Grounds Person Relationship Specialty Start Date End Date Charli Heller MD PCP - General 09/16/19 documented as of this encounter
--- OUTSIDE RECORDS SUMMARY | 2025-03-04 18:12 | XMS_ITS | Encounter Summary ---
Author Organization [facility] [place], Address [address] [facility] [address] [place] [address] Phone Care Team Providers Care Plastic Extrusion Operator Name Role Phone Charli Heller MD Primary Care Provider Unav ailable Reason for Visit * Reason Comments Med Refill Encounter Details Date Type Department Care Team (Late Contact Info) Description 03/21/2022 Refill [facility] [address] [place] [address] Steven Bernal MD [address] [facility] [place] [address] Social History Tobacco Use Types [...] Visit [facility] [place], [address] [facility] [place] [address] Steven Bernal MD [address] [facility] [place] [address] documented as of this encounter Visit Diagnoses Not on filedocumented in this encounter Care Teams Plastic Extrusion Operator Relationship Specialty Start Date End Date Charli Heller MD PCP - General 09/16/19 documented as of this encounter
--- OUTSIDE RECORDS SUMMARY | 2025-03-04 18:12 | XMS_ITS | Encounter Summary ---
Author Organization [facility] [place], Address [address] [facility] [address] [place] [address] Phone Care Team Providers Care Air Dispatcher Name Role Phone Charli Heller MD Primary Care Provider Unav ailable Encounter Details Date Type Department Care Team (Late st Contact Info) Description 06/07/2022 Documentation Only [facility] [address] [place] [address] Steven Bernal MD [address] [facility] [place] [address] Social History Tobacco Use Types [...] Visit [facility] [address] [facility] [place] [address] Steven Bernal MD [address] [facility] [place] [address] documented as of this encounter Visit Diagnoses Not on filedocumented in this encounter Care Teams Air Dispatcher Relationship Specialty Start Date End Date Charli Heller MD PCP - General 09/16/19 documented as of this encounter
--- OUTSIDE RECORDS SUMMARY | 2025-03-04 18:12 | XMS_ITS | Encounter Summary ---
Author Organization [facility] [place], Address [address] [facility] [address] [place] [address] Phone Care Team Providers Care Metal Polisher And Buffer Apprentice Name Role Phone Charli Heller MD Primary Care Provider Unav ailable Encounter Details Date Type Department Care Team (Late st Contact Info) Description 06/07/2022 Documentation Only [facility] [address] [place] [place] [address] Steven Bernal MD [address] [facility] [place] [address] Social History Tobacco Use Types [...] Visit [facility] [address] [facility] [place] [address] Steven Bernal MD [address] [facility] [place] [address] documented as of this encounter Visit Diagnoses Not on filedocumented in this encounter Care Teams Metal Polisher And Buffer Apprentice Relationship Specialty Start Date End Date Charli Heller MD PCP - General 09/16/19 documented as of this encounter
--- OUTSIDE RECORDS SUMMARY | 2025-03-04 18:12 | XMS_ITS | Encounter Summary ---
Author Organization [facility] [place], Address [address] [facility] [address] [place] [address] Phone Care Team Providers Care Cinder Pit Crane Operator Name Role Phone Charli Heller MD Primary Care Provider Unav ailable Encounter Details Date Type Department Care Team (Late st Contact Info) Description 06/07/2022 Documentation Only [facility] [address] [address] Steven Bernal MD [address] [facility] [place] [address] Social History Tobacco Use Types [...] Visit [facility] [address] [facility] [place] [address] Steven Bernal MD [address] [facility] [place] [address] documented as of this encounter Visit Diagnoses Not on filedocumented in this encounter Care Teams Cinder Pit Crane Operator Relationship Specialty Start Date End Date Charli Heller MD PCP - General 09/16/19 documented as of this encounter
--- OUTSIDE RECORDS SUMMARY | 2025-03-04 18:12 | XMS_ITS | Encounter Summary ---
Author Organization [employer] Address [address] [facility] 7[address] [place] [address] Care Team Providers Care Child And Adolescent Psychologist Name Role Phone Charli Nye MD Primary Care Provide r Encounter Details Date Type Department Care Team (Late st Contact Info) Description 11/02/2022 Orders Only [facility] [address] [place] [phone] Anya Hendrickson MD [address] [place] [address] [phone] Right arm pain (Primary Dx) Social History [...] Description 05/19/2025 3:00 PM EDT Office Visit [facility] [address] [place] [phone] Charli Nye MD [address] [place] [phone] documented as of this encounter Visit Diagnoses Diagnosis Right arm pain- Primary Pain in soft tissues of limb documented in this encounter Care Teams Child And Adolescent Psychologist Relationship Specialty Start Date End Date Charli Nye MD [address] [place] [address] PCP - General Internal Medicine 06/16/14 documented as of this encounter
--- OUTSIDE RECORDS SUMMARY | 2025-03-04 18:12 | XMS_ITS | Encounter Summary ---
Author Organization [employer] Address [address] [facility] [address] [place] [address] Care Team Providers Care Velvet Steamer Name Role Phone Charli Nye MD Primary Care Provide r Reason for Visit * Reason Onset Date Comments Referral 11/01/2022 Encounter Details Date Type Department Care Team ([facility] st Contact Info) Description 11/01/2022 Telephone [facility] [address] [place], [place] [phone] Charli Nye MD [address] [place] [address] Referral Social History Tobacco Use Types Packs/Day [...] Miscellaneous Notes * Telephone Encounter - Alexandria Lakrin - 11/01/2022 10:04 AM EST Aman Velasquez from [facility] [place] physical therapy calling to inform referral has to be modify to occupational therapy for right arm . Please call to clarify [phone]. documented in this encounter Plan of Treatment Upcoming Encounters Date Type Department Care Team (Late st Contact Info) Description 05/19/2025 3:00 PM EDT Office Visit [facility] [address] [place] [address] Charli Nye MD [address] [place] [address] documented as of this encounter Visit Diagnoses Not on filedocumented in this encounter Care Teams Velvet Steamer Relationship Specialty Start Date End Date Charli Nye MD [address] [place] [address] [phone] PCP - General Internal Medicine 06/16/14 documented as of this encounter
--- OUTSIDE RECORDS SUMMARY | 2025-03-04 18:12 | XMS_ITS | Encounter Summary ---
Author Organization [facility] [place], Address [address] [facility] [address] [place] [address] Phone Care Team Providers Care Compensation Vice President Name Role Phone Charli Heller MD Primary Care Provider Unav ailable Reason for Visit * Reason Comments Med Refill Encounter Details Date Type Department Care Team (Late Contact Info) Description 02/27/2022 [facility]ill [facility] [address] [place] [address] Steven Bernal MD [address] [facility] [place] [address] Social History Tobacco Use Types [...] Visit [facility] [place], [address] [facility] [place] [address] Steven Bernal MD [address] [facility] [address] [place] [address] documented as of this encounter Visit Diagnoses Not on filedocumented in this encounter Care Teams Compensation Vice President Relationship Specialty Start Date End Date Charli Heller MD PCP - General 09/16/19 documented as of this encounter
--- OUTSIDE RECORDS SUMMARY | 2025-03-04 18:13 | XMS_ITS | Encounter Summary ---
Author Organization [employer] Address [address] [place] [address] Care Team Providers Care Wrapping Machine Operator Name Role Phone Charli Nye MD Primary Care Provide r Encounter Details Date Type Department Care Team ([facility] st Contact Info) Description 01/01/2024 Telephone [facility] [address] [place], [place] [phone] Charli Nye MD [address] [place], [place] [phone] Social History Tobacco Use Types Packs/Day Years [...] AM EST TC placed to pt, utilizing [facility] [employer] Osteopathic Neurologist ID: [id number], regarding message below. Pt informed BVsure swab [...] Description 05/19/2025 3:00 PM EDT Office Visit [facility] [address] [place], [place] [phone] Charli Nye MD [address] [place], [place] [phone] documented as of this encounter Visit Diagnoses Not on filedocumented in this encounter Additional Health Concerns Assessment Noted Time PHQ-9 Depression Total Score: 6 05/01/20 23 1:05 PM EDT documented as of this encounter Care Teams Wrapping Machine Operator Relationship Specialty Start Date End Date Charli Nye MD [address] [place] [address] PCP - General Internal Medicine 06/16/14 documented as of this encounter
--- OUTSIDE RECORDS SUMMARY | 2025-03-04 18:13 | XMS_ITS | Encounter Summary ---
Author Organization [facility] [place], Address [address] [facility] [address] [place] [address] Phone Care Team Providers Care Rn Access Name Role Phone Charli Heller MD Primary Care Provider Unav ailable Encounter Details Date Type Department Care Team (Late st Contact Info) Description 01/23/2024 Documentation Only [facility] [address] [place] [address] Kellie Fisher [address] [place] [address] Social History Tobacco Use Types [...] Visit [facility] [address] [place] [address] Steven Bernal MD [address] [facility] [place] [address] documented as of this encounter Visit Diagnoses Not on filedocumented in this encounter Care Teams Rn Access Relationship Specialty Start Date End Date Charli Heller MD PCP - General 09/16/19 documented as of this encounter
--- OUTSIDE RECORDS SUMMARY | 2025-03-04 18:13 | XMS_ITS | Encounter Summary ---
Author Organization [facility] Address [address] [facility] [address] [place] [address] Phone Care Team Providers Care Patient Assistant Name Role Phone Charli Heller MD Primary Care Provider Unav ailable Encounter Details Date Type Department Care Team (Late st Contact Info) Description 07/31/2023 Documentation Only [facility] [address] [place] [address] Reginald Correia PA Social History [...] Visit [facility] [address] [place] [address] Steven Bernal MD [address] [place] [address] [place] [phone] documented as of this encounter Visit Diagnoses Not on filedocumented in this encounter Care Teams Patient Assistant Relationship Specialty Start Date End Date Charli Heller MD PCP - General 09/16/19 documented as of this encounter
--- OUTSIDE RECORDS SUMMARY | 2025-03-04 18:13 | XMS_ITS | Clinical Summary ---
Author Organization [facility] [place], Address [address] [place] [address] [place] [address] Phone Care Team Providers Care Diesel Engine Mechanic Name Role Phone Charli Heller MD [...] Relation Comments Diabetes Father Heart disease Father [place] Cancer Mother Heart disease Sibling brother CAD [...] Visit [facility] [place], [address] [place] [address] Steven Bernal MD [address] [facility] [place] [address] Health Maintenance Due Date Last Done Comments Breast Cancer Screening 1969 Hepatitis B Vaccine (1 of 3 - 19+ 3-dose series) 1988 Pneumococcal Vaccine: 50+ Ye ars (2 of 2 - PCV) 10/02/2011 10/02/2010 Colorectal Cancer Screening: Annual FOBT 2018 Colorectal Cancer Screening: Colonoscopy 2018 Colorectal Cancer Screening: Sigmoidoscopy 2018 Pneumococcal Vaccine: Peds ( 0 to 5 Years) and At-Risk Patients (6 to 49 Years) Discontinued 10/02/2010 Influenza Vaccine Completed 07/22/2024, , 08/25/2022, Additional history exists Insurance Medicare Medicaid [place] Care Teams Diesel Engine Mechanic Relationship Specialty Start Date End Date Charli Heller MD PCP - General 09/16/19
--- OUTSIDE RECORDS SUMMARY | 2025-03-04 18:13 | XMS_ITS | Encounter Summary ---
Author Organization [facility] Address [address] [facility] [address] [place] [address] Phone Care Team Providers Care Body Shop Estimator Name Role Phone Charli Heller MD Primary Care Provider Unav ailable Encounter Details Date Type Department Care Team (Late st Contact Info) Description 03/15/2023 Documentation Only [facility] [address] [place] [address] Reginald Correia PA Social History [...] Visit [facility] [address] [place] [address] Steven Bernal MD [address] [place] [address] [place] [phone] documented as of this encounter Visit Diagnoses Not on filedocumented in this encounter Care Teams Body Shop Estimator Relationship Specialty Start Date End Date Charli Heller MD PCP - General 09/16/19 documented as of this encounter
--- OUTSIDE RECORDS SUMMARY | 2025-03-04 18:13 | XMS_ITS | Encounter Summary ---
Author Organization [facility] [place], Address [address] [facility] [address] [place] [address] Phone Care Team Providers Care Telemetry Rn Name Role Phone Charli Heller MD Primary Care Provider Unav ailable Reason for Visit * Reason Comments Med Refill Encounter Details Date Type Department Care Team (Late Contact Info) Description 11/24/2021 Refill [facility] [address] [place] [address] Steven Bernal MD [address] [facility] [place] [address] Social History Tobacco Use Types [...] Visit [facility] [place], [address] [facility] [address] [place] [address] Steven Bernal MD [address] [facility] [place] [address] documented as of this encounter Visit Diagnoses Not on filedocumented in this encounter Care Teams Telemetry Rn Relationship Specialty Start Date End Date Charli Heller MD PCP - General 09/16/19 documented as of this encounter
--- OUTSIDE RECORDS SUMMARY | 2025-03-04 18:13 | XMS_ITS | Encounter Summary ---
Author Organization [facility] [place], Address [address] [facility] [address] [place] [address] Phone Care Team Providers Care Consumer Electronic Retail Specialist Name Role Phone Charli Heller MD Primary Care Provider Unav ailable Encounter Details Date Type Department Care Team (Late st Contact Info) Description 12/15/2021 Documentation Only [facility] [address] [place] [address] Steven Bernal MD [address] [facility] [place] [address] Social History Tobacco Use Types [...] Visit [facility] [address] [facility] [address] [place] [address] Steven Bernal MD [address] [facility] [place] [address] documented as of this encounter Visit Diagnoses Not on filedocumented in this encounter Care Teams Consumer Electronic Retail Specialist Relationship Specialty Start Date End Date Charli Heller MD PCP - General 09/16/19 documented as of this encounter
--- OUTSIDE RECORDS SUMMARY | 2025-03-04 18:13 | XMS_ITS | Encounter Summary ---
Author Organization [facility] [place], Address [address] [place] [address] Phone Care Team Providers Care Remittance Clerk Name Role Phone Charli Heller MD Primary Care Provider Unav ailable Encounter Details Date Type Department Care Team (Late st Contact Info) Description 09/30/2024 Documentation Only [facility] [place], [facility] [place] [address] [place] [address] Kellie Fisher [address] [place] [address] Social History Tobacco Use Types [...] Visit [facility] [place], [address] [facility] [place] [address] Steven Bernal MD [address] [facility] [place] [address] documented as of this encounter Visit Diagnoses Not on filedocumented in this encounter Care Teams Remittance Clerk Relationship Specialty Start Date End Date Charli Heller MD PCP - General 09/16/19 documented as of this encounter
--- OUTSIDE RECORDS SUMMARY | 2025-03-04 18:13 | XMS_ITS | Clinical Summary ---
Author Organization [employer] Address [address] [place] [address] 7t [place] [address] Care Team Providers Care Agriculture Mechanic Name Role Phone Charli Nye MD [...] Plan (07/22/2024 9:36 AM EDT): Seen by Pulmonary Specialist Dr callejas here at [facility] Stable. Patient is still symptomatic for floaters [...] pending for 01/10/2024 She was referred to [facility] seen February s/p biopsy that showed: results of the endometrial biopsy showing inactive endometrium. Assessment & Plan (01/03/2024 10:26 AM EST): Seen by Dr Jonas SAGASTUME Pelvis Transvaginal pending for 01/10/2024 She was referred to [facility] as well appointment scheduled for February Mild [...] sonographically. No adnexal masses. Pt seen by [facility] Dr Mar. 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 she denies [...] AM EST): Seen in the past by [facility] Tubular adenoma 03/25/2019 Renal cysts, acquired, [...] to visit her daughter and grandson in [place] about 2 weeks ago and that has improved her depression. Inappropriate sinus tachycardia 02/01/2017 Assessment & Plan (01/15/2025 1:05 PM EST): Last seen by Cardiology 01/07/2024 On Inderal dose reduced to 160 mg po at hs Transmission Maintenance Supervisor's impression was that this may be related to anxiety in the setting of a structurally normal heart. Stress test was negative back then Assessment & Plan (07/17/2023 2:47 PM EDT): Last seen by Cardiology 07/02/2023 On Inderal dose reduced to 160 mg po at hs Transmission Maintenance Supervisor's impression was that this may be related [...] microscopic hematuria, seen in the past at [facility]. They recommended to f/u with them [...] Encounters Date Type Department Care Team Description 02/25/[address] [address] Charli Nye MD Lab Orders 02/20/2025 Orders Only [facility] External Provider, [facility] Multiple thyroid nodules (Primary Dx) 01/15/2025 1:00 PM EST Office Visit [address] [address] Charli Nye MD Uterine leiomyoma, unspecified location (Primary Dx); Mild persistent asthma without complication; Essential hypertension; Recurrent major depressive episodes, mild (CMS/HCC); Inappropriate sinus tachycardia (CMS/HCC); Class 1 obesity; Dietary counseling; Exercise counseling; Mixed hyperlipidemia; Hyperpigmented skin lesion 01/15/2025 Travel 01/13/[address] [phone] Chantell Pardo DO Seasonal allergies 01/12/[address] [address] Charli Nye MD [employer] [place] (Underpad, bladder control.) 01/06/2025 Patient Outreach [address] [address] Charli Nye MD Care Coordination (CHW outreach for SDOH PT-1 and food needs-referral completed /) 01/06/2025 Patient Outreach [facility] MEDICINE [address] [place] [address] Charli Nye MD Pre-visit Planning (SDOH Screening positive and Tobacco screening negative) 01/05/2025 Orders Only [facility] External Provider, [facility] 01/01/2025 Telephone [facility]ICINE [address] [place] [address] Charli Nye MD Chart Prep from Last [...] your housing situation today? I have vidya sing 01/06/[address] you li [...] Description 05/19/2025 3:00 PM EDT Office Visit [facility]ICINE [address] [place] [address] Charli Nye MD [address] [place] [address] Health Maintenance Due Date Last Done Comments [...] Procedure Name Priority Date/Time Associated Diagnosis Comments CT CHEST WO CONTRAST Routine 02/20/2025 3:10 PM EDT HIGH SENSITIVITY TROPONIN I Routine 01/05/2025 8:06 [...] Recently Relevant to Health Maintenance Results * CT Chest w/o Contrast (02/20/2025 3:10 PM EDT) Anatomical Region Laterality Modality Body, Chest Computed Tomogra phy 02/20/2025 3:10 PM EDT Narrative 02/20/2025 3:44 PM EDT ? [facility] ?[address] ?[place] [address] ? CT Scan Report ? Signed ? Patient: Lauren Mcneal ?MR#: [id number] ?? 1423 ? : 1970 ?Acct:[id number] ? Age/Sex: 54 / F ?ADM Date: 02/20/25 ? Loc: HO.CT ? Attending Dr: Manjula Luna NP ? Ordering Physician: Manjula Luna NP ?? Date of Service: 02/20/25 ?? Procedure(s): CT chest wo IV con ?? Accession Number(s): [id number] ? cc: Charli Rojas MD; Manjula Luna NP ? Report Number: ?? [id number]: Total DLP = ??141.00 mGy-cm ?? EXAMINATION: ?? CT CHEST WITHOUT CONTRAST ? CLINICAL INFORMATION: ?? Solitary pulmonary nodule. ? COMPARISON: ?? 11/23/2023. 09/06/2023. ? TECHNIQUE: ?? Multidetector volumetric CT imaging of the chest was done. Axial MIP ?? volume rendering provided. Sagittal and coronal reformatted images were ?? obtained. ? This CT examination was performed using dose optimization techniques as ?? appropriate, variously including the following: ?? *Automated exposure control ?? *Adjustment of mA and/or kV according to patient size (this includes ?? techniques or standardized protocols for targeted exams where dose is ?? matched to indication/reason for exam; i.e. extremities or head) ?? *Use of iterative reconstruction technique ? FINDINGS: ? NODULES: ?? 3 mm nodule in the superior segment right lower lobe abutting the major ?? fissure, most likely intrapulmonary lymph node, unchanged (series 5, ?? image 44). ?? No new or enlarging pulmonary nodule. ? LUNGS: ?? There is minimal linear atelectasis or scarring in the inferior right ?? middle lobe and lingula. ?? Stable small subpleural density in the lateral posterior right upper ?? lobe (series 5, image 29), likely a focus of scarring. ? No consolidations, abnormal groundglass opacities, effusions, or ?? pneumothorax. ?? Small airways appear normal. ?? Central airways are patent. ? MEDIASTINUM: ?? There is a stable 11 mm left inferior thyroid nodule. The thyroid is ?? otherwise normal in imaging appearance. ?? There is no lymphadenopathy or mass. ?? The aorta is normal in caliber and course. ?? Main pulmonary artery is normal in size. ?? The heart size is normal. There is no pericardial effusion. ?? There is no discrete esophageal abnormality. GE junction appears ?? normal. ? CORONARY ARTERY CALCIFICATION: None visualized on this study. ? AXILLA/CHEST WALL: ?? No abnormal lymph nodes or masses. ? UPPER ABDOMEN: ?? There are partially imaged cysts in both kidneys. ?? Remainder the imaged upper abdominal contents appear normal. ? OSSEOUS STRUCTURES: ?? -There is no suspicious lytic or blastic bone lesion. ? CT/CT chest wo IV con ?? IMPRESSION: ?? 1. Stable 3 mm nodule abutting the major fissure in the superior ?? segment right lower lobe. This is consistent with a stable benign ?? intrapulmonary lymph node. ?? 2. No new or enlarging pulmonary nodules. ?? 3. Minor foci of scarring in the right middle lobe and lingula, and ?? posterior lateral right upper lobe. Lungs are otherwise clear without ?? evidence of active disease. ?? 4. There is a stable left 1.1 cm thyroid nodule. Refer to the prior ?? thyroid imaging. No further follow-up suggested. ? Electronically signed by: ??Charlie Neville MD ??02/20/2025 03:42 PM EDT RP ? Dictated By: ?Charlie Neville MD ? Signed By: ?<Electronically signed by Charlie Neville MD in OV> ?02/20/25 1542 ? DD/ 1510 ? TD/TT: 02/20/25 1529 ? Rn Medical Surgical: ? Procedure Note Donotuseinterpreter, Image - 02/20/[address] [address] [address] Scan Report Signed Patient: Lauren McnealMR#: [id number] 1423 : 1970Acct:[id number] Age/Sex: 54 / FADM Date: 02/20/25 Loc: HO.CT Attending Dr: Manjula Luna NP Ordering Physician: Manjula Luna NP Date of Service: 02/20/25 Procedure(s): CT chest wo IV con Accession Number(s): [id number] cc: Charli Rojas MD; Manjula Luna NP Report Number: [id number]: Total DLP = 141.00 mGy-cm EXAMINATION: CT CHEST WITHOUT CONTRAST CLINICAL INFORMATION: Solitary pulmonary nodule. COMPARISON: 11/23/2023. 09/06/2023. TECHNIQUE: Multidetector volumetric CT imaging of the chest was done. Axial MIP volume rendering provided. Sagittal and coronal reformatted images were obtained. This CT examination was performed using dose optimization techniques as appropriate, variously including the following: *Automated exposure control *Adjustment of mA and/or kV according to patient size (this includes techniques or standardized protocols for targeted exams where dose is matched to indication/reason for exam; i.e. extremities or head) *Use of iterative reconstruction technique FINDINGS: NODULES: 3 mm nodule in the superior segment right lower lobe abutting the major fissure, most likely intrapulmonary lymph node, unchanged (series 5, image 44). No new or enlarging pulmonary nodule. LUNGS: There is minimal linear atelectasis or scarring in the inferior right middle lobe and lingula. Stable small subpleural density in the lateral posterior right upper lobe (series 5, image 29), likely a focus of scarring. No consolidations, abnormal groundglass opacities, effusions, or pneumothorax. Small airways appear normal. Central airways are patent. MEDIASTINUM: There is a stable 11 mm left inferior thyroid nodule. The thyroid is otherwise normal in imaging appearance. There is no lymphadenopathy or mass. The aorta is normal in caliber and course. Main pulmonary artery is normal in size. The heart size is normal. There is no pericardial effusion. There is no discrete esophageal abnormality. GE junction appears normal. CORONARY ARTERY CALCIFICATION: None visualized on this study. AXILLA/CHEST WALL: No abnormal lymph nodes or masses. UPPER ABDOMEN: There are partially imaged cysts in both kidneys. Remainder the imaged upper abdominal contents appear normal. OSSEOUS STRUCTURES: -There is no suspicious lytic or blastic bone lesion. CT/CT chest wo IV con IMPRESSION: 1. Stable 3 mm nodule abutting the major fissure in the superior segment right lower lobe. This is consistent with a stable benign intrapulmonary lymph node. 2. No new or enlarging pulmonary nodules. 3. Minor foci of scarring in the right middle lobe and lingula, and posterior lateral right upper lobe. Lungs are otherwise clear without evidence of active disease. 4. There is a stable left 1.1 cm thyroid nodule. Refer to the prior thyroid imaging. No further follow-up suggested. Electronically signed by: Charlie Neville MD 02/20/2025 03:42 PM EDT Dictated By: Charlie Neville MD Signed By: <Electronically signed by Charlie Neville MD in OV> 02/20/25 1542 DD/ 1510 TD/TT: 02/20/25 1529 Rn Medical Surgical: [facility] External Provider IMG CT PROCEDURES Final Result * High Sensitivity Troponin I (01/05/2025 8:06 PM EST) TROPONIN I HIGH SENSITIVITY <2.7 <3.5 - 17.0 ng/L [facility] Comment:The Barreto high sens itivity Troponin-I results should beused in conjunction with other diagnostic information suchas ECG, clinical observations and information, and patientsymptoms to aid in the diagnosis of PA. 01/05/2025 8:06 PM EST 01/05/2025 8:10 PM EST Generic External Data Provider LAB BLOOD ORDERAB LES Final Result Performing Organization Address City/[facility] Co de Phone Number [facility] [address] [place] [phone] * SARS-CoV-2 RNA, Influenza A/B, and RSV RNA, Ql NAAT (01/05/2025 8:06 PM EST) Influenza A PCR NEGATIVE Negative [facility] Influenza B PCR NEGATIVE Negative [facility] Resp Syncy Virus RNA Qual PCR NEGATIVE Negative [facility] SARS COV2 PCR NEGATIVE Negative [facility] Comment:All test results mus t [...] use by authorized laboratories.Testing performed on the [employer] GeneXpert utilizingreal-time RT-PCR.All SARS CoV2 and positive influenza A/B results arereported to [facility]. 01/05/2025 8:06 PM EST 01/05/2025 8:10 PM EST Generic External Data Provider LAB MICROBIOLOGY - GENERAL ORDERABLES Final Result Performing Organization Address [facility] de Phone Number [facility] [address] [place] [phone] * CBC auto differential (01/05/2025 8:06 PM EST) White Blood Count 7.5 4.8 - 10.8 X10*3/uL [facility] Red Blood Count 4.90 4.20 - 5.50 X10*6/uL [facility] Hemoglobin 13.7 12.0 - 16.0 g/dl [facility] Hematocrit 41.6 37.0 - 47.0 % [facility] Mean Corpuscular Volume 84.9 80.0 - 98.0 fL [facility] Mean Corpuscular Hemoglobin 28.0 27.0 - 33.0 pg [facility] Mean Corpuscular HGB Conc 32.9 31.0 - 35.0 g/dl [facility] Red Cell Distribution Width 13.2 11.0 - 16.0 % [facility] Platelet Count 309 160 - 400 X10*3/uL [facility] Mean Platelet Volume 9.5 9.4 - 12.3 fL [facility] Neutrophils Percent Auto 57.3 45 - 73 % [facility] Imm Gran Pct Auto 0.3 0.0 - 0.4 % [facility] Lymphocytes Percent Auto 33.3 20 - 40 % [facility] Monocytes Percent Auto 6.4 2 - 11 % [facility] Eosinophils Percent Auto 2.4 0 - 4 % [facility] Basophils Percent Auto 0.3 0 - 2 % [facility] NRBC Pct Auto 0.0 0.0 - 0.2 /100WBC [facility] Neutrophils Absolute Auto 4.3 2.0 - 8.3 x10*3/uL [facility] Imm Gran Abs Auto 0.02 0.00 - 0.03 X10*3/uL [facility] Lymphocytes Absolute Auto 2.5 1.2 - 4.9 X10*3/uL [facility] Monocytes Absolute Auto 0.5 0.1 - 1.2 X10*3/uL [facility] Eosinophils Absolute Auto 0.2 0.0 - 0.4 X10*3/uL [facility] Basophils Absolute Auto 0.0 0.0 - 0.2 X10*3/uL [facility] NRBC Abs Auto 0.000 0.0 - 0.012 X10*3/uL [facility] 01/05/2025 8:06 PM EST 01/05/2025 8:10 PM EST us Generic External Data Provider LAB BLOOD ORDERAB LES Final Result [facility] [address] [place] [phone] * B Type Natriuretic Peptide (BNP) (01/05/2025 8:06 PM EST) [facility] B Type Natriuretic Peptide 49 <100 pg/mL [facility] Comment:For those patients w ho are being treated with Natrecor(nesiritide, recombinant BNP), BNP testing should beperformed at least two hours post treatment in order toensure that only endogenous levels of BNP are detected. 01/05/2025 8:06 PM EST 01/05/2025 8:10 PM EST us Generic External Data Provider LAB BLOOD ORDERAB LES Final Result Performing Organization Address [facility]/ZIP Co de Phone Number [facility] [address] [place] [phone] * Magnesium (01/05/2025 8:06 PM EST) [facility] Magnesium 2.0 1.6 - 2.6 mg/dL [facility] 01/05/2025 8:06 PM EST 01/05/2025 8:10 PM EST us Generic External Data Provider LAB BLOOD ORDERAB LES Final Result Performing Organization Address [facility]/ZIP Co de Phone Number [facility] [address] [place] [phone] * (ABNORMAL) Comprehensive Metabolic Panel (01/05/2025 8:06 PM EST) [facility] Sodium 142 135 - 145 mmol/L [facility] Potassium 4.1 3.3 - 5.1 mmol/L [facility] Chloride 111(H) 96 - 108 mmol/L [facility] Carbon Dioxide 21(L) 22 - 29 mmol/L [facility] Anion Gap 14 12 - 20 [facility] Urea Nitrogen (BUN) 16 9 - 16 mg/dL [facility] Creatinine, Serum 0.78 0.5 - 1.4 mg/dL [facility] Creatinine Clr Calc Pharmacy 90.2 [facility] Comment:Provided height and weight: 165.1 cm,89.8 kg.eGFR (calculated from the MDRD study equation) and eCrCl(calculated from the Cockcroft-Gault equation) are based ondifferent parameters and may not yield comparable results.If eCrCl result is absurd, please check patient'sheight/weight. Estimated Glomerular Filt Rate >60 [facility] Comment:Chronic Kidney Disea se: Estimated GFR < 60 mL/min/1.10r2Fdxsyw Kidney Disease: Estimated GFR < 15 mL/min/1.73m2 Glucose 139(H) 60 - 115 mg/dL [facility] Calcium 9.5 8.4 - 10.2 mg/dL [facility] Bilirubin, Total 0.2 0.0 - 1.0 mg/dL [facility] Aspartate Amino Transferase 20 5 - 31 U/L [facility] Alanine Aminotransferase 15 0 - 31 U/L [facility] Total Protein 8.0 6.5 - 8.0 g/dL [facility] Albumin Level 4.0 3.5 - 5.0 g/dL [facility] Alkaline Phosphatase 120(H) 39 - 117 U/L [facility] 01/05/2025 8:06 PM EST 01/05/2025 8:10 PM EST us Generic External Data Provider LAB BLOOD ORDERAB LES Final Result [facility] [address] [place] [phone] [phone] * XR Chest 2 Views (01/05/2025 7:49 PM EST) Anatomical Region Laterality Modality Chest Radiographic Shayy ging 01/05/2025 7:49 PM EST Narrative 01/05/2025 7:51 PM EST ? [facility] ?[address] ?[place] [address] ?XRay Report ? Signed ? Patient: Mcneal,Lauren ?MR#: [id number] ?? 1423 ? : 1970 ?Acct:[id number] ? Age/Sex: 54 / F ?ADM Date: 01/05/25 ? Loc: HO.ED ? Attending Dr: ? Ordering Physician: Yudelka Burns ?? Date of Service: 01/05/25 ?? Procedure(s): XR chest 2V ?? Accession Number(s): [id number] ? cc: Charli Rojas MD; Yudelka Burns [...] ? DD/ 48 ? TD/TT: 01/05/251948 ? Rn Medical Surgical: ? Procedure Note Maurisio Kim - 01/05/2025 [place] [address] XRay Report Signed Patient: Lauren McnealMR#: [id number] 1423 : 1970Acct:[id number] Age/Sex: 54 / FADM Date: 01/05/25 Loc: HO.ED Attending Dr: Ordering Physician: Yudelka Burns Date of Service: 01/05/25 Procedure(s): XR chest 2V Accession Number(s): [id number] cc: Charli Rojas MD; Yudelka Burns CLINICAL [...] in OV> 01/05/251949 DD/ 48 TD/TT: 01/05/251948 Rn Medical Surgical: [facility] External Provider IMG XR PROCEDURES Final Result * Lipid Panel, Standard (09/24/2024 11:39 AM EST) Triglycerides 86 <150 mg/dL [facility] Comment:Desirable Triglyceri de: less than 150 mg/dLBorderline High Triglyceride 150-199 mg/dLHigh Triglyceride: 200-499 mg/dLVery High Triglyceride: greater than or equal to 5OO mg/dL Cholesterol 147 <200 mg/dL [facility] Comment:Desirable Cholestero l: less than 200 mg/dLBorderline High Cholesterol: 200-239 mg/dLHigh Cholesterol: greater than 239 mg/dL LDL Cholesterol Calculated 76 <100 mg/dL [facility] Comment:Desirable LDL: less than 100 mg/dLNear Optimal/Above Optimal LDL: 110- 129 mg/dLBorderline High LDL: 130-159 mg/dLHigh LDL: 160-189 mg/dLVery High LDL: greater than or equal to 190 mg/dL HDL Cholesterol 54 >40 mg/dL [facility] Comment:Desirable HDL: great er than 40 mg/dL Note: This HDL assay may give artificially low results in patients with liver disease. 09/24/2024 11:3 9 AM EST 09/24/2024 11:39 AM EST Generic External Data Provider LAB BLOOD ORDERAB LES Final Result [facility] [address] [place] [phone] * BI Mammogram Screening Tomosynthesis Bilateral (07/23/2024 1:30 PM EDT) Anatomical Region Laterality Modality Breast Bilateral Mammography 07/23/2024 1:30 PM EDT Narrative 08/06/2024 10:59 AM EDT ? [place] [facility] ? [address] ?[place] [address] ? Mammography Report ? Signed ? Patient: Mcneal,Lauren ?MR#: [id number] ?? 1423 ? : 1970 ?Acct:[id number] ? Age/Sex: 54 / F ?ADM Date: 07/23/24 ? Loc: HO.MAMMO ? Attending Dr: Charli Rojas MD ? Ordering Physician: Charli Rojas MD ?Resu ?? lts: 2Benign Findings ? Date of Service: 07/23/24 ?Follow Up: 1 Year From Orig ?? inal Mammogram ? Procedure(s): MM tomosynthesis screening BI ?? Accession Number(s): [id number] ? cc: Charli Rojas MD ? EXAMINATION: [...] DD/ 1330 ? TD/TT: 07/23/24 1348 ? Rn Medical Surgical: ? Procedure Note Judy, Image - 08/06/2024 [facility] [address] [place], [place] [address] Mammography Report Signed Patient: Lauren McnealMR#: [id number] 1423 : 1970Acct:[id number] Age/Sex: 54 / FADM Date: 07/23/24 Loc: [facility] Attending Dr: Charli Rojas MD Ordering Physician: Charli Rojas MDResu lts: 2Benign Findings Date of Service: 07/23/24Follow Up: 1 Year From Orig inal Mammogram Procedure(s): MM tomosynthesis screening BI Accession Number(s): [id number] cc: Charli Rojas MD EXAMINATION: MM SCREENING [...] 08/06/24 1056 DD/ 1330 TD/TT: 07/23/24 1348 Rn Medical Surgical: us Charli Lazo MD IMG BI PROCEDURES Scooby florian Result - Final * Pap Smear (02/07/2024 11:05 AM EDT) 02/07/2024 11:0 5 AM EDT 02/08/2024 9:30 AM EDT [facility] - 02/19/2024 9:04 AM EDT ----- ------- Name: Lauren Mcneal ? Age/Sex: 53/F ? : 1970 Unit#: [id number] ?? Attend Dr: Bruno Mar MD ?Re02/07/24 ?Status: DEP REF ? Location: HO.LNP ?Disch: ? ----- ------- SPEC : [id number] ? RECD: 02/08/24-929 ? STATUS: ??SOUT ? REQ NUM: [id number] ? INGRID: 02/07/24-1105 ? SUBM DR: Bruno [...] 66, 68) ? HPV testing performed by [employer] [place], [place]. ??See reference laboratory ?? portion of the EMR for entire report. ?Clinical Information LMP: Postmenopausal Previous PAP test: 3 yrs ago, Unknown findings Other history:Postmenopausal bleeding ? Material Received ?? ThinPrep-Cervical Copies To: ?? Charli Rojas MD ?? [address] ?? [place] [address] ?? [phone] ?? Bruno Mar MD ?? [address] [place] ?? [place] [address] ?? [phone] ----- ------- Signed (signature on file) CELENA Kaur (ASCP) 02/19/24903 ? ----- ------- ? END OF REPORT ? us Generic External Data Provider LAB CYTOLOGY HO CHIN Final Result [facility] [address] [place] [phone] [phone] * Colonoscopy (01/18/2024) Colonoscopy Normal Normal Historical Provider MD HEALTH MAINTENANCE Final Result * HPV mRNA E6/E7 (02/09/2021 9:38 AM EDT) HPV nRNA E6/E7 Not Detected Not Detected [facility] Comment: Methodology: Radio Dispatcher-Mediated Amplification This assay detects E6/E7 viral messenger RNA (mRNA) from 14 high-risk HPV types (16,18,31,33,35,39,45,51,52,56,58,59,66,68). ? The analytical performance characteristics of this assay have been determined by [employer] The modifications have not been cleared or approved by the FDA. This assay has been validated pursuant to the CLIA regulations and is used for clinical purposes. ?? For additional information, please refer to http://education.[employer]Dro[employer]/faq/UMF434x0 (This link if provided for information/ educational purposes only.) 02/09/2021 9:38 AM EDT Phuong Junior CNM LAB BLOOD ORDERABLES Bertha rich Result [facility] [address] from Last 3 Months or Most Recently Relevant to Health Maintenance Insurance MEDICARE [facility] STANDARD Care Teams Agriculture Mechanic Relationship Specialty Start Date End Date Charli Nye MD [address] [place] [phone] PCP - General Internal Medicine 06/16/14
== END 2025-03-04 15:56 | disposition home or self-care (01) ==
LOC: HO.HPSW 15:34
PROVIDERS: PCP Internal Medicine; Visit Provider Nurse Practitioner Family
DX: J45.909 Unspecified asthma, uncomplicated (principal); R91.1 Solitary pulmonary nodule; R06.00 Dyspnea, unspecified
CPT/HCPCS: 99214

== ENCOUNTER → 2025-03-04 15:34 | Outpatient (BNVA) | payer MEDICARE, MEDICAID, SELFPAY | PROVIDERS: PCP Internal Medicine; Visit Provider Nurse Practitioner Family | DX: J45.909 Unspecified asthma, uncomplicated (principal); R91.1 Solitary pulmonary nodule; R06.00 Dyspnea, unspecified | CPT/HCPCS: 99212 ==

== ENCOUNTER 2025-03-25 15:50 | Outpatient (REF) | payer MEDICARE, MEDICAID, SELFPAY ==
--- NOTE | ~2025-03-25 | US_ITS ---
EXAMINATION: US THYROID HISTORY: THYROID NODULE TECHNIQUE: Real-time grayscale ultrasound imaging was performed and images were reviewed. COMPARISON: Comparison is made with the prior examination dated 08/14/2023. FINDINGS: SIZE: The right thyroid lobe measures 6.5 x 1.9 x 1.9 cm. The left thyroid lobe measures 5.3 x 2.0 x 1.9 cm. The isthmus measures 3 mm. FLOW: Flow to the gland is normal. ECHOGENICITY: The echotexture of the gland is homogeneous. NODULES: Again seen are multiple bilateral thyroid nodules as described below. Nodule #: 1 Location: Right isthmus measuring 4 x 3 x 4 mm which was not seen previously. Shape: Wider than tall (0 points) Margins: Smooth (0 points) Echotexture: Hypoechoic (2 points) Composition: Solid (2 points) Calcifications: None (0 points) Total points: 4 TIRADS: TR4: Moderately suspicious. Nodule #: 2 Location: Right lower pole measuring 7 x 6 x 7 mm (previously 9 x 8 x 9 mm). Shape: Wider than tall (0 points) Margins: Ill-defined (0 points) Echotexture: Isoechoic (1 point) Composition: Solid (2 points) Calcifications: None (0 points) Total points: 3 TIRADS: TR3: Mildly suspicious. Nodule #: 3 Location: Left midportion measuring 19 x 10 x 13 mm (previously 18 x 8 x 14 mm). Shape: Wider than tall (0 points) Margins: Smooth (0 points) Echotexture: Hypoechoic (2 points) Composition: Solid (2 points) Calcifications: None (0 points) Total points: 4 TIRADS: TR4: Moderately suspicious. Nodule #: 4 Location: Lower pole of the left thyroid lobe measuring 7 x 4 x 8 mm (previously 10 x 6 x 10 mm). Shape: Wider than tall (0 points) Margins: n/a Echotexture: n/a Composition: Spongiform (0 points) Calcifications: None (0 points) Total points: 0 TIRADS: TR1: Benign US/US thyroid IMPRESSION: Multinodular thyroid gland as described. Nodule #3 above warrants continued follow up. ACR TI-RADS Guidelines TR1 (0 points): Benign, No follow-up or biopsy required TR2 (2 points): Not Suspicious, No biopsy or follow up indicated TR3 (3 points): Mildly Suspicious, FNA if >= 2.5 cm, Follow if >= 1.5 cm TR4 (4-6 points): Moderately Suspicious, FNA if >= 1.5 cm, Follow if >= 1.0 cm TR5 (>=7 points): Highly Suspicious, FNA if >= 1.0 cm, Follow if >= 0.5 cm Electronically signed by: Magdiel Duran MD 03/26/2025 07:24 AM EDT
--- OUTSIDE RECORDS SUMMARY | 2025-03-25 15:52 | XMS_ITS | Encounter Summary ---
Author Organization [facility] [place], Address PO [facility] [address] [place] [address] Phone Care Team Providers Care Harvesting Contractor Name Role Phone Charli Heller MD Primary Care Provider Unav ailable Reason for Visit * Reason Comments Med Refill Encounter Details Date Type Department Care Team (Late Contact Info) Description 02/27/2022 Refill [facility] [address] [place] [address] Steven Bernal MD [address] [facility] [place] [address] Social History Tobacco Use Types [...] Visit [facility] [place], [address] [facility] [place] [address] Steven Bernal MD [address] [facility] [place] [address] documented as of this encounter Visit Diagnoses Not on filedocumented in this encounter Care Teams Harvesting Contractor Relationship Specialty Start Date End Date Charli Heller MD PCP - General 09/16/19 documented as of this encounter
--- OUTSIDE RECORDS SUMMARY | 2025-03-25 15:52 | XMS_ITS | Encounter Summary ---
Author Organization [facility] Address PO [facility] [address] [place] [address] Phone Care Team Providers Care Release Of Information Clerk Name Role Phone Charli Heller MD Primary Care Provider Unav ailable Encounter Details Date Type Department Care Team (Late st Contact Info) Description 07/20/2022 Documentation Only [facility] Of [address] [place] [address] Reginald Correia PA Social History [...] Visit [facility] Of [address] [place] [address] Steven Bernal MD [address] [place] [address] [place] [phone] documented as of this encounter Visit Diagnoses Not on filedocumented in this encounter Care Teams Release Of Information Clerk Relationship Specialty Start Date End Date Charli Heller MD PCP - General 09/16/19 documented as of this encounter
--- OUTSIDE RECORDS SUMMARY | 2025-03-25 15:52 | XMS_ITS | Encounter Summary ---
Author Organization [facility] Address PO [facility] [address] [place] [address] Phone Care Team Providers Care Development And Housing Director Name Role Phone Charli Heller MD Primary Care Provider Unav ailable Encounter Details Date Type Department Care Team (Late st Contact Info) Description 07/31/2023 Documentation Only [facility] Of [address] [place] [address] Reginald Correia PA Social History [...] Visit [facility] Of [address] [place] [address] Steven Bernal MD [address] [place] [address] [place] [phone] documented as of this encounter Visit Diagnoses Not on filedocumented in this encounter Care Teams Development And Housing Director Relationship Specialty Start Date End Date Charli Heller MD PCP - General 09/16/19 documented as of this encounter
--- OUTSIDE RECORDS SUMMARY | 2025-03-25 15:52 | XMS_ITS | Encounter Summary ---
Author Organization [facility] [place], Address PO [facility] [address] [place] [address] Phone Care Team Providers Care Flux Tube Attendant Name Role Phone Charli Heller MD Primary Care Provider Unav ailable Reason for Visit * Reason Comments Med Refill Encounter Details Date Type Department Care Team (Late Contact Info) Description 03/21/2022 Refill [facility] [address] [place] [address] Steven Bernal MD [address] [facility] [place] [address] Social History Tobacco Use Types [...] Visit [facility] [place], [address] [facility] [place] [address] Steven Bernal MD [address] [facility] [place] [address] documented as of this encounter Visit Diagnoses Not on filedocumented in this encounter Care Teams Flux Tube Attendant Relationship Specialty Start Date End Date Charli Heller MD PCP - General 09/16/19 documented as of this encounter
--- OUTSIDE RECORDS SUMMARY | 2025-03-25 15:52 | XMS_ITS | Encounter Summary ---
Author Organization [employer] Address [address] [facility] 7t [place] [address] Care Team Providers Care Drinking Water Technician Name Role Phone Charli Nye MD Primary Care Provide r Reason for Visit * Reason Comments Med Refill Encounter Details Date Type Department Care Team (Late Contact Info) Description 05/15/2023 Refill [facility]INE [address] [place] [address] [phone] Charli Nye MD [address] [place], [place] [phone] Social History Tobacco Use Types Packs/Day Years [...] Upcoming Encounters Date Type Department Care Team ([facility] Contact Info) Description 05/19/2025 3:00 PM EDT Office Visit [facility] [address] [facility] [place] [address] Charli Nye MD [address] [facility] [place] [address] 06/12/2025 11:00 AM EDT Office Visit [facility] [address] [facility] [place] [address] Godfrey Carrizales MD [address] [place] [address] documented as of this encounter Visit Diagnoses Not on filedocumented in this encounter Additional Health Concerns Assessment Noted Time PHQ-9 Depression Total Score: 6 05/01/20 23 1:05 PM EDT documented as of this encounter Care Teams Drinking Water Technician Relationship Specialty Start Date End Date Charli Nye MD [facility] [place] [address] PCP - General Internal Medicine 06/16/14 documented as of this encounter
--- OUTSIDE RECORDS SUMMARY | 2025-03-25 15:52 | XMS_ITS | Encounter Summary ---
Author Organization [employer] Address [address] [facility] [address] 7t [place] [address] Care Team Providers Care Equipment Mechanic Name Role Phone Charli Nye MD Primary Care Provide r Encounter Details Date Type Department Care Team ([facility] st Contact Info) Description 01/01/2024 Telephone [facility] MEDICINE [address] [place], [place] [phone] Charli Nye MD [address] [place], [place] [phone] Social History Tobacco Use Types Packs/Day Years [...] AM EST TC placed to pt, utilizing [employer] Lokie Engineer ID: [id number], regarding message below. Pt informed BVsure swab [...] Description 05/19/2025 3:00 PM EDT Office Visit [facility]INE [address] [place] [address] Charli Nye MD [address] [place], [place] [phone] 06/12/2025 11:00 AM EDT Office Visit [facility]INE [address] [place], [place] [phone] Godfrey Carrizales MD [address] [place], [place] [phone] documented as of this encounter Visit Diagnoses Not on filedocumented in this encounter Additional Health Concerns Assessment Noted Time PHQ-9 Depression Total Score: 6 05/01/20 23 1:05 PM EDT documented as of this encounter Care Teams Equipment Mechanic Relationship Specialty Start Date End Date Charli Nye MD [address] [place] [address] [phone] PCP - General Internal Medicine 06/16/14 documented as of this encounter
--- OUTSIDE RECORDS SUMMARY | 2025-03-25 15:52 | XMS_ITS | Encounter Summary ---
Author Organization [employer] Address [address] [facility] 7t [place] [address] Care Team Providers Care Geological Engineer Name Role Phone Charli Nye MD Primary Care Provide r Reason for Visit * Reason Onset Date Comments Referral 11/01/2022 Encounter Details Date Type Department Care Team ([facility] st Contact Info) Description 11/01/2022 Telephone [facility]INE [address] [place], [place] [phone] Charli Nye MD 230 [place] [address] Referral Social History Tobacco Use Types Packs/Day [...] 11/01/2022 10:04 AM EST Aman Velasquez from [facility] calling to inform referral has to be modify to occupational therapy for right arm . Please call to clarify [phone]. documented in this encounter Plan of Treatment Upcoming Encounters Date Type Department Care Team (Late st Contact Info) Description 05/19/2025 3:00 PM EDT Office Visit [facility]INE [address] [place] [id number] Charli Nye MD [address] [place] [address] 06/12/2025 11:00 AM EDT Office Visit [facility] MED[facility]INE [address] [place] [phone] Godfrey Carrizales MD [address] [facility] [place], [place] [phone] documented as of this encounter Visit Diagnoses Not on filedocumented in this encounter Care Teams Geological Engineer Relationship Specialty Start Date End Date Charli Nye MD [address] [facility] [place] [address] PCP - General Internal Medicine 06/16/14 documented as of this encounter
--- OUTSIDE RECORDS SUMMARY | 2025-03-25 15:52 | XMS_ITS | Encounter Summary ---
Author Organization [facility] [place], Address PO [facility] [address] [place] [address] Phone Care Team Providers Care Zookeeper Name Role Phone Charli Heller MD Primary Care Provider Unav ailable Encounter Details Date Type Department Care Team (Late st Contact Info) Description 06/07/2022 Documentation Only [facility] [address] [place] [address] Steven Bernal MD [address] [facility] [place] [address] Social History Tobacco Use Types [...] Visit [facility] [address] [address] Steven Bernal MD [address] [facility] [place] [address] documented as of this encounter Visit Diagnoses Not on filedocumented in this encounter Care Teams Zookeeper Relationship Specialty Start Date End Date Charli Heller MD PCP - General 09/16/19 documented as of this encounter
--- OUTSIDE RECORDS SUMMARY | 2025-03-25 15:52 | XMS_ITS | Encounter Summary ---
Author Organization [facility] [place], Address PO [facility] [address] [place] [address] Phone Care Team Providers Care Driver Courier Name Role Phone Charli Heller MD Primary Care Provider Unav ailable Encounter Details Date Type Department Care Team (Late st Contact Info) Description 12/15/2021 Documentation Only [facility] Of [address] [place] [address] Steven Bernal MD [address] [facility] [place] [address] Social History Tobacco Use Types [...] Visit [facility] [address] [facility] [place] [address] Steven Bernal MD [address] [facility] [place] [address] documented as of this encounter Visit Diagnoses Not on filedocumented in this encounter Care Teams Driver Courier Relationship Specialty Start Date End Date Charli Heller MD PCP - General 09/16/19 documented as of this encounter
--- OUTSIDE RECORDS SUMMARY | 2025-03-25 15:52 | XMS_ITS | Encounter Summary ---
Author Organization [facility] [place], Address PO [facility] [address] [place] [address] Phone Care Team Providers Care Sludge Mill Operator Name Role Phone Charli Heller MD Primary Care Provider Unav ailable Encounter Details Date Type Department Care Team (Late st Contact Info) Description 06/07/2022 Documentation Only [facility] Of [address] [place] [address] Steven Bernal MD [address] [facility] [place] [address] Social History Tobacco Use Types [...] Visit [facility] [address] [facility] [place] [address] Steven Bernal MD [address] [facility] [place] [address] documented as of this encounter Visit Diagnoses Not on filedocumented in this encounter Care Teams Sludge Mill Operator Relationship Specialty Start Date End Date Charli Heller MD PCP - General 09/16/19 documented as of this encounter
--- OUTSIDE RECORDS SUMMARY | 2025-03-25 15:52 | XMS_ITS | Encounter Summary ---
Author Organization [facility] [place], Address PO [facility] [address] [place] [address] Phone Care Team Providers Care Hotel Or Motel Receptionist Name Role Phone Charli Heller MD Primary Care Provider Unav ailable Reason for Visit * Reason Comments Med Refill Encounter Details Date Type Department Care Team (Late Contact Info) Description 11/24/2021 Refill [facility] [address] [place] [address] Steven Bernal MD [address] [facility] [place] [address] Social History Tobacco Use Types [...] Visit [facility] [place], [address] [facility] [place] [address] Steven Bernal MD [address] [facility] [place] [address] documented as of this encounter Visit Diagnoses Not on filedocumented in this encounter Care Teams Hotel Or Motel Receptionist Relationship Specialty Start Date End Date Charli Heller MD PCP - General 09/16/19 documented as of this encounter
--- OUTSIDE RECORDS SUMMARY | 2025-03-25 15:52 | XMS_ITS | Encounter Summary ---
Author Organization [employer] Address 75 [facility] 7t [place] [address] Care Team Providers Care Director Television Name Role Phone Charli Nye MD Primary Care Provide r Encounter Details Date Type Department Care Team (Late st Contact Info) Description 11/02/2022 Orders Only [facility] MEDICINE [address] [place] [address] [phone] Anya Hendrickson MD [address] [place] [address] [phone] Right arm pain (Primary Dx) Social History [...] Description 05/19/2025 3:00 PM EDT Office Visit [facility] MEDICINE [address] [place] [address] [phone] Charli Nye MD [address] [place] [address] [phone] 06/12/2025 11:00 AM EDT Office Visit [facility] MEDICINE [address] [place] [address] Godfrey Carrizales MD [address] [place] [address] documented as of this encounter Visit Diagnoses Diagnosis Right arm pain- Primary Pain in soft tissues of limb documented in this encounter Care Teams Director Television Relationship Specialty Start Date End Date Charli Nye MD [address] [place] [phone] PCP - General Internal Medicine 06/16/14 documented as of this encounter
--- OUTSIDE RECORDS SUMMARY | 2025-03-25 15:52 | XMS_ITS | Encounter Summary ---
Author Organization [facility] [place], Address PO [facility] [address] [place] [address] Phone Care Team Providers Care Piggery Worker Name Role Phone Charli Heller MD Primary Care Provider Unav ailable Encounter Details Date Type Department Care Team (Late st Contact Info) Description 06/07/2022 Documentation Only [facility] Of [address] [place] [address] Steven Bernal MD [address] [facility] [place] [address] Social History Tobacco Use Types [...] Visit [facility] [address] [facility] [place] [place] [address] Steven Bernal MD [address] [facility] [place] [address] documented as of this encounter Visit Diagnoses Not on filedocumented in this encounter Care Teams Piggery Worker Relationship Specialty Start Date End Date Charli Heller MD PCP - General 09/16/19 documented as of this encounter
--- OUTSIDE RECORDS SUMMARY | 2025-03-25 15:53 | XMS_ITS | Encounter Summary ---
Author Organization [facility] [place], Address PO [facility] [address] [place] [address] Phone Care Team Providers Care Histology Supervisor Name Role Phone Charli Heller MD Primary Care Provider Unav ailable Encounter Details Date Type Department Care Team (Late st Contact Info) Description 01/23/2024 Documentation Only [facility] Of [address] [place] [address] Kellie Fisher [address] [place] [address] Social History Tobacco Use Types [...] Visit [facility] [address] [place] [address] Steven Bernal MD [address] [facility] [place] [address] documented as of this encounter Visit Diagnoses Not on filedocumented in this encounter Care Teams Histology Supervisor Relationship Specialty Start Date End Date Charli Heller MD PCP - General 09/16/19 documented as of this encounter
--- OUTSIDE RECORDS SUMMARY | 2025-03-25 15:53 | XMS_ITS | Encounter Summary ---
Author Organization [facility] Address PO [facility] [address] [place] [address] Phone Care Team Providers Care Nursery Laborer Name Role Phone Charli Heller MD Primary Care Provider Unav ailable Encounter Details Date Type Department Care Team (Late st Contact Info) Description 03/15/2023 Documentation Only [facility] Of [address] [place] [address] Reginald Correia PA Social History [...] [facility] Of [address] [place] [address] Steven Bernal MD [address] [place] [address] [place] [phone] documented as of this encounter Visit Diagnoses Not on filedocumented in this encounter Care Teams Nursery Laborer Relationship Specialty Start Date End Date Charli Heller MD PCP - General 09/16/19 documented as of this encounter
--- OUTSIDE RECORDS SUMMARY | 2025-03-25 15:53 | XMS_ITS | Encounter Summary ---
Author Organization [facility] [place], Address [address] [place] [address] Phone Care Team Providers Care Floor Trader Name Role Phone Charli Heller MD Primary Care Provider Unav ailable Encounter Details Date Type Department Care Team (Late st Contact Info) Description 09/30/2024 Documentation Only [facility] [place], [facility] [address] [place] [address] Kellie Fisher [address] [place] [address] Social History Tobacco Use Types [...] Visit [facility] [place], [address] [facility] [place] [address] Steven Bernal MD [address] [facility] [place] [address] documented as of this encounter Visit Diagnoses Not on filedocumented in this encounter Care Teams Floor Trader Relationship Specialty Start Date End Date Charli Heller MD PCP - General 09/16/19 documented as of this encounter
--- OUTSIDE RECORDS SUMMARY | 2025-03-25 15:53 | XMS_ITS | Clinical Summary ---
Author Organization [facility] [place], Address [address] [place] [address] [place] [address] Phone Care Team Providers Care Meat Specialist Name Role Phone Charli Heller MD [...] Relation Comments Diabetes Father Heart disease Father NE Cancer Mother Heart disease Sibling brother CAD [...] Visit [facility] [place], [address] [facility] [address] Steven Bernal MD [address] [facility] [address] Health Maintenance Due Date Last Done Comments [...] exists Insurance Medicare Medicaid [place] Care Teams Meat Specialist Relationship Specialty Start Date End Date Charli Heller MD PCP - General 09/16/19
--- OUTSIDE RECORDS SUMMARY | 2025-03-25 15:53 | XMS_ITS | Clinical Summary ---
Author Organization [employer] Address [address] [place] [address] 7[address] [place] [address] Care Team Providers Care Bobbin Loose End Finder Name Role Phone Charli Nye MD Primary [...] SPRAY IN EACH NOSTRIL TWICE A DAY 023 Active naratriptan (Amerge) 2.5 MG tablet TOME PRIYA TABLETA POR V A ORAL TODOS LOS D CUANDO SEA NECESARIO PARA EL DOLOR DE NENO 023 Active topiramate (Topamax) 25 MG tablet TOME PRIYA TABLETA TODOS LOS D FOR 90 DAYS 023 Active Diclofenac Sodium 1 % gelIndications:Ch ronic pain of right wrist APLIQUE AL AREA AFECTADA DOS VECES AL DIDIER 100 g 1 023 Active Advair HFA 115-21 MCG/ACT inhaler INHALE DANDO DOS SOPLIDOS CADA DOCE HORAS 023 Active diphenhydrAMINE (BENADryl) 12.5 MG/5ML liquidIndications :Viral URI Take 10 mL (25 mg) by mouth if needed at bedtime for sleep for up to 10 days. 118 mL 023 Active albuterol 108 (90 Base) MCG/ACT inhaler Q6H as needed Active clonazePAM (KlonoPIN) 0.5 MG tablet Take 0.5 mg by mouth 2 times daily. Active omeprazole (PriLOSEC) [address] capsule Take 20 mg by mouth Once per day. Active propranolol LA (Inderal LA) 160 MG 24 hr capsule Take 160 mg by mouth Once per day. Active sertraline (Zoloft) 50 MG tablet Take 50 mg by mouth Once per day. Active Dulera 200-5 MCG/ACT inhaler TOME DOS INHALACIONES POR V A ORAL DOS VECES AL D A 024 Active acetaminophen (Tylenol 8 Hour) 650 MG ER tabletIndications :Pain SWALLOW 1 TAB WHOLE BY MOUTH EVERY 8 HOURS NEEDED WITH WATER. DO NOT BREAK,CRUSH,DIS SOLVE OR CHEW 60 tablet 3 024 Active levalbuterol (Xopenex) 45 MCG/ACT inhaler TAKE 1 PUFF INHALED EVERY 4 TO 6 HOURS NEEDED FOR SHORTNESS OF BREATH Active albuterol (2.5 MG/3ML) 0.083% nebulizer solution USE 1 VIAL VIA NEBULIZER EVERY 4-6 HOURS NEEDED FOR WHEEZE/SHORTNES S OF BREATH PA DENIED 024 Active terbinafine (LamISIL) 250 MG tabletIndications :Onychomycosis of great toe Take 1 tablet (250 mg) by mouth Once per day. 30 tablet 2 024 Active cholecalciferol (Vitamin D3) 25 MCG (1000 UT) tabletIndications :Low serum vitamin D TOME PRIYA TABLETA (25 MCG) POR VIA ORAL EN LA MANANA 90 tablet 1 024 Active loratadine (Claritin) 10 MG tabletIndications :Seasonal allergies TAKE 1 TABLET BY MOUTH EVERY DAY 90 tablet 3 025 Active atorvastatin (Lipitor) 40 MG tabletIndications :Mixed hyperlipidemia Take 1 tablet (40 mg) by mouth Once per day. 30 tablet 6 025 Active triamcinolone (Kenalog) 0.1 % ointmentIndicatio ns:Vulvar dermatitis APPLY TOPICALLY TWICE A DAY 80 g 025 Active triamcinolone (Kenalog) 0.1 % ointmentIndicatio ns:Vulvar dermatitis Apply topically 2 times daily. 80 g 024 2024 Discontinued Active Problems Problem Noted Date Diagnosed Date [...] Plan (07/22/2024 9:36 AM EDT): Seen by Hr Payroll Coordinator Dr callejas here at [facility]. Patient is still symptomatic for floaters in the left eye. She will follow up at her annual eye exam in 03/2025 Onychomycosis of great toe 07/22/2024 Assessment & Plan (07/22/2024 10:42 AM EDT): Both great toes Plan: stefanoafine daily x 3 months LFTs 12/2023 Normal [...] (04/03/2024 4:29 PM EDT): Seen by Dr Jonas SAGASTUME Pelvis Transvaginal pending for 01/10/2024 She was referred to [facility] seen February s/p biopsy that showed: results of the endometrial biopsy showing inactive endometrium. Assessment & Plan (01/03/2024 10:26 AM EST): Seen by Dr Jonas SAGASTUME Pelvis Transvaginal pending for 01/10/2024 She was referred to [facility] as well appointment scheduled for February Mild [...] sonographically. No adnexal masses. Pt seen by [facility] Dr Mar. Pt was referred to [facility] for Hysterectomy Assessment & Plan (07/17/2023 2:57 [...] cardiac workup in hospital and f w web consultant w recent normal eval per pt -warm [...] continue to f/u with her psychotherapist at [facility] ( Fide Lanza ). she denies any [...] AM EST): Seen in the past by [facility] Tubular adenoma 03/25/2019 Renal cysts, acquired, [...] to visit her daughter and grandson in [place] about 2 weeks ago and that has improved her depression. Inappropriate sinus tachycardia 02/01/2017 Assessment & Plan (01/15/2025 1:05 PM EST): Last seen by Cardiology 01/07/2024 On Inderal dose reduced to 160 mg po at [facility] Courtesy Booth's impression was that this may be related to anxiety in the setting of a structurally normal heart. Stress test was negative back then Assessment & Plan (07/17/2023 2:47 PM EDT): Last seen by Cardiology 07/02/2023 On Inderal dose reduced to 160 mg po at [facility] Courtesy Booth's impression was that this may be related [...] microscopic hematuria, seen in the past at [facility] urology. They recommended to f/u with them [...] Encounters Date Type Department Care Team Description 03/15/2025 Refill [facility] [address] [place] [address] Sandi Ashford NP Vulvar dermatitis 02/25/2025 Telephone [facility] [address] [place] [address] Charli Nye MD Lab Orders 02/20/2025 Orders Only [facility] External Provider, [facility] Multiple thyroid nodules (Primary Dx) 01/15/2025 1:00 PM EST Office Visit [facility] [address] [place] [address] Charli Nye MD Uterine leiomyoma, unspecified location (Primary Dx); Mild persistent asthma without complication; Essential hypertension; Recurrent major depressive episodes, mild (CMS/HCC); Inappropriate sinus tachycardia (CMS/HCC); Class 1 obesity; Dietary counseling; Exercise counseling; Mixed hyperlipidemia; Hyperpigmented skin lesion 01/15/2025 Travel 01/13/2025 Refill [facility] [address], [place] [phone] Jurcsak, Chantell, DO Seasonal allergies 01/12/2025 Telephone [facility] [address], [place] [phone] Charli yNe MD [facility] [employer] [place] (Underpad, bladder control.) 01/06/2025 Patient Outreach [facility] [address], [place] [phone] Charli Nye MD Care Coordination (CHW outreach for SDOH PT-1 and food needs-referral completed /) 01/06/2025 Patient Outreach [address] [phone] Charli Nye MD Pre-visit Planning (SDOH Screening positive and Tobacco screening negative) 01/05/2025 Orders Only [facility] External Provider, [facility] 01/01/[address] [phone] Charli Nye MD Chart Prep from Last 3 Months Immunizations Immunization Administration Dates Next Due Influenza injectable quadriv [...] Description 05/19/2025 3:00 PM EDT Office Visit [facility] [address] [place] [address] Charli Nye MD [address], [place] [phone] 06/12/2025 11:00 AM EDT Office Visit [facility] [address] [place] [address] Godfrey Carrizales MD [address], [place] [phone] Health Maintenance Due Date Last Done Comments [...] EDT Narrative 02/20/2025 3:44 PM EDT ? [facility] ?[address] ?[place] [address] ? CT Scan Report ? Signed ? Patient: Lauren Mcneal ?MR#: [id number] ?? 1423 ? : 1970 ?Acct:[id number] ? Age/Sex: 54 / F ?ADM Date: 02/20/25 ? Loc: HO.CT ? Attending Dr: Manjula Luna CEMET[employer] WORKERS SUPERVISOR ? Ordering Physician: Manjula Luna CEMET[employer] WORKERS SUPERVISOR ?? Date of Service: 02/20/25 ?? Procedure(s): CT chest wo IV con ?? Accession Number(s): [id number] ? cc: Charli Rojas MD; Manjula Luna NP ? Report Number: ?? [id number]: Total DLP = ??141.00 mGy-cm ?? EXAMINATION: [...] DD/ 1510 ? TD/TT: 02/20/25 1529 ? Plate Setter: ? Procedure Note Judy, Image - 02/20/[address] [address] [address] Scan Report Signed Patient: Lauren McnealMR#: [id number] 1423 : 1970Acct:[id number] Age/Sex: 54 / FADM Date: 02/20/25 Loc: HO.CT Attending Dr: Manjula Luna NP Ordering Physician: Manjula Luna NP Date of Service: 02/20/25 Procedure(s): CT chest wo IV con Accession Number(s): [id number] cc: Charli Rojas MD; Manjula Luna NP Report Number: [id number]: Total DLP = 141.00 mGy-cm EXAMINATION: CT [...] MD 02/20/2025 03:42 PM EDT Dictated By: Cahrlie Neville MD Signed By: <Electronically signed by Charlie Neville MD in OV> 02/20/25 1542 DD/ 1510 TD/TT: 02/20/25 1529 Plate Setter: [facility] External Provider IMG CT PROCEDURES Final Result * High Sensitivity Troponin I (01/05/2025 8:06 PM EST) Pathologist [facility] TROPONIN I HIGH SENSITIVITY <2.7 <3.5 - 17.0 ng/L [facility] Comment:The Barreto high sens itivity Troponin-I results should beused in conjunction with other diagnostic information suchas ECG, clinical observations and information, and patientsymptoms to aid in the diagnosis of [place]. 01/05/2025 8:06 PM EST 01/05/2025 8:10 PM EST Generic External Data Provider LAB BLOOD ORDERAB LES Final Result [facility] [address] [place] [phone] * SARS-CoV-2 RNA, Influenza A/B, and RSV RNA, Ql NAAT (01/05/2025 8:06 PM EST) Pathologist [facility] Influenza A PCR NEGATIVE Negative [facility] Influenza B PCR NEGATIVE Negative [facility] Resp Syncy Virus RNA Qual PCR NEGATIVE Negative [facility] SARS COV2 PCR NEGATIVE Negative [facility] Comment:All test results mus t be [...] use by authorized laboratories.Testing performed on the [employer] GeneXpert utilizingreal-time RT-PCR.All SARS CoV2 and positive influenza A/B results arereported to [facility]. 01/05/2025 8:06 PM EST 01/05/2025 8:10 PM EST us Generic External Data Provider LAB MICROBIOLOGY - GENERAL ORDERABLES Final Result [facility] [address], [place] [phone] * CBC auto differential (01/05/2025 8:06 PM EST) White Blood Count 7.5 4.8 - 10.8 X10*3/uL [facility] Red Blood Count 4.90 4.20 - 5.50 X10*6/uL [facility] Hemoglobin 13.7 12.0 - 16.0 g/dl [facility] Hematocrit 41.6 37.0 - 47.0 % [facility] Mean Corpuscular Volume 84.9 80.0 - 98.0 fL [facility] Mean Corpuscular Hemoglobin 28.0 27.0 - 33.0 pg [facility] Mean Corpuscular HGB Conc 32.9 31.0 - 35.0 g/dl [facility] Red Cell Distribution Width 13.2 11.0 - 16.0 % [facility] Platelet Count 309 160 - 400 X10*3/uL [facility] Mean Platelet Volume 9.5 9.4 - 12.3 fL [facility] Neutrophils Percent Auto 57.3 45 - 73 % [facility] Imm Gran Pct Auto 0.3 0.0 - 0.4 % [facility] Lymphocytes Percent Auto 33.3 20 - 40 % [facility] Monocytes Percent Auto 6.4 2 - 11 % [facility] Eosinophils Percent Auto 2.4 0 - 4 % [facility] Basophils Percent Auto 0.3 0 - 2 % [facility] NRBC Pct Auto 0.0 0.0 - 0.2 /100WBC [facility] Neutrophils Absolute Auto 4.3 2.0 - 8.3 x10*3/uL [facility] Imm Gran Abs Auto 0.02 0.00 - 0.03 X10*3/uL [facility] Lymphocytes Absolute Auto 2.5 1.2 - 4.9 X10*3/uL [facility] Monocytes Absolute Auto 0.5 0.1 - 1.2 X10*3/uL [facility] Eosinophils Absolute Auto 0.2 0.0 - 0.4 X10*3/uL [facility] Basophils Absolute Auto 0.0 0.0 - 0.2 X10*3/uL [facility] NRBC Abs Auto 0.000 0.0 - 0.012 X10*3/uL [facility] 01/05/2025 8:06 PM EST 01/05/2025 8:10 PM EST us Generic External Data Provider LAB BLOOD ORDERAB LES Final Result Performing Organization Address [facility] Co de Phone Number [facility] [address] [place] [phone] * B Type Natriuretic Peptide (BNP) (01/05/2025 8:06 PM EST) B Type Natriuretic Peptide 49 <100 pg/mL [facility] Comment:For those patients w ho are being treated with Natrecor(nesiritide, recombinant BNP), BNP testing should beperformed at least two hours post treatment in order toensure that only endogenous levels of BNP are detected. 01/05/2025 8:06 PM EST 01/05/2025 8:10 PM EST us Generic External Data Provider LAB BLOOD ORDERAB LES Final Result Performing Organization Address [facility]/ZIP Co de Phone Number [facility] [address] [place] [phone] * Magnesium (01/05/2025 8:06 PM EST) Magnesium 2.0 1.6 - 2.6 mg/dL [facility] 01/05/2025 8:06 PM EST 01/05/2025 8:10 PM EST us Generic External Data Provider LAB BLOOD ORDERAB LES Final Result Performing Organization Address City/[facility]/ZIP Co de Phone Number [facility] [address] [place] [address] [phone] * (ABNORMAL) Comprehensive Metabolic Panel (01/05/2025 8:06 PM EST) Sodium 142 135 - 145 mmol/L [facility] Potassium 4.1 3.3 - 5.1 mmol/L [facility] Chloride 111(H) 96 - 108 mmol/L [facility] Carbon Dioxide 21(L) 22 - 29 mmol/L [facility] Anion Gap 14 12 - 20 [facility] Urea Nitrogen (BUN) 16 9 - 16 mg/dL [facility] Creatinine, Serum 0.78 0.5 - 1.4 mg/dL [facility] Creatinine Clr Calc Pharmacy 90.2 [facility] Comment:Provided height and weight: 165.1 cm,89.8 kg.eGFR (calculated from the MDRD study equation) and eCrCl(calculated from the Cockcroft-Gault equation) are based ondifferent parameters and may not yield comparable results.If eCrCl result is absurd, please check patient'sheight/weight. Estimated Glomerular Filt Rate >60 [facility] Comment:Chronic Kidney Disea se: Estimated GFR < 60 mL/min/1.35g3Gkcjre Kidney Disease: Estimated GFR < 15 mL/min/1.73m2 Glucose 139(H) 60 - 115 mg/dL [facility] Calcium 9.5 8.4 - 10.2 mg/dL [facility] Bilirubin, Total 0.2 0.0 - 1.0 mg/dL [facility] Aspartate Amino Transferase 20 5 - 31 U/L [facility] Alanine Aminotransferase 15 0 - 31 U/L [facility] Total Protein 8.0 6.5 - 8.0 g/dL [facility] Albumin Level 4.0 3.5 - 5.0 g/dL [facility] Alkaline Phosphatase 120(H) 39 - 117 U/L [facility] 01/05/2025 8:06 PM EST 01/05/2025 8:10 PM EST us Generic External Data Provider LAB BLOOD ORDERAB LES Final Result [facility] [address] [facility] [place] [phone] * XR Chest 2 Views (01/05/2025 7:49 PM EST) Anatomical Region Laterality Modality Chest Radiographic Shayy ging 01/05/2025 7:49 PM EST Narrative 01/05/2025 7:51 PM EST ? [facility] ?[address] ?[place] [address] ?XRay Report ? Signed ? Patient: Lauren Mcneal ?MR#: [id number] ?? 1423 ? : 1970 ?Acct:[id number] ? Age/Sex: 54 / F ?ADM Date: 01/05/25 ? Loc: HO.ED ? Attending Dr: ? Ordering Physician: Yudelka Burns ?? Date of Service: 01/05/25 ?? Procedure(s): XR chest 2V ?? Accession Number(s): [id number] ? cc: Charli Rojas MD; Yudelka Burns [...] ? DD/ 48 ? TD/TT: 01/05/251948 ? Plate Setter: ? Procedure Note Maurisio Kim - 01/05/[address] [place] [address] XRay Report Signed Patient: Lauren McnealMR#: [id number] 1423 : 1970Acct:[id number] Age/Sex: 54 / FADM Date: 01/05/25 Loc: HO.ED Attending Dr: Ordering Physician: Yudelka Burns Date of Service: 01/05/25 Procedure(s): XR chest 2V Accession Number(s): [id number] cc: Charli Rojas MD; Yudelka Burns CLINICAL [...] in OV> 01/05/251949 DD/ 48 TD/TT: 01/05/251948 Plate Setter: [facility] External Provider IMG XR PROCEDURES Final Result * Lipid Panel, Standard (09/24/2024 11:39 AM EST) Triglycerides 86 <150 mg/dL [facility] Comment:Desirable Triglyceri de: less than 150 mg/dLBorderline High Triglyceride 150-199 mg/dLHigh Triglyceride: 200-499 mg/dLVery High Triglyceride: greater than or equal to 5OO mg/dL Cholesterol 147 <200 mg/dL [facility] Comment:Desirable Cholestero l: less than 200 mg/dLBorderline High Cholesterol: 200-239 mg/dLHigh Cholesterol: greater than 239 mg/dL LDL Cholesterol Calculated 76 <100 mg/dL [facility] Comment:Desirable LDL: less than 100 mg/dLNear Optimal/Above Optimal LDL: 110- 129 mg/dLBorderline High LDL: 130-159 mg/dLHigh LDL: 160-189 mg/dLVery High LDL: greater than or equal to 190 mg/dL HDL Cholesterol 54 >40 mg/dL [facility] Comment:Desirable HDL: great er than 40 mg/dL Note: This HDL assay may give artificially low results in patients with liver disease. 09/24/2024 11:3 9 AM EST 09/24/2024 11:39 AM EST us Generic External Data Provider LAB BLOOD ORDERAB LES Final Result [facility] [address] [place] [address] [phone] * BI Mammogram Screening Tomosynthesis Bilateral (07/23/2024 1:30 PM EDT) Anatomical Region Laterality Modality Breast Bilateral Mammography 07/23/2024 1:30 PM EDT Narrative 08/06/2024 10:59 AM EDT ? [facility] ? [address] ?[place] [address] ? Mammography Report ? Signed ? Patient: Mcneal,Lauren ?MR#: [id number] ?? 1423 ? : 1970 ?Acct:[id number] ? Age/Sex: 54 / F ?ADM Date: 07/23/24 ? Loc: HO.MAMMO ? Attending Dr: Charli Rojas MD ? Ordering Physician: Charli Rojas MD ?Resu ?? lts: 2Benign Findings ? Date of Service: 07/23/24 ?Follow Up: 1 Year From Orig ?? inal Mammogram ? Procedure(s): MM tomosynthesis screening BI ?? Accession Number(s): [id number] ? cc: Charli Rojas MD ? EXAMINATION: [...] ? Signed By: ?<Electronically signed by Annie Walter DO in OV> ? 08/06/24 1056 ? DD/ 1330 ? TD/TT: 07/23/24 1348 ? Plate Setter: ? Procedure Note Maurisio Kim - 08/06/2024 [facility] [address] [place] [address] Dr. [place], [place] [address] Mammography Report Signed Patient: Lauren McnealMR#: [id number] 1423 : 1970Acct:[id number] Age/Sex: 54 / FADM Date: 07/23/24 Loc: HO.MAMMO Attending Dr: Charli Rojas MD Ordering Physician: Charli Rojas MDResu lts: 2Benign Findings Date of Service: 07/23/24Follow Up: 1 Year From [facility] Mammogram Procedure(s): MM tomosynthesis screening BI Accession Number(s): [id number] cc: Charli Rojas MD EXAMINATION: MM SCREENING [...] 08/06/24 1056 DD/ 1330 TD/TT: 07/23/24 1348 Plate Setter: us Charli Lazo MD IMG BI PROCEDURES Scooby florian Result - Final * Pap Smear (02/07/2024 11:05 AM EDT) 02/07/2024 11:0 5 AM EDT 02/08/2024 9:30 AM EDT [facility] - 02/19/2024 9:04 AM EDT ----- ------- Name: Lauren Mcneal ? Age/Sex: 53/F ? : 1970 Unit#: [id number] ?? Attend Dr: Bruno Mar MD ?Re02/07/24 ?Status: DEP REF ? Location: HO.LNP ?Disch: ? ----- ------- SPEC : [id number] ? RECD: 02/08/24 ? STATUS: ??SOUT ? REQ NUM: [id number] ? INGRID: 02/07/24-1104 ? SUBM DR: Bruno Mar MD ? [...] 66, 68) ? HPV testing performed by [facility], [place], [place]. ??See reference laboratory ?? portion of the EMR for entire report. ?Clinical Information LMP: Postmenopausal Previous PAP test: 3 yrs ago, Unknown findings Other history:Postmenopausal bleeding ? Material Received ?? ThinPrep-Cervical Copies To: ?? Charli Rojas MD ?? [address] ?? [place] [address] ?? [phone] ?? Bruno Mar MD ?? [address] [facility] ?? [place] [address] ?? [phone] ----- ------- Signed (signature on file) CELENA Kaur (ASCP) 02/19/24 0904 ? ----- ------- ? END OF REPORT ? Generic External Data Provider LAB CYTOLOGY ORDE RABLES Final Result Performing Organization Address City/[facility]/ZIP Co de Phone Number [facility] [address] [place] [phone] [phone] * Hm Colonoscopy (01/18/2024) Colonoscopy Normal Normal Historical Provider MD HEALTH MAINTENANCE Final Result * HPV mRNA E6/E7 (02/09/2021 9:38 AM EDT) HPV nRNA E6/E7 Not Detected Not Detected [facility] Comment: Methodology: Machining Manager-Mediated Amplification This assay detects E6/E7 viral messenger RNA (mRNA) from 14 high-risk HPV types (16,18,31,33,35,39,45,51,52,56,58,59,66,68). ? The analytical performance characteristics of this assay have been determined by [facility]. The modifications have not been cleared or approved by the FDA. This assay has been validated pursuant to the CLIA regulations and is used for clinical purposes. ?? For additional information, please refer to http://education.[employer]/faq/LMW152p3 (This link if provided for information/ educational purposes only.) 02/09/2021 9:38 AM EDT [facility] LAB BLOOD ORDERABLES Bertha l Result [facility] [address] from Last 3 Months or Most Recently Relevant to Health Maintenance Insurance Member Subscriber Plan / Payer ( fective 2022-Present) Name:Lauren Mcneal Member ID:[id number] Relation to Subscriber:Self Name:Lauren Mcneal Subscriber ID:[id number] Payer ID:STATE Group ID:Not on file Type:Medicare Address: [place] [employer] [facility] [address] [address] [employer] * Guarantor: Fredis Lauren Account Type Relation to Patient Date of Phone Billing Address Personal/[place] [address] * Guarantor: Fredis Lauren Account Type Relation to Patient Date of Phone Billing Address Personal/Family Self [address] [address] * Guarantor: Lauren Mcneal Account Type Relation to Patient Date of Phone Billing Address Personal/Family Self [address] [place] Care Teams Bobbin Loose End Finder Relationship Specialty Start Date End Date Charli Nye MD [address] [place] [phone] PCP - General Internal Medicine 06/16/14
== END 2025-03-25 15:51 | disposition home or self-care (01) ==
LOC: HO.US 15:50
PROVIDERS: PCP Internal Medicine; Visit Provider Internal Medicine
DX: E04.2 Nontoxic multinodular goiter (principal)
CPT/HCPCS: 76536

== ENCOUNTER → 2025-03-25 15:53 | Outpatient (BNV) | payer MEDICARE, MEDICAID, SELFPAY | PROVIDERS: PCP Internal Medicine; Visit Provider Radiology Diagnostic Radiology | DX: E04.2 Nontoxic multinodular goiter (principal) | CPT/HCPCS: 76536 ==

== ENCOUNTER 2025-04-04 07:21 | Outpatient (REF) | payer MEDICARE, MEDICAID, SELFPAY ==
--- OUTSIDE RECORDS SUMMARY | 2025-04-04 07:23 | XMS_ITS | Encounter Summary ---
Author Organization [employer] Address [address] [place] [address] Care Team Providers [employer] Name Role Phone Charli Nye MD Primary Care Provide r Reason for Visit * Reason Onset Date Comments Returning call 03/27/2025 Encounter Details Date Type Department Care Team ([facility] st Contact Info) Description 03/27/2025 Results Follow-Up [facility] [address], [place] [phone] Charli Nye MD [address] [place] [address] US Thyroid Social History Tobacco Use Types Packs/Day Years [...] encounter Miscellaneous Notes * Telephone Encounter - Kasey Collazo RN - 03/31/2025 10:52 AM EDT Telephone call x2 to pt via [employer] branch controller Mavis #[id number]. Advised pt that thyroid ultrasound showed multiple thyroid nodules and that PCP placed referral. Pt stated she heard from [facility] and has an appt scheduled for May. No further questions. * Telephone Encounter - Alycia Mora - 03/30/2025 4:46 PM EDT Tc from pt returning call Contact pt at [phone] * Telephone Encounter - Mady Camacho RN - 03/27/2025 4:13 PM EDT TC placed to pt via [employer] branch controller (Ray ID#[id number]) per below PCP message. No answer, LVM to call office back and ask to speak to the green team nurses. ----- Message from Charli Lazo MD sent at 03/27/2025 3:44 PM EDT ----- Please let patient know her Thyroid US showed multiple thyroid nodules again, I have placed a referral to Endocrinology ----- Message ----- From: Laurence, Ris Results In Sent: 03/26/2025 7:27 AM EDT To: Charli Lazo MD documented in this encounter Plan of Treatment Upcoming Encounters Date Type Department Care Team (Late st Contact Info) Description 05/19/2025 3:00 PM EDT Office Visit [facility] [address] [place] [phone] Charli Nye MD [address] [place] [address] 06/12/2025 11:00 AM EDT Office Visit [facility] [address] [place] [address] Godfrey Carrizales MD [address] [place] [address] documented as of this encounter Visit Diagnoses Not on filedocumented in this encounter Additional Health Concerns Assessment Noted Time PHQ-9 Depression Total Score: 1 07/22/20 24 10:33 AM EDT documented as of this encounter Care Teams [employer] Relationship Specialty Start Date End Date Charli Nye MD [address] [place] [id number] PCP - General Internal Medicine 06/16/14 documented as of this encounter
[2025-04-04 08:46] LABS: Estimated Average Glucose 123 mg/dL; Hemoglobin A1C 147.9094 umol/L; Hemoglobin A1c % 5.9 % (<6.0); Total Hemoglobin (HGBA1C) 3625.3388 umol/L
[2025-04-04 09:11] LABS: Alanine Aminotransferase 14 U/L (0-31); Albumin Level 4.4 g/dL (3.5-5.0); Alkaline Phosphatase 92 U/L (39-117); Anion Gap 13 (12-20); Aspartate Amino Transferase 17 U/L (5-31); Bilirubin Direct 0.2 mg/dL (0.0-0.5); Bilirubin Total 0.4 mg/dL (0.0-1.0); Blood Urea Nitrogen 20 mg/dL (9-16); Calcium 9.5 mg/dL (8.4-10.2); Carbon Dioxide 26 mmol/L (22-29); Chloride 109 mmol/L (96-108); Estimated Glomerular Filt Rate > 60; Glucose Random 103 mg/dL (60-115); Potassium 4.1 mmol/L (3.3-5.1); Sodium 144 mmol/L (135-145); Total Protein 7.7 g/dL (6.5-8.0)
== END 2025-04-04 07:22 | disposition home or self-care (01) ==
LOC: HO.LAB 07:21
PROVIDERS: PCP Internal Medicine; Visit Provider Internal Medicine
DX: R73.9 Hyperglycemia, unspecified (principal); B35.1 Tinea unguium
CPT/HCPCS: 36415; 80048; 80076; 83036

== ENCOUNTER 2025-04-30 14:03 | Outpatient (AMB) | payer MEDICARE, MEDICAID, SELFPAY ==
[2025-04-30 14:05] VITALS: BP 124/80; PULSE 56; O2SAT 98; BMI 33.8
--- NOTE | 2025-04-30 14:05 | A.OFFVIS_ITS ---
Vital Signs 04/30/25 14:05 Height 5 ft 5 in Weight 203 lb 0.732 oz BMI 33.8 BP 124/80 Blood Pressure Location Lt brachial Position Sitting Pulse 56 Pulse Source Pulse Oximeter Pulse Oximetry (%) 98 Oxygen Delivery Method Room Air Intake Visit Reasons: Multiple thyroid nodules Intake Note: New patient present today for Multiple thyroid nodules. [employer] Required: Yes [employer] Services: [employer] Present [employer] Name: Messi [id number] Information Interpreted: non-clinical & clinical Accompanied by: Sister Allergies shellfish derived (SHELLFISH DERIVED) Allergy (Severe, Verified 04/30/25 14:09) swelling of tongue aspirin (ASPIRIN) Allergy (Intermediate, Verified 04/30/25 14:09) rash/ itch ciprofloxacin (From CIPRO) Allergy (Unknown, Verified 04/30/25 14:09) UNKNOWN latex Allergy (Unknown, Verified 04/30/25 14:09) Itching Seafood Allergy (Intermediate, Uncoded 04/30/25 14:09) hives Medication List - Last Reconciled 04/30/25 by Elvira Zayas MD acetaminophen ER 650 mg PO Q8H PRN albuterol sulfate 2.5 mg (3 mL) inhalation Q4-6H PRN albuterol sulfate 90 mcg/actuation 2 puffs inhalation Q4-6H PRN albuterol sulfate 2.5 mg (3 mL) inhalation Q4-6H PRN atorvastatin 40 mg PO BEDTIME cholecalciferol (vitamin D3) 25 mcg PO QAM clonazepam 0.5 mg PO wetfzuszsxn-motyazrii-idleoche 200-62.5-25 mcg (Trelegy Ellipta) 1 inh inhalation DAILY loratadine 10 mg PO DAILY naratriptan 2.5 mg PO Q4H PRN propranolol ER 160 mg PO DAILY sertraline 100 mg PO DAILY topiramate 25 mg PO DAILY triamcinolone acetonide 0.1% topical BID HPI Comments Details: 54-year-old female coming in today for initial evaluation of nontoxic multinodular goiter. Here with sister Magdalena Ultrasound of the thyroid done 03/25/2025, I reviewed the images myself which showed a right isthmus subcentimeter TR 4 nodule, a right lower pole 0.7 cm TR 3 nodule, a left mid lobe 1.9 cm solid hypoechoic TR 4 nodule that meets criteria for biopsy, this has remained stable in size compared to ultrasound in 2022. However when I reviewed the images myself this is a mixed cystic solid nodule but hypoechoic, with a macrocalcification making it a TR 5 nodule. Per CIPRIANO guidelines I would classify this as a intermediate category nodule also meeting criteria for biopsy., plus this has increased in size over time compared to when it was 1.4 cm in 2020. A left lower pole subcentimeter spongiform nodule also noted that was previously measuring 1 cm. She has had these nodules at least since 2020. Was following previously with PCP for this. Has never had a biopsy. Patient currently denies heat or cold intolerance, diarrhea or constipation, hair loss, palpitation, anxiety, weight changes, mood changes, low energy, changes in appearance of eyes or vision changes, tremors, increased diaphoresis or dry skin. ?Post menopausal Some intermittent dysphagia. Some hoarsness. Patient denies pain on swallowing, difficulty breathing. Patient denies any history of childhood neck radiation. Denies having ever used lithium, amiodarone or biotin supplements. Patient denies any family history of thyroid cancer. Sister has hypothyroidism. Physical exam General: sitting comfortably in no acute distress HEENT: normocephalic/atraumatic Neck: supple, left 1 cm thyroid nodule palpable Cardiac: normal heart sounds Pulm: normal breath sounds B/L, no added breath sounds Abd: not distended, no tenderness Extremities: no edema, no signs of myxedema no TFTs in the charge. EXAMINATION: US THYROID 03/25/25 HISTORY: THYROID NODULE TECHNIQUE: Real-time grayscale ultrasound imaging was performed and images were reviewed. COMPARISON: Comparison is made with the prior examination dated 08/14/2023. FINDINGS: SIZE: The right thyroid lobe measures 6.5 x 1.9 x 1.9 cm. The left thyroid lobe measures 5.3 x 2.0 x 1.9 cm. The isthmus measures 3 mm. FLOW: Flow to the gland is normal. ECHOGENICITY: The echotexture of the gland is homogeneous. NODULES: Again seen are multiple bilateral thyroid nodules as described below. Nodule #: 1 Location: Right isthmus measuring 4 x 3 x 4 mm which was not seen previously. Shape: Wider than tall (0 points) Margins: Smooth (0 points) Echotexture: Hypoechoic (2 points) Composition: Solid (2 points) Calcifications: None (0 points) Total points: 4 TIRADS: TR4: Moderately suspicious. Nodule #: 2 Location: Right lower pole measuring 7 x 6 x 7 mm (previously 9 x 8 x 9 mm). Shape: Wider than tall (0 points) Margins: Ill-defined (0 points) Echotexture: Isoechoic (1 point) Composition: Solid (2 points) Calcifications: None (0 points) Total points: 3 TIRADS: TR3: Mildly suspicious. Nodule #: 3 Location: Left midportion measuring 19 x 10 x 13 mm (previously 18 x 8 x 14 mm). Shape: Wider than tall (0 points) Margins: Smooth (0 points) Echotexture: Hypoechoic (2 points) Composition: Solid (2 points) Calcifications: None (0 points) Total points: 4 TIRADS: TR4: Moderately suspicious. Nodule #: 4 Location: Lower pole of the left thyroid lobe measuring 7 x 4 x 8 mm (previously 10 x 6 x 10 mm). Shape: Wider than tall (0 points) Margins: n/a Echotexture: n/a Composition: Spongiform (0 points) Calcifications: None (0 points) Total points: 0 TIRADS: TR1: Benign US/US thyroid IMPRESSION: Multinodular thyroid gland as described. Nodule #3 above warrants continued follow up. US THYROID 08/14/23 CLINICAL INFORMATION: Thyroid nodules. COMPARISON: Ultrasound thyroid 08/31/2022 and 01/11/2021. TECHNIQUE: Linear transducer jones-scale and color Doppler examination with attention to the region of the thyroid. FINDINGS: SIZE: Measurements of the thyroid lobes and nodules are given in sagittal, anteroposterior and transverse dimensions respectively. Right Thyroid Lobe: 5.9 x 2.0 x 2.1 cm, volume 12.6 mL. Previously 5.0 x 1.6 x 1.9 cm, volume 7.9 mL. Parenchyma: The gland echotexture is heterogeneous. Thyroid vascularity is normal. Left Thyroid Lobe: 5.8 x 2.0 x 2.2 cm, volume 13.3 mL. Previously 5.3 x 2.7 x 2.1 cm, volume 15.7 mL. Parenchyma: The gland echotexture is heterogeneous. Thyroid vascularity is normal. Isthmus: 0.4 cm in maximum AP dimension. Previously 0.4 cm. Estimated total number of nodules greater than or equal to 1 cm: 2. Secretary Bookkeeper nodules are described as follows: 1. Location: Right mid/inferior. Size: 0.4 x 0.4 x 0.4 cm, volume 0.03 mL. Previously: 0.5 x 0.4 x 0.3 cm, volume 0.04 mL. Nodule characteristics: Composition: Cystic(0). ACR TI-RADS total points: 0 Previous: 6 ACR TI-RADS category: 1 Previous: 4 Significant change in size (>/= 20% in 2 dimensions and minimal increase of 2 mm or 50% or greater increase in volume): Yes Change in features: Yes Change in ACR TI-RADS risk category: Yes 2. Location: Right inferior. Size: 0.9 x 0.8 x 0.9 cm, volume 0.3 mL. Previously: 0.7 x 0.5 x 0.7 cm, volume 0.1 mL. Nodule characteristics: Composition: Solid (2). Echogenicity: Hypoechoic (2). Shape: Not taller than wide (0). Margins: Smooth (0). Echogenic Foci: None (0). ACR TI-RADS total points: 4 Previous: 3 ACR TI-RADS category: 4 Previous: 3 Significant change in size (>/= 20% in 2 dimensions and minimal increase of 2 mm or 50% or greater increase in volume): Yes Change in features: Yes Change in ACR TI-RADS risk category: Yes 3. Location: Left mid/superior. Size: 1.8 x 0.8 x 1.4 cm, volume 1.1 mL. Previously: 1.6 x 1.0 x 1.2 cm, volume 0.9 mL. Nodule characteristics: Composition: Solid/almost completely solid (2). Echogenicity: Hypoechoic (2). Shape: Not taller than wide (0). Margins: Smooth (0). Echogenic Foci: None (0). ACR TI-RADS total points: 4 Previous: 3 ACR TI-RADS category: 4 Previous: 3 Significant change in size (>/= 20% in 2 dimensions and minimal increase of 2 mm or 50% or greater increase in volume): No Change in features: No Change in ACR TI-RADS risk category: No 4. Location: Left inferior. Size: 1.0 x 0.6 x 1.0 cm, volume 0.3 mL. Previously: 0.5 x 0.4 x 0.5 cm, volume 0.05 mL. Nodule characteristics: Composition: Spongiform (0). Echogenicity: Anechoic (0). Shape: Not taller than wide (0). Margins: Smooth (0). Echogenic Foci: None (0). ACR TI-RADS total points: 0 Previous: 4 ACR TI-RADS category: 1 Previous: 4 Significant change in size (>/= 20% in 2 dimensions and minimal increase of 2 mm or 50% or greater increase in volume): Yes Change in features: Yes Change in ACR TI-RADS risk category: Yes NODES: No lymphadenopathy is seen in the tissue surrounding the thyroid gland. US/US thyroid IMPRESSION: 1. Bilateral thyroid nodules are redemonstrated, as detailed. Recommend continued thyroid ultrasound surveillance. 2. There is a mild goiter. 3. There is heterogeneous thyroid echotexture, which can be associated with thyroiditis. US THYROID 08/31/22 CLINICAL INFORMATION: Thyroid nodule. COMPARISON: Ultrasound thyroid 01/11/2021. TECHNIQUE: Linear transducer grayscale and color Doppler examination with attention to the region of the thyroid. FINDINGS: SIZE: Measurements of the thyroid lobes and nodules are given in sagittal, anteroposterior and transverse dimensions respectively. Right Thyroid Lobe: 5.0 x 1.6 x 1.9 cm, volume 7.9 mL. Previously 5.0 x 2.1 x 1.7 cm, volume 9.3 mL. Parenchyma: The gland echotexture is homogeneous. Thyroid vascularity is increased. Left Thyroid Lobe: 5.3 x 2.7 x 2.1 cm, volume 15.7 mL. Previously 5.5 x 2.1 x 2.1 cm, volume 12.7 mL. Parenchyma: The gland echotexture is homogeneous. Thyroid vascularity is normal. Isthmus: 0.4 cm in maximum AP dimension. Previously 0.4 cm. Estimated total number of nodules greater than or equal to 1 cm: 1. Secretary Bookkeeper nodules are described as follows: 1. Location: Right lateral mid/inferior. Size: 0.5 x 0.4 x 0.3 cm, volume 0.04 mL. Previously: 0.7 x 0.4 x 0.4 cm, volume 0.06 mL. Nodule characteristics: Composition: Solid/almost completely solid (2). Echogenicity: Hyperechoic (1). Shape: Taller than wide (3). Margins: Smooth (0). Echogenic Foci: None (0). ACR TI-RADS total points: 6 Previous: 4 ACR TI-RADS category: 4 Previous: 4 Significant change in size (>/= 20% in 2 dimensions and minimal increase of 2 mm or 50% or greater increase in volume): No Change in features: No Change in ACR TI-RADS risk category: No 2. Location: Right inferior. Size: 0.7 x 0.5 x 0.7 cm, volume 0.1 mL. Previously: 0.9 x 0.8 x 0.8 cm, volume 0.3 mL. Nodule characteristics: Composition: Solid (2). Echogenicity: Isoechoic (1). Shape: Not taller than wide (0). Margins: Smooth (0). Echogenic Foci: None (0). ACR TI-RADS total points: 3 Previous: 3 ACR TI-RADS category: 3 Previous: 3 Significant change in size (>/= 20% in 2 dimensions and minimal increase of 2 mm or 50% or greater increase in volume): No Change in features: No Change in ACR TI-RADS risk category: No 3. Location: Left mid/superior. Size: 1.6 x 1.0 x 1.2 cm, volume 0.9 mL. Previously: 1.4 x 0.8 x 1.0 cm, volume 0.6 mL. Nodule characteristics: Composition: Solid/almost completely solid (2). Echogenicity: Isoechoic (1). Shape: Not taller than wide (0). Margins: Smooth (0). Echogenic Foci: None (0). ACR TI-RADS total points: 3 Previous: 3 ACR TI-RADS category: 3 Previous: 3 Significant change in size (>/= 20% in 2 dimensions and minimal increase of 2 mm or 50% or greater increase in volume): Yes Change in features: No Change in ACR TI-RADS risk category: No 4. Location: Left inferior. Size: 0.5 x 0.4 x 0.5 cm, volume 0.05 mL. Previously: Not measured on the previous study. Nodule characteristics: Composition: Solid (2). Echogenicity: Hypoechoic (2). Shape: Not taller than wide (0). Margins: Smooth (0). Echogenic Foci: None (0). ACR TI-RADS total points: 4 ACR TI-RADS category: 4 This nodule previously had a cystic appearance, now appearing solid. NODES: No lymphadenopathy is seen in the tissue surrounding the thyroid gland. US/US thyroid IMPRESSION: Multiple bilateral thyroid nodules are seen. Both of the most concerning nodules, in the right lateral mid-lower thyroid and left lower thyroid would be considered TI-RADS Category 4, but they are less than 1 cm in size so no imaging follow-up is recommended. BI-RADS criteria. A 1.6 cm solid nodule in the left mid-upper thyroid would be considered high RADS category 3. It has increased in size 50 percent from the prior study, 0.6 mL volume previously now 0.9 mL volume. Follow-up ultrasound in 1, 3, and 5 years is recommended. US THYROID 01/11/21 CLINICAL INFORMATION: Nontoxic single thyroid nodule. COMPARISON: None TECHNIQUE: Linear transducer grayscale and color Doppler examination with attention to the region of the thyroid. FINDINGS: SIZE: Measurements of the thyroid lobes and nodules are given in sagittal, anteroposterior and transverse dimensions respectively. Right Thyroid Lobe: 5.0 x 2.1 x 1.7 cm, volume 9.3 mL. Parenchyma: The gland echotexture is homogeneous. Thyroid vascularity is normal. Left Thyroid Lobe: 5.5 x 2.1 x 2.1 cm, volume 12.7 mL. Parenchyma: The gland echotexture is homogeneous. Thyroid vascularity is normal. Isthmus: 0.4 cm in maximum AP dimension. Estimated total number of nodules greater than or equal to 1 cm: 1. Secretary Bookkeeper nodules are described as follows: 1. Location: Right lateral mid/inferior. Size: 0.7 x 0.4 x 0.4 cm, volume 0.06 mL. Nodule characteristics: Composition: Solid (2). Echogenicity: Hypoechoic (2). Shape: Not taller than wide (0). Margins: Smooth (0). Echogenic Foci: None (0). ACR TI-RADS total points: 4 ACR TI-RADS category: 4 2. Location: Right inferior. Size: 0.9 x 0.8 x 0.8 cm, volume 0.3 mL. Nodule characteristics: Composition: Solid (2). Echogenicity: Isoechoic (1). Shape: Not taller than wide (0). Margins: Ill-defined (0). Echogenic Foci: None (0). ACR TI-RADS total points: 3 ACR TI-RADS category: 3 3. Location: Left mid. Size: 1.4 x 0.8 x 1.0 cm, volume 0.6 mL. Nodule characteristics: Composition: Solid/almost completely solid (2). Echogenicity: Isoechoic (1). Shape: Not taller than wide (0). Margins: Smooth (0). Echogenic Foci: None (0). ACR TI-RADS total points: 3 ACR TI-RADS category: 3 4. There is a small simple cyst less than 1 cm left lower lobe. In addition there are multiple tiny colloid cysts as well. NODES: No lymphadenopathy is seen in the tissue surrounding the thyroid gland. US/US thyroid IMPRESSION: Benign bilateral thyroid nodules. [facility] Medical History Thyroid nodule RBBB (right bundle branch block) HTN (hypertension), benign Hyperlipidemia Migraines Depression with anxiety Tubular adenoma of colon (~2019) Low back pain Surgical History History of appendectomy History of colonoscopy History of right breast biopsy Family History Paternal Aunt Breast cancer Mother Pancreatic cancer Social History Household Members: Spouse Housing: House Alcohol intake: never Patient Tobacco Use Status: Never used Tobacco Current occupational status: disabled Current occupation: lt handed Sexual orientation: Straight/Heterosexual Gender identity: Female Female Reproductive History Menstrual Age of Menarche: 14 Physical Exam Vital Signs: Last Vital Signs Pulse 56 04/30/25 14:05 BP 124/80 04/30/25 14:05 Pulse Ox 98 04/30/25 14:05 Oxygen Delivery Method Room Air 04/30/25 14:05 BMI result Body Mass Index 33.8 Assessment & Plan Assessment & Plan (1) Multinodular goiter (nontoxic): Code(s): E04.2 - Nontoxic multinodular goiter Category: Medical Plan: 54-year-old female with no family history thyroid cancer with no personal history of head or neck radiation coming in today for initial evaluation of nontoxic multinodular goiter. She has had thyroid nodules at least since 2020, never had a biopsy before. Ultrasound of the thyroid done 03/25/2025, I reviewed the images myself which showed a right isthmus subcentimeter TR 4 nodule, a right lower pole 0.7 cm TR 3 nodule, a left mid lobe 1.9 cm solid hypoechoic TR 4 nodule that meets criteria for biopsy, this has remained stable in size compared to ultrasound in 2022. However when I reviewed the images myself this is a mixed cystic solid nodule but hypoechoic, with a macrocalcification making it a TR 5 nodule. Per CIPRIANO guidelines I would classify this as a intermediate category nodule also meeting criteria for biopsy., plus this has increased in size over time compared to when it was 1.4 cm in 2020. A left lower pole subcentimeter spongiform nodule also noted that was previously measuring 1 cm. She does not have any bothersome compressive symptoms. No recent TFTs in the chart. We will check today. I explained that it is common to have thyroid nodules. About 95% of the time these nodules are benign. However if the nodule is > 1 cm in size or suspicious on ultrasound then a fine need aspiration biopsy is recommended. We discussed that a FNAB involves 4-5 passes with a small gauge needle and material obtained is sent off for cytology.If the cytopathology is benign then the nodule will be followed annually with repeat ultrasounds. However if it is suspicious or malignant, we will need to discuss further management. Indeterminate cytology can be further investigated with repeat FNA, genetic testing or empiric lobectomy. Malignant cytology is managed with either lobectomy or total thyroidectomy. We discussed briefly that thyroid cancer is, in most patients, an indolent disease that does not affect mortality. We will arrange for FNA of the left mid 1.9 cm thyroid nodule at next available opening and patient will follow up with me in clinic thereafter for results and further decision making. Plan: -scheduled for FNA of the left mid 1.9 cm thyroid nodule and a follow up 2 weeks after to discuss results -ordered TSH and free T4 to be done today Plan I spent 45 minutes in reviewing the record, seeing the patient and documenting in the medical record. Orders: Orders Thyroid Stimulating Hormone Today E04.2 - Nontoxic multinodular goiter Free T4 (Free Thyroxine) Today E04.2 - Nontoxic multinodular goiter US biopsy thyroid Today E04.2 - Nontoxic multinodular goiter Patient Instructions: Do blood work today We will book you for a thyroid nodule biopsy and a follow up 2 weeks after to discuss results H?gase un an?lisis de leonardo gonzalez. Le programaremos peg biopsia de n?dulo tiroideo y peg ivan de seguimiento 2 semanas despu?s para analizar los resultados. Coding Level of Care Code New Pt Level 4 (11552) Diagnoses Multinodular goiter (nontoxic) E04.2 Time Spent (min) 45
--- OUTSIDE RECORDS SUMMARY | 2025-04-30 15:23 | XMS_ITS | Encounter Summary ---
Author Organization [facility] Address [address] [facility] [address] [place] [address] Care Team Providers Care Reproductive Surgeon Name Role Phone Charli Nye MD Primary Care Provide r Reason for Visit * Reason Onset Date Comments Referral 11/01/2022 Encounter Details Date Type Department Care Team ([facility] st Contact Info) Description 11/01/2022 Telephone [facility] [address] [place], [place] [phone] Charli Nye MD [address] [place] [address] Referral Social History Tobacco Use Types Packs/Day [...] 11/01/2022 10:04 AM EST Aman Velasquez [place] [facility] [place] to inform referral has to be modify to occupational therapy for right arm . Please call to clarify [phone]. documented in this encounter Plan of Treatment Upcoming Encounters Date Type Department Care Team (Late st Contact Info) Description 05/19/2025 3:00 PM EDT Office Visit [facility] [address] [facility] [place] [address] hCarli Nye MD [address] [place] [address] 06/12/2025 11:00 AM EDT Office Visit [facility] [address] [facility] [place] [address] Godfrey Carrizales MD [address] [facility] [place], [place] [phone] documented as of this encounter Visit Diagnoses Not on filedocumented in this encounter Care Teams Reproductive Surgeon Relationship Specialty Start Date End Date Charli Nye MD [facility] [place] [address] PCP - General Internal Medicine 06/16/14 documented as of this encounter
== END 2025-04-30 15:02 | disposition home or self-care (01) ==
LOC: HO.ENCR 14:04
PROVIDERS: PCP Internal Medicine; Visit Provider Student in an Organized Health Care Education/Training Program
DX: E04.2 Nontoxic multinodular goiter (principal)
CPT/HCPCS: 99204

== ENCOUNTER 2025-04-30 14:03 | Outpatient (REF) | payer MEDICARE, MEDICAID, SELFPAY ==
[2025-04-30 17:17] LABS: Free T4 (Free Thyroxine) 1.22 ng/dL (0.71-1.85)
== END 2025-04-30 14:04 | disposition home or self-care (01) ==
LOC: HO.LAB 14:03
PROVIDERS: PCP Internal Medicine; Visit Provider Student in an Organized Health Care Education/Training Program
DX: E04.2 Nontoxic multinodular goiter (principal)
CPT/HCPCS: 36415; 84439; 84443; 99202

== ENCOUNTER 2025-05-06 07:45 | Outpatient (REF) | payer MEDICARE, MEDICAID, SELFPAY ==
--- OUTSIDE RECORDS SUMMARY | 2025-05-06 07:47 | XMS_ITS | Encounter Summary ---
Author Organization [facility] Address [address] [facility] [address] [place] [address] Care Team Providers Care Hat Former Name Role Phone Charli Nye MD Primary Care Provide r Reason for Visit * Reason Onset Date Comments Referral 11/01/2022 Encounter Details Date Type Department Care Team ([facility] st Contact Info) Description 11/01/2022 Telephone [facility] [address] [place] [address] Charli Nye MD [address] [place] [address] Referral Social History Tobacco Use Types Packs/Day [...] 11/01/2022 10:04 AM EST Aman Velasquez [place] [facility] calling to inform referral has to be modify to occupational therapy for right arm . Please call to clarify [phone]. documented in this encounter Plan of Treatment Upcoming Encounters Date Type Department Care Team (Late st Contact Info) Description 05/19/2025 3:00 PM EDT Office Visit [facility] [address] [place] [address] Charli Nye MD [address] [place] [phone] 07/10/2025 11:00 AM EDT Office Visit [facility] [address] [place] [address] Godfrey Carrizales MD [address] [place] [phone] documented as of this encounter Visit Diagnoses Not on filedocumented in this encounter Care Teams Hat Former Relationship Specialty Start Date End Date Charli Nye MD [address] [place] [id number] PCP - General Internal Medicine 06/16/14 documented as of this encounter
--- NOTE | 2025-05-06 08:30 | PM.PROC ---
Brief Operative Note Date of procedure: 05/06/25 Pre-op diagnosis: left mid 1.9 cm thyroid nodule FNA biopsy Post-op diagnosis: same Procedure: THYROID FINE NEEDLE ASPIRATION PROCEDURE NOTE ? PROCEDURE PERFORMED: Ultrasound-guided FNA of thyroid nodule ? OPERATORS: Dr. Elvira Zayas ? INDICATION: left mid 1.9 cm thyroid nodule ; FNA performed to assess for malignancy ? DESCRIPTION OF PROCEDURE: The indications for FNA (to assess for malignancy) were reviewed with the patient in detail. Potential complications (e.g., bleeding, infection, damage to local structures, absence of clear diagnosis after FNA) were reviewed. Alternatives to FNA including conservative observation or surgery were described. The patient understood and agreed to proceed. This was documented by the signing of the written informed consent form. A time-out was performed to confirm the patient's identity and the site of planned FNA. The nodule of interest was identified using ultrasound (14 MHz linear array probe). The site of FNA was then draped in the usual fashion and carefully cleaned and prepared using alcohol swabs. The skin at the previously-identified site of needle insertion was iced and sprayed with numbing spray. Under ultrasound guidance, _4_ passes were performed using a 1.5-inch, 25-gauge needle, and sample was obtained via capillary action. The needle tip was clearly visualized to be within the nodule at the time of sampling for 4__ of 4__ passes The patient tolerated the procedure well. There were no immediate complications. A small adhesive bandage was applied, and the patient was advised to take acetaminophen (rather than NSAIDs) for any discomfort and to report any signs of inflammation/infection or marked swelling. IMPRESSION: Technically successful ultrasound-guided fine needle aspiration of left mid 1.9 cm thyroid nodule . PLAN: The patient was advised that I will provide follow-up regarding the cytology result and any subsequent plans. Elvira Zayas MD Endocrinology Attending Condition: stable Disposition: same day
== END 2025-05-06 07:46 | disposition home or self-care (01) ==
LOC: HO.US 07:45
PROVIDERS: PCP Internal Medicine; Visit Provider Student in an Organized Health Care Education/Training Program
DX: E04.2 Nontoxic multinodular goiter (principal)
CPT/HCPCS: 10005; 88173; 88305

== ENCOUNTER → 2025-05-06 07:45 | Outpatient (BNV) | payer MEDICARE, MEDICAID, SELFPAY | PROVIDERS: PCP Internal Medicine; Visit Provider Student in an Organized Health Care Education/Training Program | DX: E04.1 Nontoxic single thyroid nodule (principal) | CPT/HCPCS: 10005 ==

== ENCOUNTER 2025-05-11 19:21 | Emergency (ER) | payer MEDICARE, MEDICAID, SELFPAY ==
[2025-05-11 19:26] VITALS: BP 106/67; PULSE 70; RESP 18; TEMP 36.4; O2SAT 97; BMI 32.2
--- NOTE | 2025-05-11 19:27 | ED.GENADULT ---
HPI - General Adult General Chief complaint: Extremity Injury, Upper Stated complaint: fell right shoulder pain Time Seen by Provider: 05/11/25 22:43 Source: patient Limitations: language barrier History of Present Illness ED Provider: Kiera Rivera PA-C HPI narrative: 54-year-old female with a history of obesity, osteoarthritis, hypertension, hyperlipidemia, asthma who presents after fall. Patient states she missed a step as she was walking out of her home, subsequently falling onto her right side. Patient states she was trying to brace her fall so she would not hit her head, she landed on her arm and knee. She now complains of right upper extremity and knee pain. She also states she is starting to develop right lateral neck discomfort. Again, no head strike, she is not on blood thinners, there was no loss consciousness. The patient is ambulatory. Related Data Home Medications ?Medication ?Instructions ?Recorded ?Confirmed propranolol 160 mg capsule,24 160 mg PO DAILY 03/31/21 04/30/25 hr,extended release sertraline 100 mg tablet 100 mg PO DAILY 07/27/23 04/30/25 acetaminophen 650 mg 650 mg PO Q8H PRN 11/29/23 04/30/25 tablet,extended release clonazepam 0.5 mg tablet 0.5 mg PO 01/07/24 04/30/25 cholecalciferol (vitamin D3) 25 25 mcg PO QAM 02/01/24 04/30/25 mcg (1,000 unit) tablet loratadine 10 mg tablet 10 mg PO DAILY 04/30/25 04/30/25 naratriptan 2.5 mg tablet 2.5 mg PO Q4H PRN 04/30/25 04/30/25 topiramate 25 mg tablet 25 mg PO DAILY 04/30/25 04/30/25 triamcinolone acetonide 0.1 % topical BID 04/30/25 04/30/25 topical ointment Previous Rx's ?Medication ?Instructions ?Recorded atorvastatin 40 mg tablet 40 mg PO BEDTIME #90 tabs 01/01/24 albuterol sulfate 2.5 mg/3 mL 2.5 mg (3 mL) inhalation Q4-6H PRN 05/07/24 (0.083 %) solution for nebulization shortness of breath or wheezing #180 mL albuterol sulfate 90 mcg/actuation 2 puff inhalation Q4-6H PRN 05/07/24 aerosol inhaler shortness of breath or wheezing #1 ea albuterol sulfate 2.5 mg/3 mL 2.5 mg (3 mL) inhalation Q4-6H PRN 05/13/24 (0.083 %) solution for nebulization shortness of breath or wheezing #180 mL fluticasone fur. 200 mcg-umeclid 1 inh inhalation DAILY #60 ea 01/09/25 62.5 mcg-vilant 25 mcg inhalat.powder (Trelegy Ellipta) methocarbamol 750 mg tablet 1,500 mg (2 x 750 mg) PO Q8H PRN 05/11/25 pain, moderate #20 tabs methylprednisolone 4 mg tablets in 4 mg PO QAM #21 ea 05/11/25 a dose pack (Medrol (Fredrick)) Allergies Allergy/AdvReac Type Severity Reaction Status Date / Time shellfish derived (SHELLFISH Allergy Severe swelling Verified 05/11/25 19:32 DERIVED) of tongue aspirin (ASPIRIN) Allergy Intermediate rash/ itch Verified 05/11/25 19:32 ciprofloxacin (From CIPRO) Allergy Unknown UNKNOWN Verified 05/11/25 19:32 latex Allergy Unknown Itching Verified 05/11/25 19:32 Seafood Allergy Intermediate hives Uncoded 04/30/25 14:09 Review of Systems Review of Systems: Yes all other systems are reviewed and are negative Constitutional: Constitutional: Denies fatigue, Denies fever(s) and Denies headache(s) ENT: Denies dizziness, Denies headache(s) and Reports neck pain Cardiovascular: Cardiovascular: Denies syncope Gastrointestinal: Gastrointestinal: Denies nausea and Denies vomiting Musculoskeletal: Musculoskeletal: Reports arthralgias, Reports joint swelling and Reports neck pain Neurologic: Denies dizziness, Denies syncope and Denies headache(s) Endocrine: Endocrine: Denies fatigue PMFSH Past Medical History Attestation statement: The following information was validated with the patient. Medical History (Updated 05/11/25 @ 23:53 by CRICKET Pena) Multinodular goiter (nontoxic) Thyroid nodule RBBB (right bundle branch block) HTN (hypertension), benign Hyperlipidemia Migraines Depression with anxiety Tubular adenoma of colon (~2019) Low back pain Surgical History History of appendectomy History of colonoscopy History of right breast biopsy Family History Family History Paternal Aunt Breast cancer Mother Pancreatic cancer Social History Social History Household Members: Spouse Housing: House Alcohol intake: never Patient Tobacco Use Status: Never used Tobacco Smoked in Last 30 Days: No Use of substances other than those prescribed or required for medical reasons: No Advance Directives: No Advance Directives Information Provided: Yes Do you have a plan to hurt others: No Plan Patient : No Current occupational status: disabled Current occupation: lt handed Sexual orientation: Straight/Heterosexual Gender identity: Female Physical Exam ED Vital Signs: Vital Signs - 24 hr 05/11/25 19:26 05/11/25 22:19 Temperature 97.6 F 96.9 F Pulse Rate 70 61 Respiratory Rate 18 16 Blood Pressure 106/67 125/62 Pulse Oximetry 97 99 Oxygen Delivery Method Room Air Room Air BMI result Body Mass Index 32.2 Const Other: Alert well-appearing Orientation/consciousness: patient oriented x3 Neck Neck: Yes full ROM Resp Effort & Inspection: normal respiratory effort Cardio Other: Normal peripheral perfusion Skin Other: Warm dry no rash Neuro General: patient oriented x3, gait normal, no focal motor deficits and CN's II-XI intact bilaterally Extrem Other: Full flexion and extension of the right knee, there was overlying ecchymosis and abrasion. Full range of motion of the right upper extremity with flexion and extension at the wrist, elbow, she can perform complete straight arm raise above the head at the shoulder, superficial abrasions noted. Psych Other: Cooperative Course Course Course Narrative: RME performed by Christy Logan PA-C. Patient is a 54 year old assigned female at presenting to the emergency department with right knee pain, right wrist, right hand, right elbow, and right shoulder pain after a fall. Detailed physical exam and review of systems are deferred to the rubber roller grinder operator. Patient placed back in the waiting room pending room availability. Medical Decision Making Medical Decision Making MDM Narrative: 54-year-old female with a history of obesity, osteoarthritis, hypertension, hyperlipidemia, asthma who presents after fall. Patient states she missed a step as she was walking out of her home, subsequently falling onto her right side. Patient states she was trying to brace her fall so she would not hit her head, she landed on her arm and knee. She now complains of right upper extremity and knee pain. She also states she is starting to develop right lateral neck discomfort. Again, no head strike, she is not on blood thinners, there was no loss consciousness. The patient is ambulatory. No relevant chronic issues History: Per patient I have considered the following differential diagnoses: Fracture, dislocation, contusion, sprain Plan: The patient has an unremarkable exam, she is ambulatory with full range of motion of both extremities, imaging not indicated. We will treat for musculoskeletal strain/contusion. Discharge Plan Discharge Clinical Impression: Contusion Patient Disposition: Home, Self-Care Instructions: Bone Bruise (ED) Additional Instructions: You have sustained contusions or bone bruises. See home care instructions. Use the Medrol Dosepak as directed this is an anti-inflammatory, take it in the mornings. Use the methocarbamol as needed for further pain, this is a muscle relaxant. To note this medication will cause drowsiness, do not drive or operate machinery while taking the medication. Follow up with primary care as needed. Prescriptions: New methylprednisolone [Medrol (Fredrick)] 4 mg tablets,dose pack 4 mg PO QAM Qty: 21 0RF Rx Instructions: Take per package instructions methocarbamol 750 mg tablet 1,500 mg PO Q8H PRN (Reason: pain, moderate) Qty: 20 0RF No Action atorvastatin 40 mg tablet 40 mg PO BEDTIME Qty: 90 3RF albuterol sulfate 2.5 mg /3 mL (0.083 %) solution for nebulization 2.5 mg inhalation Q4-6H PRN (Reason: shortness of breath or wheezing) Qty: 180 0RF propranolol 160 mg capsule,extended release 24 hr 160 mg PO DAILY sertraline 100 mg tablet 100 mg PO DAILY acetaminophen 650 mg tablet extended release 650 mg PO Q8H PRN clonazepam 0.5 mg tablet 0.5 mg PO Trelegy Ellipta 200-62.5-25 mcg blister with device 1 inh inhalation DAILY Qty: 60 6RF cholecalciferol (vitamin D3) 25 mcg (1,000 unit) tablet 25 mcg PO QAM albuterol sulfate 90 mcg/actuation HFA aerosol inhaler 2 puff inhalation Q4-6H PRN (Reason: shortness of breath or wheezing) Qty: 1 3RF albuterol sulfate 2.5 mg /3 mL (0.083 %) solution for nebulization 2.5 mg inhalation Q4-6H PRN (Reason: shortness of breath or wheezing) Qty: 180 0RF topiramate 25 mg tablet 25 mg PO DAILY naratriptan 2.5 mg tablet 2.5 mg PO Q4H PRN Rx Instructions: do not exceed 2 doses per 24 hrs loratadine 10 mg tablet 10 mg PO DAILY triamcinolone acetonide 0.1 % ointment topical BID Print Language: Yoruba
[2025-05-11 22:19] VITALS: BP 125/62; PULSE 61; RESP 16; TEMP 36.1; O2SAT 99
[2025-05-11 23:52] VITALS: BP 126/61; PULSE 89; RESP 18; O2SAT 98
[2025-05-12 00:01] VITALS: BP 126/61; PULSE 89; RESP 18; TEMP 36.7; O2SAT 98
== END 2025-05-12 00:19 | disposition home or self-care (01) ==
PROVIDERS: Emergency Provider Emergency Medicine; PCP Internal Medicine
DX: S80.01XA Contusion of right knee, initial encounter (principal); W10.8XXA Fall (on) (from) other stairs and steps, initial encounter; M79.621 Pain in right upper arm; M54.2 Cervicalgia; Y93.89 Activity, other specified; Y92.018 Other place in single-family (private) house as the place of occurrence of the external cause; Y99.8 Other external cause status
CPT/HCPCS: 99283; 99284

== ENCOUNTER 2025-05-20 12:56 | Outpatient (AMB) | payer MEDICARE, MEDICAID, SELFPAY ==
--- NOTE | 2025-05-20 12:58 | A.OFFVIS_ITS ---
Vital Signs 3 05/20/25 12:59 Height 5 ft 5 in Weight 203 lb 7.787 oz BMI 33.9 BP 112/74 Blood Pressure Location Lt brachial Position Sitting Pulse 77 Pulse Source Pulse Oximeter Pulse Oximetry (%) 99 Oxygen Delivery Method Room Air Intake Visit Reasons: Biopsy Follow up Intake Note: Patient present today for biopsy results. Mammography Technologist Required: Yes Mammography Technologist Language: Real Estate Representative Services: Mammography Technologist Present Mammography Technologist Name: Rylie [id number] Information Interpreted: non-clinical & clinical Accompanied by: Self / Same As Patient Allergies shellfish derived (SHELLFISH DERIVED) Allergy (Severe, Verified 05/20/25 13:02) swelling of tongue aspirin (ASPIRIN) Allergy (Intermediate, Verified 05/20/25 13:02) rash/ itch ciprofloxacin (From CIPRO) Allergy (Unknown, Verified 05/20/25 13:02) UNKNOWN latex Allergy (Unknown, Verified 05/20/25 13:02) Itching Seafood Allergy (Intermediate, Uncoded 05/20/25 13:02) hives Medication List - Last Reconciled 05/20/25 by Elvira Zayas MD acetaminophen ER 650 mg PO Q8H PRN albuterol sulfate 2.5 mg (3 mL) inhalation Q4-6H PRN albuterol sulfate 90 mcg/actuation 2 puffs inhalation Q4-6H PRN albuterol sulfate 2.5 mg (3 mL) inhalation Q4-6H PRN atorvastatin 40 mg PO BEDTIME cholecalciferol (vitamin D3) 25 mcg PO QAM clonazepam 0.5 mg PO pvdrnuicice-jloqmzpud-cpcqfhjf 200-62.5-25 mcg (Trelegy Ellipta) 1 inh inhalation DAILY loratadine 10 mg PO DAILY methocarbamol 1,500 mg (2 x 750 mg) PO Q8H PRN methylprednisolone (Medrol (Fredrick)) 4 mg PO QAM naratriptan 2.5 mg PO Q4H PRN propranolol ER 160 mg PO DAILY sertraline 100 mg PO DAILY topiramate 25 mg PO DAILY triamcinolone acetonide 0.1% topical BID HPI Comments Details: 54-year-old female coming in today for follow up of nontoxic multinodular goiter. Here with sister Magdalena HPI Ultrasound of the thyroid done 03/25/2025, I reviewed the images myself which showed a right isthmus subcentimeter TR 4 nodule, a right lower pole 0.7 cm TR 3 nodule, a left mid lobe 1.9 cm solid hypoechoic TR 4 nodule that meets criteria for biopsy, this has remained stable in size compared to ultrasound in 2022. However when I reviewed the images myself this is a mixed cystic solid nodule but hypoechoic, with a macrocalcification making it a TR 5 nodule. Per CIPRIANO guidelines I would classify this as a intermediate category nodule also meeting criteria for biopsy., plus this has increased in size over time compared to when it was 1.4 cm in 202. A left lower pole subcentimeter spongiform nodule also noted that was previously measuring 1 cm. She has had these nodules at least since 2020. Was following previously with PCP for this. Has never had a biopsy. Patient currently denies heat or cold intolerance, diarrhea or constipation, hair loss, palpitation, anxiety, weight changes, mood changes, low energy, changes in appearance of eyes or vision changes, tremors, increased diaphoresis or dry skin. ?Post menopausal Some intermittent dysphagia. Some hoarsness. Patient denies pain on swallowing, difficulty breathing. Patient denies any history of childhood neck radiation. Denies having ever used lithium, amiodarone or biotin supplements. Patient denies any family history of thyroid cancer. Sister has hypothyroidism. Interval history 04/30/2025: Normal TSH and free T4 05/06/2025: Status post FNA of the left mid 1.9 cm nodule, with nondiagnostic cytology, [place] category 1. Physical exam General: sitting comfortably in no acute distress HEENT: normocephalic/atraumatic Neck: supple, left 1 cm thyroid nodule palpable Cardiac: normal heart sounds Pulm: normal breath sounds B/L, no added breath sounds Abd: not distended, no tenderness Extremities: no edema, no signs of myxedema Laboratory Tests 04/30/25 15:28 TSH 0.70 Free T4 1.22 EXAMINATION: US THYROID 03/25/25 HISTORY: THYROID NODULE TECHNIQUE: Real-time grayscale ultrasound imaging was performed and images were reviewed. COMPARISON: Comparison is made with the prior examination dated 08/14/2023. FINDINGS: SIZE: The right thyroid lobe measures 6.5 x 1.9 x 1.9 cm. The left thyroid lobe measures 5.3 x 2.0 x 1.9 cm. The isthmus measures 3 mm. FLOW: Flow to the gland is normal. ECHOGENICITY: The echotexture of the gland is homogeneous. NODULES: Again seen are multiple bilateral thyroid nodules as described below. Nodule #: 1 Location: Right isthmus measuring 4 x 3 x 4 mm which was not seen previously. Shape: Wider than tall (0 points) Margins: Smooth (0 points) Echotexture: Hypoechoic (2 points) Composition: Solid (2 points) Calcifications: None (0 points) Total points: 4 TIRADS: TR4: Moderately suspicious. Nodule #: 2 Location: Right lower pole measuring 7 x 6 x 7 mm (previously 9 x 8 x 9 mm). Shape: Wider than tall (0 points) Margins: Ill-defined (0 points) Echotexture: Isoechoic (1 point) Composition: Solid (2 points) Calcifications: None (0 points) Total points: 3 TIRADS: TR3: Mildly suspicious. Nodule #: 3 Location: Left midportion measuring 19 x 10 x 13 mm (previously 18 x 8 x 14 mm). Shape: Wider than tall (0 points) Margins: Smooth (0 points) Echotexture: Hypoechoic (2 points) Composition: Solid (2 points) Calcifications: None (0 points) Total points: 4 TIRADS: TR4: Moderately suspicious. Nodule #: 4 Location: Lower pole of the left thyroid lobe measuring 7 x 4 x 8 mm (previously 10 x 6 x 10 mm). Shape: Wider than tall (0 points) Margins: n/a Echotexture: n/a Composition: Spongiform (0 points) Calcifications: None (0 points) Total points: 0 TIRADS: TR1: Benign US/US thyroid IMPRESSION: Multinodular thyroid gland as described. Nodule #3 above warrants continued follow up. US THYROID 08/14/23 CLINICAL INFORMATION: Thyroid nodules. COMPARISON: Ultrasound thyroid 08/31/2022 and 01/11/2021. TECHNIQUE: Linear transducer jones-scale and color Doppler examination with attention to the region of the thyroid. FINDINGS: SIZE: Measurements of the thyroid lobes and nodules are given in sagittal, anteroposterior and transverse dimensions respectively. Right Thyroid Lobe: 5.9 x 2.0 x 2.1 cm, volume 12.6 mL. Previously 5.0 x 1.6 x 1.9 cm, volume 7.9 mL. Parenchyma: The gland echotexture is heterogeneous. Thyroid vascularity is normal. Left Thyroid Lobe: 5.8 x 2.0 x 2.2 cm, volume 13.3 mL. Previously 5.3 x 2.7 x 2.1 cm, volume 15.7 mL. Parenchyma: The gland echotexture is heterogeneous. Thyroid vascularity is normal. Isthmus: 0.4 cm in maximum AP dimension. Previously 0.4 cm. Estimated total number of nodules greater than or equal to 1 cm: 2. [employer] [place] nodules are described as follows: 1. Location: Right mid/inferior. Size: 0.4 x 0.4 x 0.4 cm, volume 0.03 mL. Previously: 0.5 x 0.4 x 0.3 cm, volume 0.04 mL. Nodule characteristics: Composition: Cystic(0). ACR TI-RADS total points: 0 Previous: 6 ACR TI-RADS category: 1 Previous: 4 Significant change in size (>/= 20% in 2 dimensions and minimal increase of 2 mm or 50% or greater increase in volume): Yes Change in features: Yes Change in ACR TI-RADS risk category: Yes 2. Location: Right inferior. Size: 0.9 x 0.8 x 0.9 cm, volume 0.3 mL. Previously: 0.7 x 0.5 x 0.7 cm, volume 0.1 mL. Nodule characteristics: Composition: Solid (2). Echogenicity: Hypoechoic (2). Shape: Not taller than wide (0). Margins: Smooth (0). Echogenic Foci: None (0). ACR TI-RADS total points: 4 Previous: 3 ACR TI-RADS category: 4 Previous: 3 Significant change in size (>/= 20% in 2 dimensions and minimal increase of 2 mm or 50% or greater increase in volume): Yes Change in features: Yes Change in ACR TI-RADS risk category: Yes 3. Location: Left mid/superior. Size: 1.8 x 0.8 x 1.4 cm, volume 1.1 mL. Previously: 1.6 x 1.0 x 1.2 cm, volume 0.9 mL. Nodule characteristics: Composition: Solid/almost completely solid (2). Echogenicity: Hypoechoic (2). Shape: Not taller than wide (0). Margins: Smooth (0). Echogenic Foci: None (0). ACR TI-RADS total points: 4 Previous: 3 ACR TI-RADS category: 4 Previous: 3 Significant change in size (>/= 20% in 2 dimensions and minimal increase of 2 mm or 50% or greater increase in volume): No Change in features: No Change in ACR TI-RADS risk category: No 4. Location: Left inferior. Size: 1.0 x 0.6 x 1.0 cm, volume 0.3 mL. Previously: 0.5 x 0.4 x 0.5 cm, volume 0.05 mL. Nodule characteristics: Composition: Spongiform (0). Echogenicity: Anechoic (0). Shape: Not taller than wide (0). Margins: Smooth (0). Echogenic Foci: None (0). ACR TI-RADS total points: 0 Previous: 4 ACR TI-RADS category: 1 Previous: 4 Significant change in size (>/= 20% in 2 dimensions and minimal increase of 2 mm or 50% or greater increase in volume): Yes Change in features: Yes Change in ACR TI-RADS risk category: Yes NODES: No lymphadenopathy is seen in the tissue surrounding the thyroid gland. US/US thyroid IMPRESSION: 1. Bilateral thyroid nodules are redemonstrated, as detailed. Recommend continued thyroid ultrasound surveillance. 2. There is a mild goiter. 3. There is heterogeneous thyroid echotexture, which can be associated with thyroiditis. US THYROID 08/31/22 CLINICAL INFORMATION: Thyroid nodule. COMPARISON: Ultrasound thyroid 01/11/2021. TECHNIQUE: Linear transducer grayscale and color Doppler examination with attention to the region of the thyroid. FINDINGS: SIZE: Measurements of the thyroid lobes and nodules are given in sagittal, anteroposterior and transverse dimensions respectively. Right Thyroid Lobe: 5.0 x 1.6 x 1.9 cm, volume 7.9 mL. Previously 5.0 x 2.1 x 1.7 cm, volume 9.3 mL. Parenchyma: The gland echotexture is homogeneous. Thyroid vascularity is increased. Left Thyroid Lobe: 5.3 x 2.7 x 2.1 cm, volume 15.7 mL. Previously 5.5 x 2.1 x 2.1 cm, volume 12.7 mL. Parenchyma: The gland echotexture is homogeneous. Thyroid vascularity is normal. Isthmus: 0.4 cm in maximum AP dimension. Previously 0.4 cm. Estimated total number of nodules greater than or equal to 1 cm: 1. [employer] nodules are described as follows: 1. Location: Right lateral mid/inferior. Size: 0.5 x 0.4 x 0.3 cm, volume 0.04 mL. Previously: 0.7 x 0.4 x 0.4 cm, volume 0.06 mL. Nodule characteristics: Composition: Solid/almost completely solid (2). Echogenicity: Hyperechoic (1). Shape: Taller than wide (3). Margins: Smooth (0). Echogenic Foci: None (0). ACR TI-RADS total points: 6 Previous: 4 ACR TI-RADS category: 4 Previous: 4 Significant change in size (>/= 20% in 2 dimensions and minimal increase of 2 mm or 50% or greater increase in volume): No Change in features: No Change in ACR TI-RADS risk category: No 2. Location: Right inferior. Size: 0.7 x 0.5 x 0.7 cm, volume 0.1 mL. Previously: 0.9 x 0.8 x 0.8 cm, volume 0.3 mL. Nodule characteristics: Composition: Solid (2). Echogenicity: Isoechoic (1). Shape: Not taller than wide (0). Margins: Smooth (0). Echogenic Foci: None (0). ACR TI-RADS total points: 3 Previous: 3 ACR TI-RADS category: 3 Previous: 3 Significant change in size (>/= 20% in 2 dimensions and minimal increase of 2 mm or 50% or greater increase in volume): No Change in features: No Change in ACR TI-RADS risk category: No 3. Location: Left mid/superior. Size: 1.6 x 1.0 x 1.2 cm, volume 0.9 mL. Previously: 1.4 x 0.8 x 1.0 cm, volume 0.6 mL. Nodule characteristics: Composition: Solid/almost completely solid (2). Echogenicity: Isoechoic (1). Shape: Not taller than wide (0). Margins: Smooth (0). Echogenic Foci: None (0). ACR TI-RADS total points: 3 Previous: 3 ACR TI-RADS category: 3 Previous: 3 Significant change in size (>/= 20% in 2 dimensions and minimal increase of 2 mm or 50% or greater increase in volume): Yes Change in features: No Change in ACR TI-RADS risk category: No 4. Location: Left inferior. Size: 0.5 x 0.4 x 0.5 cm, volume 0.05 mL. Previously: Not measured on the previous study. Nodule characteristics: Composition: Solid (2). Echogenicity: Hypoechoic (2). Shape: Not taller than wide (0). Margins: Smooth (0). Echogenic Foci: None (0). ACR TI-RADS total points: 4 ACR TI-RADS category: 4 This nodule previously had a cystic appearance, now appearing solid. NODES: No lymphadenopathy is seen in the tissue surrounding the thyroid gland. US/US thyroid IMPRESSION: Multiple bilateral thyroid nodules are seen. Both of the most concerning nodules, in the right lateral mid-lower thyroid and left lower thyroid would be considered TI-RADS Category 4, but they are less than 1 cm in size so no imaging follow-up is recommended. BI-RADS criteria. A 1.6 cm solid nodule in the left mid-upper thyroid would be considered high RADS category 3. It has increased in size 50 percent from the prior study, 0.6 mL volume previously now 0.9 mL volume. Follow-up ultrasound in 1, 3, and 5 years is recommended. US THYROID 01/11/21 CLINICAL INFORMATION: Nontoxic single thyroid nodule. COMPARISON: None TECHNIQUE: Linear transducer grayscale and color Doppler examination with attention to the region of the thyroid. FINDINGS: SIZE: Measurements of the thyroid lobes and nodules are given in sagittal, anteroposterior and transverse dimensions respectively. Right Thyroid Lobe: 5.0 x 2.1 x 1.7 cm, volume 9.3 mL. Parenchyma: The gland echotexture is homogeneous. Thyroid vascularity is normal. Left Thyroid Lobe: 5.5 x 2.1 x 2.1 cm, volume 12.7 mL. Parenchyma: The gland echotexture is homogeneous. Thyroid vascularity is normal. Isthmus: 0.4 cm in maximum AP dimension. Estimated total number of nodules greater than or equal to 1 cm: 1. [employer] nodules are described as follows: 1. Location: Right lateral mid/inferior. Size: 0.7 x 0.4 x 0.4 cm, volume 0.06 mL. Nodule characteristics: Composition: Solid (2). Echogenicity: Hypoechoic (2). Shape: Not taller than wide (0). Margins: Smooth (0). Echogenic Foci: None (0). ACR TI-RADS total points: 4 ACR TI-RADS category: 4 2. Location: Right inferior. Size: 0.9 x 0.8 x 0.8 cm, volume 0.3 mL. Nodule characteristics: Composition: Solid (2). Echogenicity: Isoechoic (1). Shape: Not taller than wide (0). Margins: Ill-defined (0). Echogenic Foci: None (0). ACR TI-RADS total points: 3 ACR TI-RADS category: 3 3. Location: Left mid. Size: 1.4 x 0.8 x 1.0 cm, volume 0.6 mL. Nodule characteristics: Composition: Solid/almost completely solid (2). Echogenicity: Isoechoic (1). Shape: Not taller than wide (0). Margins: Smooth (0). Echogenic Foci: None (0). ACR TI-RADS total points: 3 ACR TI-RADS category: 3 4. There is a small simple cyst less than 1 cm left lower lobe. In addition there are multiple tiny colloid cysts as well. NODES: No lymphadenopathy is seen in the tissue surrounding the thyroid gland. US/US thyroid IMPRESSION: Benign bilateral thyroid nodules. [facility] Medical History (Updated 05/13/25 @ 00:02 by Background [place]) Multinodular goiter (nontoxic) Thyroid nodule RBBB (right bundle branch block) HTN (hypertension), benign Hyperlipidemia Migraines Depression with anxiety Tubular adenoma of colon (~2019) Low back pain Surgical History History of appendectomy History of colonoscopy History of right breast biopsy Family History Paternal Aunt Breast cancer Mother Pancreatic cancer Social History Household Members: Spouse Housing: House Alcohol intake: never Patient Tobacco Use Status: Never used Tobacco Current occupational status: disabled Current occupation: lt handed Sexual orientation: Straight/Heterosexual Gender identity: Female Female Reproductive History Menstrual Age of Menarche: 14 Physical Exam Vital Signs: Last Vital Signs Pulse 77 05/20/25 12:59 BP 112/74 05/20/25 12:59 Pulse Ox 99 05/20/25 12:59 Oxygen Delivery Method Room Air 05/20/25 12:59 BMI result Body Mass Index 33.9 Assessment & Plan Assessment & Plan (1) Multinodular goiter (nontoxic): Code(s): E04.2 - Nontoxic multinodular goiter Category: Medical Plan: 54-year-old female with no family history thyroid cancer with no personal history of head or neck radiation coming in today for initial evaluation of nontoxic multinodular goiter. She has had thyroid nodules at least since 2020, never had a biopsy before. Ultrasound of the thyroid done 03/25/2025, I reviewed the images myself which showed a right isthmus subcentimeter TR 4 nodule, a right lower pole 0.7 cm TR 3 nodule, a left mid lobe 1.9 cm solid hypoechoic TR 4 nodule that meets criteria for biopsy, this has remained stable in size compared to ultrasound in 2022. However when I reviewed the images myself this is a mixed cystic solid nodule but hypoechoic, with a macrocalcification making it a TR 5 nodule. Per CIPRIANO guidelines I would classify this as a intermediate category nodule also meeting criteria for biopsy., plus this has increased in size over time compared to when it was 1.4 cm in 2020. A left lower pole subcentimeter spongiform nodule also noted that was previously measuring 1 cm. TFTs from April 2025 within normal limits. 05/06/2025: Status post FNA of the left mid 1.9 cm nodule which came back as nondiagnostic, [place] category 1. I discussed with the patient that there is a 3-20% chance of malignancy nondiagnostic results, and we would recommend repeating the biopsy in about 3 months. I also discussed with the that there is a 2nd option to monitor the nodules with surveillance ultrasounds but she should be aware about the risk possible malignancy which can potentially spread. At this time patient would prefer surveillance ultrasounds. Plan: -ordered ultrasound of the thyroid to be done in April 2026 with follow up in May 2026 -ordered TSH with reflex free T4 to be done prior to next follow up Plan See above Orders: Orders 2 TSH reflex Free T4 04/26/26 E04.2 - Nontoxic multinodular goiter US thyroid 04/26/26 E04.2 - Nontoxic multinodular goiter Patient Instructions: Do ultrasound of the thyroid in April 2026, someone will call you to schedule this, please make sure it is done a few weeks before your next appointment Do thyroid blood work a few days before your next appointment Followup with me in May 2026 to discuss results Realice peg ecograf?a de tiroides en 2025. Se le llamar? para programarla. Aseg?rese de que se realice unas semanas antes de arrieta pr?xima ivan. Realice un an?lisis de leonardo de tiroides unos d?as antes de arrieta pr?xima ivan. Vuelva conmigo en 2025 para hablar sobre los resultados. Coding Level of Care Code Est Pt Level 3 (40863) Diagnoses Multinodular goiter (nontoxic) E04.2
[2025-05-20 12:59] VITALS: BP 112/74; PULSE 77; O2SAT 99; BMI 33.9
--- OUTSIDE RECORDS SUMMARY | 2025-05-20 13:45 | XMS_ITS | Encounter Summary ---
Author Organization [facility], Address [address] [place] [address] Phone Care Team Providers Care Community Product Specialist Name Role Phone Charli Heller MD Primary Care Provider Unav ailable Encounter Details Date Type Department Care Team (Late st Contact Info) Description 06/07/2022 Documentation Only [facility] [address] [place] [address] Steven Bernal MD [address] [place] [address] [place] [address] Social History Tobacco Use Types [...] Care Team (Late st Contact Info) Description 03/30/2026 4:00 PM EDT Office Visit [facility] [address] [place] [address] Steven Bernal MD [address] [place] [address] [place] [address] documented as of this encounter Visit Diagnoses Not on filedocumented in this encounter Care Teams Community Product Specialist Relationship Specialty Start Date End Date Charli Heller MD PCP - General 09/16/19 documented as of this encounter
--- OUTSIDE RECORDS SUMMARY | 2025-05-20 13:45 | XMS_ITS | Encounter Summary ---
Author Organization [employer] Address [address] [facility] [address] [place] [address] Care Team Providers Care Application Support Consultant Name Role Phone Charli Nye MD Primary Care Provide r Reason for Visit * Reason Onset Date Comments Referral 11/01/2022 Encounter Details Date Type Department Care Team ([facility] st Contact Info) Description 11/01/2022 Telephone [facility] [address] [place] [address] Charli Nye MD [address] [place] [address] Referral Social History Tobacco Use Types Packs/Day [...] Miscellaneous Notes * Telephone Encounter - Alexandria Chaya - 11/01/2022 10:04 AM EST Tc from Eva from [facility] calling to inform referral has to be modify to occupational therapy for right arm . Please call to clarify [phone]. documented in this encounter Plan of Treatment Upcoming Encounters Date Type Department Care Team (Late st Contact Info) Description 06/01/2025 3:00 PM EDT Nutrition [facility] [address] [place], [place] [phone] [place] [address] 07/10/2025 11:00 AM EDT Office Visit [facility] [address] [place] [address] Godfrey Carrizales MD [address] [place], [place] [phone] documented as of this encounter Visit Diagnoses Not on filedocumented in this encounter Care Teams Application Support Consultant Relationship Specialty Start Date End Date Charli Nye MD [address] [place], [place] [phone] PCP - General Internal Medicine 06/16/14 documented as of this encounter
== END 2025-05-20 13:22 | disposition home or self-care (01) ==
LOC: HO.ENCR 12:56
PROVIDERS: PCP Internal Medicine; Visit Provider Student in an Organized Health Care Education/Training Program
DX: E04.2 Nontoxic multinodular goiter (principal)
CPT/HCPCS: 99213

== ENCOUNTER → 2025-05-20 12:56 | Outpatient (BNVA) | payer MEDICARE, MEDICAID, SELFPAY | PROVIDERS: PCP Internal Medicine; Visit Provider Student in an Organized Health Care Education/Training Program | DX: E04.2 Nontoxic multinodular goiter (principal) | CPT/HCPCS: 99212 ==

== ENCOUNTER 2025-07-29 12:39 | Outpatient (REF) | payer MEDICARE, MEDICAID, SELFPAY ==
--- OUTSIDE RECORDS SUMMARY | 2025-07-24 15:00 | XMS_ITS | Encounter Summary ---
Author Organization [employer] Address [address] [facility] [address] [place] [address] Care Team Providers Care Compressor Operator Adjuster Name Role Phone Charli Nye MD Primary Care Provide r Reason for Visit * Reason Comments Cough Encounter Details Date Type Department Care Team ([facility] Contact Info) Description 07/24/2025 3:00 PM EDT Office Visit [facility] [address] [place] [address] [facility] [address] [place] [address] COVID-19 Social History Tobacco Use Types Packs/Day Years [...] AM EDT documented as of this encounter Last Filed Vital Signs Vital Sign Reading Time Taken Comments Blood Pressure 126/75 07/24/2025 3:32 PM EDT Pulse 85 07/24/2025 3:32 PM EDT Temperature 37.1 C (98.8 F) 07/24/2025 3:32 PM EDT Respiratory Rate 20 07/24/2025 3:32 PM EDT Oxygen Saturation 97% 07/24/2025 3:32 PM EDT Inhaled Oxygen Concentration - - Weight 91.2 kg (201 lb) 07/24/2025 3:32 PM EDT Height 165.1 cm (5' 5 ) 07/24/2025 3:32 PM EDT Body Mass Index 33.45 07/24/2025 3:32 PM EDT documented in this encounter Progress Notes * [facility], [employer] - 07/24/2025 3:00 PM EDT SUBJECTIVE: Lauren Mcneal is a 55 y.o. female who presents with URI sx HPI Pt with fatigue, nausea, malaise, ST x 4 days. Tolerating liquid PO intake well. No rash/fever/chills. Hx of asthma--reports increase in chest tightness. Sx respond to albuterol Problem List[1] Review of Systems Constitutional: Positive for fatigue and fever. HENT: Positive for congestion, rhinorrhea and sore throat. Negative for ear pain. Eyes: Negative for visual disturbance. Respiratory: Positive for cough. Negative for chest tightness, shortness of breath and wheezing. Cardiovascular: Negative for chest pain and palpitations. Gastrointestinal: Negative for abdominal pain, diarrhea, nausea and vomiting. Genitourinary: Negative for decreased urine volume. Musculoskeletal: Positive for myalgias. Skin: Negative for rash. Neurological: Negative for dizziness and weakness. OBJECTIVE: Visit Vitals BP 126/75 (BP Location: Left arm, Patient Position: Sitting, BP Cuff Size: Large adult) Pulse 85 Temp 98.8 ??F (37.1 ??C) (Oral) Resp 20 Ht 5' 5 (1.651 m) Wt 201 lb (91.2 kg) SpO2 97% BMI 33.45 kg/m?? Smoking Status Never BSA 2.05 m?? Physical Exam Constitutional: General: She is not in acute distress. Appearance: Normal appearance. HENT: Right Ear: Tympanic membrane, ear canal and external ear normal. Left Ear: Tympanic membrane, ear canal and external ear normal. Nose: Congestion and rhinorrhea present. Mouth/Throat: Pharynx: Posterior oropharyngeal erythema present. No oropharyngeal exudate. Eyes: Conjunctiva/sclera: Conjunctivae normal. Cardiovascular: Rate and Rhythm: Normal rate and regular rhythm. Heart sounds: Normal heart sounds. Pulmonary: Effort: Pulmonary effort is normal. Breath sounds: Normal breath sounds. Skin: General: Skin is warm and dry. Neurological: General: No focal deficit present. Mental Status: She is alert and oriented to person, place, and time. Psychiatric: Mood and Affect: Mood normal. Behavior: Behavior normal. ASSESSMENT: Office Visit on 07/24/2025 Component Date Value Ref Range Status Influenza B 07/24/2025 Negative Negative, Indeterminate Final Influenza A 07/24/2025 Negative Negative, Indeterminate Final Coronavirus Antigen PCR 07/24/2025 Positive (A) Negative, Indeterminate, None Detected, Invalid, Specimen unsatisfactory for evaluation, Weakly Positive, 2+ Final PLAN: - COVID positive in office - Patient is stable with no evidence of respiratory distress - Patient high risk d/t comorbidities. Start paxlovid. Reviewed administration, risks, side effects - Home supportive measures advised including: increased fluids, honey, tylenol/ibuprofen per instructions for pain/fever, nasal saline spray, cool mist humidifier. - Contact HC if sx worsen or do not improve within 7-10 days - Advised isolation per CDC guidance: at least 10 days since symptom onset, 24 hours afebrile without antipyretics, and improvement in symptoms before discontinuing isolation Diagnosis Plan 1. COVID-19 Influenza B (ID NOW Rapid Molecular) Influenza A (ID NOW Rapid Molecular) POCT COVID-19 Ag Lopez ID NOW Nirmatrelvir&Ritonavir 300/100 (Paxlovid, 300/100,) 20 x 150 MG & 10 x 100MG tablet therapypack albuterol 108 (90 Base) MCG/ACT inhaler Current Medications[2] Georgian Translation: Provided by [facility] staff member [1] Patient Active Problem List Diagnosis Anxiety Class 1 obesity Epidermoid cyst of skin Essential hypertension Inappropriate sinus tachycardia (CMS/HCC) Microscopic hematuria Migraine Proteinuria Recurrent major depressive episodes, mild (CMS/HCC) Renal cysts, acquired, bilateral Calculus of kidney Seasonal allergies Stress incontinence of urine Tubular adenoma De Quervain's tenosynovitis, right Depression with anxiety Painful arc syndrome of right shoulder Right bundle branch block Chest discomfort Multiple thyroid nodules Leiomyoma of uterus, unspecified Preventative health care Tubular adenoma of colon Elevated blood sugar Postmenopausal bleeding Mild persistent asthma without complication Chronic pain of both knees Visual disturbances Posterior vitreous detachment of left eye Onychomycosis of great toe Vulvar dermatitis Hyperlipidemia Hyperpigmented skin lesion [2] Current Outpatient Medications: acetaminophen (Tylenol 8 Hour) 650 MG ER tablet, SWALLOW 1 TAB WHOLE BY MOUTH EVERY 8 HOURS NEEDED WITH WATER. DO NOT BREAK,CRUSH,DISSOLVE OR CHEW, Disp: 60 tablet, Rfl: 3 albuterol (2.5 MG/3ML) 0.083% nebulizer solution, USE 1 VIAL VIA NEBULIZER EVERY 4-6 HOURS NEEDED FOR WHEEZE/SHORTNESS OF BREATH PA DENIED, Disp: , Rfl: albuterol 108 (90 Base) MCG/ACT inhaler, Q6H as needed, Disp: , Rfl: atorvastatin (Lipitor) 40 MG tablet, TAKE 1 TABLET BY MOUTH EVERY DAY, Disp: 90 tablet, Rfl: 0 cholecalciferol (Vitamin D3) 25 MCG (1000 UT) tablet, TAKE 1 TABLET BY MOUTH EVERY MORNING, Disp: 90 tablet, Rfl: 1 clonazePAM (KlonoPIN) 0.5 MG tablet, Take 0.5 mg by mouth 2 times daily., Disp: , Rfl: Diclofenac Sodium 1 % gel, APLIQUE AL AREA AFECTADA DOS VECES AL DIDIER, Disp: 100 g, Rfl: 1 fluticasone (Flonase) 50 MCG/ACT nasal spray, USE 1 SPRAY IN EACH NOSTRIL TWICE A DAY, Disp: , Rfl: loratadine (Claritin) 10 MG tablet, TAKE 1 TABLET BY MOUTH EVERY DAY, Disp: 90 tablet, Rfl: 3 naratriptan (Amerge) 2.5 MG tablet, TOME PRIYA TABLETA POR V A ORAL TODOS LOS D CUANDO SEA NECESARIO PARA EL DOLOR DE NENO, Disp: , Rfl: omeprazole (PriLOSEC) [address] capsule, Take 20 mg by mouth Once per day., Disp: , Rfl: propranolol LA (Inderal LA) 160 MG 24 hr capsule, Take 160 mg by mouth Once per day., Disp: , Rfl: sertraline (Zoloft) 50 MG tablet, Take 50 mg by mouth Once per day., Disp: , Rfl: terbinafine (LamISIL) 250 MG tablet, Take 1 tablet (250 mg) by mouth Once per day., Disp: 30 tablet, Rfl: 2 topiramate (Topamax) 25 MG tablet, TOME PRIYA TABLETA TODOS LOS D FOR 90 DAYS, Disp: , Rfl: Trelegy Ellipta 200-62.5-25 MCG/ACT aerosol powder , Inhale 200 Applications Once per day., Disp: ,Rfl: documented in this encounter Plan of Treatment Upcoming Encounters Date Type Department Care Team (Late st Contact Info) Description 08/17/2025 9:00 AM EDT Nutrition [facility] [address] [place], [place] [phone] Lolly Man, RD [address] [place], [place] [phone] 11/20/2025 3:00 PM EST Office Visit [facility] [address] [place], [place] [phone] Martha Callejas, OD [address] [place] [address] documented as of this encounter Procedures Procedure Name Priority Date/Time Associated Diagnosis Comments POCT INFLUENZA B (ID NOW RAPID MOLECULAR) Routine 07/24/2025 3:46 PM EDT COVID-19 POCT INFLUENZA A (ID NOW RAPID MOLECULAR) Routine 07/24/2025 3:46 PM EDT COVID-19 POCT COVID-19 AG LOPEZ ID NOW Routine 07/24/2025 3:46 PM EDT COVID-19 documented in this encounter Results * (ABNORMAL) POCT COVID-19 Ag Lopez ID NOW (07/24/2025 3:46 PM EDT) [facility] Coronavirus Antigen PCR Positive (A) Negative, Indeterminate, None Detected, Invalid, Specimen unsatisfactory for evaluation, Weakly Positive, 2+ Swab 07/24/2025 3:46 PM EDT [facility] POINT OF CARE TEST ENTER/EDIT ORDERABLES Final Result * Influenza A (ID NOW Rapid Molecular) (07/24/2025 3:46 PM EDT) [facility] Influenza A Negative Negative, Indeterminate [facility] Swab 07/24/2025 3:46 PM EDT [facility] POINT OF CARE TEST ENTER/EDIT ORDERABLES Final Result [facility] [address] [place] [phone] * Influenza B (ID NOW Rapid Molecular) (07/24/2025 3:46 PM EDT) [facility] Influenza B Negative Negative, Indeterminate [facility] Swab 07/24/2025 3:46 PM EDT [facility] [employer] POINT OF CARE TEST ENTER/EDIT ORDERABLES Final Result [facility] [address] [place] [phone] documented in this encounter Visit Diagnoses Diagnosis COVID-19 documented in this encounter Additional Health Concerns Assessment Noted Time PHQ-9 Depression Total Score: 1 07/22/20 24 10:33 AM EDT documented as of this encounter Care Teams Compressor Operator Adjuster Relationship Specialty Start Date End Date Charli Nye MD [address] [place] [address] PCP - General Internal Medicine 06/16/14 documented as of this encounter
--- NOTE | ~2025-07-29 | MM_ITS ---
EXAMINATION: MM SCREENING DIGITAL BREAST TOMOSYNTHESIS, BILATERAL CLINICAL INFORMATION: Screening. Asymptomatic. COMPARISON: Mammography: Comparison is made with available priors TECHNIQUE: Digital breast mammography with tomosynthesis is performed in both the craniocaudal and mediolateral oblique views along with computer-aided detection (CAD). FINDINGS: There are scattered areas of fibroglandular density (ACR BI-RADS breast composition Category b). Right marker clip. Post surgical changes the right breast are stable. There are no significant masses, abnormal calcifications, or other abnormalities. MM/MM tomosynthesis screening BI IMPRESSION: No mammographic evidence of malignancy. ASSESSMENT: BI-RADS BI-RADS 2 - Benign Findings RECOMMENDATION: Routine annual mammography screening. 1 year F/U This examination should not preclude the clinical evaluation of a suspicious palpable abnormality. This patient's information was entered into a reminder system with a target due date for their next mammogram. Electronically signed by: Annie Walter DO 08/03/2025 12:52 PM EDT
--- OUTSIDE RECORDS SUMMARY | 2025-07-29 16:04 | XMS_ITS | Encounter Summary ---
Author Organization [employer] Address [address] [facility] [address] [place] [address] Care Team Providers Care Cannery Tender Engineer Name Role Phone Charli Nye MD Primary Care Provide r Reason for Visit * Reason Onset Date Comments Referral 11/01/2022 Encounter Details Date Type Department Care Team ([facility] st Contact Info) Description 11/01/2022 Telephone [facility] [address] [place] [address] Charli Nye MD [address] [place] [address] Referral Social History Tobacco Use Types Packs/Day [...] 10:04 AM EST Tc from Eva from [facility] physical therapy calling to inform referral has to be modify to occupational therapy for right arm . Please call to clarify [phone]. documented in this encounter Plan of Treatment Upcoming Encounters Date Type Department Care Team (Late st Contact Info) Description 08/17/2025 9:00 AM EDT Nutrition [facility] [address] [place] [address] Lolly Man, CHEPE [address] [place] [address] 11/20/2025 3:00 PM EST Office Visit [facility] [address] [place], [place] [phone] Martha Callejas, OD [address] [place] [address] documented as of this encounter Visit Diagnoses Not on filedocumented in this encounter Care Teams Cannery Tender Engineer Relationship Specialty Start Date End Date Charli Nye MD [address] [place] [address] PCP - General Internal Medicine 06/16/14 documented as of this encounter
--- OUTSIDE RECORDS SUMMARY | 2025-07-29 16:04 | XMS_ITS | Encounter Summary ---
Author Organization [employer] Address [address] [facility] [address] [place] [address] Care Team Providers Care Winery Cellar Hand Name Role Phone Charli Nye MD Primary Care Provide r Reason for Visit * Reason Onset Date Comments Appointment Request 07/17/2025 Encounter Details Date Type Department Care Team ([facility] st Contact Info) Description 07/17/[address] [facility] [address] [place] [address] Charli Nye MD [address] [place] [address] Appointment Request Social History Tobacco Use Types Packs/Day Years [...] encounter Miscellaneous Notes * Telephone Encounter - Jorge Burnett - 07/17/2025 1:44 PM EDT Tc from pt requesting to r/s apt with lolly. Contact pt at [phone] documented in this encounter Plan of Treatment Upcoming Encounters Date Type Department Care Team (Late st Contact Info) Description 08/17/2025 9:00 AM EDT Nutrition [facility] [address] [place] [address] [place] [address] 11/20/2025 3:00 PM EST Office Visit [facility] [address] [place] [address] Martha Callejas, OD [address] [place] [address] documented as of this encounter Visit Diagnoses Not on filedocumented in this encounter Additional Health Concerns Assessment Noted Time PHQ-9 Depression Total Score: 1 07/22/20 24 10:33 AM EDT documented as of this encounter Care Teams Winery Cellar Hand Relationship Specialty Start Date End Date Charli Nye MD [address] [place] [address] PCP - General Internal Medicine 06/16/14 documented as of this encounter
--- OUTSIDE RECORDS SUMMARY | 2025-07-29 16:04 | XMS_ITS | Encounter Summary ---
Author Organization [employer] Address [address] [facility] [address] [place] [address] Care Team Providers Care Developer Programmer Analyst Name Role Phone Charli Nye MD Primary Care Provide r Encounter Details Date Type Department Care Team (Latest Contact Info) Description 07/24/2025 Travel Social History Tobacco Use Types Packs/Day Years [...] 08/17/2025 9:00 AM EDT Nutrition [facility] [address] [place] [address] Lolly Man, RD [address] [place] [address] 11/20/2025 3:00 PM EST Office Visit [facility] [address] [place] [address] Júnior, Marhta, OD [address] [place] [address] documented as of this encounter Visit Diagnoses Not on filedocumented in this encounter Additional Health Concerns Assessment Noted Time PHQ-9 Depression Total Score: 1 07/22/20 24 10:33 AM EDT documented as of this encounter Care Teams Developer Programmer Analyst Relationship Specialty Start Date End Date Charli Nye MD [address] [place] [address] PCP - General Internal Medicine 06/16/14 documented as of this encounter
--- OUTSIDE RECORDS SUMMARY | 2025-07-29 16:04 | XMS_ITS | Clinical Summary ---
Author Organization [employer] Address [address] [place] [address] 7[address] [place] [address] Care Team Providers Care Slide Attendant Name Role Phone Charli Nye MD Primary [...] PARA EL DOLOR DE NENO 023 Active Diclofenac Sodium 1 % gelIndications:Ch ronic pain of right wrist APLIQUE AL AREA AFECTADA DOS VECES AL DIDIER 100 g 1 023 Active clonazePAM (KlonoPIN) 0.5 MG tablet Take 0.5 mg by mouth 2 times daily. 019 Active omeprazole (PriLOSEC) [address] capsule Take 20 mg by mouth Once per day. 022 Active propranolol LA (Inderal LA) 160 MG 24 hr capsule Take 160 mg by mouth Once per day. 023 Active sertraline (Zoloft) 50 MG tablet Take 50 mg by mouth Once per day. 019 Active albuterol (2.5 MG/3ML) 0.083% nebulizer solution USE 1 VIAL VIA NEBULIZER EVERY 4-6 HOURS NEEDED FOR WHEEZE/SHORTNES S OF BREATH PA DENIED 024 Active terbinafine (LamISIL) 250 MG tabletIndications :Onychomycosis of great toe Take 1 tablet (250 mg) by mouth Once per day. 30 tablet 2 024 Active loratadine (Claritin) 10 MG tabletIndications :Seasonal allergies TAKE 1 TABLET BY MOUTH EVERY DAY 90 tablet 3 025 Active cholecalciferol (Vitamin D3) 25 MCG (1000 UT) tabletIndications :Low serum vitamin D TAKE 1 TABLET BY MOUTH EVERY MORNING 90 tablet 1 025 Active acetaminophen (Tylenol 8 Hour) 650 MG ER tabletIndications :Pain SWALLOW 1 TAB WHOLE BY MOUTH EVERY 8 HOURS NEEDED WITH WATER. DO NOT BREAK,CRUSH,DIS SOLVE OR CHEW 60 tablet 3 025 Active Trelegy Ellipta 200-62.5-25 MCG/ACT aerosol powder Inhale 200 Applications Once per day. 025 Active atorvastatin (Lipitor) 40 MG tabletIndications :Mixed hyperlipidemia TAKE 1 TABLET BY MOUTH EVERY DAY 90 tablet 025 Active Nirmatrelvir&Josafat navir 300/100 (Paxlovid, 300/100,) 20 x 150 MG & 10 x 100MG tablet therapy packIndications:C OVID-19 Take 3 tablets by mouth 2 times daily for 5 days. Per package instructions 30 each 025 2024 Active albuterol 108 (90 Base) MCG/ACT inhalerIndication s:COVID-19 Inhale 2 puffs every 4 (four) hours if needed for wheezing. 18 g 3 025 Active topiramate (Topamax) 25 MG tablet TOME PRIYA TABLETA TODOS LOS D FOR 90 DAYS 023 2024 Discontinued albuterol 108 (90 Base) MCG/ACT inhaler Q6H as needed 023 2024 Discontinued(R eorder (will not trigger notification to Pharmacy)) atorvastatin (Lipitor) 40 MG tabletIndications :Mixed hyperlipidemia Take 1 tablet (40 mg) by mouth Once per day. 30 tablet 6 025 2024 Discontinued Active Problems Problem Noted Date Diagnosed Date Hyperlipidemia 01/15/2025 Assessment & Plan (05/19/2025 3:10 PM EDT): Pt here for a follow up Last lipid profile: Lab Results Component Value Date TRIG 86 09/24/2024 TRIG 97 01/04/2024 CHOL 147 09/24/2024 CHOL 162 01/04/2024 LDLCHOLCAL 76 09/24/2024 LDLCHOLCAL 92 01/04/2024 HDL 54 09/24/2024 HDL 51 01/04/2024 On atorvastatin 40 mg po at bedtime (started by Cardiology) Will repeat Assessment & Plan (01/15/2025 1:10 PM EST): [...] Plan (07/22/2024 9:36 AM EDT): Seen by Electric Dolly Operator Dr callejas here at [facility] Stable. Patient is still symptomatic for floaters [...] pending for 01/10/2024 She was referred to SUBJECT SCIENTIFIC RESEARCH seen February s/p biopsy that showed: results of the endometrial biopsy showing inactive endometrium. Assessment & Plan (01/03/2024 10:26 AM EST): Seen by Dr Jonas SAGASTUME Pelvis Transvaginal pending for 01/10/2024 She was referred to SUBJECT SCIENTIFIC RESEARCH as well appointment scheduled for February Mild persistent asthma without complication 12/14 Assessment & Plan (01/15/2025 1:01 PM EST): Under the care of Pulmonology, recently switched to Trelegy. She is also on Albuterol Last seen 01/09/2025 by Manjula Luna OPERATIONS RESEARCH SCIENTIST Assessment & Plan (07/22/2024 9:34 AM EDT): Under the care of Pulmonology, on Advair and Albuterol Last seen 06/18/2024 by Manjula Luna OPERATIONS RESEARCH SCIENTIST Assessment & Plan (04/03/2024 4:16 PM EDT): Under the care of Pulmonology, on Advair and Albuterol Assessment & Plan (01/03/2024 10:16 AM EST): Under the care of Pulmonology, on Advair and Albuterol Multiple thyroid nodules 07/17/2023 Assessment & Plan (05/19/2025 3:16 PM EDT): On 01/2020 Incidental finding on Chest CT showed partial visualization of a 0.9 mm thyroid Nodule Thyroid U/S showed: Benign bilateral thyroid nodules. Previously pt was referred to Endocrinology Repeat Thyroid US 08/31/2022 showed: Multiple bilateral thyroid nodules are seen. Both [...] 1, 3, and 5 years is recommended. Repeat US 03/2025 showed: Multinodular thyroid gland as described. Nodule #3 above warrants continued follow up. Seen by endocrinology who recommended FNA of the left mid 1.9 cm thyroid nodule and a follow up 2 weeks after to discuss results . The FNA was non diagnostic Assessment & Plan (07/17/2023 2:41 PM EDT): [...] sonographically. No adnexal masses. Pt seen by SUBJECT SCIENTIFIC RESEARCH Dr Mar. 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 she denies [...] AM EST): Seen in the past by [facility] Urology Tubular adenoma 03/25/2019 Renal cysts, acquired, bilateral 02/11/2019 Assessment & Plan (05/19/2025 3:03 PM EDT): Pt had a recent MRI 02/11/2019 showed: Bilateral renal cysts are present, Bosniak 1 and 2 in nature. No suspicious lesions. Pt referred to Urology, last seen 08/18/2022 Dr Dewey Also evaluated by Renal Dr Steven Bernal last seen 03/31/2025 Assessment & Plan (07/17/2023 2:46 PM EDT): [...] reduced to 160 mg po at hs Data Processing Manager's impression was that this may be related to anxiety in the setting of a structurally normal heart. Stress test was negative back then Assessment & Plan (07/17/2023 2:47 PM EDT): Last seen by Cardiology 07/02/2023 On Inderal dose reduced to 160 mg po at hs Data Processing Manager's impression was that this may be related to anxiety in the setting of a structurally normal heart. Stress test was negative back then Essential hypertension 12/02/2015 Assessment & Plan (05/19/2025 3:07 PM EDT): Patient is here for f/u BP controlled She is on a regimen of: Inderal LA 60 mg po q pm. Most recent electrolytes, Bun and Creatinine done on: Lab Results Component Value Date NA 144 04/04/2025 NA 142 01/05/2025 K 4.1 04/04/2025 K 4.1 01/05/2025 CL 109 (H) 04/04/2025 CL 111 (H) 01/05/2025 BUN 20 (H) 04/04/2025 BUN 16 01/05/2025 CREATININE 0.82 04/04/2025 CREATININE 0.78 01/05/2025 were within normal limits. patient advised to adhere to a low sodium diet, encouraged about medication compliance, counseled about weight loss. Given adequate blood pressure control will continue with current medical regimen. 4 month f/u Assessment & Plan (01/15/2025 1:02 PM EST): [...] 05/06/2014 Microscopic hematuria 07/18/2013 Assessment & Plan (05/19/2025 3:03 PM EDT): Pt with Hx of microscopic hematuria, seen in the past at [facility] urology. They recommended to f/u with them on as needed basis. Pt's previous UA had shown trace protein and pt was referred to Dr Bernal (nephrology) Pt was last seen 03/31/2025 He thought her minimal proteinuria was the result of some degree of weight gain and prior Hx of borderline HTN. Assessment & Plan (07/17/2023 2:52 PM EDT): Pt with Hx of microscopic hematuria, seen in the past at [facility] urolog. 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 07/24/2025 Travel 07/20/2025 Telephone [facility] [address] [place] [address] R/S Nutrition appt 07/17/2025 Telephone [facility] [address] [place] [address] Charli Nye MD Appointment Request 07/10/2025 11:00 AM EDT Office Visit [facility] [place] [address] Godfrey Carrizales MD 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 Travel 07/05/2025 Travel 07/03/2025 Refill [facility] MEDICINE [address] [place] [address] Charli Nye MD Mixed hyperlipidemia 06/24/[address] [address] Charli Nye MD Referral 05/19/2025 3:00 PM EDT Office Visit [facility] [address] [facility] [place] [address] Charli Nye MD Renal cysts, acquired, bilateral (Primary Dx); Pain; Microscopic hematuria; Multiple thyroid nodules; Essential hypertension; Elevated blood sugar; Mixed hyperlipidemia; Encounter for immunization 05/19/2025 Travel 05/18/2025 Telephone [facility] [address] [facility] [place] [address] Charli Nye MD Chart Prep 05/13/2025 Refill [facility] MEDICINE [address] [facility] [place] [address] Charli Nye MD Low serum vitamin D 05/12/2025 Travel 05/11/2025 Patient Outreach [facility] [address] [place] [address] Charli Nye MD Pre-visit Planning (SDOH was already completed) 05/06/2025 Orders Only GENERIC EXTERNAL DATA DEPARTMENT Provider, Generic External Data 05/06/2025 Telephone [facility] MEDICINE [address] [place], [place] [phone] Charli Nye MD Referral 04/30/2025 Orders Only GENERIC EXTERNAL DATA DEPARTMENT Provider, Generic External Data from Last 3 Months Immunizations Immunization Administration Dates Next Due Influenza injectable quadriv alent IIV4 with preservative 07/30/2018,09/21/2016,12/02/2015 Influenza injectable quadriv alent preservative free 09/27/2023,08/25/2022,09/07/2021,11/24,08/11/2019,08/21/2017 Influenza, IIV3, injectable 07/30/2014, 0 Influenza, Split (incl. cheikh fied surface antigen) 07/18/2013 Influenza, seasonal, injecta ble, preservative free 07/22/2024 Moderna Covid-19 Vaccine 12+ 10/18/2021,04/01/20,03/04/2021 Pfizer Covid-19 Vaccine 12+ Bivalent 08/25/2022 Pneumococcal Conjugate PCV 20 05/19/2025 Pneumococcal Polysaccharide PPSV23 10/02/2010 Td (adult), 5 [...] Mass Index 33.45 07/24/2025 3:32 PM EDT Plan of Treatment Upcoming Encounters Date Type Department Care Team (Late st Contact Info) Description 08/17/2025 9:00 AM EDT Nutrition [facility] DIABETES/NUTRITION [address] [place] [address] Lolly Man, RD [address] [place] [address] 11/20/2025 3:00 PM EST Office Visit [facility] OPTOMETRY [address] [place] [address] JúniorMartha curry, OD [address] [place] [address] Health Maintenance Due Date Last Done Comments CT Colonography 1970 FIT DNA/Cologuard 1970 FIT 1970 FOBT 1970 HIV Screening 1970 Sigmoidoscopy 1970 Hepatitis C Screening 1987 Hepatitis B Vaccines (1 of 3 - 19+ 3-dose series) 1988 DTaP/Tdap/Td Vaccines (1 - Tdap) 09/22/2016 09/21/2016 COVID-19 Vaccine ( - season) 2025 08/25/2022, 10/18/2021, 04/01/2021, Additional history exists Influenza Vaccine (#1) 2025 , 09/27/2023, 08/25/2022, Additional history exists Depression Screening 07/22/2025 07/22/2024, 07/22/20 24 Mammogram 07/23/2025 07/23/2024, 06/13, 04/06/2022, Additional history exists Alcohol/Substance Use Screening 01/15/2026 01/15/2025 SDOH Screening 01/15/2026 01/15/2025 HPV/Cotest 02/09/2026 02/09/2021 Diabetes: Hemoglobin A1C 04/04/2026 04/04/2025, 04/13 Disability Screening 05/19/2026 05/19/2025 Tobacco Screening 07/27/2026 07/27/2025 Cervical Cancer Screening 02/06/2027 Pap Smear 02/06/2027 02/07/2024, 02/09/2021 Colonoscopy 01/17/2029 01/18/2024 Colorectal Cancer Screening 01/17/2029 Lipid Panel 09/24/2029 09/24/2024, 12/14, 07/04/2023, Additional history exists RSV Patients and Patients Aged 60 years or older (1 - 1-dose 75+ series) 2044 Zoster Vaccines Completed 11/20/2022, 08/30/2022 Pneumococcal Vaccine: 50+ Years Completed 05/19/2025, 10/02/2010 HIB Vaccines Aged Out No longer eligi [...] patient's age to complete this topic Meningococcal B Vaccine Aged Out No l onger eligible based on patient's age to complete [...] Name Priority Date/Time Associated Diagnosis Comments POCT COVID-19 AG LOPEZ ID NOW Routine 07/24/2025 3:46 PM EDT COVID-19 POCT INFLUENZA A (ID NOW RAPID MOLECULAR) Routine 07/24/2025 3:46 PM EDT COVID-19 POCT INFLUENZA B (ID NOW RAPID MOLECULAR) Routine 07/24/2025 3:46 PM EDT COVID-19 CELL BLOCK Routine 05/06/2025 8:29 AM EDT TSH Routine 04/30/2025 3:28 PM EDT T4, FREE Routine 04/30/2025 3:28 PM EDT HEMOGLOBIN A1C Routine 04/04/2025 7:27 AM EDT Elevated blood sugar LIPID PANEL, STANDARD Routine 09/24/2024 11:39 AM EST BI MAMMOGRAM SCREENING TOMOSYNTHESIS BILATERAL Routine 07/23/2024 1:30 PM EDT PAP SMEAR Routine 02/07/2024 11:05 AM EDT HM COLONOSCOPY Routine 01/18/2024 HPV MRNA E6/E7 Routine 02/09/2021 9:38 AM EDT from Last 3 Months or Most Recently Relevant to Health Maintenance Results * Influenza B (ID NOW Rapid Molecular) (07/24/2025 3:46 PM EDT) Pathologist [facility] Influenza B Negative Negative, Indeterminate [facility] Swab 07/24/2025 3:46 PM EDT [facility] POINT OF CARE TEST ENTER/EDIT ORDERABLES Final Result Performing Organization Address [facility]/ZIP Co de Phone Number [facility] [address] [place] [phone] * Influenza A (ID NOW Rapid Molecular) (07/24/2025 3:46 PM EDT) [facility] Influenza A Negative Negative, Indeterminate [facility] Swab 07/24/2025 3:46 PM EDT [facility] POINT OF CARE TEST ENTER/EDIT ORDERABLES Final Result Performing Organization Address [facility]/ZIP Co de Phone Number [facility] [address] [place] [phone] * (ABNORMAL) POCT COVID-19 Ag Lopez ID NOW (07/24/2025 3:46 PM EDT) Pathologist [facility] Coronavirus Antigen PCR Positive (A) Negative, Indeterminate, None Detected, Invalid, Specimen unsatisfactory for evaluation, Weakly Positive, 2+ Swab 07/24/2025 3:46 PM EDT Result [facility] 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 TRUCK 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 POINT OF CARE TEST ENTER/EDIT ORDERABLES Final Result * Cell Block (05/06/2025 8:29 AM EDT) 05/06/2025 8:29 AM EDT 05/06/2025 12:00 PM EDT Narrative [facility] - 05/07/2025 1:22 PM EDT ----- ------- Name: Lauren Mcneal Age/Sex: 54/F : 1970 Unit#: [id number] Attend Dr: Elvira Zayas MD Re05/06/25 Status: DEP REF Location: [facility] Disch: ----- ------- SPEC : [id number] RECD: 05/06/25-1199 STATUS: JB SHER NUM: [id number] INGRID: 05/06/[address] [facility] [address]: Elvira Zayas MD ENTERED: 05/06/25 SP TYPE: Cytology OT DR: Charli Rojas MD ORDERED: Cell Block, Fine Ndl Asp Diagnosis Thyroid, left mid pole 1.9 cm nodule, fine needle aspiration: Non-diagnostic (Peconic category I). COMMENT: Only a rare small group of benign-appearing follicular epithelial cells is present, insufficient for diagnostic purposes. The cell block is has blood and fibrin only. Clinical History Left mid 1.9 cm thyroid nodule FNA biopsy Material Received Left mid 1.9 cm thyroid nodule FNA biopsy Gross Description Received are 30 cc of clear CytoLyt fluid from which a ThinPrep slide and cell block are prepared. IHC S/NG Disclaimer NOTE: Unless otherwise stated, all tissue is formalin-fixed and paraffin-embedded. Some or all of the immunohistochemical tests reported herein may have been developed and their performance characteristics determined by [facility]. They have not been cleared or approved by the U.S. Food and Drug Administration (FDA). However, the FDA has determined that such clearance or approval is not necessary. This laboratory is certified under the Clinical Laboratory Improvement Amendments of 1988 (CLIA) as qualified to perform high complexity clinical laboratory testing. Copies To: [place] [address] Elvira Zayas MD [facility] Endocrinology [address] [place] [address] CONTINUED ON NEXT PAGE ----- ------- Name: Lauren Mcneal Age/Sex: 54/F : 1970 Unit#: [id number] Attend Dr: Elvira Zayas MD Re05/06/25 Status: DEP REF Location: [facility] Disch: ----- ------- SPEC : [id number] RECD: 05/06/25-1199 STATUS: JB SHER NUM: [id number] INGRID: 05/06/[address] [facility] [address]: Elvira Zayas MD ENTERED: 05/06/25 SP TYPE: Cytology OTHR DR: Charli Rojas MD ORDERED: Cell Block, Fine Ndl Asp Copies To: (Continued) [email or web address] ----- ------- Signed (signature on file) Aquilino Roman MD 05/07/25 1322 ----- ------- END OF REPORT us Generic External Data Provider LAB CYTOLOGY HO CHIN Final Result [facility] [address] [place] [phone] * TSH (04/30/2025 3:28 PM EDT) Thyroid Stimulating Hormone 0.70 0.32 - 4.0 uIU/mL [facility] Comment:TSH 3rd Generation ( [facility]) 04/30/2025 3:28 PM EDT 04/30/2025 3:28 PM EDT us Generic External Data Provider LAB BLOOD ORDERAB LES Final Result Performing Organization Address [facility] Co de Phone Number [facility] [address] [place] [phone] * T4, Free (04/30/2025 3:28 PM EDT) Free T4 (Free Thyroxine) 1.22 0.71 - 1.85 ng/dL [facility] 04/30/2025 3:28 PM EDT 04/30/2025 3:28 PM EDT us Generic External Data Provider LAB BLOOD ORDERAB LES Final Result Performing Organization Address [facility] Number [facility] [address] [place] [phone] * Hemoglobin A1c (04/04/2025 7:27 AM EDT) Hemoglobin A1c 5.9 <6.0 % [facility] Comment:Hemoglobin A1C Refer ence Range Adults: 4.8 - 6.0 % Non diabetic: < 6.0 % Goal: < 7.0 %Additional Action Suggested: > 8.0 %Note: Hemoglobin A1c results are invalid for patients with abnormal amounts of HbF. Blood transfusions may impact the HbA1c concentration in the patient sample. Estimated Average Glucose 123 mg/dL [facility] Comment:eAG = Estimated ave rage glucose which is %A1C expressed asaverage glucose, using the formula of the Q5G-BcddydeRxlxepg Glucose study (ADAG), Diabetes Care, Vol.31,#8,2007 Blood Venous blood specimen / Unknown 04/04/2025 7:27 AM EDT 04/04/2025 7:28 AM EDT us Charli Lazo MD LAB BLOOD ORDERABLES Final Result Performing Organization Address [facility] Co de Phone Number [facility] [address] [place] [phone] * Lipid Panel, Standard (09/24/2024 11:39 AM EST) Triglycerides 86 <150 mg/dL [facility] Comment:Desirable Triglyceri de: less than 150 mg/dLBorderline High Triglyceride 150-199 mg/dLHigh Triglyceride: 200-499 mg/dLVery High Triglyceride: greater than or equal to 5OO mg/dL Cholesterol 147 <200 mg/dL [facility] Comment:Desirable Cholestero l: less than 200 mg/dLBorderline High Cholesterol: 200-239 mg/dLHigh Cholesterol: greater than 239 mg/dL LDL Cholesterol Calculated 76 <100 mg/dL [facility] Comment:Desirable LDL: less than 100 mg/dLNear Optimal/Above Optimal LDL: 110- 129 mg/dLBorderline High LDL: 130-159 mg/dLHigh LDL: 160-189 mg/dLVery High LDL: greater than or equal to 190 mg/dL HDL Cholesterol 54 >40 mg/dL [facility] Comment:Desirable HDL: great er than 40 mg/dL Note: This HDL assay may give artificially low results in patients with liver disease. 09/24/2024 11:3 9 AM EST 09/24/2024 11:39 AM EST us Generic External Data Provider LAB BLOOD ORDERAB LES Final Result [facility] [address] [place] [phone] * BI Mammogram Screening Tomosynthesis Bilateral (07/23/2024 1:30 PM EDT) Anatomical Region Laterality Modality Breast Bilateral Mammography 07/23/2024 1:30 PM EDT Narrative 08/06/2024 10:59 AM EDT [facility] [address] [place] [address] Mammography Report Signed Patient: Lauren Mcneal MR#: [id number] 1423 : 1970 Acct:[id number] Age/Sex: 54 / F ADM Date: 07/23/24 Loc: [facility] Attending Dr: Charli Rojas MD Ordering Physician: Charli Rojas MD Resu lts: 2Benign Findings Date of Service: 07/23/24 Follow Up: 1 Year From Orig inal Mammogram Procedure(s): MM tomosynthesis screening BI Accession Number(s): [id number] cc: Charli Rojas MD EXAMINATION: MM SCREENING [...] 1056 DD/ 1330 TD/TT: 07/23/24 1348 Plate Former: Procedure Note Donotuseinterpreter, Image - 08/06/2024 [facility] [address] [place] [address] Dr. [place], [place] [address] Mammography Report Signed Patient: Lauren McnealMR#: [id number] 1423 : 1970Acct:[id number] Age/Sex: 54 / FADM Date: 07/23/24 Loc: HO.MAMMO Attending Dr: Charli Rojas MD Ordering Physician: Charli Rojas MDResu lts: 2Benign Findings Date of Service: 07/23/24Follow Up: 1 Year From Orig ina Mammogram Procedure(s): MM tomosynthesis screening BI Accession Number(s): [id number] cc: Charli Rojas MD EXAMINATION: MM SCREENING [...] 1056 DD/ 1330 TD/TT: 07/23/24 1348 Plate Former: us Charli Lazo MD IMG BI PROCEDURES Scooby florian Result - Final * Pap Smear (02/07/2024 11:05 AM EDT) 02/07/2024 11:0 5 AM EDT 02/08/2024 9:30 AM EDT [facility] - 02/19/2024 9:04 AM EDT ----- ------- Name: Lauren Mcneal Age/Sex: 53/F : 1970 Unit#: [id number] Attend Dr: Bruno Mar MD Re02/07/24 Status: DEP REF Location: [facility] Disch: ----- ------- SPEC : [id number] RECD: 02/08/24-929 STATUS: JB SHER NUM: [id number] INGRID: 02/07/24-[address] [facility] [address]: Bruno Mar MD ENTERED: 02/08/24-1019 SP TYPE: Pap Smr OTHR DR: Charli Rojas MD ORDERED: Pap Smear Interpretation Satisfactory for evaluation. Negative for intraepithelial lesion or malignancy. Abundant inflammation. HPV mRNA E6/E7: NOT DETECTED This assay detects E6/E7 viral messenger RNA (mRNA) from 14 high-risk HPV types (16, 18, 31, 33, 35, 39, 45, 51, 52, 56, 58, 59, 66, 68) HPV testing performed by [facility], [place], [place]. See reference laboratory portion of the EMR for entire report. Clinical Information LMP: Postmenopausal Previous PAP test: 3 yrs ago, Unknown findings Other history:Postmenopausal bleeding Material Received ThinPrep-Cervical Copies To: Charli Rojas MD [address] [place] [phone] Bruno Mar MD [address] [place] [address] [address] ----- ------- Signed (signature on file) CELENA Kaur ([facility]) 02/19/24 0904 ----- ------- END OF REPORT us Generic External Data Provider LAB CYTOLOGY ORDE RABLES Final Result [facility] [address] [place] [address] [phone] * Colonoscopy (01/18/2024) Pathologist [facility] Colonoscopy Normal Normal Historical Provider MD HEALTH MAINTENANCE Final Result * HPV mRNA E6/E7 (02/09/2021 9:38 AM EDT) Pathologist [facility] HPV nRNA E6/E7 Not Detected Not Detected [facility] Comment: Methodology: Clip And Hanger Attacher-Mediated Amplification This assay detects E6/E7 viral messenger RNA (mRNA) from 14 high-risk HPV types (16,18,31,33,35,39,45,51,52,56,58,59,66,68). The analytical performance characteristics of this assay have been determined by [employer]. The modifications have not been cleared or approved by the FDA. This assay has been validated pursuant to the CLIA regulations and is used for clinical purposes. For additional information, please refer to http://education.[employer]/faq/GFT023a9 (This link if provided for information/ educational purposes only.) 02/09/2021 9:38 AM EDT us Phuong Junior CNM LAB BLOOD ORDERABLES Bertha l Result [facility] Anywhere [address] from Last 3 Months or Most Recently Relevant to Health Maintenance Insurance MEDICARE Member Subscriber Plan / Payer (Ef fective 2022-Present) Name:Fredis Lauren Member ID:[id number] Relation to Subscriber:Self Name:Lauren Mcneal Subscriber ID:[id number] Payer ID:[id number] Group ID:Not on file Type:Medicare Address: [facility] [address] [address] [facility] Care Teams Slide Attendant Relationship Specialty Start Date End Date Charli Nye MD [address] [place] [id number] PCP - General Internal Medicine 06/16/14
--- OUTSIDE RECORDS SUMMARY | 2025-07-29 16:04 | XMS_ITS | Encounter Summary ---
Author Organization [employer] Address [address] [facility] 7t [place] [address] Care Team Providers Care Ink Grinder Name Role Phone Charli Nye MD Primary Care Provide r Encounter Details Date Type Department Care Team (Late Contact Info) Description 11/02/2022 Orders Only [facility] MEDICINE [address] [place] [address] Anya Hendrickson MD [address] [place] [address] Right arm pain (Primary Dx) Social History [...] EDT Nutrition [facility] DIABETES/NUTRITION [address] [place], [place] [phone] [place] [address] 11/20/2025 3:00 PM EST Office Visit [facility] OPTOMETRY [address] [place] [address] Martha Callejas, OD 230 [place] [address] documented as of this encounter Visit Diagnoses Diagnosis Right arm pain- Primary Pain in soft tissues of limb documented in this encounter Care Teams Ink Grinder Relationship Specialty Start Date End Date Charli Nye MD [address] [place] [address] PCP - General Internal Medicine 06/16/14 documented as of this encounter
--- OUTSIDE RECORDS SUMMARY | 2025-07-29 16:04 | XMS_ITS | Encounter Summary ---
Author Organization [employer] Address 75 [facility] 7t [place] [address] Care Team Providers Care Elderly Caregiver Name Role Phone Charli Nye MD Primary Care Provide r Reason for Visit * Reason Comments Med Refill Encounter Details Date Type Department Care Team ([facility] Contact Info) Description 05/15/2023 Refill [facility] MEDICINE [address] [place] [address] Charli Nye MD [address] [place] [address] Social History Tobacco Use Types Packs/Day Years [...] Upcoming Encounters Date Type Department Care Team ([facility] Contact Info) Description 08/17/2025 9:00 AM EDT Nutrition [facility] DIABETES/NUTRITION [address] [place] [address] Lolly Man, CHEPE [address] [place] [address] 11/20/2025 3:00 PM EST Office Visit [facility] OPTOMETRY [address] [place], [place] [phone] Martha Callejas, OD [address] [place] [address] documented as of this encounter Visit Diagnoses Not on filedocumented in this encounter Additional Health Concerns Assessment Noted Time PHQ-9 Depression Total Score: 6 05/01/20 23 1:05 PM EDT documented as of this encounter Care Teams Elderly Caregiver Relationship Specialty Start Date End Date Charli Nye MD [address] [place] [address] PCP - General Internal Medicine 06/16/14 documented as of this encounter
== END 2025-07-29 12:40 | disposition home or self-care (01) ==
LOC: HO.MAMMO 12:39
PROVIDERS: PCP Internal Medicine; Visit Provider Internal Medicine
DX: Z12.31 Encounter for screening mammogram for malignant neoplasm of breast (principal)
CPT/HCPCS: 77063; 77067

== ENCOUNTER → 2025-07-29 13:00 | Outpatient (BNV) | payer MEDICARE, MEDICAID, SELFPAY | PROVIDERS: PCP Internal Medicine; Visit Provider Internal Medicine | DX: Z12.31 Encounter for screening mammogram for malignant neoplasm of breast (principal) | CPT/HCPCS: 77063; 77067 ==

== ENCOUNTER 2025-07-31 14:38 | Outpatient (AMB) | payer MEDICARE, MEDICAID, SELFPAY ==
[2025-07-31 14:41] VITALS: BP 108/70; PULSE 78; O2SAT 99; BMI 33.5
--- NOTE | 2025-07-31 14:41 | A.OFFVIS_ITS ---
Vital Signs 07/31/25 14:41 Height 5 ft 5 in Weight 201 lb 8 oz BMI 33.5 BP 108/70 Blood Pressure Location Lt brachial Position Sitting Pulse 78 Pulse Source Pulse Oximeter Pulse Oximetry (%) 99 Oxygen Delivery Method Room Air Intake Visit Reasons: pulmonary nodule Consulting Services Associate Required: Yes Consulting Services Associate Language: [employer] Data Solutions Architect Services: Consulting Services Associate Present Consulting Services Associate Name: Anya Real LM Allergies shellfish derived (SHELLFISH DERIVED) Allergy (Severe, Verified 07/31/25 14:47) swelling of tongue aspirin (ASPIRIN) Allergy (Intermediate, Verified 07/31/25 14:47) rash/ itch ciprofloxacin (From CIPRO) Allergy (Unknown, Verified 07/31/25 14:47) UNKNOWN latex Allergy (Unknown, Verified 07/31/25 14:47) Itching Seafood Allergy (Intermediate, Uncoded 07/31/25 14:47) hives HPI HPI pulmonary nodule: Details: Lauren is a pleasant 55 year old female, never smoker, with underlying history of childhood asthma and pulmonary nodules. At baseline patient reports excellent control respiratory symptoms using Trelegy, rarely requiring albuterol MDI. Today she presents for an acute visit with concerns related to a recent COVID-19 infection and associated respiratory symptoms. The symptoms began shortly before testing positive for COVID-19 on July 20 by PCP. The patient reports that her fever has resolved, but she continues to experience a bothersome cough and wheezing. She is concerned about her upcoming travel to [place] for a family event and the potential impact of her symptoms. The patient has been using a nebulizer every four hours, which provides some relief, although she still experiences shortness of breath with activity. The patient has been prescribed Paxlovid but did not complete the course due to a lack of confidence in the medication. [facility] Medical History (Updated 05/13/25 @ 00:02 by Shira De La Garza) Multinodular goiter (nontoxic) Thyroid nodule RBBB (right bundle branch block) HTN (hypertension), benign Hyperlipidemia Migraines Depression with anxiety Tubular adenoma of colon (~2019) Low back pain Surgical History History of appendectomy History of colonoscopy History of right breast biopsy Family History Paternal Aunt Breast cancer Mother Pancreatic cancer Social History Household Members: Spouse Housing: House Alcohol intake: never Patient Tobacco Use Status: Never used Tobacco Current occupational status: disabled Current occupation: lt handed Sexual orientation: Straight/Heterosexual Gender identity: Female Female Reproductive History Menstrual Age of Menarche: 14 Review of Systems Const Denies chills, Denies excessive sweating, Denies fever(s), Denies headache(s) and Denies night sweats Eyes Denies dry eyes, Denies irritation and Denies itchy eyes ENT Reports Normal hearing present, Denies headache(s), Denies nasal congestion, Denies nasal discharge, Denies post nasal drip and Denies sore throat Card Denies chest pain, Denies chest pain at rest, Denies chest pain with activity, Denies claudication, Denies leg edema, Denies orthopnea and Denies paroxysmal nocturnal dyspnea Resp Denies chest congestion, Denies excessive phlegm production, Denies pain on inspiration, Denies pain with cough and Denies stridor Musc Denies myalgias Neuro Reports Normal hearing present and Denies headache(s) Endo Denies excessive sweating Vicente/Lymph Denies lymphadenopathy Aller/Immun Denies itchy eyes and Denies seasonal rhinorrhea Physical Exam Vital Signs: Last Vital Signs Pulse 78 07/31/25 14:41 BP 108/70 07/31/25 14:41 Pulse Ox 99 07/31/25 14:41 Oxygen Delivery Method Room Air 07/31/25 14:41 BMI result Body Mass Index 33.5 Const General: cooperative, healthy appearing, comfortable, no acute distress, well developed and alert Nutritional Appearance: obese Orientation/consciousness: patient oriented x3 Limitations: no limitations HEENT Head: Yes normal to inspection, Yes normocephalic and Yes atraumatic Ears: hearing grossly normal bilaterally and external ears normal Eyes General: appearance normal, both eyes and all related structures Eyelids: Yes eyelids normal Sclerae: sclerae normal EOM: EOMs intact bilaterally Neck Neck: Yes normal visual inspection and Yes no lymphadenopathy Lymphatic: no lymphadenopathy noted Chest Chest palpation & inspection: normal inspection of the chest Resp Effort & Inspection: normal respiratory effort, able to speak in complete sentences, no audible wheezes, no cough, no stridor, not tachypneic, no tripod positioning and no use of accessory muscles Auscultation: diminished lung sounds Cardio Jugular venous distension: no JVD Rate: regular rate Rhythm: regular rhythm Skin Other: warm, dry General skin exam: no rashes or lesions noted Neuro General: patient oriented x3 Cranial nerves: Yes Normal hearing present Cognition (Neuro): normal cognition Gait exam (Neuro): Normal gait present Extrem General: Yes normal to inspection, Yes capillary refill normal, Yes no clubbing, cyanosis or edema and Yes no pedal edema Psych Appearance: grossly normal and well kempt Speech and movement: Normal speech and movement present and Clear speech present Affect: normal affect Attitude: cooperative Thought process: Normal thought process present Thought content: Normal thought content present Insight: Good insight present (Psych) Judgement: Good judgement present (Psych) Assessment & Plan Assessment & Plan (1) Asthma: Code(s): J45.909 - Unspecified asthma, uncomplicated Category: Medical (2) Lung nodule: Code(s): R91.1 - Solitary pulmonary nodule Category: Medical (3) Dyspnea: Code(s): R06.00 - Dyspnea, unspecified Category: Medical Plan The patient was diagnosed with COVID-19 on July 20 and has since tested negative on home tests. She is advised to continue using her nebulizer and to take Mucinex DM for mucus management. Prednisone is prescribed to be used if respiratory symptoms worsen, particularly during her upcoming travel. The patient is instructed to wear a mask during travel to prevent further infections. All questions were answered and patient is in agreement of plan. Will follow-up in 3 months or sooner if needed. Medications: New prednisone 40 mg (2 x 20 mg) PO DAILY 10 tabs 0RF guaifenesin ER (Mucinex) 600 mg PO Q12H PRN 20 tabs 0RF congestion Coding Level of Care Code Est Pt Level 4 (98289) Diagnoses Asthma J45.909 Lung nodule R91.1 Dyspnea R06.00
--- OUTSIDE RECORDS SUMMARY | 2025-07-31 14:43 | XMS_ITS | Encounter Summary ---
Author Organization [facility], Address [address] [place] [address] Phone Care Team Providers Care Package Wrapper Name Role Phone Charli Heller MD Primary Care Provider Unav ailable Reason for Visit * Reason Comments Med Refill Encounter Details Date Type Department Care Team (Late Contact Info) Description 03/21/2022 Refill [facility] [address] [place] [address] Steven Bernal MD [address] [facility] [place] [address] Social History Tobacco Use Types [...] Department Care Team (Late Contact Info) Description 03/30/2026 4:00 PM EDT Office Visit [facility], [address] [place] [address] Steven Bernal MD [address] [facility] [place] [address] documented as of this encounter Visit Diagnoses Not on filedocumented in this encounter Care Teams Package Wrapper Relationship Specialty Start Date End Date Charli Heller MD PCP - General 09/16/19 documented as of this encounter
--- OUTSIDE RECORDS SUMMARY | 2025-07-31 14:43 | XMS_ITS | Encounter Summary ---
Author Organization [employer] Address [address] [facility] 7t [place] [address] Care Team Providers Care Telephone Solicitor Supervisor Name Role Phone Charli Nye MD Primary Care Provide r Reason for Visit * Reason Onset Date Comments Referral 11/01/2022 Encounter Details Date Type Department Care Team ([facility] st Contact Info) Description 11/01/2022 Telephone [facility] MEDICINE [address] [place] [address] Charli Nye MD [address] [place] [address] Referral Social History Tobacco Use Types Packs/Day [...] 10:04 AM EST Tc from Eva from [facility] physical therapy calling to inform referral has to be modify to occupational therapy for right arm . Please call to clarify [phone]. documented in this encounter Plan of Treatment Upcoming Encounters Date Type Department Care Team (Late st Contact Info) Description 08/17/2025 9:00 AM EDT Nutrition [facility] DIABETES/NUTRITION [address] [place] [address] Lolly Man, CHEPE [address] [place] [address] 11/20/2025 3:00 PM EST Office Visit [facility] OPTOMETRY [address] [place], [place] [phone] Martha Callejas, OD [address] [place] [address] documented as of this encounter Visit Diagnoses Not on filedocumented in this encounter Care Teams Telephone Solicitor Supervisor Relationship Specialty Start Date End Date Charli Nye MD [address] [place] [address] PCP - General Internal Medicine 06/16/14 documented as of this encounter
--- OUTSIDE RECORDS SUMMARY | 2025-07-31 14:43 | XMS_ITS | Encounter Summary ---
Author Organization [facility], Address [address] [place] [address] Phone Care Team Providers Care Quality Assurance Practice Manager Name Role Phone Charli Heller MD Primary Care Provider Unav ailable Encounter Details Date Type Department Care Team (Late st Contact Info) Description 06/07/2022 Documentation Only [facility] [address] [place] [address] Steven Bernal MD [address] [place] [address] [place] [address] Social History Tobacco Use Types [...] Visit [facility] [address] [facility] [place] [address] Steven Bernal MD [address] [place] [address] [place] [address] documented as of this encounter Visit Diagnoses Not on filedocumented in this encounter Care Teams Quality Assurance Practice Manager Relationship Specialty Start Date End Date Charli Heller MD PCP - General 09/16/19 documented as of this encounter
--- OUTSIDE RECORDS SUMMARY | 2025-07-31 14:43 | XMS_ITS | Encounter Summary ---
Author Organization [employer] Address [address] [facility] 7t [place] [address] Care Team Providers Care Senior Staff Psychologist Name Role Phone Charli Nye MD Primary Care Provide r Reason for Visit * Reason Comments Med Refill Encounter Details Date Type Department Care Team ([facility] Contact Info) Description 05/15/2023 Refill [facility] MEDICINE [address] [place] [address] Charli Nye MD [address] [place] [address] Social History Tobacco Use Types Packs/Day Years [...] Upcoming Encounters Date Type Department Care Team ([facility] Contact Info) Description 08/17/2025 9:00 AM EDT Nutrition [facility] DIABETES/NUTRITION [address] [place] [address] Lolly Man, CHEPE [address] [place] [address] 11/20/2025 3:00 PM EST Office Visit [facility] OPTOMETRY [address] [place], [place] [phone] Martha Callejas, OD [address] [place] [address] documented as of this encounter Visit Diagnoses Not on filedocumented in this encounter Additional Health Concerns Assessment Noted Time PHQ-9 Depression Total Score: 6 05/01/20 23 1:05 PM EDT documented as of this encounter Care Teams Senior Staff Psychologist Relationship Specialty Start Date End Date Charli Nye MD [address] [place] [address] PCP - General Internal Medicine 06/16/14 documented as of this encounter
--- OUTSIDE RECORDS SUMMARY | 2025-07-31 14:43 | XMS_ITS | Encounter Summary ---
Author Organization [facility] [place], Address [address] [place] [address] Phone Care Team Providers Care Stock Holder Name Role Phone Charli Heller MD Primary Care Provider Unav ailable Encounter Details Date Type Department Care Team (Late st Contact Info) Description 06/07/2022 Documentation Only [facility] [address] [place] [address] Steven Bernal MD [address] [place] [address] [place] [address] Social History Tobacco Use Types [...] Visit [facility] [address] [facility] [place] [address] Steven Bernal MD [address] [place] [address] [place] [address] documented as of this encounter Visit Diagnoses Not on filedocumented in this encounter Care Teams Stock Holder Relationship Specialty Start Date End Date Charli Heller MD PCP - General 09/16/19 documented as of this encounter
--- OUTSIDE RECORDS SUMMARY | 2025-07-31 14:43 | XMS_ITS | Encounter Summary ---
Author Organization [employer] Address [address] [facility] 7t [place] [address] Care Team Providers Care Field Crop Harvest Contractor Name Role Phone Charli Nye MD Primary Care Provide r Encounter Details Date Type Department Care Team (Late Contact Info) Description 11/02/2022 Orders Only [facility] MEDICINE [address] [place] [address] Anya Hendrickson MD [address] [place] [address] Right arm pain (Primary Dx) Social History [...] Info) Description 08/17/2025 9:00 AM EDT Nutrition [facility] DIABETES/NUTRITION [address] [place], [place] [phone] [place] [address] 11/20/2025 3:00 PM EST Office Visit [facility] OPTOMETRY [address] [place] [address] Martha Callejas, OD [address] [place] [address] documented as of this encounter Visit Diagnoses Diagnosis Right arm pain- Primary Pain in soft tissues of limb documented in this encounter Care Teams Field Crop Harvest Contractor Relationship Specialty Start Date End Date Charli Nye MD [address] [place] [address] PCP - General Internal Medicine 06/16/14 documented as of this encounter
--- OUTSIDE RECORDS SUMMARY | 2025-07-31 14:43 | XMS_ITS | Encounter Summary ---
Author Organization [facility], Address [address] [place] [address] Phone Care Team Providers Care Barnworker Groom Name Role Phone Charli Heller MD Primary Care Provider Unav ailable Encounter Details Date Type Department Care Team (Late st Contact Info) Description 07/20/2022 Documentation Only [facility] [address] [facility] [address] Reginald Correia PA [address] [facility] [place] [address] Social History Tobacco Use Types Packs/Day Years [...] Visit [facility] [address] [facility] [address] Steven Bernal MD [address] [facility] [place] [address] documented as of this encounter Visit Diagnoses Not on filedocumented in this encounter Care Teams Barnworker Groom Relationship Specialty Start Date End Date Charli Heller MD PCP - General 09/16/19 documented as of this encounter
--- OUTSIDE RECORDS SUMMARY | 2025-07-31 14:44 | XMS_ITS | Encounter Summary ---
Author Organization [facility] [place], Address [address] [place] [address] Phone Care Team Providers Care Applications Engineer Manufacturing Name Role Phone Charli Heller MD Primary Care Provider Unav ailable Encounter Details Date Type Department Care Team (Late st Contact Info) Description 07/31/2023 Documentation Only [facility] [address] [facility] [address] Reginald Correia PA [address] [facility] [place] [address] Social History Tobacco Use Types [...] Visit [facility] [address] [facility] [place] [address] Steven Bernal MD [address] [facility] [place] [address] documented as of this encounter Visit Diagnoses Not on filedocumented in this encounter Care Teams Applications Engineer Manufacturing Relationship Specialty Start Date End Date Charli Heller MD PCP - General 09/16/19 documented as of this encounter
--- OUTSIDE RECORDS SUMMARY | 2025-07-31 14:44 | XMS_ITS | Clinical Summary ---
Author Organization [facility] [place], Address [address] [place] [address] [place] [address] Phone Care Team Providers Care Information Technology Professor Name Role Phone Charli Heller MD Primary Care Provider Unav ailable Allergies Active Allergy Reactions Criticality Noted Date Comments Amoxicillin Other (see comments) 10/28/2020 Yeast infections Aspirin Rash Low 10/28/2020 Ciprofloxacin Other (see comments) 03/02/2023 Latex Itching 01/08/2024 Clavulanic Acid 10/28/2020 Yeast infection Shellfish Allergy [...] Active Problems Problem Noted Date Diagnosed Date Type 2 diabetes mellitus with hyperglycemia 03/13 Chronic kidney disease, stage 2 (mild) 03/20/202 4 Cystic kidney disease 12/26/2019 Proteinuria 12/26/2019 [...] 07/08/2021 Migraine 12/26/2019 02/25/2020 Tachycardia 12/26/2019 02/25/2020 Immunizations Immunization Administration Dates Next Due Influenza (IM) Preservative Free 07/22/2024 Influenza Split 07/18/2013 Influenza, Quadrivalent, Pre servative Free 09/27/2023,08/25/2022,09/07/2021,11/24,08/11/2019,08/21/2017 Influenza, Quadrivalent, Wit h Preservative 07/30/2018,09/21/2016,12/02/2015 Moderna SARS-COV-2 10/18/2021,04/01/2021, 021 Pneumococcal Polysaccharide 10/02/2010 Shingrix 11/20/2022,08/30/2022 TD Preservative Free 09/21/2016 Family History Medical History Relation Comments Diabetes Father Heart disease Father IN Cancer Mother Heart disease Sibling brother CAD [...] Visit [facility] [address] [place] [phone] Steven Bernal MD [address] [facility] [place] [phone] Health Maintenance Due Date Last Done Comments Breast Cancer Screening 1969 Hepatitis B Vaccine (1 of 3 - 19+ 3-dose series) 1988 Pneumococcal Vaccine: 50+ Ye ars (2 of 2 - PCV) 10/02/2011 10/02/2010 Colorectal Cancer Screening: Annual FOBT 2018 Colorectal Cancer Screening: Colonoscopy 2018 Colorectal Cancer Screening: Sigmoidoscopy 2018 Diabetes: Hemoglobin A1C 03/31/2025 05/01/2023 Diabetes: Ophthalmology Exam 03/31/2025 Diabetes: Pedal Pulse Checked 03/31/2025 Diabetes: Sensory Foot Exam 03/31/2025 Diabetes: Visual Foot Exam 03/31/2025 Influenza Vaccine (#1) 2025 4, 09/27/2023, 08/25/2022, Additional history exists Pneumococcal Vaccine: Peds ( 0 to 5 Years) and At-Risk Patients (6 to 49 Years) Discontinued 10/02/2010 Insurance Medicare Medicaid [place] Care Teams Information Technology Professor Relationship Specialty Start Date End Date Charli Heller MD PCP - General 09/16/19
--- OUTSIDE RECORDS SUMMARY | 2025-07-31 14:44 | XMS_ITS | Encounter Summary ---
Author Organization [facility] [place], Address [address] [place] [address] Phone Care Team Providers Care Intelligence Officer Basic Name Role Phone Charli Heller MD Primary Care Provider Unav ailable Reason for Visit * Reason Comments Med Refill Encounter Details Date Type Department Care Team (Late Contact Info) Description 02/27/2022 Refill [facility] [address] [place] [address] Steven Bernal MD [address] [facility] [place] [address] Social History Tobacco Use Types [...] Visit [facility] [place], [address] [facility] [place] [address] Steven Bernal MD [address] [facility] [place] [address] documented as of this encounter Visit Diagnoses Not on filedocumented in this encounter Care Teams Intelligence Officer Basic Relationship Specialty Start Date End Date Charli Heller MD PCP - General 09/16/19 documented as of this encounter
--- OUTSIDE RECORDS SUMMARY | 2025-07-31 14:44 | XMS_ITS | Encounter Summary ---
Author Organization [facility] [place], Address [address] [place] [address] Phone Care Team Providers Care Local Hazmat Driver Name Role Phone Charli Heller MD Primary Care Provider Unav ailable Encounter Details Date Type Department Care Team (Late st Contact Info) Description 03/15/2023 Documentation Only [facility] [address] [facility] [place] [address] Reginald Correia PA [address] [facility] [place] [place] [address] Social History Tobacco Use Types [...] Visit [facility] [address] [facility] [place] [address] Steven Bernal MD [address] [facility] [place] [address] documented as of this encounter Visit Diagnoses Not on filedocumented in this encounter Care Teams Local Hazmat Driver Relationship Specialty Start Date End Date Charli Heller MD PCP - General 09/16/19 documented as of this encounter
--- OUTSIDE RECORDS SUMMARY | 2025-07-31 14:44 | XMS_ITS | Encounter Summary ---
Author Organization [facility] [place], Address [address] [place] [address] Phone Care Team Providers Care Director Operating Room Name Role Phone Charli Heller MD Primary Care Provider Unav ailable Encounter Details Date Type Department Care Team (Late st Contact Info) Description 09/30/2024 Documentation Only [facility] [place], [facility] [address] [place] [address] Kellie Fisher [address] [place] [address] Social History Tobacco Use Types [...] Visit [facility] [place], [address] [facility] [place] [address] Steven Bernal MD [address] [facility] [place] [address] documented as of this encounter Visit Diagnoses Not on filedocumented in this encounter Care Teams Director Operating Room Relationship Specialty Start Date End Date Charli Heller MD PCP - General 09/16/19 documented as of this encounter
--- OUTSIDE RECORDS SUMMARY | 2025-07-31 14:44 | XMS_ITS | Encounter Summary ---
Author Organization [facility] [place], Address [address] [place] [address] Phone Care Team Providers Care Asbestos Wire Finisher Name Role Phone Charli Heller MD Primary Care Provider Unav ailable Encounter Details Date Type Department Care Team (Late st Contact Info) Description 01/23/2024 Documentation Only [facility] [address] [place] [address] Kellie Fisher [address] [place] [address] Social History Tobacco Use Types [...] Visit [facility] [address] [place] [address] Steven Bernal MD [address] [place] [address] [place] [address] documented as of this encounter Visit Diagnoses Not on filedocumented in this encounter Care Teams Asbestos Wire Finisher Relationship Specialty Start Date End Date Charli Heller MD PCP - General 09/16/19 documented as of this encounter
--- OUTSIDE RECORDS SUMMARY | 2025-07-31 14:44 | XMS_ITS | Clinical Summary ---
Author Organization [facility] Address [address] [place] [address] Care Team Providers Care Assistant Teacher Name Role Phone Unavailable Primary Care Provider Unavailabl e Social History Tobacco Use Types Packs/Day Years Used Date Smoking Tobacco: Never Assessed Comments Unknown Sex and Gender Information Value Date Recorded Sex Assigned at Not on file Legal Sex Female 12:40 PM EST Gender Identity Not on file Sexual Orientation Not on file Plan of Treatment Health Maintenance Due Date Last Done Comments Breast Cancer Screening 1969 DTaP,Tdap,and Td Vaccines (1 - Tdap) 1988 Hepatitis B Vaccines (1 of 3 - 19+ 3-dose series) 1988 Cervical Cancer Screening: P ap Smear 1990 Pneumococcal Vaccine: 50+ Ye ars (1 of 1 - PCV) 2019 Zoster Vaccines (1 of 2) 2019 Colorectal Cancer Screening: Colonoscopy 12/11/2023 HIV Screening 12/11/2023 Hepatitis C Screening 12/11/2023 Social Influencers of Health Screening 12/11/2023 Depression Screening 11/12/2024 COVID-19 Vaccine (1 - 2023-2 5 season) 2025 Influenza Vaccine (#1) 2025 HIB Vaccines Aged Out No longer eligi [...] on patient's age to complete this topic MMR Vaccines Aged Out No longer eligi ble based on patient's age to complete this topic Meningococcal ACWY Vaccine Aged Out N o longer eligible based on patient's age to complete this topic Meningococcal B Vaccine Aged Out No l onger eligible based on patient's age to complete this topic RSV Immunization Patients Un [place] 20 months Aged Out No longer eligible b ased on patient's age to complete this topic Varicella Vaccines Aged Out No longer eligible based on patient's age to complete this topic
--- OUTSIDE RECORDS SUMMARY | 2025-07-31 14:44 | XMS_ITS | Encounter Summary ---
Author Organization [employer] Address [address] [facility] [address] [place] [address] Care Team Providers Care Antenna Installer Name Role Phone Charli Nye MD Primary Care Provide r Reason for Visit * Reason Onset Date Comments Appointment Request 07/17/2025 Encounter Details Date Type Department Care Team ([facility] st Contact Info) Description 07/17/2025 Telephone [facility] MEDICINE [address] [place] [address] Charli Nye MD [address] [place] [address] Appointment Request Social History Tobacco Use Types [...] r/s apt with lolly. Contact pt at [phone] documented in this encounter Plan of Treatment Upcoming Encounters Date Type Department Care Team (Late st Contact Info) Description 08/17/2025 9:00 AM EDT Nutrition [facility] DIABETES/NUTRITION [address] [place] [address] [place] [address] 11/20/2025 3:00 PM EST Office Visit [facility] OPTOMETRY [address] [place] [address] Martha Callejas, OD [address] [place] [address] documented as of this encounter Visit Diagnoses Not on filedocumented in this encounter Additional Health Concerns Assessment Noted Time PHQ-9 Depression Total Score: 1 07/22/20 24 10:33 AM EDT documented as of this encounter Care Teams Antenna Installer Relationship Specialty Start Date End Date Charli Ney MD [address] [place] [address] PCP - General Internal Medicine 06/16/14 documented as of this encounter
--- OUTSIDE RECORDS SUMMARY | 2025-07-31 14:44 | XMS_ITS | Encounter Summary ---
Author Organization [facility] [place], Address [address] [place] [address] Phone Care Team Providers Care Law Tutor Name Role Phone Charli Heller MD Primary Care Provider Unav ailable Encounter Details Date Type Department Care Team (Late st Contact Info) Description 06/07/2022 Documentation Only [facility] [address] [address] Steven Bernal MD [address] [place] [address] [place] [address] Social History Tobacco Use Types [...] Visit [facility] [address] [facility] [place] [address] Steven Bernal MD [address] [place] [address] [place] [address] documented as of this encounter Visit Diagnoses Not on filedocumented in this encounter Care Teams Law Tutor Relationship Specialty Start Date End Date Charli Heller MD PCP - General 09/16/19 documented as of this encounter
--- OUTSIDE RECORDS SUMMARY | 2025-07-31 14:44 | XMS_ITS | Encounter Summary ---
Author Organization [facility] [place], Address [address] [place] [address] Phone Care Team Providers Care Ms Sql Developer Name Role Phone Charli Heller MD Primary Care Provider Unav ailable Reason for Visit * Reason Comments Med Refill Encounter Details Date Type Department Care Team (Late Contact Info) Description 11/24/2021 Refill [facility] [address] [place] [address] Steven Bernal MD [address] [facility] [place] [address] Social History Tobacco Use Types [...] Visit [facility] [place], [address] [facility] [place] [address] Steven Bernal MD [address] [facility] [place] [address] documented as of this encounter Visit Diagnoses Not on filedocumented in this encounter Care Teams Ms Sql Developer Relationship Specialty Start Date End Date Charli Heller MD PCP - General 09/16/19 documented as of this encounter
--- OUTSIDE RECORDS SUMMARY | 2025-07-31 14:44 | XMS_ITS | Encounter Summary ---
Author Organization [facility] [place], Address [address] [place] [address] Phone Care Team Providers Care Cyber Security Analyst Name Role Phone Charli Heller MD Primary Care Provider Unav ailable Encounter Details Date Type Department Care Team (Late st Contact Info) Description 12/15/2021 Documentation Only [facility] [address] [place] [address] Steven Bernal MD [address] [place] [address] [place] [address] Social History Tobacco Use Types [...] Visit [facility] [address] [facility] [place] [address] Steven Bernal MD [address] [place] [address] [place] [address] documented as of this encounter Visit Diagnoses Not on filedocumented in this encounter Care Teams Cyber Security Analyst Relationship Specialty Start Date End Date Charli Heller MD PCP - General 09/16/19 documented as of this encounter
--- OUTSIDE RECORDS SUMMARY | 2025-07-31 14:44 | XMS_ITS | Clinical Summary ---
Author Organization [employer] Address [address] [place] [address] 7[address] [place] [address] Care Team Providers Care Roller Skate Assembler Name Role Phone Charli Nye MD [...] MOUTH EVERY DAY 90 tablet 025 Active albuterol 108 (90 Base) MCG/ACT inhalerIndication [...] day. 30 tablet 6 025 2024 Discontinued Nirmatrelvir&Josafat navir 300/100 (Paxlovid, 300/100,) 20 x 150 MG & 10 x 100MG tablet therapy packIndications:C OVID-19 Take 3 tablets by mouth 2 times daily for 5 days. Per package instructions 30 each 025 2024 Active Problems Problem Noted Date Diagnosed Date [...] Plan (07/22/2024 9:36 AM EDT): Seen by Chief Dog License Inspector Dr callejas here at [facility] Stable. Patient is still symptomatic for [...] pending for 01/10/2024 She was referred to CLEANING ASSOCIATE seen February s/p biopsy that showed: results of the endometrial biopsy showing inactive endometrium. Assessment & Plan (01/03/2024 10:26 AM EST): Seen by Dr Jonas SAGASTUME Pelvis Transvaginal pending for 01/10/2024 She was referred to CLEANING ASSOCIATE as well appointment scheduled for February Mild persistent asthma without complication 12/14 Assessment & Plan (01/15/2025 1:01 PM EST): Under the care of Pulmonology, recently switched to Trelegy. She is also on Albuterol Last seen 01/09/2025 by Manjula Luna EDUCATION GENERAL MANAGER Assessment & Plan (07/22/2024 9:34 AM EDT): Under the care of Pulmonology, on Advair and Albuterol Last seen 06/18/2024 by Manjula Luna EDUCATION GENERAL MANAGER Assessment & Plan (04/03/2024 4:16 PM EDT): [...] sonographically. No adnexal masses. Pt seen by CLEANING ASSOCIATE Dr Mar. Pt was referred to [facility] [place] Assessment & Plan (07/17/2023 2:57 [...] cardiac workup in hospital and f w management accounts manager w recent normal eval per pt -warm [...] continue to f/u with her psychotherapist at [facility] ( Fide Lanza ). she [...] AM EST): Seen in the past by [facility] Tubular adenoma 03/25/2019 Renal cysts, [...] to visit her daughter and grandson in [place] about 2 weeks ago and that has improved her depression. 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 Stress test was negative back then Assessment & Plan (07/17/2023 2:47 PM EDT): Last seen by Cardiology 07/02/2023 On Inderal dose reduced to 160 mg po at hs Electric Tape Slitter's impression was that this may be related [...] microscopic hematuria, seen in the past at [facility]. They recommended to f/u with [...] microscopic hematuria, seen in the past at [facility]. 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 Travel 07/05/2025 Travel 07/03/2025 Refill [facility] [address] [place] [address] Charli Nye MD Mixed hyperlipidemia 06/24/[address] [address] Charli Nye MD Referral 05/19/2025 3:00 PM EDT Office Visit [facility] [place] [address] Cahrli Nye MD Renal cysts, acquired, bilateral (Primary Dx); Pain; Microscopic hematuria; Multiple thyroid nodules; Essential hypertension; Elevated blood sugar; Mixed hyperlipidemia; Encounter for immunization 05/19/2025 Travel 05/18/2025 Telephone [facility] [address] [facility] [place] [address] Charli Nye MD Chart Prep 05/13/2025 Refill [facility] [address] [facility] [place] [phone] Charli Nye MD Low serum vitamin D 05/12/2025 Travel 05/11/2025 Patient Outreach [facility] [address] [place] [address] Charli Nye MD Pre-visit Planning (SDOH was already completed) 05/06/2025 Orders Only GENERIC EXTERNAL DATA DEPARTMENT Provider, Generic External Data 05/06/2025 Telephone [facility] [address] [place], [place] [phone] Charli Nye MD Referral 04/30/2025 Orders Only [...] Info) Description 08/17/2025 9:00 AM EDT Nutrition [facility]NUTR[facility] [address] [place] [address] Lolly Man, RD [address] [place] [address] 11/20/2025 3:00 PM EST Office Visit [facility] [address] [place] [address] Martha Callejas, OD [address] [place] [address] Health Maintenance Due Date Last Done Comments [...] Rapid Molecular) (07/24/2025 3:46 PM EDT) Pathologist [facility] Influenza B Negative Negative, Indeterminate [facility] Swab 07/24/2025 3:46 PM EDT [facility] POINT OF CARE TEST ENTER/EDIT ORDERABLES Final Result Performing Organization Address City/[facility]/ZIP Co de Phone Number [facility] [address] [place] [phone] * Influenza A (ID NOW Rapid Molecular) (07/24/2025 3:46 PM EDT) [facility] Influenza A Negative Negative, Indeterminate [facility] Swab 07/24/2025 3:46 PM EDT [facility] POINT OF CARE TEST ENTER/EDIT ORDERABLES Final Result Performing Organization Address City/[facility]/ZIP Co de Phone Number [facility] [address] [place] [phone] * (ABNORMAL) POCT COVID-19 Ag Lopez ID NOW (07/24/2025 3:46 PM EDT) Pathologist [facility] Coronavirus Antigen PCR Positive (A) Negative, Indeterminate, None Detected, Invalid, Specimen unsatisfactory for evaluation, Weakly Positive, 2+ Swab 07/24/2025 3:46 PM EDT [facility] BULK MATERIALS HANDLING PLANT OPERATOR POINT OF CARE TEST ENTER/EDIT ORDERABLES Final Result * Cell Block (05/06/2025 8:29 AM EDT) 05/06/2025 8:29 AM EDT 05/06/2025 12:00 PM EDT Narrative [facility] - 05/07/2025 1:22 PM EDT ----- ------- Name: Lauren Mcneal Age/Sex: 54/F : 1970 Unit#: [id number] Attend Dr: Elvira Zayas MD Re05/06/25 Status: DEP REF Location: [facility] Disch: ----- ------- SPEC : [id number] RECD: 05/06/25-1199 STATUS: JB SHER NUM: [id number] INGRID: 05/06/[address] [facility] [address]: Elvira Zayas MD ENTERED: 05/06/25 SP TYPE: Cytology OT DR: Charli Rojas MD ORDERED: Cell Block, Fine Ndl Asp Diagnosis Thyroid, left mid pole 1.9 cm nodule, fine needle aspiration: Non-diagnostic ([place] category I). COMMENT: Only a rare small [...] developed and their performance characteristics determined by [facility]. They have not been cleared or approved by the U.S. Food and Drug Administration (FDA). However, the FDA has determined that such clearance or approval is not necessary. This laboratory is certified under the Clinical Laboratory Improvement Amendments of 1988 (CLIA) as qualified to perform high complexity clinical laboratory testing. Copies To: [place] [address] Elvira Zayas MD [facility] [address] [place] [address] CONTINUED ON NEXT PAGE ----- ------- Name: Lauren Mcneal Age/Sex: 54/F : 1970 Unit#: [id number] Attend Dr: Elvira Zayas MD Re05/06/25 Status: DEP REF Location: [facility] Disch: ----- ------- SPEC : [id number] RECD: 05/06/25-1199 STATUS: JB SHER NUM: [id number] INGRID: 05/06/[address] [facility] [address]: Elvira Zayas MD ENTERED: 05/06/25 SP TYPE: Cytology OTHR DR: Charli Rojas MD ORDERED: Cell Block, Fine Ndl Asp Copies To: (Continued) [email or web address] ----- ------- Signed (signature on file) Aquilino Roman MD 05/07/25 1322 ----- ------- END OF REPORT us Generic External Data Provider LAB CYTOLOGY HO CHIN Final Result [facility] [address] [place] [phone] * TSH (04/30/2025 3:28 PM EDT) Thyroid Stimulating Hormone 0.70 0.32 - 4.0 uIU/mL [facility] Comment:TSH 3rd Generation ( [facility]) 04/30/2025 3:28 PM EDT 04/30/2025 3:28 PM EDT us Generic External Data Provider LAB BLOOD ORDERAB LES Final Result Performing Organization Address [facility] Co de Phone Number [facility] [address] [place] [phone] * T4, Free (04/30/2025 3:28 PM EDT) Free T4 (Free Thyroxine) 1.22 0.71 - 1.85 ng/dL [facility] 04/30/2025 3:28 PM EDT 04/30/2025 3:28 PM EDT us Generic External Data Provider LAB BLOOD ORDERAB LES Final Result Performing Organization Address [facility] Number [facility] [address] [place] [phone] * Hemoglobin A1c (04/04/2025 7:27 AM EDT) Hemoglobin A1c 5.9 <6.0 % [facility] Comment:Hemoglobin A1C Refer ence Range Adults: 4.8 - 6.0 % Non diabetic: < 6.0 % Goal: < 7.0 %Additional Action Suggested: > 8.0 %Note: Hemoglobin A1c results are invalid for patients with abnormal amounts of HbF. Blood transfusions may impact the HbA1c concentration in the patient sample. Estimated Average Glucose 123 mg/dL [facility] Comment:eAG = Estimated ave rage glucose which is %A1C expressed asaverage glucose, using the formula of the E6N-YbncmfjUbywrlm Glucose study (ADAG), Diabetes Care, Vol.31,#8,2007 Blood Venous blood specimen / Unknown 04/04/2025 7:27 AM EDT 04/04/2025 7:28 AM EDT us Charli Lazo MD LAB BLOOD ORDERABLES Final Result Performing Organization Address [facility] Co de Phone Number [facility] [address] [place] [phone] * Lipid Panel, Standard (09/24/2024 11:39 AM EST) Triglycerides 86 <150 mg/dL [facility] Comment:Desirable Triglyceri de: less than 150 mg/dLBorderline High Triglyceride 150-199 mg/dLHigh Triglyceride: 200-499 mg/dLVery High Triglyceride: greater than or equal to 5OO mg/dL Cholesterol 147 <200 mg/dL [facility] Comment:Desirable Cholestero l: less than 200 mg/dLBorderline High Cholesterol: 200-239 mg/dLHigh Cholesterol: greater than 239 mg/dL LDL Cholesterol Calculated 76 <100 mg/dL [facility] Comment:Desirable LDL: less than 100 mg/dLNear Optimal/Above Optimal LDL: 110- 129 mg/dLBorderline High LDL: 130-159 mg/dLHigh LDL: 160-189 mg/dLVery High LDL: greater than or equal to 190 mg/dL HDL Cholesterol 54 >40 mg/dL [facility] Comment:Desirable HDL: great er than 40 mg/dL Note: This HDL assay may give artificially low results in patients with liver disease. 09/24/2024 11:3 9 AM EST 09/24/2024 11:39 AM EST us Generic External Data Provider LAB BLOOD ORDERAB LES Final Result [facility] [address] [place] [phone] [phone] * BI Mammogram Screening Tomosynthesis Bilateral (07/23/2024 1:30 PM EDT) Anatomical Region Laterality Modality Breast Bilateral Mammography 07/23/2024 1:30 PM EDT Narrative 08/06/2024 10:59 AM EDT [facility] [address] [place] [address] Mammography Report Signed Patient: Lauren Mcneal MR#: [id number] 1423 : 1970 Acct:[id number] Age/Sex: 54 / F ADM Date: 07/23/24 Loc: [facility] Attending Dr: Charli Rojas MD Ordering Physician: Charli Rojas MD Resu lts: 2Benign Findings Date of Service: 07/23/24 Follow Up: 1 Year From Orig ina Mammogram Procedure(s): MM tomosynthesis screening BI Accession Number(s): [id number] cc: Charli Rojas MD EXAMINATION: MM SCREENING [...] 08/06/24 1056 DD/ 1330 TD/TT: 07/23/24 1348 Embosser Operator: Procedure Note Donotuseinterpreter, Image - 08/06/2024 [facility] [address] [place] [address] Dr. [place], [place] [address] Mammography Report Signed Patient: Lauren McnealMR#: [id number] 1423 : 1970Acct:[id number] Age/Sex: 54 / FADM Date: 07/23/24 Loc: HO.MAMMO Attending Dr: Charli Rojas MD Ordering Physician: Charli Rojas MDResu lts: 2Benign Findings Date of Service: 07/23/24Follow Up: 1 Year From [facility] Mammogram Procedure(s): MM tomosynthesis screening BI Accession Number(s): [id number] cc: Charli Rojas MD EXAMINATION: MM SCREENING [...] 08/06/24 1056 DD/ 1330 TD/TT: 07/23/24 1348 Embosser Operator: us Charli Lazo MD IMG BI PROCEDURES Scooby florian Result - Final * Pap Smear (02/07/2024 11:05 AM EDT) 02/07/2024 11:0 5 AM EDT 02/08/2024 9:30 AM EDT [facility] - 02/19/2024 9:04 AM EDT ----- ------- Name: Lauren Mcneal Age/Sex: 53/F : 1970 Unit#: [id number] Attend Dr: Bruno Mar MD Re02/07/24 Status: DEP REF Location: [facility] Disch: ----- ------- SPEC : [id number] RECD: 02/08/24-929 STATUS: JB SHER NUM: [id number] INGRID: 02/07/24-[address] [facility] [address]: Bruno Mar MD ENTERED: 02/08/24-1019 [...] 59, 66, 68) HPV testing performed by [email or web address], [place], [place]. See reference laboratory portion of the EMR for entire report. Clinical Information LMP: Postmenopausal Previous PAP test: 3 yrs ago, Unknown findings Other history:Postmenopausal bleeding Material Received ThinPrep-Cervical Copies To: Charli Rojas MD [address] [place] [phone] Bruno Mar MD [address] [place] [address] [address] ----- ------- Signed (signature on file) CEELNA Kaur ([facility]) 02/19/24 0904 ----- ------- END OF REPORT us Generic External Data Provider LAB CYTOLOGY ORDE RABLES Final Result [facility] [address] [place] [phone] * Colonoscopy (01/18/2024) Pathologist [facility] Colonoscopy Normal Normal Historical Provider MD HEALTH MAINTENANCE Final Result * HPV mRNA E6/E7 (02/09/2021 9:38 AM EDT) Pathologist [facility] HPV nRNA E6/E7 Not Detected Not Detected [facility] Comment: Methodology: Voucher Clerk-Mediated Amplification This assay detects E6/E7 viral messenger RNA (mRNA) from 14 high-risk HPV types (16,18,31,33,35,39,45,51,52,56,58,59,66,68). The analytical performance characteristics of this assay have been determined by [email or web address]. The modifications have not been cleared or approved by the FDA. This assay has been validated pursuant to the CLIA regulations and is used for clinical purposes. For additional information, please refer to http://education.[employer].WebChalet/faq/NUE519m7 (This link if provided for information/ educational purposes only.) 02/09/2021 9:38 AM EDT us Phuong Junior CNM LAB BLOOD ORDERABLES Bertha l Result [facility] [address] from Last 3 Months or Most Recently Relevant to Health Maintenance Insurance MEDICARE [facility] Care Teams Roller Skate Assembler Relationship Specialty Start Date End Date Charli Nye MD [address] [place] [phone] PCP - General Internal Medicine 06/16/14
== END 2025-07-31 15:19 | disposition home or self-care (01) ==
LOC: HO.HPSW 14:39
PROVIDERS: PCP Internal Medicine; Visit Provider Nurse Practitioner Family
DX: J45.909 Unspecified asthma, uncomplicated (principal); R91.1 Solitary pulmonary nodule; R06.00 Dyspnea, unspecified
CPT/HCPCS: 99214

== ENCOUNTER → 2025-07-31 14:38 | Outpatient (BNVA) | payer MEDICARE, MEDICAID, SELFPAY | PROVIDERS: PCP Internal Medicine; Visit Provider Nurse Practitioner Family | DX: R91.1 Solitary pulmonary nodule (principal); R06.00 Dyspnea, unspecified; J45.909 Unspecified asthma, uncomplicated | CPT/HCPCS: 99212 ==

== ENCOUNTER 2025-09-10 14:49 | Outpatient (REF) | payer MEDICARE, MEDICAID, SELFPAY ==
--- NOTE | ~2025-09-10 | XR_ITS ---
EXAMINATION: XR KNEE, LEFT CLINICAL INFORMATION: Increasing pain of the left knee COMPARISON: April 08, 2024. TECHNIQUE: AP view in standing position. Lateral and sunrise view. of the left knee. FINDINGS: Joint space narrowing involving medial compartment. No acute fracture or dislocation. No suprapatellar bursa joint effusion. No lytic or blastic lesions. No metallic or radiopaque foreign body. XR/XR knee LT 4V IMPRESSION: Mild medial compartment osteoarthrosis/osteoarthritis. Electronically signed by: Anthony Cheatham MD 09/10/2025 03:14 PM EDT
--- OUTSIDE RECORDS SUMMARY | 2025-09-10 17:43 | XMS_ITS | Encounter Summary ---
Author Organization [facility], Address [address] [place] [address] Phone Care Team Providers Care Folder Seamer Name Role Phone Charli Heller MD Primary Care Provider Unav ailable Reason for Visit * Reason Comments Med Refill Encounter Details Date Type Department Care Team (Late Contact Info) Description 02/27/2022 Refill [facility] [address] [place] [address] Steven Bernal MD [address] [facility] [address] [place] [address] Social History Tobacco Use Types [...] Visit [facility], [address] [place] [address] Steven Bernal MD [address] [facility] [address] [place] [address] documented as of this encounter Visit Diagnoses Not on filedocumented in this encounter Care Teams Folder Seamer Relationship Specialty Start Date End Date Charli Heller MD PCP - General 09/16/19 documented as of this encounter
--- OUTSIDE RECORDS SUMMARY | 2025-09-10 17:43 | XMS_ITS | Encounter Summary ---
Author Organization [facility], Address [address] [place] [address] Phone Care Team Providers Care Pick Up Man Name Role Phone Charli Heller MD Primary Care Provider Unav ailable Encounter Details Date Type Department Care Team (Late st Contact Info) Description 06/07/2022 Documentation Only [facility] [address] [place] [address] Steven Bernal MD [address] [place] [address] [place] [address] Social History Tobacco Use Types [...] Visit [facility] [address] [place] [address] Steven Bernal MD [address] [place] [address] [place] [address] documented as of this encounter Visit Diagnoses Not on filedocumented in this encounter Care Teams Pick Up Man Relationship Specialty Start Date End Date Charli Heller MD PCP - General 09/16/19 documented as of this encounter
--- OUTSIDE RECORDS SUMMARY | 2025-09-10 17:43 | XMS_ITS | Encounter Summary ---
Author Organization [employer] Address [address] [facility] [address]t [place] [address] Care Team Providers Care Carton Forming Machine Tender Name Role Phone Charli Nye MD Primary Care Provide r Encounter Details Date Type Department Care Team (Late Contact Info) Description 11/02/2022 Orders Only [facility] [address] [place] [address] Anya Hendrickson MD [address] [place] [address] Right arm pain (Primary Dx) Social History [...] Department Care Team (Late Contact Info) Description 11/20/2025 3:00 PM EST Office Visit [facility] [address] [place] [address] JúniorMartha curry, OD [address] [place] [address] documented as of this encounter Visit Diagnoses Diagnosis Right arm pain- Primary Pain in soft tissues of limb documented in this encounter Care Teams Carton Forming Machine Tender Relationship Specialty Start Date End Date Charli Nye MD [address] [place] [phone] PCP - General Internal Medicine 06/16/14 documented as of this encounter
--- OUTSIDE RECORDS SUMMARY | 2025-09-10 17:43 | XMS_ITS | Encounter Summary ---
Author Organization [facility], Address [address] [place] [address] Phone Care Team Providers Care Data Management Consultant Name Role Phone Charli Heller MD Primary Care Provider Unav ailable Reason for Visit * Reason Comments Med Refill Encounter Details Date Type Department Care Team (Late Contact Info) Description 03/21/2022 Refill [facility] [address] [place] [address] Steven Bernal MD [address] [facility] [place] [address] Social History Tobacco Use Types [...] Visit [facility], [address] [place] [address] Steven Bernal MD [address] [facility] [place] [address] documented as of this encounter Visit Diagnoses Not on filedocumented in this encounter Care Teams Data Management Consultant Relationship Specialty Start Date End Date Charli Heller MD PCP - General 09/16/19 documented as of this encounter
--- OUTSIDE RECORDS SUMMARY | 2025-09-10 17:43 | XMS_ITS | Encounter Summary ---
Author Organization [facility], Address [address] [place] [address] Phone Care Team Providers Care Master Black Belt Name Role Phone Charli Heller MD Primary Care Provider Unav ailable Encounter Details Date Type Department Care Team (Late st Contact Info) Description 06/07/2022 Documentation Only [facility] [address] [place] [address] Steven Bernal MD [address] [place] [address] [place] [address] Social History Tobacco Use Types [...] Visit [facility] [address] [facility] [place] [address] Steven Bernal MD [address] [place] [address] [place] [address] documented as of this encounter Visit Diagnoses Not on filedocumented in this encounter Care Teams Master Black Belt Relationship Specialty Start Date End Date Charli Heller MD PCP - General 09/16/19 documented as of this encounter
--- OUTSIDE RECORDS SUMMARY | 2025-09-10 17:43 | XMS_ITS | Encounter Summary ---
Author Organization [employer] Address [address] [facility] 7t [place] [address] Care Team Providers Care Branch Associate Teller Name Role Phone Charli Nye MD Primary Care Provide r Reason for Visit * Reason Onset Date Comments XR order 09/08/2025 Encounter Details Date Type Department Care Team ([facility] st Contact Info) Description 09/08/2025 Telephone [facility] [address] [place] [address] Charli Nye MD [address] [place] [address] XR order Social History Tobacco Use Types Packs/Day Years [...] your housing situation today? I have vidya chogn 01/06/[address] you li [...] encounter Miscellaneous Notes * Telephone Encounter - Mady Camacho RN - 09/09/2025 3:12 PM EDT Incoming Secure chat message from Rosa Galindo, Inform patient there is an order for the left knee to be xrayed at [facility]. Ty . TC x 2 placed to pt via [employer] greaser and oiler (Gayle ID#[id number]) to inform and advise of provider message. No answer, LVM to call office back and ask to speak to the blue team nurses. *If pt returns call, please advise requested X-RAY order placed and they are able to go to [facility] or [facility] to have XRAY completed* * Telephone Encounter - Mady Camacho RN - 09/09/2025 2:52 PM EDT TC placed to pt via [employer] greaser and oiler (Magdalena ID#[id number]) regarding request for X-RAY of knee. No answer, LVM to call office back and ask to speak to the blue team nurses. * Telephone Encounter - Mady Camacho RN - 09/09/2025 12:15 PM EDT Secure chat message sent to Rosa Galindo. Awaiting review and response. * Telephone Encounter - Jorge Burnett - 09/09/2025 10:24 AM EDT Tc from pt calling back regarding XR order. Contact pt at [phone] * Telephone Encounter - Alycia Mora - 09/08/2025 10:52 AM EDT Tc from pt requesting an XR order for knee after her visit on 08/31. Please contact pt at [phone] Need greaser and oiler documented in this encounter Plan of Treatment Upcoming Encounters Date Type Department Care Team (Late st Contact Info) Description 11/20/2025 3:00 PM EST Office Visit [facility] [address] [place] [address] Martha Callejas, CHANDA [address] [place] [address] documented as of this encounter Visit Diagnoses Not on filedocumented in this encounter Additional Health Concerns Assessment Noted Time PHQ-9 Depression Total Score: 1 07/22/20 24 10:33 AM EDT documented as of this encounter Care Teams Branch Associate Teller Relationship Specialty Start Date End Date Charli Nye MD [address] [place] [address] PCP - General Internal Medicine 06/16/14 documented as of this encounter
--- OUTSIDE RECORDS SUMMARY | 2025-09-10 17:43 | XMS_ITS | Encounter Summary ---
Author Organization [employer] Address [address] [facility] 7t [place] [address] Care Team Providers Care Wedding Photographer Name Role Phone Charli Nye MD Primary Care Provide r Encounter Details Date Type Department Care Team ([facility] st Contact Info) Description 09/09/2025 Orders Only [facility] MEDICINE [address] [place] [address] Rosa Galindo FNP [address] [place] [address] Acute pain of left knee (Primary Dx) Social History Tobacco Use Types [...] as of this encounter Progress Notes * TREY Harrell - 09/09/2025 3:06 PM EDT Patent with continued left knee pain documented in this encounter Plan of Treatment Upcoming Encounters Date Type Department Care Team (Late st Contact Info) Description 11/20/2025 3:00 PM EST Office Visit [facility] OPTOMETRY [address] [place] [address] Júnior, Martha, OD [address] [place] [address] documented as of this encounter Procedures Procedure Name Priority Date/Time Associated Diagnosis Comments XR KNEE 4+ VIEWS LEFT Routine 09/10/2025 3:12 PM EDT Acute pain of left knee documented in this encounter Results * XR Knee 4+ Views Left (09/10/2025 3:12 PM EDT) Anatomical Region Laterality Modality Lower Extremities, Knee Left [facility] 09/10/2025 3:12 PM EDT Narrative 09/10/2025 3:17 PM EDT [facility] [address] [place] [address] XRay Report Signed Patient: Lauren Mcneal MR#: [id number] : 1970 Acct:[id number] Age/Sex: 55 / F ADM Date: 09/10/25 Loc: [facility] Attending Dr: Charli Rojas MD Ordering Physician: Rosa Galindo Date of Service: 09/10/25 Procedure(s): XR knee LT 4V Accession Number(s): [id number] cc: Charli Rojas MD; Rosa Galindo Reason for Exam: Increasing pain of the left knee EXAMINATION: XR KNEE, LEFT CLINICAL INFORMATION: Increasing pain of the left knee COMPARISON: April 08, 2024. TECHNIQUE: AP view in standing position. Lateral and sunrise view. of the left knee. FINDINGS: Joint space narrowing involving medial compartment. No acute fracture or dislocation. No suprapatellar bursa joint effusion. No lytic or blastic lesions. No metallic or radiopaque foreign body. XR/XR knee LT 4V IMPRESSION: Mild medial compartment osteoarthrosis/osteoarthritis. Electronically signed by: Anthony Cheatham MD 09/10/2025 03:14 PM EDT Dictated By: Anthony Zuleta MD Signed By: <Electronically signed by Anthony Rose MD in OV> 09/10/25 1514 DD/ 1512 TD/TT: 09/10/25 1512 Maintenance Groundskeeper: Procedure Note Donotuseinterpreter, Image - 09/10/2025 [facility] [address] [place] [address] XRay Report Signed Patient: Lauren McnealMR#: [id number] : 1970Acct:[id number] Age/Sex: 55 / FADM Date: 09/10/25 Loc: [facility] Attending Dr: Charli Rojas MD Ordering Physician: Rosa Galindo Date of Service: 09/10/25 Procedure(s): XR knee LT 4V Accession Number(s): [id number] cc: Charli Rojas MD; Rosa Galindo Reason for Exam: Increasing pain of the left knee EXAMINATION: XR KNEE, LEFT CLINICAL INFORMATION: Increasing pain of the left knee COMPARISON: April 08, 2024. TECHNIQUE: AP view in standing position. Lateral and sunrise view. of the left knee. FINDINGS: Joint space narrowing involving medial compartment. No acute fracture or dislocation. No suprapatellar bursa joint effusion. No lytic or blastic lesions. No metallic or radiopaque foreign body. XR/XR knee LT 4V IMPRESSION: Mild medial compartment osteoarthrosis/osteoarthritis. Electronically signed by: Anthony Cheatham MD 09/10/2025 03:14 PM EDT RP Dictated By: Anthony Zuleta MD Signed By: <Electronically signed by Anthony Rose MDin OV> 09/10/25 1514 DD/ 1512 TD/TT: 09/10/25 1512 Maintenance Groundskeeper: us Rosa Galindo QUAIL FARMER IMG XR PROCEDURES Final Result documented in this encounter Visit Diagnoses Diagnosis Acute pain of left knee- Primary documented in this encounter Additional Health Concerns Assessment Noted Time PHQ-9 Depression Total Score: 1 07/22/20 24 10:33 AM EDT documented as of this encounter Care Teams Wedding Photographer Relationship Specialty Start Date End Date Charli Nye MD [address] [place] [phone] PCP - General Internal Medicine 06/16/14 documented as of this encounter
--- OUTSIDE RECORDS SUMMARY | 2025-09-10 17:43 | XMS_ITS | Encounter Summary ---
Author Organization [employer] Address [address] [facility] 7t [place] [address] Care Team Providers Care Sample Maker Name Role Phone Charli Nye MD Primary Care Provide r Reason for Visit * Reason Onset Date Comments Referral 11/01/2022 Encounter Details Date Type Department Care Team ([facility] st Contact Info) Description 11/01/2022 Telephone [facility] MEDICINE [address] [place] [address] Charli Nye MD [address] [place] [address] Referral Social History Tobacco Use Types Packs/Day [...] 10:04 AM EST Tc from Eva from [facility] physical therapy calling to inform referral has to be modify to occupational therapy for right arm . Please call to clarify [phone]. documented in this encounter Plan of Treatment Upcoming Encounters Date Type Department Care Team (Late st Contact Info) Description 11/20/2025 3:00 PM EST Office Visit [facility] OPTOMETRY [address] [place] [address] Martha Callejas, OD [address] [place], [place] [phone] documented as of this encounter Visit Diagnoses Not on filedocumented in this encounter Care Teams Sample Maker Relationship Specialty Start Date End Date Charli Nye MD [address] [place], [place] [phone] PCP - General Internal Medicine 06/16/14 documented as of this encounter
--- OUTSIDE RECORDS SUMMARY | 2025-09-10 17:43 | XMS_ITS | Encounter Summary ---
Author Organization [facility] [place], Address [address] [place] [address] Phone Care Team Providers Care Sustainability Director Name Role Phone Charli Heller MD Primary Care Provider Unav ailable Encounter Details Date Type Department Care Team (Late st Contact Info) Description 07/20/2022 Documentation Only [facility] [address] [place] [address] Reginald Correia PA [address] [place] [address] Social History Tobacco Use Types [...] Visit [facility] [address] [place] [address] Steven Bernal MD [address] [facility] [address] [place] [address] documented as of this encounter Visit Diagnoses Not on filedocumented in this encounter Care Teams Sustainability Director Relationship Specialty Start Date End Date Charli Heller MD PCP - General 09/16/19 documented as of this encounter
--- OUTSIDE RECORDS SUMMARY | 2025-09-10 17:43 | XMS_ITS | Encounter Summary ---
Author Organization [facility] [place], Address [address] [place] [address] Phone Care Team Providers Care Digital Asset Specialist Name Role Phone Charli Heller MD Primary Care Provider Unav ailable Encounter Details Date Type Department Care Team (Late st Contact Info) Description 06/07/2022 Documentation Only [facility] [address] [place] [address] Steven Bernal MD [address] [place] [address] [place] [address] Social History Tobacco Use Types [...] Visit [facility] [address] [place] [address] Steven Bernal MD [address] [place] [address] [place] [address] documented as of this encounter Visit Diagnoses Not on filedocumented in this encounter Care Teams Digital Asset Specialist Relationship Specialty Start Date End Date Charli Heller MD PCP - General 09/16/19 documented as of this encounter
--- OUTSIDE RECORDS SUMMARY | 2025-09-10 17:43 | XMS_ITS | Encounter Summary ---
Author Organization [employer] Address [address] [facility] 7t [place] [address] Care Team Providers Care Lead Furnace Operator Name Role Phone Charli Nye MD Primary Care Provide r Reason for Visit * Reason Comments Med Refill Encounter Details Date Type Department Care Team ([facility] Contact Info) Description 05/15/2023 Refill [facility] MEDICINE [address] [place] [address] Charli Nye MD [address] [place] [address] Social History Tobacco Use Types Packs/Day Years [...] Description 11/20/2025 3:00 PM EST Office Visit [facility] OPTOMETRY [address] [place] [address] Martha Callejas, OD [address] [place] [address] documented as of this encounter Visit Diagnoses Not on filedocumented in this encounter Additional Health Concerns Assessment Noted Time PHQ-9 Depression Total Score: 6 05/01/20 23 1:05 PM EDT documented as of this encounter Care Teams Lead Furnace Operator Relationship Specialty Start Date End Date Charli Nye MD [address] [place], [place] [phone] PCP - General Internal Medicine 06/16/14 documented as of this encounter
--- OUTSIDE RECORDS SUMMARY | 2025-09-10 17:44 | XMS_ITS | Encounter Summary ---
Author Organization [facility] [place], Address [address] [place] [address] Phone Care Team Providers Care Area Captain Name Role Phone Charli Heller MD Primary Care Provider Unav ailable Reason for Visit * Reason Comments Med Refill Encounter Details Date Type Department Care Team (Late Contact Info) Description 11/24/2021 Refill [facility] [address] [place] [address] Steven Bernal MD [address] [place] [address] Social History Tobacco Use Types [...] Visit [facility] [place], [address] [place] [address] Steven Bernal MD [address] [place] [address] documented as of this encounter Visit Diagnoses Not on filedocumented in this encounter Care Teams Area Captain Relationship Specialty Start Date End Date Charli Heller MD PCP - General 09/16/19 documented as of this encounter
--- OUTSIDE RECORDS SUMMARY | 2025-09-10 17:44 | XMS_ITS | Clinical Summary ---
Author Organization [facility] [place], Address [address] [place] [address] [place] [address] Phone Care Team Providers Care Commissioning Engineer Name Role Phone Charli Heller MD [...] Relation Comments Diabetes Father Heart disease Father [place] Cancer Mother Heart disease Sibling brother CAD [...] Visit [facility] [address] [place] [phone] Steven Bernal MD [address] [facility] [place] [phone] Health Maintenance Due Date Last Done Comments [...] 10/02/2010 Insurance Medicare Medicaid [place] Care Teams Commissioning Engineer Relationship Specialty Start Date End Date Charli Heller MD PCP - General 09/16/19
--- OUTSIDE RECORDS SUMMARY | 2025-09-10 17:44 | XMS_ITS | Encounter Summary ---
Author Organization [facility] [place], Address [address] [place] [address] Phone Care Team Providers Care Manager Plan Name Role Phone Charli Heller MD Primary Care Provider Unav ailable Encounter Details Date Type Department Care Team (Late st Contact Info) Description 12/15/2021 Documentation Only [facility] [address] [place] [address] Steven Bernal MD [address] [place] [address] [place] [address] Social History Tobacco Use Types [...] Visit [facility] [address] [place] [address] Steven Bernal MD [address] [place] [address] [place] [address] documented as of this encounter Visit Diagnoses Not on filedocumented in this encounter Care Teams Manager Plan Relationship Specialty Start Date End Date Charli Heller MD PCP - General 09/16/19 documented as of this encounter
--- OUTSIDE RECORDS SUMMARY | 2025-09-10 17:44 | XMS_ITS | Encounter Summary ---
Author Organization [employer] Address [address] [facility] 7t [place] [address] Care Team Providers Care Senior Informatica Etl Developer Name Role Phone Charli Nye MD Primary Care Provide r Reason for Visit * Reason Onset Date Comments Appointment Request 07/17/2025 Encounter Details Date Type Department Care Team ([facility] st Contact Info) Description 07/17/2025 Telephone [facility] MEDICINE [address] [place] [address] Charli Nye MD [address] [place] [address] Appointment Request Social History Tobacco Use Types [...] from pt requesting to r/s apt with cait. Contact pt at [phone] documented in this encounter Plan of Treatment Upcoming Encounters Date Type Department Care Team (Late st Contact Info) Description 11/20/2025 3:00 PM EST Office Visit [facility] OPTOMETRY [address] [place] [address] Júnior, Martha, OD [address] [place] [address] documented as of this encounter Visit Diagnoses Not on filedocumented in this encounter Additional Health Concerns Assessment Noted Time PHQ-9 Depression Total Score: 1 07/22/20 24 10:33 AM EDT documented as of this encounter Care Teams Senior Informatica Etl Developer Relationship Specialty Start Date End Date Charli Nye MD [address] [place] [address] PCP - General Internal Medicine 06/16/14 documented as of this encounter
--- OUTSIDE RECORDS SUMMARY | 2025-09-10 17:44 | XMS_ITS | Encounter Summary ---
Author Organization [facility] [place], Address [address] [place] [address] Phone Care Team Providers Care Insulation Technician Name Role Phone Charli Heller MD Primary Care Provider Unav ailable Encounter Details Date Type Department Care Team (Late st Contact Info) Description 07/31/2023 Documentation Only [facility] [address] [place] [address] Reginald Correia PA [address] [place] [address] Social History Tobacco Use Types [...] Visit [facility] [address] [place] [address] Steven Bernal MD [address] [facility] [place] [address] documented as of this encounter Visit Diagnoses Not on filedocumented in this encounter Care Teams Insulation Technician Relationship Specialty Start Date End Date Charli Heller MD PCP - General 09/16/19 documented as of this encounter
--- OUTSIDE RECORDS SUMMARY | 2025-09-10 17:44 | XMS_ITS | Encounter Summary ---
Author Organization [facility] [place], Address [address] [place] [address] Phone Care Team Providers Care English Language Learner Tutor Name Role Phone Charli Heller MD Primary Care Provider Unav ailable Encounter Details Date Type Department Care Team (Late st Contact Info) Description 09/30/2024 Documentation Only [facility] [place], [facility] [address] Chantal [address] [place] [address] Kellie Fisher [address] [place] [address] Social History Tobacco Use Types [...] Visit [facility] [place], [address] [place] [address] Steven Bernal MD [address] [facility] [place] [address] documented as of this encounter Visit Diagnoses Not on filedocumented in this encounter Care Teams English Language Learner Tutor Relationship Specialty Start Date End Date Charli Heller MD PCP - General 09/16/19 documented as of this encounter
--- OUTSIDE RECORDS SUMMARY | 2025-09-10 17:44 | XMS_ITS | Encounter Summary ---
Author Organization [facility] [place], Address [address] [place] [address] Phone Care Team Providers Care International Accounting Manager Name Role Phone Charli Heller MD Primary Care Provider Unav ailable Encounter Details Date Type Department Care Team (Late st Contact Info) Description 01/23/2024 Documentation Only [facility] [address] [place] [address] Kellie Fisher [address] [place] [address] Social History Tobacco Use Types [...] Visit [facility] [address] [place] [address] Steven Bernal MD [address] [place] [address] [place] [address] documented as of this encounter Visit Diagnoses Not on filedocumented in this encounter Care Teams International Accounting Manager Relationship Specialty Start Date End Date Charli Heller MD PCP - General 09/16/19 documented as of this encounter
--- OUTSIDE RECORDS SUMMARY | 2025-09-10 17:44 | XMS_ITS | Clinical Summary ---
Author Organization [employer] Address [address] [place] [address] 7[address] [place] [address] Care Team Providers Care Chinese Instructor Name Role Phone Charli Nye MD Primary [...] EL DOLOR DE NENO 01/22/20 23 Active Diclofenac Sodium 1 % gelIndications:Chr onic pain of right wrist APLIQUE AL AREA AFECTADA DOS VECES AL DIDIER 100 g 1 05/16/20 23 Active clonazePAM (KlonoPIN) 0.5 MG tablet [...] mg by mouth Once per day. 11/07/20 19 Active albuterol (2.5 MG/3ML) 0.083% nebulizer solution USE 1 VIAL VIA NEBULIZER EVERY 4-6 HOURS NEEDED FOR WHEEZE/SHORTNESS OF BREATH PA DENIED 05/19/20 24 Active terbinafine (LamISIL) 250 MG tabletIndications: Onychomycosis of great toe Take 1 tablet (250 mg) by mouth Once per day. 30 tablet 2 07/22/20 24 Active loratadine (Claritin) 10 MG tabletIndications: Seasonal allergies TAKE 1 TABLET BY MOUTH EVERY DAY 90 tablet 3 01/16/20 25 Active cholecalciferol (Vitamin D3) 25 MCG (1000 UT) tabletIndications: Low serum vitamin D TAKE 1 TABLET BY MOUTH EVERY MORNING 90 tablet 1 05/14/20 25 Active acetaminophen (Tylenol 8 Hour) 650 MG ER tabletIndications: Pain SWALLOW 1 TAB WHOLE BY MOUTH EVERY 8 HOURS NEEDED WITH WATER. DO NOT BREAK,CRUSH,DISS OLVE OR CHEW 60 tablet 3 05/19/20 25 Active Trelegy Ellipta 200-62.5-25 MCG/ACT aerosol powder Inhale 200 Applications Once per day. 05/01/20 25 Active atorvastatin (Lipitor) 40 MG tabletIndications: Mixed hyperlipidemia TAKE 1 TABLET BY MOUTH EVERY DAY 90 tablet 07/03/20 25 Active albuterol 108 (90 Base) MCG/ACT inhalerIndications :COVID-19 Inhale 2 puffs every 4 (four) hours if needed for wheezing. 18 g 3 07/24/20 25 Active Active Problems Problem Noted Date [...] Plan (07/22/2024 9:36 AM EDT): Seen by Supply Chain Vice President Dr callejas here at [facility] Stable. Patient is still symptomatic for floaters [...] has an appointment scheduled for 2:30 PM Acute pain of left knee 04/03/2024 Assessment & Plan (04/03/2024 4:22 PM [...] pending for 01/10/2024 She was referred to SOFTWARE QUALITY MANAGER seen February s/p biopsy that showed: results of the endometrial biopsy showing inactive endometrium. Assessment & Plan (01/03/2024 10:26 AM EST): Seen by Dr Jonas SAGASTUME Pelvis Transvaginal pending for 01/10/2024 She was referred to SOFTWARE QUALITY MANAGER as well appointment scheduled for February Mild persistent asthma without complication 12/14 Assessment & Plan (01/15/2025 1:01 PM EST): Under the care of Pulmonology, recently switched to Trelegy. She is also on Albuterol Last seen 01/09/2025 by Manjula Luna SURVEY ASSOCIATE Assessment & Plan (07/22/2024 9:34 AM EDT): [...] sonographically. No adnexal masses. Pt seen by SOFTWARE QUALITY MANAGER Dr Mar. Pt was referred to [facility] for Hysterectomy Assessment & Plan (07/17/2023 2:57 [...] cardiac workup in hospital and f w shingle bolt cutter w recent normal eval per pt -warm [...] continue to f/u with her psychotherapist at [facility] ( [facility] ). she denies any active [...] AM EST): Seen in the past by [facility] Urology Tubular adenoma 03/25/2019 Renal cysts, [...] to visit her daughter and grandson in [place] about 2 weeks ago and that has improved her depression. Inappropriate sinus tachycardia 02/01/2017 Assessment & Plan (01/15/2025 1:05 PM EST): Last seen by Cardiology 01/07/2024 On Inderal dose reduced to 160 mg po at hs Water Treatment Technician's impression was that this may be related to anxiety in the setting of a structurally normal heart. Stress test was negative back then Assessment & Plan (07/17/2023 2:47 PM EDT): Last seen by Cardiology 07/02/2023 On Inderal dose reduced to 160 mg po at hs Water Treatment Technician's impression was that this may be related [...] microscopic hematuria, seen in the past at [facility] urolog. They recommended to f/u with [...] microscopic hematuria, seen in the past at [facility]. They recommended to f/u with them on [...] Encounters Date Type Department Care Team Description 09/09/2025 Orders Only [facility] MEDICINE [address] [place] [address] Rosa Galindo FNP Acute pain of left knee (Primary Dx) 09/08/2025 Telephone [facility] MEDICINE [address] [place] [address] Charli Nye MD XR order 08/31/2025 6:20 PM EDT Office Visit [facility] WALK-IN CENTER [address] [place] [address] Rosa Galindo FNP Acute pain of left knee (Primary Dx) 08/31/2025 Travel 07/29/2025 Orders Only [facility] MEDICINE [address] [place] [address] Charli Nye MD 07/24/2025 3:00 PM EDT Office Visit [facility] WALK[facility]IN CENTER [address] [place] [address] OscarSury umana, HEAD MEN'S TENNIS COACH COVID-19 07/24/2025 Travel 07/20/2025 Telephone [facility] MED[facility] [address] [facility] [place] [address] R/S Nutrition appt 07/17/2025 Telephone [facility] MEDICINE [address] [facility] [place] [address] Charli Nye MD Appointment Request 07/10/2025 11:00 AM EDT Office Visit [facility] MEDICINE [address] [facility] [place] [address] Godfrey Carrizales MD 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 Travel 07/05/2025 Travel 07/03/2025 Refill [facility] MED[facility] [address] [facility] [place] [address] Charli Nye MD Mixed hyperlipidemia 06/24/2025 Telephone [facility] MEDICINE [address] [facility] [place] [address] Charli Nye MD Referral from Last 3 Months Immunizations Immunization Administration [...] Sign Reading Time Taken Comments Blood Pressure 144/73 08/31/2025 6:20 PM EDT Pulse 71 08/31/2025 6:20 PM EDT Temperature 35.8 C (96.5 F) 08/31/2025 6:20 PM EDT Respiratory Rate 20 08/31/2025 6:20 PM EDT Oxygen Saturation 98% 08/31/2025 6:20 PM EDT Inhaled Oxygen Concentration - - Weight 91.9 kg (202 lb 9.6 oz) 08/31/2025 6:20 P M EDT Height 165.1 cm (5' 5 ) 07/24/2025 3:32 PM EDT Body Mass Index 33.71 07/24/2025 3:32 PM EDT Plan of Treatment Upcoming Encounters Date Type Department Care Team (Late st Contact Info) Description 11/20/2025 3:00 PM EST Office Visit [facility] OPTOMETRY [address] [place] [address] Júnior, Martha, OD [address] [place] [address] Health Maintenance Due Date Last Done Comments CT Colonography 1969 FIT DNA/Cologuard 1969 FIT 1969 FOBT 1969 HIV Screening 1969 Sigmoidoscopy 1969 Hepatitis C Screening 1987 Hepatitis B Vaccines (1 of 3 - 19+ 3-dose series) 1988 DTaP/Tdap/Td Vaccines (1 - Tdap) 09/22/2016 09/21/2016 COVID-19 Vaccine ( season) 2025 08/25/2022, 10/18/2021, 04/01/2021, Additional history exists Influenza Vaccine (#1) 2025 , 09/27/2023, 08/25/2022, Additional history exists Depression Screening 07/22/2025 07/22/2024, 07/22/20 24 Alcohol/Substance Use Screening 01/15/2026 01/15/2025 SDOH Screening 01/15/2026 01/15/2025 HPV/Cotest 02/09/2026 02/09/2021 Diabetes: Hemoglobin A1C 04/04/2026 04/04/2025, 06/2 Disability Screening 05/19/2026 05/19/2025 Mammogram 07/29/2026 07/29/2025, 07/13, 07/23/2024, Additional history exists Tobacco Screening 08/31/2026 08/31/2025 Cervical Cancer Screening 02/06/2027 Pap Smear 02/06/2027 [...] PM EDT Acute pain of left knee BI MAMMOGRAM SCREENING TOMOSYNTHESIS BILATERAL Routine 07/29/2025 1:20 PM EDT POCT COVID-19 AG LOPEZ ID NOW Routine 07/24/2025 3:46 PM EDT COVID-19 POCT INFLUENZA A (ID NOW RAPID MOLECULAR) Routine 07/24/2025 3:46 PM EDT COVID-19 POCT INFLUENZA B (ID NOW RAPID MOLECULAR) Routine 07/24/2025 3:46 PM EDT COVID-19 HEMOGLOBIN A1C Routine 04/04/2025 7:27 AM EDT Elevated blood sugar LIPID PANEL, STANDARD Routine 09/24/2024 11:39 AM EST PAP SMEAR Routine 02/07/2024 11:05 AM EDT HM COLONOSCOPY Routine 01/18/2024 HPV MRNA E6/E7 Routine 02/09/2021 9:38 AM EDT from Last 3 Months or Most Recently Relevant to Health Maintenance Results * XR Knee 4+ Views Left (09/10/2025 3:12 PM EDT) Anatomical Region Laterality Modality Lower Extremities, Knee Left Radiogra phic Imaging 09/10/2025 3:12 PM EDT Narrative 09/10/2025 3:17 PM EDT [address] [address] XRay Report Signed Patient: Lauren Mcneal MR#: [id number] 1423 : 1970 Acct:[id number] Age/Sex: 55 / F ADM Date: 09/10/25 Loc: HO.HHCX Attending Dr: Charli Rojas MD Ordering Physician: Rosa Galindo Date of Service: 09/10/25 Procedure(s): XR knee LT 4V Accession Number(s): [id number] cc: Charli Rojas MD; Rosa Galindo Reason [...] Rose MD in OV> 09/10/25 1514 DD/ 11 TD/TT: 09/10/251511 Director Telemetry: Procedure Note Donotuseinterpreter, Image - 09/10/2025 [place] [address] XRay Report Signed Patient: Lauren McnealMR#: [id number] 1423 : 1970Acct:[id number] Age/Sex: 55 / FADM Date: 09/10/25 Loc: HO.HHCX Attending Dr: Charli Rojas MD Ordering Physician: Rosa Galindo Date of Service: 09/10/25 Procedure(s): XR knee LT 4V Accession Number(s): [id number] cc: Charli Rojas MD; Rosa Galindo Reason [...] Zuleta MD Signed By: <Electronically signed by Mariana Gregorio OV> 09/10/25 1514 DD/ 1512 TD/TT: 09/10/251511 Director Telemetry: us Rosa Okhipo HEAD MEN'S TENNIS COACH IMG XR PROCEDURES Final Result * BI Mammogram Screening Tomosynthesis Bilateral (07/29/2025 1:20 PM EDT) Anatomical Region Laterality Modality Breast Bilateral Mammography 07/29/2025 1:20 PM EDT Narrative 08/03/2025 12:55 PM EDT [facility] [address] [place] [address] Mammography Report Signed Patient: Lauren Mcneal MR#: [id number] 1423 : 1970 Acct:[id number] Age/Sex: 55 / F ADM Date: 07/29/25 Loc: HO.MAMMO Attending Dr: Charli Rojas MD Ordering Physician: Charli Rojas MD Resu lts: 2Benign Findings Date of Service: 07/29/25 Follow Up: 1 Year From [facility] ina Mammogram Procedure(s): MM tomosynthesis screening BI Accession Number(s): [id number] cc: Charli Rojas MD Reason For Exam: SCREENING EXAMINATION: MM SCREENING DIGITAL BREAST TOMOSYNTHESIS, BILATERAL CLINICAL INFORMATION: Screening. Asymptomatic. COMPARISON: Mammography: Comparison is made with available priors TECHNIQUE: Digital breast mammography with tomosynthesis is performed in both the craniocaudal and mediolateral oblique views along with computer-aided detection (CAD). FINDINGS: There are scattered areas of fibroglandular density (ACR BI-RADS breast composition Category b). Right marker clip. Post surgical changes the right breast are stable. There are no significant masses, abnormal calcifications, [...] mammogram. Electronically signed by: Annie Walter DO 08/03/2025 12:52 PM EDT RP Dictated By: Annie Walter DO Signed By: <Electronically signed by Annie Walter DO in OV> 08/03/25 1252 DD/ 1320 TD/TT: 07/29/25 1340 Director Telemetry: Procedure Note Donotuseinterpreter, Image - 08/03/2025 [facility] [address] [place] [address] Mammography Report Signed Patient: Lauren McnealMR#: [id number] 1423 : 1970Acct:[id number] Age/Sex: 55 / FADM Date: 07/29/25 Loc: HO.MAMMO Attending Dr: Charli Rojas MD Ordering Physician: Charli Rojas MDResu lts: 2Benign Findings Date of Service: 07/29/25Follow Up: 1 Year From Orig inal Mammogram Procedure(s): MM tomosynthesis screening BI Accession Number(s): [id number] cc: Charli Rojas MD Reason For Exam: SCREENING EXAMINATION: MM SCREENING DIGITAL BREAST TOMOSYNTHESIS, BILATERAL CLINICAL INFORMATION: Screening. Asymptomatic. COMPARISON: Mammography: Comparison is made with available priors TECHNIQUE: Digital breast mammography with tomosynthesis is performed in both the craniocaudal and mediolateral oblique views along with computer-aided detection (CAD). FINDINGS: There are scattered areas of fibroglandular density (ACR BI-RADS breast composition Category b). Right marker clip. Post surgical changes the right breast are stable. There are no significant masses, abnormal calcifications, [...] mammogram. Electronically signed by: Annie Walter DO 08/03/2025 12:52 PM EDT RP Dictated By: Annie Walter DO Signed By: <Electronically signed by Annie Walter DO in OV> 08/03/25 1252 DD/ 1320 TD/TT: 07/29/25 1340 Director Telemetry: Charli Lazo MD IMG BI PROCEDURES Fin al Result * Influenza B (ID NOW Rapid Molecular) (07/24/2025 3:46 PM EDT) Influenza B Negative Negative, Indeterminate [facility] Swab 07/24/2025 3:46 PM EDT [facility] POINT OF CARE TEST ENTER/EDIT ORDERABLES Final Result Performing Organization Address [facility] de Phone Number [facility] [address] [place] [phone] * Influenza A (ID NOW Rapid Molecular) (07/24/2025 3:46 PM EDT) Influenza A Negative Negative, Indeterminate [facility] Swab 07/24/2025 3:46 PM EDT [facility] [employer] POINT OF CARE TEST ENTER/EDIT ORDERABLES Final Result Performing Organization Address [facility] Co de Phone Number [facility] [address] [place] [phone] * (ABNORMAL) POCT COVID-19 Ag Lopez ID NOW (07/24/2025 3:46 PM EDT) Coronavirus Antigen PCR Positive (A) Negative, Indeterminate, None Detected, Invalid, Specimen unsatisfactory for evaluation, Weakly Positive, 2+ Swab 07/24/2025 3:46 PM EDT [facility] [employer] POINT OF CARE TEST ENTER/EDIT ORDERABLES Final Result * Hemoglobin A1c (04/04/2025 7:27 AM EDT) Hemoglobin A1c 5.9 <6.0 % [facility] Comment:Hemoglobin A1C Refer ence Range Adults: 4.8 - 6.0 % Non diabetic: < 6.0 % Goal: < 7.0 %Additional Action Suggested: > 8.0 %Note: Hemoglobin A1c results are invalid for patients with abnormal amounts of HbF. Blood transfusions may impact the HbA1c concentration in the patient sample. Estimated Average Glucose 123 mg/dL [facility] Comment:eAG = Estimated ave rage glucose which is %A1C expressed asaverage glucose, using the formula of the B8W-NblqtpeCggvzhb Glucose study (ADAG), Diabetes Care, Vol.31,#8,Jun. 2007 Blood Venous blood specimen / Unknown 04/04/2025 7:27 AM EDT 04/04/2025 7:28 AM EDT Charli Lazo MD LAB BLOOD ORDERABLES Final Result [facility] [address] [place] [phone] * Lipid Panel, Standard (09/24/2024 11:39 AM EST) Triglycerides 86 <150 mg/dL [facility] Comment:Desirable Triglyceri de: less than 150 mg/dLBorderline High Triglyceride 150-199 mg/dLHigh Triglyceride: 200-499 mg/dLVery High Triglyceride: greater than or equal to 5OO mg/dL Cholesterol 147 <200 mg/dL [facility] Comment:Desirable Cholestero l: less than 200 mg/dLBorderline High Cholesterol: 200-239 mg/dLHigh Cholesterol: greater than 239 mg/dL LDL Cholesterol Calculated 76 <100 mg/dL [facility] Comment:Desirable LDL: less than 100 mg/dLNear Optimal/Above Optimal LDL: 110- 129 mg/dLBorderline High LDL: 130-159 mg/dLHigh LDL: 160-189 mg/dLVery High LDL: greater than or equal to 190 mg/dL HDL Cholesterol 54 >40 mg/dL [facility] Comment:Desirable HDL: great er than 40 mg/dL Note: This HDL assay may give artificially low results in patients with liver disease. 09/24/2024 11:3 9 AM EST 09/24/2024 11:39 AM EST us Generic External Data Provider LAB BLOOD ORDERAB LES Final Result Performing Organization Address City/State/[facility] Co de Phone Number [facility] [address] [place] [phone] * Pap Smear (02/07/2024 11:05 AM EDT) 02/07/2024 11:0 5 AM EDT 02/08/2024 9:30 AM EDT Narrative [facility] - 02/19/2024 9:04 AM EDT ----- ------- Name: Lauren Mcneal Age/Sex: 53/F : 1970 Unit#: [id number] Attend Dr: Bruno Mar MD Re02/07/24 Status: DEP REF Location: [facility] Disch: ----- ------- SPEC : [id number] RECD: 02/08/24 STATUS: JB SHER NUM: [id number] INGRID: 02/07/24-1105 [facility] [address]: Bruno Mar MD ENTERED: 02/08/24-1019 SP TYPE: Pap Smr OT DR: Charli Rojas MD ORDERED: Pap Smear Interpretation Satisfactory for evaluation. Negative for intraepithelial lesion or malignancy. Abundant inflammation. HPV mRNA E6/E7: NOT DETECTED This assay detects E6/E7 viral messenger RNA (mRNA) from 14 high-risk HPV types (16, 18, 31, 33, 35, 39, 45, 51, 52, 56, 58, 59, 66, 68) HPV testing performed by [employer] [facility], [place], [place]. See reference laboratory portion of the EMR for entire report. Clinical Information LMP: Postmenopausal Previous PAP test: 3 yrs ago, Unknown findings Other history:Postmenopausal bleeding Material Received ThinPrep-Cervical Copies To: Charli Rojas MD [address] [place] [phone] Bruno Mar MD [address] [place], [place] [address]Reina [address] [address] ----- ------- Signed (signature on file) CELENA Kaur (ASC) 02/19/24 0904 ----- ------- END OF REPORT us Generic External Data Provider LAB CYTOLOGY HO CHIN Final Result [facility] [address] [place] [phone] [phone] * Colonoscopy (01/18/2024) Colonoscopy Normal Normal Historical Provider MD HEALTH MAINTENANCE Final Result * HPV mRNA E6/E7 (02/09/2021 9:38 AM EDT) HPV nRNA E6/E7 Not Detected Not Detected [facility] Comment: Methodology: Set Rider-Mediated Amplification This assay detects E6/E7 viral messenger RNA (mRNA) from 14 high-risk HPV types (16,18,31,33,35,39,45,51,52,56,58,59,66,68). The analytical performance characteristics of this assay have been determined by [facility]. The modifications have not been cleared or approved by the FDA. This assay has been validated pursuant to the CLIA regulations and is used for clinical purposes. For additional information, please refer to http://education.Semanticator/faq/IIF572r8 (This link if provided for information/ educational purposes only.) 02/09/2021 9:38 AM EDT us [facility] LAB BLOOD ORDERABLES Bertha l Result Performing Organization Address City/[facility]/ZIP Co de Phone Number [facility] [address] from Last 3 Months or Most Recently Relevant to Health Maintenance Insurance MEDICARE [facility] STANDARD Care Teams Chinese Instructor Relationship Specialty Start Date End Date Charli Nye MD [address] [place] [phone] PCP - General Internal Medicine 06/16/14
--- OUTSIDE RECORDS SUMMARY | 2025-09-10 17:44 | XMS_ITS | Clinical Summary ---
Author Organization [employer] [facility] ity Address [address] [place] [address] Care Team Providers Care Nailer Machine Name Role Phone Unavailable Primary Care Provider [...] Last Done Comments Breast Cancer Screening 1969 Colorectal Cancer Screening: Colonoscopy 1969 DTaP,Tdap,and Td Vaccines (1 - Tdap) 1988 Hepatitis B Vaccines (1 of 3 - 19+ 3-dose series) 1988 Cervical Cancer Screening: P ap Smear 1990 Pneumococcal Vaccine: 50+ Ye ars (1 of 1 - PCV) 2019 Zoster Vaccines (1 of 2) 2019 HIV Screening 12/11/2023 Hepatitis C Screening 12/11/2023 Social Influencers of Health Screening 12/11/2023 Depression Screening 11/12/2024 COVID-19 Vaccine (1 - 2023-2 5 season) 2025 Influenza Vaccine (#1) 2025 RSV Immunization Adult Patie nts (1 - 1-dose 75+ series) 2044 HIB Vaccines Aged Out No longer eligi [...]
--- OUTSIDE RECORDS SUMMARY | 2025-09-10 17:44 | XMS_ITS | Encounter Summary ---
Author Organization [facility], Address [address] [place] [address] Phone Care Team Providers Care Labor Utilization Superintendent Name Role Phone Charli Heller MD Primary Care Provider Unav ailable Encounter Details Date Type Department Care Team (Late st Contact Info) Description 03/15/2023 Documentation Only [facility] [address] [place] [address] Reginald Correia PA [address] [place] [address] Social History Tobacco Use Types [...] Visit [facility] [address] [place] [address] Steven Bernal MD [address] [place] [address] documented as of this encounter Visit Diagnoses Not on filedocumented in this encounter Care Teams Labor Utilization Superintendent Relationship Specialty Start Date End Date Charli Heller MD PCP - General 09/16/19 documented as of this encounter
== END 2025-09-10 14:50 | disposition home or self-care (01) ==
LOC: HO.HHCX 14:49
PROVIDERS: PCP Internal Medicine; Visit Provider Internal Medicine
DX: M25.562 Pain in left knee (principal)
CPT/HCPCS: 73564

== ENCOUNTER → 2025-09-10 14:53 | Outpatient (BNV) | payer MEDICARE, MEDICAID, SELFPAY | PROVIDERS: PCP Internal Medicine; Visit Provider Radiology Diagnostic Radiology | DX: M25.562 Pain in left knee (principal) | CPT/HCPCS: 73564 ==

== ENCOUNTER 2025-09-26 09:17 | Outpatient (REF) | payer MEDICARE, MEDICAID, SELFPAY ==
[2025-09-26 10:18] LABS: Cholesterol 164 mg/dL (<200); HDL Cholesterol 55 mg/dL (>40); Triglycerides 91 mg/dL (<150)
== END 2025-09-26 09:18 | disposition home or self-care (01) ==
LOC: HO.LAB 09:17
PROVIDERS: PCP Internal Medicine; Visit Provider Internal Medicine
DX: E78.2 Mixed hyperlipidemia (principal)
CPT/HCPCS: 36415; 80061